=== PATIENT | male | born 1960 | race Caucasian/White ===

== ENCOUNTER → 2016-11-06 | Outpatient (CLI) | payer OTHER ==
--- NOTE | 2016-11-06 14:30 | XR ---
EXAMINATION TYPE: XR shoulder complete RT DATE OF EXAM: 11/06/2016 CLINICAL HISTORY: Lifting injury with pain. TECHNIQUE: Three views of the right shoulder are obtained. COMPARISON: None. FINDINGS: There is no acute fracture/dislocation evident in the right shoulder. The acromioclavicul ar and glenohumeral joint spaces appear within normal limits. The visualized ribs are intact and unr emarkable. IMPRESSION: There is no acute fracture or dislocation in the right shoulder.
--- NOTE | 2016-11-06 14:32 | XR ---
EXAMINATION TYPE: XR cervical spine comp DATE OF EXAM: 11/06/2016 TECHNIQUE: Frontal, lateral, oblique, swimmers, and open mouth view of the cervical spine are obtaine d. HISTORY: S13.4XXA cervical strain COMPARISON: None FINDINGS: The cervical spine is visualized in its entirety from C1 thru the top of T1 level, it is s atisfactory in alignment without evidence of acute fracture or dislocation. The pre-vertebral soft t issue appears within normal limits. The C1-C2 articulation is within normal limits on the open mouth view. Vertebral body heights are maintained. There is mild disc space narrowing C5-C6 level. There is more moderate disc space narrowing C6-C7 level. No significant spurring is seen. The oblique images are wi thin normal limits. Overlying soft tissue is unremarkable. IMPRESSION: No acute fracture or dislocation is seen in the cervical spine. Degenerative changes C5- C6 and C6-C7 level are appreciated.
== END ==
LOC: RADXRMAIN 14:05
PROVIDERS: ATTEND Emergency Medicine
DX: M47.812 Spondylosis without myelopathy or radiculopathy, cervical region (principal); M25.511 Pain in right shoulder
CPT/HCPCS: 72050

== ENCOUNTER → 2017-04-08 | Outpatient (CLI) | payer MEDICAID ==
[2017-04-08 10:46] LABS: HCT 40.2 % (39.0-53.0); HGB 13.9 gm/dL (13.0-17.5); MCH 30.6 pg (25.0-35.0); MCHC 34.6 g/dL (31.0-37.0); MCV 88.4 fL (80.0-100.0); Mean Platelet Volume 9.6; RBC 4.54 m/uL (4.30-5.90); WBC 3.5 k/uL (3.8-10.6)
[2017-04-08 10:59] LABS: ALT 34 U/L (21-72); AST 23 U/L (17-59); Anion Gap 12 mmol/L; Blood Urea Nitrogen 22 mg/dL (9-20); Calcium 10.2 mg/dL (8.4-10.2); Carbon Dioxide 25 mmol/L (22-30); Chloride 106 mmol/L (98-107); Glucose 110 mg/dL (74-99); Potassium 4.4 mmol/L (3.5-5.1); Sodium 143 mmol/L (137-145)
[2017-04-08 11:21] LABS: Prostate Specific Antigen 0.33 ng/mL (0.00-4.00)
[2017-04-11 21:45] LABS: Testosterone, Free, LC/MS/MS 6.3 pg/mL (46.0-224.0)
== END | disposition home or self-care (01) ==
LOC: LABWHC1 10:09
PROVIDERS: ATTEND Family Medicine
DX: Z00.01 Encounter for general adult medical examination with abnormal findings (principal)
CPT/HCPCS: 36415; 80048; 82040; 84153; 84270; 84403; 84450; 84460; 85027

== ENCOUNTER → 2019-03-23 | Outpatient (CLI) | payer OTHER | END | disposition home or self-care (01) | LOC: LABPAT 11:37 | PROVIDERS: ATTEND Orthopaedic Surgery | DX: Z01.812 Encounter for preprocedural laboratory examination (principal) | CPT/HCPCS: 87070 ==

== ENCOUNTER 2019-03-29 10:28 | Observation (INO) | payer MEDICAID, OTHER ==
[2019-03-23 10:18] VITALS: BMI 46.1
--- NOTE | 2019-03-28 11:38 | HP ---
HISTORY AND PHYSICAL REASON FOR ADMISSION: Surgery scheduled for 03/29/2019 HISTORY OF PRESENT ILLNESS: Dion Mcghee is a 58-year-old patient seen with symptomatic left knee osteoarthritis. Treatment options were discussed with him. He elected to proceed with left total knee arthroplasty. Consent was obtained. Medical clearance provided by Dr. Eddy Hernandez. PAST MEDICAL HISTORY: Asthma. PAST SURGICAL HISTORY: Right total knee arthroplasty, left shoulder rotator cuff repair. MEDICATIONS: Advair, ProAir, Singulair. ALLERGIES: BACTRIM AND IODINE DYE. SOCIAL HISTORY: Denies tobacco use. PHYSICAL EXAMINATION: Evaluation of the left knee: His range of motion is -2 to 115. There is mild to moderate effusion present. He has tenderness along the medial joint line. Crepitus along the medial patellofemoral compartments with range of motion. There is pain with patellofemoral compression. Ligaments are stable. Hip rotation is without pain. His distal neurovascular exam is intact. RADIOGRAPHS: Left knee radiographs reveal severe osteoarthritic changes. IMPRESSION: 1. Left knee osteoarthritis. 2. Asthma. PLAN: Left total knee arthroplasty. Surgery scheduled for 03/29/2019. MMODL / IJN: [id number] /
[~2019-03-29 10:28] MED LIST: ACETAMINOPHEN TAB 500 MG TAB PO ONE; DEXAMETHASONE SOD PHOSPHATE 10 MG/ML 1 ML VIAL IV ONE; LIDOCAINE 1% 20 ML VIAL (10MG/ML) FOR IV START INTRADERMA PRN; MELOXICAM 7.5 MG TAB PO ONE; MIDAZOLAM 2 MG/2 ML VIAL IV PRN; ONDANSETRON 4 MG/2 ML VIAL IVP ONE; TRANEXAMIC ACID 1,000 MG in SODIUM CHLORIDE 0.9% 100 ML IVPB ONE; ceFAZolin 3 GM in SODIUM CHLORIDE 0.9% 100 ML IVPB ONE; fentaNYL (PF) 50 MCG/ML 2 ML AMP IV PRN
[2019-03-29] MEDS: LACTATED RINGERS 1,000 ML IV SCH ×4 (11:06→23:36)
[2019-03-29] MEDS ORDERED: MIDAZOLAM 2 MG/2 ML VIAL IV ONE (11:45)
[2019-03-29 11:46] LABS: HGB 15.1 gm/dL (13.0-17.5); MCH 30.3 pg (25.0-35.0); MCHC 33.7 g/dL (31.0-37.0); MCV 90.1 fL (80.0-100.0); Platelet Count 229 k/uL (150-450); WBC 6.5 k/uL (3.8-10.6)
[2019-03-29] MEDS ORDERED: PROPOFOL 10 MG/ML 20 ML VIAL IV ONE (12:09)
[2019-03-29] MEDS ORDERED: MIDAZOLAM 2 MG/2 ML VIAL ONE (12:09)
[2019-03-29] MEDS ORDERED: diphenhydrAMINE 50 MG/ML 1 ML VIAL ONE (12:09)
[2019-03-29] MEDS ORDERED: fentaNYL (PF) 50 MCG/ML 2 ML AMP ONE (12:09)
[2019-03-29] MEDS ORDERED: ceFAZolin 3,000 MG in SODIUM CHLORIDE 0.9% IRRIGATIO 3,000 ML IRRIGATION ONE (12:15)
[2019-03-29] MEDS: ROPIVACAINE 246.25 MG, EPINEPHrine 0.5 MG, KETOROLAC 30 MG, cloNIDine HCL/PF 80 MCG, WA... MISCELLANE ONE ×10 (12:46→13:31)
[2019-03-29] MEDS ORDERED: HYDROmorphone 0.5 MG/0.5 ML SYRINGE IVP PRN ×2 (14:26)
[2019-03-29] MEDS ORDERED: ONDANSETRON 4 MG/2 ML VIAL IVP PRN (14:26)
[2019-03-29] MEDS ORDERED: NALOXONE 0.4 MG/ML 1 ML VIAL IV PRN (14:26)
[2019-03-29] MEDS ORDERED: HYDROcodone/APAP 5-325MG 1 EACH TAB PO PRN (14:26)
--- NOTE | 2019-03-29 14:26 | P.OP ---
Date of Procedure: 03/29/19 Preoperative Diagnosis: Left knee osteoarthritis Postoperative Diagnosis: Left knee osteoarthritis Procedure(s) Performed: Left total knee arthroplasty Implants: 1. Microport size 7 left cemented femur 2. Microport size 8 cemented tibial baseplate 3. Microport size 8 CS 14 mm polyethylene tibial insert 4. Microport advance 38 mm all polyethylene cemented patella Anesthesia: local, spinal Surgeon: Mat Escobar Sort Supervisor #1: López Rivera Estimated Blood Loss (ml): 50 Pathology: other (Bone) Condition: stable Disposition: PACU Indications for Procedure: 58-year-old patient seen with symptomatic left knee osteoarthritis. After treatment options were discussed, he elected to proceed with total knee arthroplasty. Operative Findings: See description of procedure Description of Procedure: Patient was taken to the operative suite. Patient underwent a spinal anesthetic by the department of anesthesia. Patient was given preoperative IV intake antibiotics and TXA. A well-padded tourniquet was placed about the [] lower extremity. The lower extremity was then prepped and draped in the normal sterile orthopedic fashion. The extremity was elevated, a tourniquet was insufflated to 300. A standard anterior incision was made sharply through skin. Dissection was taken down through the subcutaneous soft tissues down to the extensor mechanism. A medial arthrotomy was performed, patella was everted and knee was flexed. There was advanced osteoarthritis noted. I introduced my distal intramedullary femoral drill. I then introduced the distal femoral cutting jig. Memo PENA secured the cutting jig with 2 pins. I held retractors in position while Memo PENA performed the distal femoral resection through the guide area we now removed her distal femoral cutting guide. We now placed our 4-in-1 femoral cutting block and positioned and it was secured with 2 pins by Memo PENA while I held the block in position. The distal femoral finishing was now completed. A proximal tibial cutting guide was positioned. I held the guide in the appropriate position with both hands well Memo PENA inserted stabilizing pins into the guide. Proximal tibial cut was made. We now placed a trial femoral component into position, along with an appropriate size tibial tray and insert. We now took the knee through range of motion and had full extension good flexion and good overall soft tissue balance noted. The patella was everted and stabilized with 2 towel clips held by Memo PENA while I performed a flush with patellar quad tendon utilizing a fresh sawblade. We templated the patella, appropriate drill holes were made. An appropriate trial patella was positioned, knee was taken through full range of motion with the patella tracking very nicely. The trial patella was removed. Drill holes were made through the femoral component. All trial components were removed after marking off the appropriate rotation of the tibia. Retractors were now positioned along the proximal tibia. An appropriate keel punch was made with the appropriate size tibial guide by myself on Memo PENA assisted by holding retractors. At this point appropriate size implants were chosen and opened. The joint was irrigated copiously with pulse lavage mechanical irrigation. The posterior capsule was infiltrated with local analgesic. The wo und was irrigated with pulse lavage mechanical irrigation. We mixed antibiotic methylmethacrylate. We placed the knee into flexion. We placed multiple retractors assisted by Memo PENA to expose the proximal tibia. Once the methyl methacrylate was ready, the tibial component was cemented into place removing any excess methylmethacrylate form by both myself and Memo PENA. The femoral component was cemented into place removing the removing any excess methylmethacrylate performed by both myself and Memo PENA. We then inserted the appropriate size polyethylene tibial insert. We made sure that it was locked into position. We took the knee into full extension, and then back in a flexion making sure we had removed any excess methylmethacrylate. The patellar component was then cemented down and secured with clamp. Excess methylmethacrylate removed. We kept the knee in full extension, patellar clamp in position until methylmethacrylate had hardened. Once it had hardened the patellar clamp was removed. The knee was taken through full range of motion. The patella tracked nicely. There was good soft tissue balancing. The tourniquet was now released. Additional hemostasis was achieved via electrocautery. A second gram of TXA was given. The wound again was irrigated with pulse lavage mechanical irrigation. The superficial soft tissues were infiltrated local analgesic. The extensor mechanism was repaired with Vicryl. We checked the repair with range of motion and it was stable. The subcutaneous soft tissues were repaired with Vicryl in layers. The skin was approximated with pernio/Dermabond. Sterile dressings were applied followed by loose web roll and Wilfrid bandage. The patient was transferred to a bed, and taken to recovery in stable and satisfactory condition. Memo PENA assisted with this complex procedure.
[2019-03-29] MEDS ORDERED: LACTATED RINGERS 1,000 ML IV ONE (14:35)
--- NOTE | 2019-03-29 15:18 | XR ---
EXAMINATION TYPE: XR knee limited LT DATE OF EXAM: 03/29/2019 COMPARISON: 01/08/2018 TECHNIQUE: Two views submitted HISTORY: Post op FINDINGS: There is a prosthetic knee in near anatomic alignment. There is soft tissue edema and emphysema. IMPRESSION: 1. Postoperative change. Appears in near-anatomic alignment
[2019-03-29] MEDS: HYDROcodone/APAP 7.5-325MG 1 EACH TAB PO PRN ×2 (17:13→23:37)
[2019-03-29] MEDS: HYDROmorphone 1 MG/ML 1 ML SYRINGE IVP PRN ×2 (17:58→21:12)
[2019-03-29] MEDS: ceFAZolin 3 GM in SODIUM CHLORIDE 0.9% 100 ML IVPB SCH (20:24)
[2019-03-29] MEDS ORDERED: SENNOSIDES-DOCUSATE SODIUM 1 EACH TAB PO SCH (21:00)
[2019-03-29] MEDS ORDERED: MONTELUKAST 10 MG TAB PO SCH (21:00)
[2019-03-30] MEDS: HYDROmorphone 1 MG/ML 1 ML SYRINGE IVP PRN ×3 (01:04→09:24)
[2019-03-30] MEDS: ceFAZolin 3 GM in SODIUM CHLORIDE 0.9% 100 ML IVPB SCH (03:23)
[2019-03-30] MEDS ORDERED: ENOXAPARIN 30 MG/0.3 ML SYRINGE SQ SCH (06:00)
[2019-03-30] MEDS: LACTATED RINGERS 1,000 ML IV SCH (06:40)
[2019-03-30 07:47] LABS: Basophils % (A) 0 %; Eosinophils % (A) 0 %; HCT 39.9 % (39.0-53.0); HGB 12.9 gm/dL (13.0-17.5); Lymphocytes # (A) 1.4 k/uL (1.0-4.8); Lymphocytes % (A) 11 %; MCH 29.6 pg (25.0-35.0); MCHC 32.3 g/dL (31.0-37.0); MCV 91.5 fL (80.0-100.0); Mean Platelet Volume 10.4; Monocytes # (A) 0.7 k/uL (0-1.0); Monocytes % (A) 6 %; Neutrophils # (A) 10.3 k/uL (1.3-7.7); Neutrophils % (A) 82 %; RBC 4.36 m/uL (4.30-5.90); RDW 13.2 % (11.5-15.5); WBC 12.6 k/uL (3.8-10.6)
[2019-03-30] MEDS ORDERED: SYMBICORT 80-4.5 MCG INHALER INHALATION SCH (08:00)
[2019-03-30 08:25] VITALS: BP 102/65; PULSE 66; RESP 16; TEMP 98
[2019-03-30] MEDS: HYDROcodone/APAP 7.5-325MG 1 EACH TAB PO PRN (08:25)
[2019-03-30] MEDS ORDERED: ESCITALOPRAM 10 MG TAB PO SCH (09:00)
[2019-03-30] MEDS ORDERED: LORATADINE-PSEUDOEPH 5-120 MG 1 EACH TAB.ER.12H PO SCH (09:00)
[2019-03-30] MEDS ORDERED: HYDROcodone/APAP 7.5-325MG 1 EACH TAB PO PRN (09:56)
--- NOTE | 2019-03-30 12:17 | P.PN ---
Subjective Progress Note Date: 03/30/19 Principal diagnosis: Status post left total knee arthroplasty Patient evaluated at bedside, he is resting comfortably. Patient has no acute complaints at this time. He's done well with physical therapy, he started on stairs. Denies any chest pain, shortness of breath, fever or chills. Objective - Vital Signs Vital signs: Vital Signs Temp 98 F 03/30/19 07:00 Pulse 66 03/30/19 07:00 Resp 16 03/30/19 07:00 BP 102/65 03/30/19 07:00 Pulse Ox 96 03/30/19 07:00 Intake & Output 03/29/19 03/30/19 03/30/19 18:59 06:59 18:59 Intake Total 1601 Output Total 50 1650 Balance 1551 -1650 Weight 159 kg Intake: IV 1601 Output: Urine 1650 Estimated Blood Loss 50 Other: Voiding Method Urinal # Voids 1 1 - Exam Left lower extremity: Incision is clean, dry, and intact. The exofin fusion tape is in good condition. There is minimal soft tissue swelling and ecchymosis surrounding the medial and lateral aspects of the incision. Calf is soft, no tenderness with palpation. Plantar flexion, dorsiflexion, EHL, FHL are intact. Sensory exam to light touch throughout the extremity is intact, dorsal pedis pulses 2+. - Labs CBC & Chem 7: 03/30/19 06:34 Labs: Abnormal Lab Results - Last 24 Hours (Table) 03/30/19 Range/Units 06:34 WBC 12.6 H (3.8-10.6) k/uL Hgb 12.9 L (13.0-17.5) gm/dL Neutrophils # 10.3 H (1.3-7.7) k/uL Assessment and Plan Plan: Assessment: Post op day #1 s/p left tka Plan: Pain control, [place] 7.5mg/325mg for discharge GI/DVT prophylaxis, aspirin 81 mg twice a day discharge Wound care instructions discussed Icing and elevating techniques discussed Physical therapy and nursing after discharge Medical recommendations Plan for discharge home today Time with Patient: Less than 30
--- NOTE | 2019-03-30 12:20 | P.DS ---
Providers Date of admission: 03/30/19 03:25 Expected date of discharge: 03/30/19 Attending physician: Mat Escobar Consults: 03/29/19 14:26 Consult Physician Routine Consulting Provider: Afshan Rankin Consult Reason/Comments: Medical management Do you want consulting provider notified?: Yes Primary care physician: [facility] Course: Date of admission: 03/29/2019 Date of discharge: 03/30/2019 Admission diagnosis: Status post left total knee arthroplasty Discharge diagnosis: Same Attending physician: Dr. Escobar Surgical procedures: Left total knee arthroplasty Brief history: Patient is a 58-year-old male with a history of progressive primary left knee osteoarthritis. At this point patient has failed conservative treatment measures and has opted to proceed with a elective left total knee arthroplasty. Hospital course: Details of patient's surgery can be found in operative report. Patient tolerated the procedure well and was subsequently transported to orthopedic floor. Patient's orthopeidc and medical care was provided daily. Patient had daily laboratory tests performed for evaluation of overall blood counts. Patient had daily physical therapy to include strengthening range of motion as well as education with walker ambulation. Patient had daily CPM usage as part of their physical therapy program. Patient was treated with Lovenox for their postoperative DVT prophylaxis during their inpatient stay. Patient was noted to have a relatively uneventful postoperative course. Patient reported satisfactory pain control with oral pain medications by postoperative day 0. Patient showed satisfactory progress with physical therapy. Patient moved steadily through the program and had no difficulty meeting the goals by postoperative day 1. Given patient's otherwise satisfactory course and having met physical therapy goals, plan is to discharge patient home on postoperative day 1. Discharge condition/disposition: Patient will be discharged home in stable condition. Discharge medications: Instructions are given on resumption of patient's normal daily medications per primary care recommendation, in addition patient will be prescribed [place] 7.5 mg/325 mg, aspirin 81 mg. Discharge instructions: 1. Wound care and infection precautions, keep incision dry and covered while showering, no lotions, creams, moisturizers. No soaking, tubs, pools, hottubs. Do not scrub over the incision. 2. Weight-bear as tolerated with walker / cane until follow-up. 3. Ice and elevate when necessary. Do not exceed 20 minutes per hour with ice pack. 4. Utilize compression sleeve until seen at first follow up appointment. 5. Visiting nursing care. 6. Home physical therapy including home CPM. 7. Pain meds and anticoagulants per prescription. 8. Pain medication has potential to cause constipation. Increase oral fluid and fiber intake. Contact primary care provider if you have not had a bowel movement within 48 hours after discharge 9. No anti-inflammatory medication until discussed at first post operative visit, this including Motrin, Aleve, Mobic, Diclofenac. 10. Follow up in office at 2 weeks postop with Memo Rivera PA-C 11. Follow up with your primary care doctor 7-10 days after discharge. 12. Contact [facility] with any questions, . Procedures: Left total knee arthroplasty Patient Condition at Discharge: Good Plan - Discharge Summary Discharge Rx Participant: Yes New Discharge Prescriptions: New Aspirin [Adult Low Dose Aspirin EC] 81 mg PO BID #60 tablet. HYDROcodone/APAP 7.5-325MG [[place] 7.5] 1 - 2 each PO Q6HR PRN #56 tab PRN Reason: Pain No Action Albuterol Nebulized [Ventolin Nebulized] 2.5 mg INHALATION RT-QID PRN PRN Reason: Shortness Of Breath Fluticasone/Salmeterol [Advair 250-50 Diskus] 2 puff INHALATION BID Albuterol Sulfate [Proair Hfa] 2 puff INHALATION Q4HR PRN PRN Reason: Shortness Of Breath EPINEPHrine (Auto Inject) [Epipen] 0.3 mg IM ONCE PRN PRN Reason: Anaphylaxis Loratadine-Pseudoeph 10-240 mg [Claritin-D 24 Hr] 1 tab PO DAILY Fluticasone Nasal [place] [Flonase Nasal [place]] 1 spray EA NOSTRIL DAILY PRN PRN Reason: Allergy Symptoms Naproxen 500 mg PO BID PRN PRN Reason: Pain Ibuprofen [Motrin] 800 mg PO Q8H PRN PRN Reason: Pain Montelukast [Singulair] 10 mg PO HS Furosemide [Lasix] 10 mg PO DAILY PRN PRN Reason: Edema Escitalopram Oxalate [Lexapro] 10 mg PO DAILY Discharge Medication List Albuterol Nebulized [Ventolin Nebulized] 2.5 mg INHALATION RT-QID PRN 07/10/13 [History] Albuterol Sulfate [Proair Hfa] 2 puff INHALATION Q4HR PRN 07/10/13 [History] Fluticasone/Salmeterol [Advair 250-50 Diskus] 2 puff INHALATION BID 07/10/13 [History] EPINEPHrine (Auto Inject) [Epipen] 0.3 mg IM ONCE PRN 07/17/14 [History] Fluticasone Nasal [place] [Flonase Nasal [place]] 1 spray EA NOSTRIL DAILY PRN 07/17/14 [History] Loratadine-Pseudoeph 10-240 mg [Claritin-D 24 Hr] 1 tab PO DAILY 07/17/14 [History] Escitalopram Oxalate [Lexapro] 10 mg PO DAILY 03/23/19 [History] Furosemide [Lasix] 10 mg PO DAILY PRN 03/23/19 [History] Ibuprofen [Motrin] 800 mg PO Q8H PRN 03/23/19 [History] Montelukast [Singulair] 10 mg PO HS 03/23/19 [History] Naproxen 500 mg PO BID PRN 03/23/19 [History] Aspirin [Adult Low Dose Aspirin EC] 81 mg PO BID #60 tablet. 03/30/19 [Rx] HYDROcodone/APAP 7.5-325MG [[place] 7.5] 1 - 2 each PO Q6HR PRN #56 tab 03/30/19 [Rx] Follow up Appointment(s)/Referral(s): [facility], [REFERRING] - López Rivera, PAC [PHYSICIAN [employer] SUPERINTENDENT] - 2 Weeks Activity/Diet/Wound Care/Special Instructions: *Please call [facility] once home to arrange delivery of continuous passive motion (CPM) machine: [phone] Orthopedic Discharge Instructions: 1. Wound care and infection precautions, keep incision dry and covered while showering, no lotions, creams, moisturizers. No soaking, pools, hot tubs. Do not scrub over incision. 2. Weight-bear as tolerated with walker / cane until follow-up. 3. Ice and elevate when necessary. Do not exceed 20 minutes per hour with ice pack. 4. Utilize compression sleeve until seen at first follow up appointment. 5. Pain meds and anticoagulants per prescription. 6. Pain medication has potential to cause constipation. Increase oral fluid and fiber intake. Contact primary care provider if you have not had a bowel movement within 48 hours after discharge. 7. No anti-inflammatory medication until discussed at first post operative visit, this including Motrin, Aleve, Mobic, Diclofenac. 8. Follow up in office at 2 weeks postop with Memo Rivera PA-C 9. Follow up with your primary care doctor 7-10 days after discharge. 10. Contact [facility] with any questions, . Discharge Disposition: HOME WITH HOME HEALTH SERVICES
--- NOTE | 2019-03-31 06:28 | CONS ---
CONSULTATION REASON FOR CONSULTATION: Advice regarding asthma, DJD and other medical issues requested by Dr. Escobar. HISTORY OF PRESENT ILLNESS: This 58-year-old gentleman with a past medical history of asthma, history of DJD, history of Klinefelter syndrome, history of depression being followed by Dr. Hernandez in the outpatient setting admitted with left total knee arthroplasty. The patient is being closely monitored. There is no history of fever, rigors. No history of headache, loss of consciousness, chest pain, palpitations, hematochezia or melena at this time. PAST MEDICAL HISTORY: Asthma, DJD, history of Klinefelter syndrome, history of renal carcinoma with surgery, history of joint replacement. MEDICATIONS: Home medications are reviewed and include: 1. Lexapro 10 mg p.o. daily. 2. Naprosyn 500 mg b.i.d. p.r.n. 3. Singulair 10 mg at bedtime. 4. Claritin-D 1 p.o. daily. 5. Motrin 800 mg p.o. q.8 p.r.n. 6. Lasix 10 mg daily p.r.n. 7. Advair 250/50 two 2 puffs b.i.d. 8. Flonase daily p.r.n. 9. EpiPen 0.3 p.r.n. 10.ProAir. 11.Ventolin 2.5 q.i.d. p.r.n. 12.[place] 7.5 one to two q.6 p.r.n. 13.Aspirin 81 mg p.o. b.i.d. ALLERGIES: IODINATED CONTRAST, SHELLFISH and BACTRIM. FAMILY HISTORY: History of colon cancer in the family. SOCIAL HISTORY: No history of smoking. No history of alcohol intake. REVIEW OF SYSTEMS: ENT: No diminished hearing or diminished vision. CARDIOVASCULAR SYSTEM: No angina. RESPIRATORY SYSTEM: As mentioned earlier. GI: No nausea. : No dysuria. NERVOUS SYSTEM: No numbness or weakness. ALLERGY/IMMUNOLOGY: As mentioned earlier. MUSCULOSKELETAL: As mentioned earlier. HEMATOLOGY: No history of anemia. ENDOCRINE: No history of diabetes or hypothyroidism. CONSTITUTIONAL: As mentioned earlier. DERMATOLOGY: Negative. RHEUMATOLOGY: Negative. PSYCHIATRY: As mentioned earlier. PHYSICAL EXAMINATION: The patient is alert and oriented x3. The pulse is 66, blood pressure 102/65, respirations 16, temperature 98 degrees, pulse ox 96% on room air. HEENT: Conjunctivae normal. NECK: No jugular venous distention. CARDIOVASCULAR: S1, S2 muffled. RESPIRATORY: Breath sounds diminished at the bases. No rhonchi, no crackles. ABDOMEN: Soft, nontender. No mass palpable. LEGS: Status post left knee arthroplasty. NERVOUS SYSTEM: Higher functions as mentioned. Moves all 4 limbs. No focal motor or sensory deficits. LYMPHATICS: No lymphadenopathy of the neck, axillae or groin. SKIN: No ulcer, rash or bleeding. JOINTS: No active deforming arthropathy. EXAMINATION OF LEGS: Status post left knee surgery. LABS: WBC 12.6, hemoglobin 12.9. ASSESSMENT: 1. Status post left knee arthroplasty. 2. History of asthma. 3. History of degenerative joint disease. 4. History of pneumonia. 5. History of Klinefelter syndrome. 6. History of renal carcinoma with surgery. 7. History of degenerative joint disease, back pain. 8. History of cellulitis of the bilateral legs. 9. History of depression. 10.Obesity with body mass index of 46.2. 11.FULL CODE. RECOMMENDATIONS AND DISCUSSION: This 58-year-old gentleman who presented with multiple complex medical issues, will monitor the patient closely. Continue the current medications. I recommend to resume the home medications, DVT prophylaxis, Incentive spirometry. Otherwise, rest of recommendation per orthopedic surgery. Once the patient discharged, I would recommend close followup with Dr. Hernandez after discharge. Thank you Dr. Escobar for letting us participate in the care of this patient. MMODL / IJN: [id number] /
== END 2019-03-30 14:32 | disposition home health service (06) ==
LOC: OR 10:28 → 4SSUR 16:09 → OR 03-30 03:25 → 4SSUR 03-30 03:25
PROVIDERS: ADMIT Orthopaedic Surgery; ATTEND Orthopaedic Surgery
DX: M17.12 Unilateral primary osteoarthritis, left knee (principal); K21.9 Gastro-esophageal reflux disease without esophagitis; J45.909 Unspecified asthma, uncomplicated; D47.3 Essential (hemorrhagic) thrombocythemia; E78.5 Hyperlipidemia, unspecified; F41.9 Anxiety disorder, unspecified; Q98.4 Klinefelter syndrome, unspecified; G89.4 Chronic pain syndrome; M51.36 Other intervertebral disc degeneration, lumbar region; M47.896 Other spondylosis, lumbar region; M25.532 Pain in left wrist; G47.19 Other hypersomnia; F32.9 Major depressive disorder, single episode, unspecified; L81.8 Other specified disorders of pigmentation; E66.01 Morbid (severe) obesity due to excess calories; Z68.42 Body mass index [BMI] 45.0-49.9, adult; Z88.2 Allergy status to sulfonamides; Z91.041 Radiographic dye allergy status; Z91.013 Allergy to seafood; Z79.899 Other long term (current) drug therapy; Z79.891 Long term (current) use of opiate analgesic; Z79.1 Long term (current) use of non-steroidal anti-inflammatories (NSAID); Z79.890 Hormone replacement therapy; Z79.51 Long term (current) use of inhaled steroids; Z85.528 Personal history of other malignant neoplasm of kidney; Z98.890 Other specified postprocedural states; Z87.19 Personal history of other diseases of the digestive system; Z87.81 Personal history of (healed) traumatic fracture; Z86.2 Personal history of diseases of the blood and blood-forming organs and certain disorders involving the immune mechanism; Z96.651 Presence of right artificial knee joint; Z87.01 Personal history of pneumonia (recurrent); Z87.2 Personal history of diseases of the skin and subcutaneous tissue; Z90.5 Acquired absence of kidney; Z80.9 Family history of malignant neoplasm, unspecified; Z82.69 Family history of other diseases of the musculoskeletal system and connective tissue; Z83.3 Family history of diabetes mellitus; Z80.0 Family history of malignant neoplasm of digestive organs
CPT/HCPCS: 27447; 94640; 97161; 85025; 85027; 88300; 73560; G0378; C1776; C1713; J2250; J0171; J1200; J1100; J0690 ×3; J2405; J3010; J1885; J1650; J1170 ×2; J2795; J2704; J0735; 64447; 76942

== ENCOUNTER 2019-04-07 15:44 | Inpatient (IN) | payer OTHER ==
[2019-04-07] MEDS ORDERED: HYDROcodone/APAP 7.5-325MG 1 EACH TAB PO PRN (16:53)
[2019-04-07] MEDS ORDERED: ACETAMINOPHEN TAB 325 MG TAB PO PRN (16:53)
[2019-04-07] MEDS ORDERED: ceFAZolin 3 GM in SODIUM CHLORIDE 0.9% 100 ML IVPB SCH (17:00)
[2019-04-07] MEDS: traMADol 50 MG TAB PO SCH ×2 (17:54→22:36)
[2019-04-07] MEDS: hydrOXYzine PAMOATE 25 MG CAP PO PRN (19:57)
[2019-04-07] MEDS ORDERED: ALBUTEROL INHALER 60 PUFF/8 GM INHALER INHALATION PRN (21:18)
[2019-04-07] MEDS ORDERED: ALBUTEROL NEBULIZED 2.5 MG/3 ML INHALATION PRN (21:18)
--- NOTE | 2019-04-07 21:31 | P.CONS ---
History of Present Illness - Reason for Consult Consult date: 04/07/19 Medical management Requesting physician: Mat Escobar - Chief Complaint Left knee incision redness - History of Present Illness Consultation: This is a pleasant 58-year-old patient of Dr. Hernandez. Chronic stable medical conditions include asthma, Abilio arthritis, Klinefelter syndrome, depression history of renal cancer with right nephrectomy, chronic low back pain at L3-L4 DJD, patient had undergone left total knee arthroplasty on by . Patient was discharged on March 30. Patient has pictures on his cell phone of the incision what it looked like when he left the hospital. He describes as being slightly red and tender. Subsequently 4 days ago he was seen by mid-level provider and because of some drainage and redness of the incision he was started on Keflex. Did not improve too much and because of redness around the area and lower the leg decided to come in. This also had some fever at home. There was slight drainage. Review of systems: GEN.: Fever EYES: None HEENT: None NECK: None RESPIRATORY: None CARDIOVASCULAR: None GASTROINTESTINAL: None GENITOURINARY: None MUSCULOSKELETAL: As above LYMPHATICS: None HEMATOLOGICAL: None PSYCHIATRY: None NEUROLOGICAL: None Past medical history to include: Asthma, osteoarthritis, Klinefelter syndrome, right renal cell cancer with nephrectomy, chronic low back pain at L3-L4 with DJD, depression Social history: , has no smoking or alcohol. Currently unemployed. Previously worked in the [employer]. Also did [employer] Physical examination: VITAL SIGNS: 98.4, 121, 17, 147/97, 95% on room air GENERAL: BMI 46.2, sitting up, awake]. EYES: Pupils equal. Conjunctiva normal. HEENT: External appearance of nose and ears normal, oral cavity grossly normal. NECK: JVD not raised; masses not palpable. HEART: First and second heart sounds are normal; no edema. LUNGS: Respiratory rate normal; slightly decreased breath sounds. ABDOMEN: Soft, nontender, liver spleen not palpable, no masses palpable. PSYCH: Alert and oriented x3; mood and affect normal MUSCULOSKELETAL: Incision over the left knee had localized tender with slight drainage. NEUROLOGICAL: Cranial nerves grossly intact; no facial asymmetry, power and sensation grossly intact. LYMPHATICS: No lymph nodes palpable in the axilla and neck INVESTIGATIONS, reviewed in the clinical context: Labs pending Assessment: -Acute cellulitis of left knee arthroplasty incision site having failed outpatient treatment with Keflex -Primary osteoarthritis -Left total knee arthroplasty on March 29 -Intermittent asthma -Klinefelter syndrome -Chronic low back pain from osteoarthritis of L3-L4 Plan: Patient Ancef will be discontinued. Start on patient on IV vancomycin. Add Lovenox for DVT prophylaxis. Other home medications to be continued. Patient be seen by Dr. argueta from ID. We'll send off wound culture. Care was discussed with the patient question were answered. Thank you Dr. Cheng Past Medical History Past Medical History: Asthma, Cancer, Osteoarthritis (OA), Pneumonia Additional Past Medical History / Comment(s): Klinnefelter Syndrome, HX OF RENAL CA with surgery. chronic back pain (degenerative disk L3 and L4), healed cellulitis bilateral lower legs, hx thrombocytopenia 2009 when tx for kidney cancer. History of Any Multi-Drug Resistant Organisms: None Reported Past Surgical History: Joint Replacement, Orthopedic Surgery Additional Past Surgical History / Comment(s): total R knee arthroplasty. LEFT shoulder rotator cuff tear, 2009 kidney ca removed portion of right kidney, 2011 carpectomy left wrist, TLK Past Anesthesia/Blood Transfusion Reactions: No Reported Reaction Additional Past Anesthesia/Blood Transfusion Reaction / Comm: "incision popped open day of surgery with other knee replacement, ended up staying 5 days with knee immobilized" Past Psychological History: Depression Additional Psychological History / Comment(s): . Smoking Status: Never smoker Past Alcohol Use History: Rare Past Drug Use History: None Reported - Past Family History Father Family Medical History: Cancer Additional Family Medical History / Comment(s): colon Mother Family Medical History: AFIB, Asthma Medications and Allergies Home Medications Medication Instructions Recorded Confirmed Type Albuterol Nebulized [Ventolin 2.5 mg INHALATION RT-QID PRN 07/10/13 04/07/19 History Nebulized] Albuterol Sulfate [Proair Hfa] 2 puff INHALATION RT-QID PRN 07/10/13 04/07/19 History Fluticasone/Salmeterol [Advair 1 puff INHALATION RT-BID 07/10/13 04/07/19 History 250-50 Diskus] EPINEPHrine (Auto Inject) [Epipen] 0.3 mg IM ONCE PRN 07/17/14 04/07/19 History Fluticasone Nasal [place] [Flonase 1 spray EA NOSTRIL DAILY PRN 07/17/14 04/07/19 History Nasal [place]] Loratadine-Pseudoeph 10-240 mg 1 tab PO DAILY 07/17/14 04/07/19 History [Claritin-D 24 Hr] Escitalopram Oxalate [Lexapro] 10 mg PO DAILY 03/23/19 04/07/19 History Furosemide [Lasix] 10 mg PO DAILY PRN 03/23/19 04/07/19 History Montelukast [Singulair] 10 mg PO HS 03/23/19 04/07/19 History Aspirin [Adult Low Dose Aspirin EC] 81 mg PO BID #60 tablet. 03/30/19 04/07/19 Rx Cephalexin [Keflex] 500 mg PO QID 04/07/19 04/07/19 History HYDROcodone/APAP 7.5-325MG [[place] 1 tab PO Q6H PRN 04/07/19 04/07/19 History 7.5] Testosterone Cypionate 200 mg IM Q21D 04/07/19 04/07/19 History [Depo-Testosterone] hydrOXYzine PAMOATE [Vistaril] 25 mg PO Q6HR PRN 04/07/19 04/07/19 History traMADol HCL [Ultram] 50 mg PO Q6HR PRN 04/07/19 04/07/19 History Allergies Allergy/AdvReac Type Severity Reaction Status Date / Time Iodinated Contrast Media Allergy Severe Anaphylaxis Verified 04/07/19 16:52 [Iodinated Contrast Media - IV Dye] shellfish derived Allergy Severe Anaphylaxis Verified 04/07/19 16:52 sulfamethoxazole Allergy Severe Anaphylaxis Verified 04/07/19 16:52 [From Bactrim] trimethoprim [From Bactrim] Allergy Severe Anaphylaxis Verified 04/07/19 16:52 Physical Exam Vitals: Vital Signs Temp Pulse Resp BP Pulse Ox 04/07/19 19:00 99.5 F 115 H 16 126/82 92 L 04/07/19 16:16 98.4 F 121 H 17 147/97 95 Intake and Output 04/07/19 04/07/19 04/07/19 06:59 14:59 22:59 Other: Weight 158.757 kg
[2019-04-07] MEDS ORDERED: VANCOMYCIN IV PER PHARMACY 1 EACH MISC MISCELLANE PRN (21:32)
[2019-04-07] MEDS ORDERED: VANCOMYCIN 2,250 MG in SODIUM CHLORIDE 0.9% 500 ML 500 ML IVPB STA (21:35)
[2019-04-07] MEDS: SYMBICORT 80-4.5 MCG INHALER INHALATION SCH (21:53)
[2019-04-07 22:02] LABS: HCT 36.3 % (39.0-53.0); HGB 12.1 gm/dL (13.0-17.5); MCH 30.1 pg (25.0-35.0); MCHC 33.2 g/dL (31.0-37.0); MCV 90.6 fL (80.0-100.0); Mean Platelet Volume 10.3; Platelet Count 180 k/uL (150-450); RBC 4.01 m/uL (4.30-5.90); RDW 13.2 % (11.5-15.5); WBC 10.1 k/uL (3.8-10.6)
[2019-04-07 22:19] LABS: Calcium 9.9 mg/dL (8.4-10.2); Potassium 4.2 mmol/L (3.5-5.1)
[2019-04-07] MEDS: MONTELUKAST 10 MG TAB PO SCH (22:36)
[2019-04-07] MEDS: ENOXAPARIN 40 MG/0.4 ML SYRINGE SQ SCH (22:36)
[2019-04-07] MEDS: NAPROXEN 250 MG TAB PO SCH (22:37)
[2019-04-07 23:39] LABS: Erythrocyte Sedimentation Rate 76 mm/hr (0-15)
[2019-04-08] MEDS: HYDROcodone/APAP 7.5-325MG 1 EACH TAB PO PRN ×4 (02:42→20:39)
[2019-04-08] MEDS: hydrOXYzine PAMOATE 25 MG CAP PO PRN ×3 (02:43→14:12)
--- NOTE | 2019-04-08 08:12 | P.HPOR ---
History of Present Illness H&P Date: 04/07/19 Chief Complaint: Left lower extremity cellulitis, history of recent left tka Patient is a 58-year-old male who was directly admitted to [facility] on 04/07/2019 for a left lower extremity cellulitis. Patient recently underwent a left total knee arthroplasty by Dr. Escobar on 03/29/2019. Patient was evaluated in the outpatient setting last week due to blistering surrounding the incision over the left knee. The blisters were expressed in office under sterile technique, wound care instructions were discussed this to include antibiotic ointment. He is also prescribed oral Keflex prophylactic treatment, there are no signs of an infection involving the left knee or cellulitis at that time. Patient reported to the office on 04/07/2019 for recheck. On exam, the blistering has significantly improved, there were areas of scabbing present. There was notable erythema involving the very distal end of the incision and lower anterior leg. It was very warm to touch and also tender. Edema was also present in the lower extremity exam. When discussing this current problem patient and his , he admits to having previous medications as cellulitis in the bilateral lower extremities. He states that he has been hospitalized prior and had utilized IV antibiotics for this problem. Due to the history of recent total knee arthroplasty and current symptoms, we recommended direct admission for the left lower extremity cellulitis with plan for IV antibiotics and consults for infectious disease and internal medicine. Review of Systems Constitutional: Reports as per HPI Past Medical History Past Medical History: Asthma, Cancer, Osteoarthritis (OA), Pneumonia Additional Past Medical History / Comment(s): Klinnefelter Syndrome, HX OF RENAL CA with surgery. chronic back pain (degenerative disk L3 and L4), healed cellulitis bilateral lower legs, hx thrombocytopenia 2009 when tx for kidney cancer. History of Any Multi-Drug Resistant Organisms: None Reported Past Surgical History: Joint Replacement, Orthopedic Surgery Additional Past Surgical History / Comment(s): total R knee arthroplasty. LEFT shoulder rotator cuff tear, 2009 kidney ca removed portion of right kidney, 2011 carpectomy left wrist, TLK Past Anesthesia/Blood Transfusion Reactions: No Reported Reaction Additional Past Anesthesia/Blood Transfusion Reaction / Comment(s): "incision popped open day of surgery with other knee replacement, ended up staying 5 days with knee immobilized" Past Psychological History: Depression Additional Psychological History / Comment(s): . Smoking Status: Never smoker Past Alcohol Use History: Rare Past Drug Use History: None Reported - Past Family History Father Family Medical History: Cancer Additional Family Medical History / Comment(s): colon Mother Family Medical History: AFIB, Asthma Medications and Allergies Home Medications Medication Instructions Recorded Confirmed Type Albuterol Nebulized [Ventolin 2.5 mg INHALATION RT-QID PRN 07/10/13 04/07/19 History Nebulized] Albuterol Sulfate [Proair Hfa] 2 puff INHALATION RT-QID PRN 07/10/13 04/07/19 History Fluticasone/Salmeterol [Advair 1 puff INHALATION RT-BID 07/10/13 04/07/19 History 250-50 Diskus] EPINEPHrine (Auto Inject) [Epipen] 0.3 mg IM ONCE PRN 07/17/14 04/07/19 History Fluticasone Nasal [place] [Flonase 1 spray EA NOSTRIL DAILY PRN 07/17/14 04/07/19 History Nasal [place]] Loratadine-Pseudoeph 10-240 mg 1 tab PO DAILY 07/17/14 04/07/19 History [Claritin-D 24 Hr] Escitalopram Oxalate [Lexapro] 10 mg PO DAILY 03/23/19 04/07/19 History Furosemide [Lasix] 10 mg PO DAILY PRN 03/23/19 04/07/19 History Montelukast [Singulair] 10 mg PO HS 03/23/19 04/07/19 History Aspirin [Adult Low Dose Aspirin EC] 81 mg PO BID #60 tablet. 03/30/19 04/07/19 Rx Cephalexin [Keflex] 500 mg PO QID 04/07/19 04/07/19 History HYDROcodone/APAP 7.5-325MG [[place] 1 tab PO Q6H PRN 04/07/19 04/07/19 History 7.5] Testosterone Cypionate 200 mg IM Q21D 04/07/19 04/07/19 History [Depo-Testosterone] hydrOXYzine PAMOATE [Vistaril] 25 mg PO Q6HR PRN 04/07/19 04/07/19 History traMADol HCL [Ultram] 50 mg PO Q6HR PRN 04/07/19 04/07/19 History Allergies Allergy/AdvReac Type Severity Reaction Status Date / Time Iodinated Contrast Media Allergy Severe Anaphylaxis Verified 04/07/19 16:52 [Iodinated Contrast Media - IV Dye] shellfish derived Allergy Severe Anaphylaxis Verified 04/07/19 16:52 sulfamethoxazole Allergy Severe Anaphylaxis Verified 04/07/19 16:52 [From Bactrim] trimethoprim [From Bactrim] Allergy Severe Anaphylaxis Verified 04/07/19 16:52 Physical Examination Left lower extremity: Multiple healing blisters present throughout the extremity, all near the incision The exofin tape that was placed during surgery still in place There is no obvious drainage present on exam Erythema is noted around the distal incision tracking down the anterior leg to about the ankle 2+ pitting edema is present Active and passive range of motion of the knee reproduced no discomfort Assessment left, no tenderness with palpation Distal neurovascular exam is intact Results - Labs Labs: Abnormal Lab Results - Last 24 Hours (Table) 04/07/19 04/07/19 Range/Units 21:45 21:45 RBC 4.01 L (4.30-5.90) m/uL Hgb 12.1 L (13.0-17.5) gm/dL Hct 36.3 L (39.0-53.0) % ESR 76 H (0-15) mm/hr Sodium 135 L (137-145) mmol/L Chloride 96 L (98-107) mmol/L Glucose 110 H (74-99) mg/dL H & H 04/07/19 Range/Units 21:45 Hgb 12.1 L (13.0-17.5) gm/dL Hct 36.3 L (39.0-53.0) % Result Diagrams: 04/07/19 21:45 04/07/19 21:45 Assessment and Plan Assessment: Left lower extremity cellulitis Healing left lower extremity blisters History of recent left total knee arthroplasty Other medical comorbidities Plan: Patient was admitted to [facility] for IV antibiotic treatment and internal medicine and infectious disease consults Weight-bear as tolerated with walker Pain control, continue oral medications GI and DVT prophylaxis, internal medicine has placed patient on subcu medication Icing and elevating often We will continue to follow the patient during inpatient stay
[2019-04-08] MEDS: SYMBICORT 80-4.5 MCG INHALER INHALATION SCH ×2 (08:21→20:19)
[2019-04-08] MEDS ORDERED: ASPIRIN 81 MG PO SCH (09:00)
[2019-04-08] MEDS: traMADol 50 MG TAB PO SCH ×4 (09:46→22:01)
[2019-04-08] MEDS: NAPROXEN 250 MG TAB PO SCH ×3 (09:46→22:00)
[2019-04-08] MEDS: ENOXAPARIN 40 MG/0.4 ML SYRINGE SQ SCH (09:46)
[2019-04-08] MEDS: ESCITALOPRAM 10 MG TAB PO SCH (09:46)
[2019-04-08] MEDS ORDERED: VANCOMYCIN 2,250 MG in SODIUM CHLORIDE 0.9% 500 ML 500 ML IVPB SCH (10:30)
[2019-04-08] MEDS: VANCOMYCIN 2,250 MG in SODIUM CHLORIDE 0.9% 500 ML 500 ML IVPB SCH (11:23)
--- NOTE | 2019-04-08 12:35 | P.PN ---
Subjective Progress Note Date: 04/08/19 Principal diagnosis: Left lower extremity cellulitis, recent left total hip arthroplasty Patient was evaluated today at bedside, resting comfortably. He notes improvement with regards to the redness, swelling and pain of the lower leg. He states he kept it elevated and iced throughout most the night which seemed to help quite a bit. Internal medicine did change the antibiotics to vancomycin, infectious diseases is also following the patient. Objective - Vital Signs Vital signs: Vital Signs Temp 98.2 F 04/08/19 08:05 Pulse 98 04/08/19 08:05 Resp 16 04/08/19 08:05 BP 134/92 04/08/19 08:05 Pulse Ox 90 L 04/08/19 08:05 Intake & Output 04/07/19 04/08/19 04/08/19 18:59 06:59 18:59 Weight 158.757 kg Other: Voiding Method Toilet Toilet # Voids 1 1 - Exam Left lower extremity: Exofin tape is present over the incision, there multiple healing blisters along the medial and lateral aspects of the incision. Mild erythema noted towards the distal end of the incision the trans-down into the leg. It is much improved since yesterday. Warmth of the skin is also improved since yesterday's exam. Passive and active motion of the knee reproduces no significant discomfort. Calf is soft, tenderness with palpation. Plantar flexion, dorsiflexion, EHL, FHL are intact. Dorsal pedis pulses 2+ - Labs CBC & Chem 7: 04/07/19 21:45 04/07/19 21:45 Labs: Abnormal Lab Results - Last 24 Hours (Table) 04/07/19 04/07/19 Range/Units 21:45 21:45 RBC 4.01 L (4.30-5.90) m/uL Hgb 12.1 L (13.0-17.5) gm/dL Hct 36.3 L (39.0-53.0) % ESR 76 H (0-15) mm/hr Sodium 135 L (137-145) mmol/L Chloride 96 L (98-107) mmol/L Glucose 110 H (74-99) mg/dL Assessment and Plan Assessment: Left lower extremity cellulitis Healing left lower extremity blisters History of recent left total knee arthroplasty Other medical comorbidities Plan: Continue IV antibiotics at this time Appreciate internal medicine and infectious disease recommendations Weight-bear as tolerated with walker Pain control, continue oral medications GI and DVT prophylaxis, continue subcu medication Icing and elevating often We will continue to follow the patient during inpatient stay Time with Patient: Less than 30
--- NOTE | 2019-04-08 18:13 | P.PN ---
Progress Note - Text Progress Note Date: 04/08/19 - Chief Complaint Left knee incision redness Consultation: This is a pleasant 58-year-old patient of Dr. Hernandez. Chronic stable medical conditions include asthma, Abilio arthritis, Klinefelter syndrome, depression history of renal cancer with right nephrectomy, chronic low back pain at L3-L4 DJD, patient had undergone left total knee arthroplasty on by . Patient was discharged on March 30. Patient has pictures on his cell phone of the incision what it looked like when he left the hospital. He describes as being slightly red and tender. Subsequently 4 days ago he was seen by mid-level provider and because of some drainage and redness of the incision he was started on Keflex. Did not improve too much and because of redness around the area and lower the leg decided to come in. This also had some fever at home. There was slight drainage. Admitted with left knee incision cellulitis. It started and IV vancomycin. Today-some pain in the left knee present. Dressing in place. Left leg cellulitis decreasing. No nausea vomiting. Review of systems: Was done for constitutional, cardiovascular, GI, pulmonary. relevant finding as above Active Medications Acetaminophen (Tylenol Tab) 650 mg PO Q6HR PRN PRN Reason: Fever and/ or MILD Pain Last Admin: 04/07/19 19:57 Dose: 650 mg Documented by: Hydrocodone Bitart/Acetaminophen ([place] 7.5-325) 1 each PO Q6H PRN PRN Reason: MODERATE Pain Last Admin: 04/07/19 17:41 Dose: 1 each Documented by: Hydrocodone Bitart/Acetaminophen ([place] 7.5-325) 2 each PO Q6H PRN PRN Reason: SEVERE Pain Last Admin: 04/08/19 14:11 Dose: 2 each Documented by: Albuterol Sulfate (Ventolin Nebulized) 2.5 mg INHALATION RT-QID PRN PRN Reason: Shortness Of Breath Budesonide/Formoterol Fumarate (Symbicort 80-4.5 Mcg Inhaler) 2 puff INHALATION RT-BID [facility] Last Admin: 04/08/19 08:21 Dose: 2 puff Documented by: Enoxaparin Sodium (Lovenox) 40 mg SQ DAILY [facility] Last Admin: 04/08/19 09:46 Dose: 40 mg Documented by: Escitalopram Oxalate (Lexapro) 10 mg PO DAILY [facility] Last Admin: 04/08/19 09:46 Dose: 10 mg Documented by: Hydroxyzine Pamoate (Vistaril) 25 mg PO Q6HR PRN PRN Reason: Allergy Symptoms Last Admin: 04/08/19 14:12 Dose: 25 mg Documented by: Vancomycin HCl 2,250 mg/ (Sodium Chloride) 500 mls @ 167 mls/hr IVPB Q16H [facility] Last Admin: 04/08/19 11:23 Dose: 167 mls/hr Documented by: Montelukast Sodium (Singulair) 10 mg PO HS [facility] Last Admin: 04/07/19 22:36 Dose: 10 mg Documented by: Naproxen (Naprosyn) 250 mg PO TID [facility] Last Admin: 04/08/19 15:24 Dose: 250 mg Documented by: Tramadol HCl (Ultram) 50 mg PO QID [facility] Last Admin: 04/08/19 17:35 Dose: 50 mg Documented by: Physical examination: VITAL SIGNS: 98.2, 98, 16, 134/92, 90% on room air GENERAL: BMI 46.2, laying in bed, comfortable. EYES: Pupils equal. Conjunctiva normal. HEENT: External appearance of nose and ears normal, oral cavity grossly normal. NECK: JVD not raised; masses not palpable. HEART: First and second heart sounds are normal; no edema. LUNGS: Respiratory rate normal; slightly decreased breath sounds. ABDOMEN: Soft, nontender, liver spleen not palpable, no masses palpable. PSYCH: Alert and oriented x3; mood and affect normal MUSCULOSKELETAL: Dressing over the left knee. Some redness on the cline INVESTIGATIONS, reviewed in the clinical context: White count 10.1 hemoglobin 12.1 potassium 4.2 creatinine 1.09 ESR 76 Assessment: -Acute cellulitis of left knee arthroplasty incision site having failed outpatient treatment with Keflex -Primary osteoarthritis -Left total knee arthroplasty on March 29 -Intermittent asthma -Klinefelter syndrome -Chronic low back pain from osteoarthritis of L3-L4 Plan: Continue vancomycin. Other medications to continue. Care discussed with the patient. Thank you Dr. Cheng
[2019-04-08] MEDS: MONTELUKAST 10 MG TAB PO SCH (20:39)
--- NOTE | 2019-04-09 00:02 | P.CONS ---
History of Present Illness - Reason for Consult Consult date: 04/08/19 left leg cellulitis Requesting physician: Mat Escobar - Chief Complaint left leg redness and swelling x days - History of Present Illness Patient is a 58-year male who is a status post left knee arthroplasty done by Dr. Savage was on March 29, 2019 apparently patient did have some problem with blistering on the knee incision for the patient has been treated in the outpatient setting by orthopedics in addition to local treatment has been treated with oral Keflex on reevaluation in the office yesterday patient was noticed to have significant swelling and redness to the left leg and this patient has been complaining of pain to both ankle and the leg area to be telling him to throbbing which can be as high as 8 out of 10 in severity and worse with weightbearing patient denies high-grade fever however he did have some chills with the symptom the patient has been admitted directly to hospital for left leg cellulitis failing outpatient oral Keflex therapy patient on arrival to the ER has been afebrile his white count was normal as well as creat inine no cultures patient is currently on vancomycin pharmacy to dose infectious disease has been consulted for further recommendation regarding antibiotic therapy. Review of Systems Positive point has been mentioned in HPI rest of the systems are negative Past Medical History Past Medical History: Asthma, Cancer, Osteoarthritis (OA), Pneumonia Additional Past Medical History / Comment(s): Klinnefelter Syndrome, HX OF RENAL CA with surgery. chronic back pain (degenerative disk L3 and L4), healed cellu litis bilateral lower legs, hx thrombocytopenia 2009 when tx for kidney cancer. History of Any Multi-Drug Resistant Organisms: None Reported Past Surgical History: Joint Replacement, Orthopedic Surgery Additional Past Surgical History / Comment(s): total R knee arthroplasty. LEFT shoulder rotator cuff tear, 2009 kidney ca removed portion of right kidney, 2011 carpectomy left wrist, TLK Past Anesthesia/Blood Transfusion Reactions: No Reported Reaction Additional Past Anesthesia/Blood Transfusion Reaction / Comm: "incision popped open day of surgery with other knee replacement, ended up staying 5 days with knee immobilized" Past Psychological History: Depression Additional Psychological History / Comment(s): . Smoking Status: Never smoker Past Alcohol Use History: Rare Past Drug Use History: None Reported - Past Family History Father Family Medical History: Cancer Additional Family Medical History / Comment(s): colon Mother Family Medical History: AFIB, Asthma Medications and Allergies Home Medications Medication Instructions Recorded Confirmed Type Albuterol Nebulized [Ventolin 2.5 mg INHALATION RT-QID PRN 07/10/13 04/07/19 History Nebulized] Albuterol Sulfate [Proair Hfa] 2 puff INHALATION RT-QID PRN 07/10/13 04/07/19 History Fluticasone/Salmeterol [Advair 1 puff INHALATION RT-BID 07/10/13 04/07/19 History 250-50 Diskus] EPINEPHrine (Auto Inject) [Epipen] 0.3 mg IM ONCE PRN 07/17/14 04/07/19 History Fluticasone Nasal [place] [Flonase 1 spray EA NOSTRIL DAILY PRN 07/17/14 04/07/19 History Nasal [place]] Loratadine-Pseudoeph 10-240 mg 1 tab PO DAILY 07/17/14 04/07/19 History [Claritin-D 24 Hr] Escitalopram Oxalate [Lexapro] 10 mg PO DAILY 03/23/19 04/07/19 History Furosemide [Lasix] 10 mg PO DAILY PRN 03/23/19 04/07/19 History Montelukast [Singulair] 10 mg PO HS 03/23/19 04/07/19 History Aspirin [Adult Low Dose Aspirin EC] 81 mg PO BID #60 tablet. 03/30/19 04/07/19 Rx Cephalexin [Keflex] 500 mg PO QID 04/07/19 04/07/19 History HYDROcodone/APAP 7.5-325MG [[place] 1 tab PO Q6H PRN 04/07/19 04/07/19 History 7.5] Testosterone Cypionate 200 mg IM Q21D 04/07/19 04/07/19 History [Depo-Testosterone] hydrOXYzine PAMOATE [Vistaril] 25 mg PO Q6HR PRN 04/07/19 04/07/19 History traMADol HCL [Ultram] 50 mg PO Q6HR PRN 04/07/19 04/07/19 History Allergies Allergy/AdvReac Type Severity Reaction Status Date / Time Iodinated Contrast Media Allergy Severe Anaphylaxis Verified 04/07/19 16:52 [Iodinated Contrast Media - IV Dye] shellfish derived Allergy Severe Anaphylaxis Verified 04/07/19 16:52 sulfamethoxazole Allergy Severe Anaphylaxis Verified 04/07/19 16:52 [From Bactrim] trimethoprim [From Bactrim] Allergy Severe Anaphylaxis Verified 04/07/19 16:52 Physical Exam Vitals: Vital Signs Temp Pulse Resp BP Pulse Ox 04/08/19 08:05 98.2 F 98 16 134/92 90 L 04/08/19 00:28 98.5 F 97 16 128/82 93 L 04/07/19 23:15 16 04/07/19 19:50 16 04/07/19 19:00 99.5 F 115 H 16 126/82 92 L 04/07/19 16:16 98.4 F 121 H 17 147/97 95 Intake and Output 04/07/19 04/08/19 04/08/19 22:59 06:59 14:59 Other: Voiding Method Toilet Toilet Toilet # Voids 1 Weight 158.757 kg GENERAL DESCRIPTION: Middle-aged male lying in bed, no distress. No tachypnea or accessory muscle of respiration use. HEENT: Shows Pallor , no scleral icterus. Oral mucous membrane is dry. NECK: Trachea central, no thyromegaly. LUNGS: Unlabored breathing. Clear to auscultation anteriorly. No wheeze or crackle. HEART: S1, S2, regular rate and rhythm. ABDOMEN: Soft, no tenderness , guarding or rigidity EXTREMITIES: Left leg did have swelling redness and warmth to touch left knee incision did have some surrounding bruises and redness but no foul-smelling drainage. SKIN: No rash, no masses palpable. NEUROLOGICAL: The patient is awake, alert, oriented x3, mood and affect normal. Results CBC & Chem 7: 04/07/19 21:45 04/07/19 21:45 Labs: Abnormal Lab Results - Last 24 Hours (Table) 04/07/19 04/07/19 Range/Units 21:45 21:45 RBC 4.01 L (4.30-5.90) m/uL Hgb 12.1 L (13.0-17.5) gm/dL Hct 36.3 L (39.0-53.0) % ESR 76 H (0-15) mm/hr Sodium 135 L (137-145) mmol/L Chloride 96 L (98-107) mmol/L Glucose 110 H (74-99) mg/dL Assessment and Plan Assessment: patient with left lower extremity cellulitis in this patient who recently did have left knee arthroplasty seem to have problem with some blistering around the incision this patient who has failed outpatient oral Keflex therapy will need to cover for the resistant gram-positive such as MRSA (1) Cellulitis of left lower extremity Current Visit: Yes Status: Acute Code(s): L03.116 - CELLULITIS OF LEFT LOWER LIMB SNOMED Code(s): 019455455 Plan: 1-mukesh the area of the redness left leg 2-vancomycin pharmacy to dose with a target trough of 15 while watching her kidney function and Vanco trough closely. 3-in view of cellulitis failing outpatient oral Keflex and recent left knee arthroplasty patient may benefit from PICC line and outpatient IV antibiotic therapy for which the correctional case manager will work on We will follow on clinical condition and cultures to further adjust medication if needed Thank you for this consultation we will follow the patient along with you Time with Patient: Greater than 30
[2019-04-09] MEDS: HYDROcodone/APAP 7.5-325MG 1 EACH TAB PO PRN ×4 (03:44→22:17)
[2019-04-09] MEDS: VANCOMYCIN 2,250 MG in SODIUM CHLORIDE 0.9% 500 ML 500 ML IVPB SCH ×2 (04:37→17:11)
[2019-04-09] MEDS: SYMBICORT 80-4.5 MCG INHALER INHALATION SCH ×2 (07:40→19:36)
[2019-04-09 07:54] LABS: African American GFR (CKD) >90 (>60 ml/min/1.73 sqM); Non-African American GFR(CKD) >90 (>60 ml/min/1.73 sqM)
[2019-04-09] MEDS: NAPROXEN 250 MG TAB PO SCH ×3 (09:17→21:35)
[2019-04-09] MEDS: ESCITALOPRAM 10 MG TAB PO SCH (09:17)
[2019-04-09] MEDS: ENOXAPARIN 40 MG/0.4 ML SYRINGE SQ SCH (09:17)
[2019-04-09] MEDS: traMADol 50 MG TAB PO SCH ×4 (09:19→21:13)
--- NOTE | 2019-04-09 11:22 | P.PN ---
<López Rivera - Last Filed: 04/09/19 11:18> Subjective Progress Note Date: 04/09/19 Principal diagnosis: Left lower extremity cellulitis, recent left total hip arthroplasty Patient was evaluated today at bedside, resting comfortably. He has noticed continuous improvement in the swelling, swelling, discomfort. He denies any fevers or chills at this time. Denies chest pain or shortness of breath. Objective - Vital Signs Vital signs: Vital Signs Temp 98.1 F 04/09/19 07:20 Pulse 82 04/09/19 08:10 Resp 18 04/09/19 08:10 BP 128/87 04/09/19 07:20 Pulse Ox 95 04/09/19 07:20 Intake & Output 04/08/19 04/09/19 04/09/19 18:59 06:59 18:59 Other: Voiding Method Toilet Toilet Toilet # Voids 1 1 1 - Exam Left lower extremity: Exofin tape is present over the incision, there multiple healing blisters along the medial and lateral aspects of the incision. Mild erythema in the distal leg, and is improved significantly surrounding the distal end of anterior incision. Passive and active motion of the knee reproduces no significant discomfort. Calf is soft, tenderness with palpation. Plantar flexion, dorsiflexion, EHL, FHL are intact. Dorsal pedis pulses 2+ - Labs CBC & Chem 7: 04/07/19 21:45 04/09/19 06:58 Assessment and Plan Assessment: Left lower extremity cellulitis Healing left lower extremity blisters History of recent left total knee arthroplasty Other medical comorbidities Plan: Continue IV antibiotics at this time Patient is likely going to get a PICC line, case management is working with insurance. If PICC line is now placed today, I mentioned to the patient states that the weekend. Weight-bear as tolerated with walker Pain control, continue oral medications GI and DVT prophylaxis, continue subcu medication Icing and elevating often We will continue to follow the patient during inpatient stay Time with Patient: Less than 30 <Mat Escobar - Last Filed: 04/09/19 13:10> Subjective Principal diagnosis: recent left total knee arthroplasty Objective - Vital Signs Vital signs: Vital Signs Temp 98.1 F 04/09/19 07:20 Pulse 82 04/09/19 09:45 Resp 18 04/09/19 09:45 BP 128/87 04/09/19 07:20 Pulse Ox 95 04/09/19 07:20 Intake & Output 04/08/19 04/09/19 04/09/19 18:59 06:59 18:59 Other: Voiding Method Toilet Toilet Toilet # Voids 1 1 1 - Labs CBC & Chem 7: 04/07/19 21:45 04/09/19 06:58
--- NOTE | 2019-04-09 15:51 | PN ---
PROGRESS NOTE DATE OF SERVICE: 04/09/2019 REASON FOR FOLLOWUP: Left lower extremity cellulitis. The patient did have a recent left knee replacement. INTERVAL HISTORY: The patient is currently afebrile, has been breathing comfortably. Did mention the left leg pain and swelling has decreased in intensity. Denies having any chest pain or shortness of breath or cough. No abdominal pain or diarrhea. PHYSICAL EXAMINATION: Blood pressure 146/83 with a pulse of 87, temperature 97.7. He is 97% on room air. General description is a middle-aged male lying in bed in no distress. RESPIRATORY SYSTEM: Unlabored breathing. Clear to auscultation anteriorly. HEART: S1, S2. Regular rate and rhythm. ABDOMEN: Soft. No tenderness. Left leg redness has decreased in intensity. LABS: Creatinine 0.84. DIAGNOSTIC IMPRESSION AND PLAN: Patient with left lower extremity cellulitis in this patient who did have recent left knee arthroplasty, being on outpatient oral Keflex. The patient is currently doing well on vancomycin. Transition him to daptomycin 650 mg daily for another 10 days in the outpatient setting, for which he will get a midline and continue with supportive care. MMODL / IJN: [id number] /
--- NOTE | 2019-04-09 16:06 | P.PN ---
Progress Note - Text Progress Note Date: 04/09/19 - Chief Complaint Left knee incision redness Consultation: This is a pleasant 58-year-old patient of Dr. Hernandez. Chronic stable medical conditions include asthma, [place] arthritis, Klinefelter syndrome, depression history of renal cancer with right nephrectomy, chronic low back pain at L3-L4 DJD, patient had undergone left total knee arthroplasty on by . Patient was discharged on March 30. Patient has pictures on his cell phone of the incision what it looked like when he left the hospital. He describes as being slightly red and tender. Subsequently 4 days ago he was seen by mid-level provider and because of some drainage and redness of the incision he was started on Keflex. Did not improve too much and because of redness around the area and lower the leg decided to come in. This also had some fever at home. There was slight drainage. Admitted with left knee incision cellulitis. Started on IV vancomycin. Today-Pain produced improvement left knee. Dressing in place. Decreased redness of the leg. Appetite fair.. Review of systems: Was done for constitutional, cardiovascular, GI, pulmonary. relevant finding as above Active Medications Acetaminophen (Tylenol Tab) 650 mg PO Q6HR PRN PRN Reason: Fever and/ or MILD Pain Last Admin: 04/07/19 19:57 Dose: 650 mg Documented by: Hydrocodone Bitart/Acetaminophen ([place] 7.5-325) 1 each PO Q6H PRN PRN Reason: MODERATE Pain Last Admin: 04/07/19 17:41 Dose: 1 each Documented by: Hydrocodone Bitart/Acetaminophen ([place] 7.5-325) 2 each PO Q6H PRN PRN Reason: SEVERE Pain Last Admin: 04/09/19 15:04 Dose: 2 each Documented by: Albuterol Sulfate (Ventolin Nebulized) 2.5 mg INHALATION RT-QID PRN PRN Reason: Shortness Of Breath Budesonide/Formoterol Fumarate (Symbicort 80-4.5 Mcg Inhaler) 2 puff INHALATION RT-BID [facility] Last Admin: 04/09/19 07:40 Dose: 2 puff Documented by: Enoxaparin Sodium (Lovenox) 40 mg SQ DAILY [facility] Last Admin: 04/09/19 09:17 Dose: 40 mg Documented by: Escitalopram Oxalate (Lexapro) 10 mg PO DAILY [facility] Last Admin: 04/09/19 09:17 Dose: 10 mg Documented by: Hydroxyzine Pamoate (Vistaril) 25 mg PO Q6HR PRN PRN Reason: Allergy Symptoms Last Admin: 04/08/19 14:12 Dose: 25 mg Documented by: Vancomycin HCl 2,250 mg/ (Sodium Chloride) 500 mls @ 167 mls/hr IVPB Q12H [facility] Miscellaneous Information (Vancomycin Trough Due) 0 each MISCELLANE DIRECTED ONE Stop: 04/10/19 05:01 Montelukast Sodium (Singulair) 10 mg PO HS [facility] Last Admin: 04/08/19 20:39 Dose: 10 mg Documented by: Naproxen (Naprosyn) 250 mg PO TID [facility] Last Admin: 04/09/19 09:17 Dose: 250 mg Documented by: Tramadol HCl (Ultram) 50 mg PO QID [facility] Last Admin: 04/09/19 14:07 Dose: Not Given Documented by: Physical examination: VITAL SIGNS: 98.1, 82, 18, 128/87, 95% on room air GENERAL: BMI 46.2, laying in bed, comfortable. EYES: Pupils equal. Conjunctiva normal. HEENT: External appearance of nose and ears normal, oral cavity grossly normal. NECK: JVD not raised; masses not palpable. HEART: First and second heart sounds are normal; no edema. LUNGS: Respiratory rate normal; slightly decreased breath sounds. ABDOMEN: Soft, nontender, liver spleen not palpable, no masses palpable. PSYCH: Alert and oriented x3; mood and affect normal MUSCULOSKELETAL: Dressing over the left knee. redness on the cline-improving INVESTIGATIONS, reviewed in the clinical context: White count 10.1 hemoglobin 12.1 potassium 4.2 creatinine 1.09 ESR 76 Assessment: -Acute cellulitis of left knee arthroplasty incision site having failed outpatient treatment with Keflex -Primary osteoarthritis -Left total knee arthroplasty on March 29 -Intermittent asthma -Klinefelter syndrome -Chronic low back pain from osteoarthritis of L3-L4 Plan: Continue current medication treatment plan including vancomycin naproxen. Discussed with patient. Continue. Possibly home with IV antibiotics.-As per ID Thank you Dr. Cheng
[2019-04-09] MEDS: MONTELUKAST 10 MG TAB PO SCH (21:13)
[2019-04-10] MEDS: HYDROcodone/APAP 7.5-325MG 1 EACH TAB PO PRN ×2 (04:18→10:25)
[2019-04-10] MEDS ORDERED: VANCOMYCIN TROUGH DUE 1 EACH MISC MISCELLANE ONE (05:00)
[2019-04-10] MEDS: VANCOMYCIN 2,250 MG in SODIUM CHLORIDE 0.9% 500 ML 500 ML IVPB SCH (06:20)
[2019-04-10 06:29] LABS: HCT 35.9 % (39.0-53.0); HGB 11.5 gm/dL (13.0-17.5); Hypochromasia Slight; MCH 29.4 pg (25.0-35.0); MCV 91.7 fL (80.0-100.0); Mean Platelet Volume 10.1; Platelet Count 179 k/uL (150-450); RBC 3.92 m/uL (4.30-5.90); WBC 5.1 k/uL (3.8-10.6)
[2019-04-10 06:43] LABS: African American GFR (CKD) >90 (>60 ml/min/1.73 sqM); Anion Gap 6 mmol/L; Blood Urea Nitrogen 12 mg/dL (9-20); Calcium 9.1 mg/dL (8.4-10.2); Carbon Dioxide 33 mmol/L (22-30); Chloride 97 mmol/L (98-107); Glucose 138 mg/dL (74-99); Non-African American GFR(CKD) >90 (>60 ml/min/1.73 sqM); Potassium 4.9 mmol/L (3.5-5.1); Sodium 136 mmol/L (137-145)
[2019-04-10] MEDS: SYMBICORT 80-4.5 MCG INHALER INHALATION SCH (07:48)
[2019-04-10 08:00] VITALS: BP 126/82; PULSE 79; RESP 16; TEMP 98.3
[2019-04-10] MEDS: NAPROXEN 250 MG TAB PO SCH (09:14)
[2019-04-10] MEDS: ENOXAPARIN 40 MG/0.4 ML SYRINGE SQ SCH (09:14)
[2019-04-10] MEDS: ESCITALOPRAM 10 MG TAB PO SCH (09:14)
[2019-04-10] MEDS: traMADol 50 MG TAB PO SCH ×2 (09:14→15:01)
[2019-04-10] MEDS: hydrOXYzine PAMOATE 25 MG CAP PO PRN (10:25)
--- NOTE | 2019-04-10 13:32 | P.PN ---
Progress Note - Text Progress Note Date: 04/10/19 Patient seen lying in bed comfortably. He states he feels much better today. He denies any additional orthopedic complaints other than some soreness in his recent left total knee arthroplasty performed by myself on 03/29/2019. I did take the time to review the history of this issue with both the patient and his who was at the bedside. The photograph he has on his cell phone of his incision was taken 3 days after his discharge-he did show that to me today. He does not have any photographs of his incision at the time of his discharge, while he was in the hospital or when he got home that day-he never took any. He states no incisional issues occurred until about 3 days after his discharge. He contacted the office at that time and was brought in and found to have some blistering around the incision area. There was no erythema, no cellulitis or evidence for infective process. The blisters were decompressed by Memo PENA (I had personally seen him at that visit) and the patient was instructed to use [id number] antibiotic ointment twice daily along with appropriate wound care and he was placed on Keflex as a prophylactic measure. Approximately one week later the patient contact the office stating he had cellulitis in the distal left leg anteriorly. He stated that he did have a previous history of cellulitis in his lower extremities years ago. We had the patient come in immediately. He was seen by Memo PENA and myself personally. He was noted to have significant cellulitis distally which had migrated proximally as per his description and now was at the distal end of the knee incision. He had painless range of motion of the knee with no indication of any knee involvement of his recent total knee arthroplasty clinically. There was no drainage present. At that point I recommended admitting him to the hospital for IV antibiotics regarding his left lower extremity cellulitis. The cellulitis had creeped up into the distal aspect of the incision area but this was certainly not a case of incisional cellulitis but rather cellulitis of the lower extremity with a history of recent total knee arthroplasty. Dr. Echavarria came into the room about intermediate through our discussion and we again reviewed the entire history with both the patient his and ourselves to make sure we had an accurate documented history on this admission. The incision is stable. There is erythema around the incision area. There is no drainage. The erythema distally appears significantly improved. There is no erythema around the incision area. Range of motion is limited of the knee but it is pain-free. Homans and Monico are both negative. His distal neurovascular exam is intact. Impression: 1. Resolving left lower extremity cellulitis 2. History of recent left total knee arthroplasty Plan: The patient will be discharged home today with appropriate IV antibiotic recommendations per infectious disease as well as appropriate total knee arthroplasty discharge instructions
--- NOTE | 2019-04-10 13:41 | P.DS ---
Providers Date of admission: 04/07/19 15:52 Expected date of discharge: 04/10/19 Attending physician: Mat Escobar Consults: 04/07/19 16:51 Consult Physician Routine Consulting Provider: Fred Jefferson Consult Reason/Comments: Medical Management Do you want consulting provider notified?: Yes Placement Type Exists?: Yes Consult Physician Routine Consulting Provider: Gladys Echavarria Consult Reason/Comments: left lower extremity cellulitis, hx of recent total knee arthroplasty Do you want consulting provider notified?: Yes Placement Type Exists?: Yes Primary care physician: [facility] Course: 58-year-old patient was admitted with left lower extremity cellulitis. This patient had a total knee arthroplasty performed by myself on 03/29/2019. He did have some postoperative incisional area blistering that occurred 3 days after his discharge from our facility. He was treated for that with decompression of the blisters and local antibiotic ointment as well as being started on prophylactic antibioticsKeflex. Approximately one week later he developed a lower extremity cellulitis and was seen in my office at which time he was admitted for IV antibiotics. We consulted infectious disease. Appropriate IV antibiotics were utilized with significant improvement of his left lower extremity cellulitis over the course of 3 days. After discussing his improvement with Dr. Echavarria the patient was deemed stable for discharge with appropriate IV antibiotic therapy. Assessment: Patient is stable for discharge Patient Condition at Discharge: Good Plan - Discharge Summary New Discharge Prescriptions: New DAPTOmycin [Cubicin] 650 mg IV DAILY #10 bag Discontinued Cephalexin [Keflex] 500 mg PO QID No Action Albuterol Nebulized [Ventolin Nebulized] 2.5 mg INHALATION RT-QID PRN PRN Reason: Shortness Of Breath Fluticasone/Salmeterol [Advair 250-50 Diskus] 1 puff INHALATION RT-BID Albuterol Sulfate [Proair Hfa] 2 puff INHALATION RT-QID PRN PRN Reason: Shortness Of Breath EPINEPHrine (Auto Inject) [Epipen] 0.3 mg IM ONCE PRN PRN Reason: Anaphylaxis Loratadine-Pseudoeph 10-240 mg [Claritin-D 24 Hr] 1 tab PO DAILY Fluticasone Nasal [place] [Flonase Nasal [place]] 1 spray EA NOSTRIL DAILY PRN PRN Reason: Allergy Symptoms Montelukast [Singulair] 10 mg PO HS Furosemide [Lasix] 10 mg PO DAILY PRN PRN Reason: Edema Escitalopram Oxalate [Lexapro] 10 mg PO DAILY Aspirin [Adult Low Dose Aspirin EC] 81 mg PO BID #60 tablet. HYDROcodone/APAP 7.5-325MG [[place] 7.5] 1 tab PO Q6H PRN PRN Reason: Pain traMADol HCL [Ultram] 50 mg PO Q6HR PRN PRN Reason: Mild Pain hydrOXYzine PAMOATE [Vistaril] 25 mg PO Q6HR PRN PRN Reason: Pain Testosterone Cypionate [Depo-Testosterone] 200 mg IM Q21D Discharge Medication List Albuterol Nebulized [Ventolin Nebulized] 2.5 mg INHALATION RT-QID PRN 07/10/13 [History] Albuterol Sulfate [Proair Hfa] 2 puff INHALATION RT-QID PRN 07/10/13 [History] Fluticasone/Salmeterol [Advair 250-50 Diskus] 1 puff INHALATION RT-BID 07/10/13 [History] EPINEPHrine (Auto Inject) [Epipen] 0.3 mg IM ONCE PRN 07/17/14 [History] Fluticasone Nasal [place] [Flonase Nasal [place]] 1 spray EA NOSTRIL DAILY PRN 07/17/14 [History] Loratadine-Pseudoeph 10-240 mg [Claritin-D 24 Hr] 1 tab PO DAILY 07/17/14 [History] Escitalopram Oxalate [Lexapro] 10 mg PO DAILY 03/23/19 [History] Furosemide [Lasix] 10 mg PO DAILY PRN 03/23/19 [History] Montelukast [Singulair] 10 mg PO HS 03/23/19 [History] Aspirin [Adult Low Dose Aspirin EC] 81 mg PO BID #60 tablet. 03/30/19 [Rx] HYDROcodone/APAP 7.5-325MG [[place] 7.5] 1 tab PO Q6H PRN 04/07/19 [History] Testosterone Cypionate [Depo-Testosterone] 200 mg IM Q21D 04/07/19 [History] hydrOXYzine PAMOATE [Vistaril] 25 mg PO Q6HR PRN 04/07/19 [History] traMADol HCL [Ultram] 50 mg PO Q6HR PRN 04/07/19 [History] DAPTOmycin [Cubicin] 650 mg IV DAILY #10 bag 04/10/19 [Rx] Follow up Appointment(s)/Referral(s): [facility], [REFERRING] - Gladys Echavarria MD [STAFF PHYSICIAN] - 1 Week López Rivera PAC [PHYSICIAN [employer] ADMINISTRATOR] - 3 Days Activity/Diet/Wound Care/Special Instructions: If patient goes home over the weekend, please call weekend case management manager at [phone] to set up appointment for IV antibiotic Follow previous total knee discharge instructions Discharge Disposition: HOME WITH HOME HEALTH SERVICES
--- NOTE | 2019-04-10 14:20 | P.PN ---
Subjective Progress Note Date: 04/10/19 Principal diagnosis: Left lower extremity cellulitis with recent left total knee arthroplasty This is a pleasant 58-year-old patient of Dr. Hernandez. Chronic stable medical conditions include asthma, Abilio arthritis, Klinefelter syndrome, depression history of renal cancer with right nephrectomy, chronic low back pain at L3-L4 DJD, patient had undergone left total knee arthroplasty on by . Patient was discharged on March 30. Patient has pictures on his cell phone of the incision what it looked like when he left the hospital. He describes as being slightly red and tender. Subsequently 4 days ago he was seen by mid-level provider and because of some drainage and redness of the incision he was started on Keflex. Did not improve too much and because of redness around the area and lower the leg decided to come in. This also had some fever at home. There was slight drainage. Admitted with left knee incision cellulitis. Started on IV vancomycin. Today-Pain produced improvement left knee. Dressing in place. Decreased redness of the leg. Appetite fair. Patient is being continued on IV vancomycin. PICC line was obtained complete antibiotic course with daptomycin as per ID recommendations. Patient denied any complaints of chest pain or shortness of breath. Left leg pain is much improved. No nausea vomiting or abdominal pain or diarrhea. Tolerating oral diet. Review of systems: Was done for constitutional, cardiovascular, GI, pulmonary. relevant finding as above Objective - Vital Signs Vital signs: Vital Signs Temp 98.3 F 04/10/19 07:00 Pulse 79 04/10/19 07:00 Resp 16 04/10/19 07:00 BP 126/82 04/10/19 07:00 Pulse Ox 95 04/10/19 07:00 Intake & Output 04/09/19 04/10/19 04/10/19 18:59 06:59 18:59 Intake Total 500 Balance 500 Intake: Intake, IV Titration 500 Amount Vancomycin 2,250 mg In 500 Sodium Chloride 0.9% 500 ml 500 ml @ 167 mls/hr IVPB Q12H [facility] Rx#: [id number] Other: Voiding Method Toilet Toilet Toilet # Voids 2 - Exam Physical examination: VITAL SIGNS: 98.1, 82, 18, 128/87, 95% on room air GENERAL: BMI 46.2, laying in bed, comfortable. EYES: Pupils equal. Conjunctiva normal. HEENT: External appearance of nose and ears normal, oral cavity grossly normal. NECK: JVD not raised; masses not palpable. HEART: First and second heart sounds are normal; no edema. LUNGS: Respiratory rate normal; slightly decreased breath sounds. ABDOMEN: Soft, nontender, liver spleen not palpable, no masses palpable. PSYCH: Alert and oriented x3; mood and affect normal MUSCULOSKELETAL: Dressing over the left knee. redness on the cline-improving - Labs CBC & Chem 7: 04/10/19 05:30 04/10/19 05:30 Labs: Abnormal Lab Results - Last 24 Hours (Table) 04/10/19 04/10/19 Range/Units 05:30 05:30 RBC 3.92 L (4.30-5.90) m/uL Hgb 11.5 L (13.0-17.5) gm/dL Hct 35.9 L (39.0-53.0) % Sodium 136 L (137-145) mmol/L Chloride 97 L (98-107) mmol/L Carbon Dioxide 33 H (22-30) mmol/L Glucose 138 H (74-99) mg/dL Assessment and Plan Assessment: -Acute cellulitis of left lower extremity. Recent left knee arthroplasty with incision site infection. failed outpatient treatment with Keflex. -Primary osteoarthritis -Left total knee arthroplasty on March 29 -Intermittent asthma -Klinefelter syndrome -Chronic low back pain from osteoarthritis of L3-L4 Plan: Continue current medication treatment plan including vancomycin. Pain management with naproxen. Patient does have midline and is being discharged with IV daptomycin for 10 more days as per ID recommendations. Discussed with patient. Discharge medication the consultation was done. Thank you Dr. Cheng Time with Patient: Greater than 30
--- NOTE | 2019-04-10 14:43 | PN ---
PROGRESS NOTE DATE OF SERVICE: 04/10/2019 REASON FOR FOLLOWUP: Left lower extremity cellulitis. INTERVAL HISTORY: The patient is currently afebrile, has been breathing comfortably. Denies having any chest pain or cough. No nausea, vomiting, abdominal pain. Overall swelling in his left leg has improved. PHYSICAL EXAMINATION: Blood pressure 126/82 with a pulse of 79, temperature 98.3. He is 95% on room air. General description is a middle-aged male lying in bed in no distress. RESPIRATORY SYSTEM: Unlabored breathing, clear to auscultation anteriorly. HEART: S1, S2. Regular rate and rhythm. ABDOMEN: Soft, no tenderness. Left leg swelling has much improved. Left knee is currently intact. Incision is intact. No swelling or redness or drainage. LABS: White count 5.1. Vanco trough slightly low at 10.8. DIAGNOSTIC IMPRESSION AND PLAN: Patient with acute left lower extremity cellulitis in this patient who recently did have left knee arthroplasty. The patient who did have failure to outpatient oral Keflex therapy, clinically responding to the Vancomycin. However, the trough has been low and may need dosing; hence, we will switch him over to daptomycin at times one dose and to continue in outpatient setting for about 10 days in close outpatient followup. Plan of care discussed in detail with the patient, the surgeon on the floor. Questions and concerns were answered. MMSOHEILAL / HARDYN: [id number] /
== END 2019-04-10 15:56 | disposition home health service (06) | DRG 920 ==
LOC: 4SSUR 15:52
PROVIDERS: ADMIT Orthopaedic Surgery; ATTEND Orthopaedic Surgery
PROC: 05HC33Z Insertion of Infusion Device into Left Basilic Vein, Percutaneous Approach (ICD-10-PCS; principal; 2019-04-09 16:05)
DX: L76.82 Other postprocedural complications of skin and subcutaneous tissue (principal); L03.116 Cellulitis of left lower limb; F32.9 Major depressive disorder, single episode, unspecified; G89.29 Other chronic pain; J45.20 Mild intermittent asthma, uncomplicated; M19.91 Primary osteoarthritis, unspecified site; M47.816 Spondylosis without myelopathy or radiculopathy, lumbar region; Q98.4 Klinefelter syndrome, unspecified; Z79.82 Long term (current) use of aspirin; Z79.899 Other long term (current) drug therapy; Z96.642 Presence of left artificial hip joint; Z96.653 Presence of artificial knee joint, bilateral; Z85.528 Personal history of other malignant neoplasm of kidney; Z90.5 Acquired absence of kidney; Z87.01 Personal history of pneumonia (recurrent); Z88.2 Allergy status to sulfonamides; Z88.1 Allergy status to other antibiotic agents; Z91.041 Radiographic dye allergy status; Z91.013 Allergy to seafood; Z82.5 Family history of asthma and other chronic lower respiratory diseases; Z80.9 Family history of malignant neoplasm, unspecified; Z82.49 Family history of ischemic heart disease and other diseases of the circulatory system; Y83.8 Other surgical procedures as the cause of abnormal reaction of the patient, or of later complication, without mention of misadventure at the time of the procedure
CPT/HCPCS: 36410; 76937; 80048; 80202; 82565; 85027; 85652; 94640

== ENCOUNTER 2019-04-22 15:09 | Inpatient (IN) | payer OTHER ==
[2019-04-22] MEDS ORDERED: SODIUM CHLORIDE 0.9% 2,000 ML IV ONE (16:30)
[2019-04-22 17:12] LABS: Appearance,Urine Clear (Clear); Bacteria,Urine Rare /hpf; Bilirubin,Urine Negative (Negative); Blood,Urine Large (Negative); Color,Urine Yellow; Glucose,Urine (UA) Negative (Negative); Ketones,Urine Negative (Negative); Leukocyte Esterase,Urine Negative (Negative); Mucus,Urine Few /hpf; Nitrite,Urine Negative (Negative); Protein,Urine 1+ (Negative); RBC,Urine 1 /hpf (0-5); Specific Gravity,Urine 1.019 (1.001-1.035); Squamous Epithelial Cell,Urine <1 /hpf (0-4); Urobilinogen,Urine <2.0 mg/dL (<2.0); WBC,Urine 2 /hpf (0-5)
[2019-04-22 17:18] LABS: Basophils % (A) 0 %; Eosinophils # (A) 0.2 k/uL (0-0.7); Eosinophils % (A) 2 %; HCT 40.3 % (39.0-53.0); Lymphocytes # (A) 1.2 k/uL (1.0-4.8); Lymphocytes % (A) 17 %; MCH 28.5 pg (25.0-35.0); MCHC 32.2 g/dL (31.0-37.0); MCV 88.4 fL (80.0-100.0); Mean Platelet Volume 8.9; Monocytes # (A) 0.5 k/uL (0-1.0); Monocytes % (A) 6 %; Neutrophils # (A) 5.4 k/uL (1.3-7.7); Neutrophils % (A) 73 %; RBC 4.56 m/uL (4.30-5.90); RDW 12.9 % (11.5-15.5); WBC 7.5 k/uL (3.8-10.6)
[2019-04-22 17:19] LABS: Platelet Count 406 k/uL (150-450)
--- NOTE | 2019-04-22 17:20 | ED ---
General Adult HPI - General Chief complaint: Recheck/Abnormal Lab/Rx Stated complaint: lab recheck Time Seen by Provider: 04/22/19 15:40 Source: patient Mode of arrival: ambulatory Limitations: no limitations - History of Present Illness Initial comments: The patient is a 58-year-old male with past medical history of left knee replacement on March 29 who developed overlying cellulitis. He has been treated by Dr. Bentley and Dr. Escobar. Infection never involved the joint. He has had a PICC line placed. He has been receiving daptomycin and Vanco. He has been going for daily infusions to the infusion center. Today he saw Dr. Bentley and was complaining of full body muscle aches. Dr. Bentley did run a CPK level, the patient was in rhabdo. He sent him over to the emergency room for fluids and admission. Patient admits to the full-body aches however denies any other symptoms. Denies any chest pain or shortness of breath. No fevers or chills. Denies any nausea or vomiting. Denies dark-colored urine. Has been urinating without difficulty. Denies any worsening of his overlying cellulitis. There are no alleviating, precipitating or modifying factors - Related Data Home Medications Medication Instructions Recorded Confirmed Albuterol Nebulized [Ventolin 2.5 mg INHALATION RT-QID PRN 07/10/13 04/22/19 Nebulized] Albuterol Sulfate [Proair Hfa] 2 puff INHALATION RT-QID PRN 07/10/13 04/22/19 Fluticasone/Salmeterol [Advair 1 puff INHALATION RT-BID 07/10/13 04/22/19 250-50 Diskus] EPINEPHrine (Auto Inject) [Epipen] 0.3 mg IM ONCE PRN 07/17/14 04/22/19 Fluticasone Nasal [place] [Flonase 1 spray EA NOSTRIL DAILY PRN 07/17/14 04/22/19 Nasal [place]] Loratadine-Pseudoeph 10-240 mg 1 tab PO DAILY 07/17/14 04/22/19 [Claritin-D 24 Hour] Escitalopram Oxalate [Lexapro] 10 mg PO DAILY 03/23/19 04/22/19 Furosemide [Lasix] 10 mg PO DAILY PRN 03/23/19 04/22/19 Montelukast [Singulair] 10 mg PO HS 03/23/19 04/22/19 HYDROcodone/APAP 7.5-325MG [Davey 1 tab PO Q6H PRN 04/07/19 04/22/19 7.5-325] Testosterone Cypionate 200 mg IM Q21D 04/07/19 04/22/19 [Depo-Testosterone] hydrOXYzine PAMOATE [Vistaril] 25 mg PO Q6HR PRN 04/07/19 04/22/19 traMADol HCL [Ultram] 50 mg PO Q6HR PRN 04/07/19 04/22/19 Previous Rx's Medication Instructions Recorded Aspirin [Adult Low Dose Aspirin EC] 81 mg PO BID #60 tablet. 03/30/19 Allergies Allergy/AdvReac Type Severity Reaction Status Date / Time Iodinated Contrast Media Allergy Severe Anaphylaxis Verified 04/22/19 23:09 [Iodinated Contrast Media - IV Dye] shellfish derived Allergy Severe Anaphylaxis Verified 04/22/19 23:09 sulfamethoxazole Allergy Severe Anaphylaxis Verified 04/22/19 23:09 [From Bactrim] trimethoprim [From Bactrim] Allergy Severe Anaphylaxis Verified 04/22/19 23:09 Review of Systems ROS Statement: Those systems with pertinent positive or pertinent negative responses have been documented in the HPI. ROS Other: All systems not noted in ROS Statement are negative. Past Medical History Past Medical History: Asthma, Cancer, Osteoarthritis (OA), Pneumonia Additional Past Medical History / Comment(s): Klinnefelter Syndrome, HX OF RENAL CA with surgery. chronic back pain (degenerative disk L3 and L4), healed cellulitis bilateral lower legs, hx thrombocytopenia 2009 when tx for kidney cancer. History of Any Multi-Drug Resistant Organisms: None Reported Past Surgical History: Joint Replacement, Orthopedic Surgery Additional Past Surgical History / Comment(s): total R knee arthroplasty. LEFT shoulder rotator cuff tear, 2009 kidney ca removed portion of right kidney, 2011 carpectomy left wrist, TLK Past Anesthesia/Blood Transfusion Reactions: No Reported Reaction Additional Past Anesthesia/Blood Transfusion Reaction / Comment(s): "incision popped open day of surgery with other knee replacement, ended up staying 5 days with knee immobilized" Past Psychological History: Depression Smoking Status: Never smoker Past Alcohol Use History: Rare Past Drug Use History: None Reported - Past Family History Father Family Medical History: Cancer Additional Family Medical History / Comment(s): colon Mother Family Medical History: AFIB, Asthma General Exam Limitations: no limitations General appearance: alert, in no apparent distress Head exam: Present: atraumatic, normocephalic, normal inspection Eye exam: Present: normal appearance, PERRL, EOMI. Absent: scleral icterus, conjunctival injection, periorbital swelling ENT exam: Present: normal exam, mucous membranes moist Neck exam: Present: normal inspection. Absent: tenderness, meningismus, lymphadenopathy Respiratory exam: Present: normal lung sounds bilaterally. Absent: respiratory distress, wheezes, rales, rhonchi, stridor Cardiovascular Exam: Present: regular rate, normal rhythm, normal heart sounds. Absent: systolic murmur, diastolic murmur, rubs, gallop, clicks GI/Abdominal exam: Present: soft, normal bowel sounds. Absent: distended, tenderness, guarding, rebound, rigid Extremities exam: Present: normal inspection, full ROM, normal capillary refill, other (healing incision over the left knee. Minimal associated swelling. No joint effusion). Absent: tenderness, pedal edema, joint swelling, calf tenderness Back exam: Present: normal inspection Neurological exam: Present: alert, oriented X3, CN II-XII intact Psychiatric exam: Present: normal affect, normal mood Skin exam: Present: warm, dry, intact, normal color. Absent: rash Course Vital Signs 04/22/19 15:40 Temperature 97.7 F Pulse Rate 111 H Respiratory 20 Rate Blood Pressure 151/102 O2 Sat by Pulse 96 Oximetry EKG Findings - EKG Comments: EKG Findings:: EKG demonstrates normal sinus rhythm with a ventricular rate of 87. MS interval 150. QRS 86. QTC of 471. No acute ST segment elevations or depressions concerning for ischemic changes. There is some J-point elevation in the anterior and lateral leads however no worse typical changes Medical Decision Making - Medical Decision Making Upon arrival the patient was placed in the hallway 22. A thorough history and physical exam was performed. We did utilize the patient's PICC line. Laboratory studies were conducted. CK is 23,625. AST and ALT are elevated at 1067 and 315. UA demonstrates large blood with rare bacteria. Discuss results with the patient. He was given a 2 L bolus of normal saline and placed on 200 mL of normal saline per hour. Patient will be admitted to the hospital. Blood cultures were obtained and the patient was given Rocephin. I will consult Dr. Dru ely. Patient remained in stable condition was taken to the floor - Lab Data Result diagrams: 04/26/19 07:36 04/26/19 07:36 Lab Results 04/22/19 04/22/19 04/22/19 Range/Units 16:55 16:55 16:55 WBC 7.5 (3.8-10.6) k/uL RBC 4.56 (4.30-5.90) m/uL Hgb 13.0 (13.0-17.5) gm/dL Hct 40.3 (39.0-53.0) % MCV 88.4 (80.0-100.0) fL MCH 28.5 (25.0-35.0) pg MCHC 32.2 (31.0-37.0) g/dL RDW 12.9 (11.5-15.5) % Plt Count 406 D (150-450) k/uL Neutrophils % 73 % Lymphocytes % 17 % Monocytes % 6 % Eosinophils % 2 % Basophils % 0 % Neutrophils # 5.4 (1.3-7.7) k/uL Lymphocytes # 1.2 (1.0-4.8) k/uL Monocytes # 0.5 (0-1.0) k/uL Eosinophils # 0.2 (0-0.7) k/uL Basophils # 0.0 (0-0.2) k/uL Sodium 136 L (137-145) mmol/L Potassium 4.5 (3.5-5.1) mmol/L Chloride 97 L (98-107) mmol/L Carbon Dioxide 29 (22-30) mmol/L Anion Gap 10 mmol/L BUN 9 (9-20) mg/dL Creatinine 0.85 (0.66-1.25) mg/dL Est GFR (CKD-EPI)AfAm >90 (>60 ml/min/1.73 sqM) Est GFR (CKD-EPI)NonAf >90 (>60 ml/min/1.73 sqM) Glucose 110 H (74-99) mg/dL Plasma Lactic Acid Som 1.6 (0.7-2.0) mmol/L Calcium 9.8 (8.4-10.2) mg/dL Total Bilirubin 0.3 (0.2-1.3) mg/dL AST 1067 H (17-59) U/L ALT 315 H (4-49) U/L Alkaline Phosphatase 77 (38-126) U/L Creatine Kinase 60498 H* (55-170) U/L Total Protein 7.9 (6.3-8.2) g/dL Albumin 4.6 (3.5-5.0) g/dL Urine Color Urine Appearance (Clear) Urine pH (5.0-8.0) Ur Specific [place] (1.001-1.035) Urine Protein (Negative) Urine Glucose (UA) (Negative) Urine Ketones (Negative) Urine Blood (Negative) Urine Nitrite (Negative) Urine Bilirubin (Negative) Urine Urobilinogen (<2.0) mg/dL Ur Leukocyte Esterase (Negative) Urine RBC (0-5) /hpf Urine WBC (0-5) /hpf Ur Squamous Epith Cells (0-4) /hpf Urine Bacteria (None) /hpf Urine Mucus (None) /hpf 04/22/19 Range/Units 16:55 WBC (3.8-10.6) k/uL RBC (4.30-5.90) m/uL Hgb (13.0-17.5) gm/dL Hct (39.0-53.0) % MCV (80.0-100.0) fL MCH (25.0-35.0) pg MCHC (31.0-37.0) g/dL RDW (11.5-15.5) % Plt Count (150-450) k/uL Neutrophils % % Lymphocytes % % Monocytes % % Eosinophils % % Basophils % % Neutrophils # (1.3-7.7) k/uL Lymphocytes # (1.0-4.8) k/uL Monocytes # (0-1.0) k/uL Eosinophils # (0-0.7) k/uL Basophils # (0-0.2) k/uL Sodium (137-145) mmol/L Potassium (3.5-5.1) mmol/L Chloride (98-107) mmol/L Carbon Dioxide (22-30) mmol/L Anion Gap mmol/L BUN (9-20) mg/dL Creatinine (0.66-1.25) mg/dL Est GFR (CKD-EPI)AfAm (>60 ml/min/1.73 sqM) Est GFR (CKD-EPI)NonAf (>60 ml/min/1.73 sqM) Glucose (74-99) mg/dL Plasma Lactic Acid Som (0.7-2.0) mmol/L Calcium (8.4-10.2) mg/dL Total Bilirubin (0.2-1.3) mg/dL AST (17-59) U/L ALT (4-49) U/L Alkaline Phosphatase (38-126) U/L Creatine Kinase (55-170) U/L Total Protein (6.3-8.2) g/dL Albumin (3.5-5.0) g/dL Urine Color Yellow Urine Appearance Clear (Clear) Urine pH 6.0 (5.0-8.0) Ur Specific [place] 1.019 (1.001-1.035) Urine Protein 1+ H (Negative) Urine Glucose (UA) Negative (Negative) Urine Ketones Negative (Negative) Urine Blood Large H (Negative) Urine Nitrite Negative (Negative) Urine Bilirubin Negative (Negative) Urine Urobilinogen <2.0 (<2.0) mg/dL Ur Leukocyte Esterase Negative (Negative) Urine RBC 1 (0-5) /hpf Urine WBC 2 (0-5) /hpf Ur Squamous Epith Cells <1 (0-4) /hpf Urine Bacteria Rare H (None) /hpf Urine Mucus Few H (None) /hpf Disposition Clinical Impression: Status post total right knee replacement using cement, Cellulitis of left lower extremity, Rhabdomyolysis Disposition: ADMITTED IP TO THIS [facility] Condition: Stable Is patient prescribed a controlled substance at d/c from ED?: No Decision to Admit Reason: Admit from EC Decision Date: 04/22/19 Decision Time: 17:54
[2019-04-22] MEDS ORDERED: cefTRIAXone IN SWFI 1,000 MG/10 ML SYRINGE IVP STA (17:25)
[2019-04-22 17:33] LABS: ALT 315 U/L (4-49); African American GFR (CKD) >90 (>60 ml/min/1.73 sqM); Albumin 4.6 g/dL (3.5-5.0); Alkaline Phosphatase 77 U/L (38-126); Anion Gap 10 mmol/L; Blood Urea Nitrogen 9 mg/dL (9-20); Calcium 9.8 mg/dL (8.4-10.2); Carbon Dioxide 29 mmol/L (22-30); Chloride 97 mmol/L (98-107); Glucose 110 mg/dL (74-99); Non-African American GFR(CKD) >90 (>60 ml/min/1.73 sqM); Potassium 4.5 mmol/L (3.5-5.1); Sodium 136 mmol/L (137-145); Total Bilirubin 0.3 mg/dL (0.2-1.3); Total Protein 7.9 g/dL (6.3-8.2)
[2019-04-22 17:41] LABS: AST 1067 U/L (17-59)
[2019-04-22] MEDS ORDERED: NALOXONE 0.4 MG/ML 1 ML VIAL IV PRN (17:55)
[2019-04-22] MEDS: SODIUM CHLORIDE 0.9% 1,000 ML IV SCH ×2 (19:16→22:44)
[2019-04-22 19:25] LABS: Creatine Kinase 23625 U/L (55-170)
[2019-04-22] MEDS ORDERED: ALBUTEROL NEBULIZED 2.5 MG/3 ML INHALATION PRN (23:55)
[2019-04-22] MEDS ORDERED: FLUTICASONE 50MCG/SPRAY NASAL 16GM EA NOSTRIL PRN (23:55)
[2019-04-23] MEDS: HYDROcodone/APAP 7.5-325MG 1 EACH TAB PO PRN ×4 (00:07→20:43)
[2019-04-23] MEDS: traMADol 50 MG TAB PO PRN ×3 (02:35→17:25)
[2019-04-23] MEDS: SODIUM CHLORIDE 0.9% 1,000 ML IV SCH ×4 (03:24→20:45)
[2019-04-23] MEDS: SYMBICORT 80-4.5 MCG INHALER INHALATION SCH ×2 (07:36→20:58)
[2019-04-23] MEDS: ASPIRIN 81 MG PO SCH ×2 (07:57→20:44)
[2019-04-23] MEDS: LORATADINE-PSEUDOEPH 5-120 MG 1 EACH TAB.ER.12H PO SCH (07:58)
[2019-04-23] MEDS: ESCITALOPRAM 10 MG TAB PO SCH (07:58)
--- NOTE | 2019-04-23 08:56 | CONS ---
CONSULTATION DATE OF SERVICE: 04/22/2019 REASON FOR CONSULTATION: Left lower extremity cellulitis. HISTORY OF PRESENT ILLNESS: The patient is a 58-year-old male with a past medical history significant for left knee replacement on March 29. The patient subsequently did develop left leg cellulitis before the patient was admitted to this facility. The cellulitis failed to respond to outpatient oral Keflex. The patient was treated with IV vancomycin, subsequently was switched to daptomycin and was advised a 2-week course of IV daptomycin. I did evaluate the patient in the office on Friday. The patient's left leg cellulitis has resolved. However, he was noticed to have slight erythema to the left knee area with concern for cellulitis of the knee and in this patient who did have underlying was advised to continue IV daptomycin for a week. The patient did not have any muscular pain and his CPKs were not elevated. The patient presented to the office for the infusion today, however, the patient was complaining of generalized body aches, but the pain has been getting worse since yesterday. The patient did have a stat CPK done which shows the levels of 23,000. The patient was called and was advised to come to the ER for hydration and management of his underlying cellulitis. The patient currently denies having any fever or any chills. The patient denies having any chest pain or shortness of breath or cough. No nausea. No vomiting. No abdominal pain. No diarrhea. REVIEW OF SYSTEMS: Positive points have been mentioned in HPI. Rest of the systems are negative. PAST MEDICAL HISTORY: Osteoarthritis, left lower extremity cellulitis, asthma, pneumonia, history of renal cancer, degenerative disc disease. PAST SURGICAL HISTORY: Left knee replacement, left shoulder rotator cuff surgery, right kidney partial resection for cancer. SOCIAL HISTORY: The patient rarely drinks. No smoking or drug use. FAMILY HISTORY: Father history of colon cancer. Mother history of atrial fibrillation and asthma. ALLERGIES: Allergies to CONTRAST DYE, SULFAMETHOXAZOLE. MEDICATIONS: Medications include the patient is currently on Narcan, . He received a a dose of Rocephin. PHYSICAL EXAMINATION: On examination, his blood pressure is 158/88 with a pulse of 99, temperature 98. He is 100% on room air. General description is a middle-aged male lying in bed in no distress. No tachypnea or accessory muscle of respiration use. HEENT: Examination shows slight pallor. No scleral icterus. Oral mucous membrane is dry No pharyngeal erythema or thrush. NECK: Trachea central. No thyromegaly. LUNGS: Unlabored breathing. Clear to auscultation anteriorly. HEART: S1, S2. Regular rate and rhythm. ABDOMEN: Soft, no tenderness. Left leg redness has completely resolved. Left knee swelling and erythema has decreased in intensity as well. NEUROLOGICAL: The patient is awake, alert, oriented x3. Mood and affect are normal. LABS: Patient's CPK has been 23,000. His kidney function is currently normal. DIAGNOSTIC IMPRESSION AND PLAN: 1. Patient with generalized body aches and muscular pain, likely secondary to likely drug-induced daptomycin which has been discontinued and renal function has been normal so far. 2. The patient with left lower extremity cellulitis has been adequately treated with some cellulitis of the left knee area, which seemed to have improved clinically as well. PLAN: 1. Daptomycin has been discontinued. 2. IV fluid. 3. Rocephin 2 grams daily. 4. Serial management of CK and CRP. 5. We will follow up on his clinical condition and further adjust medication if needed. Thank you for this consultation. Will follow this patient along with you. MMODL / IJN: [id number] /
[2019-04-23 09:02] LABS: Basophils % (A) 1 %; Eosinophils # (A) 0.2 k/uL (0-0.7); Eosinophils % (A) 4 %; HCT 36.6 % (39.0-53.0); HGB 11.5 gm/dL (13.0-17.5); Hypochromasia Slight; Lymphocytes % (A) 20 %; MCH 28.1 pg (25.0-35.0); MCHC 31.5 g/dL (31.0-37.0); MCV 89.2 fL (80.0-100.0); Mean Platelet Volume 9.3; Monocytes # (A) 0.3 k/uL (0-1.0); Monocytes % (A) 6 %; Neutrophils # (A) 3.4 k/uL (1.3-7.7); Neutrophils % (A) 67 %; Platelet Count 247 k/uL (150-450)
[2019-04-23 09:32] LABS: African American GFR (CKD) >90 (>60 ml/min/1.73 sqM); Anion Gap 5 mmol/L; Blood Urea Nitrogen 8 mg/dL (9-20); C Reactive Protein 22.6 mg/L (<10.0); Calcium 9.2 mg/dL (8.4-10.2); Carbon Dioxide 32 mmol/L (22-30); Chloride 100 mmol/L (98-107); Glucose 144 mg/dL (74-99); Non-African American GFR(CKD) >90 (>60 ml/min/1.73 sqM); Sodium 137 mmol/L (137-145)
[2019-04-23] MEDS: ENOXAPARIN 40 MG/0.4 ML SYRINGE SQ SCH (11:55)
--- NOTE | 2019-04-23 17:34 | P.HPIM ---
History of Present Illness H&P Date: 04/23/19 Chief Complaint: Weak and tired History of present complaint: This is a pleasant 58-year-old patient of Dr. Hernandez. Chronic stable medical conditions include asthma, osteoarthritis, Klinefelter syndrome, depression history of renal cancer with right nephrectomy, chronic low back pain at L3-L4 DJD, patient had undergone left total knee arthroplasty on March [address]ka floyd. Patient was discharged on March 30. April 07 admitted with cellulitis of the operative site. . Started on vancomycin. Patient has completed about 14 days out of 21 days. Patient now presents with aches and pains all over the body back and arm for last 2 days. In the ER found to be in acute rhabdomyolysis. Started and IV fluids. No fever no chills. Left knee incision infection site is healing Review of systems: GEN.: Tired EYES: None HEENT: None NECK: None RESPIRATORY: None CARDIOVASCULAR: None GASTROINTESTINAL: None GENITOURINARY: None MUSCULOSKELETAL: Aches and pains LYMPHATICS: None HEMATOLOGICAL: None PSYCHIATRY: None NEUROLOGICAL: None Past medical history to include: Asthma, osteoarthritis, Klinefelter syndrome, right renal cell cancer with nephrectomy, chronic low back pain at L3-L4 with DJD, depression Social history: , has no smoking or alcohol. Currently unemployed. Previously worked in the [employer]. Also did [employer] Physical examination: VITAL SIGNS: 97.7, 111, 20, blood pressure 151/102, 96% room air GENERAL: BMI 44.2, laying in bed, comfortable. EYES: Pupils equal. Conjunctiva normal. HEENT: External appearance of nose and ears normal, oral cavity grossly normal. NECK: JVD not raised; masses not palpable. HEART: First and second heart sounds are normal; no edema. LUNGS: Respiratory rate normal; slightly decreased breath sounds. ABDOMEN: Soft, nontender, liver spleen not palpable, no masses palpable. PSYCH: Alert and oriented x3; mood and affect normal MUSCULOSKELETAL: Incision over the left knee slightly pink. Minimal tenderness. NEUROLOGICAL: Cranial nerves grossly intact; no facial asymmetry, power and sensation grossly intact. LYMPHATICS: No lymph nodes palpable in the axilla and neck INVESTIGATIONS, reviewed in the clinical context: White count 7.5 hemoglobin 13 platelets 406 potassium 4.5 creatinine 0.85 AST 1067 ALT 315 CPK [id number], repeat today [id number] Assessment: -Acute rhabdomyolysis, severe -Acute hepatitis likely from rhabdomyolysis -Primary osteoarthritis -Left total knee arthroplasty on March 29 -Intermittent asthma -Klinefelter syndrome -Chronic low back pain from osteoarthritis of L3-L4 Plan: Patient that an IV fluids at 200 mL an hour. Antibiotics were changed to ceftri axone. Other home medications to continue. Care was discussed with the patient. Repeat labs and LFTs in the morning. Activity as tolerated. Lovenox for DVT prophylaxis. Past Medical History Past Medical History: Asthma, Cancer, Osteoarthritis (OA), Pneumonia Additional Past Medical History / Comment(s): Klinnefelter Syndrome, HX OF RENAL CA with surgery. chronic back pain (degenerative disk L3 and L4), healed cellulitis bilateral lower legs, hx thrombocytopenia 2009 when tx for kidney cancer. History of Any Multi-Drug Resistant Organisms: None Reported Past Surgical History: Joint Replacement, Orthopedic Surgery Additional Past Surgical History / Comment(s): total R knee arthroplasty. LEFT shoulder rotator cuff tear, 2009 kidney ca removed portion of right kidney, 2011 carpectomy left wrist, TLK Past Anesthesia/Blood Transfusion Reactions: No Reported Reaction Additional Past Anesthesia/Blood Transfusion Reaction / Comment(s): "incision popped open day of surgery with other knee replacement, ended up staying 5 days with knee immobilized" Past Psychological History: Depression Smoking Status: Never smoker Past Alcohol Use History: Rare Past Drug Use History: None Reported - Past Family History Father Family Medical History: Cancer Additional Family Medical History / Comment(s): colon Mother Family Medical History: AFIB, Asthma Medications and Allergies Home Medications Medication Instructions Recorded Confirmed Type Albuterol Nebulized [Ventolin 2.5 mg INHALATION RT-QID PRN 07/10/13 04/22/19 History Nebulized] Albuterol Sulfate [Proair Hfa] 2 puff INHALATION RT-QID PRN 07/10/13 04/22/19 History Fluticasone/Salmeterol [Advair 1 puff INHALATION RT-BID 07/10/13 04/22/19 History 250-50 Diskus] EPINEPHrine (Auto Inject) [Epipen] 0.3 mg IM ONCE PRN 07/17/14 04/22/19 History Fluticasone Nasal [place] [Flonase 1 spray EA NOSTRIL DAILY PRN 07/17/14 04/22/19 History Nasal [place]] Loratadine-Pseudoeph 10-240 mg 1 tab PO DAILY 07/17/14 04/22/19 History [Claritin-D 24 Hour] Escitalopram Oxalate [Lexapro] 10 mg PO DAILY 03/23/19 04/22/19 History Furosemide [Lasix] 10 mg PO DAILY PRN 03/23/19 04/22/19 History Montelukast [Singulair] 10 mg PO HS 03/23/19 04/22/19 History Aspirin [Adult Low Dose Aspirin EC] 81 mg PO BID #60 tablet. 03/30/19 04/22/19 Rx HYDROcodone/APAP 7.5-325MG [[place] 1 tab PO Q6H PRN 04/07/19 04/22/19 History 7.5-325] Testosterone Cypionate 200 mg IM Q21D 04/07/19 04/22/19 History [Depo-Testosterone] hydrOXYzine PAMOATE [Vistaril] 25 mg PO Q6HR PRN 04/07/19 04/22/19 History traMADol HCL [Ultram] 50 mg PO Q6HR PRN 04/07/19 04/22/19 History DAPTOmycin [Cubicin] 650 mg IV DAILY #10 bag 04/10/19 04/22/19 Rx Allergies Allergy/AdvReac Type Severity Reaction Status Date / Time Iodinated Contrast Media Allergy Severe Anaphylaxis Verified 04/22/19 23:09 [Iodinated Contrast Media - IV Dye] shellfish derived Allergy Severe Anaphylaxis Verified 04/22/19 23:09 sulfamethoxazole Allergy Severe Anaphylaxis Verified 04/22/19 23:09 [From Bactrim] trimethoprim [From Bactrim] Allergy Severe Anaphylaxis Verified 04/22/19 23:09 Physical Exam Vitals: Vital Signs Temp Pulse Pulse Resp BP BP Pulse Ox 04/23/19 07:00 98.4 F 93 16 146/84 96 04/23/19 00:29 98.2 F 97 15 153/89 92 L 04/22/19 18:54 98.0 F 99 16 158/88 100 04/22/19 18:28 97.9 F 82 18 158/78 97 04/22/19 15:40 97.7 F 111 H 20 151/102 96 Intake and Output 04/22/19 04/23/19 04/23/19 22:59 06:59 14:59 Intake Total 600 1600 Balance 600 1600 Intake: Intake, IV Titration 600 1600 Amount Sodium Chloride 0.9% 1, 600 1600 000 ml @ 200 mls/hr IV . Q5H [facility] Rx#:[id number] Other: Voiding Method Toilet # Voids 1 Weight 151.953 kg Results CBC & Chem 7: 04/23/19 08:43 04/23/19 08:43 Labs: Abnormal Lab Results - Last 24 Hours (Table) 04/22/19 04/22/19 04/23/19 Range/Units 16:55 16:55 08:43 RBC 4.10 L (4.30-5.90) m/uL Hgb 11.5 L (13.0-17.5) gm/dL Hct 36.6 L (39.0-53.0) % Sodium 136 L (137-145) mmol/L Chloride 97 L (98-107) mmol/L Carbon Dioxide (22-30) mmol/L BUN (9-20) mg/dL Glucose 110 H (74-99) mg/dL AST 1067 H (17-59) U/L ALT 315 H (4-49) U/L Creatine Kinase 31004 H* (55-170) U/L C-Reactive Protein (<10.0) mg/L Urine Protein 1+ H (Negative) Urine Blood Large H (Negative) Urine Bacteria Rare H (None) /hpf Urine Mucus Few H (None) /hpf 04/23/19 Range/Units 08:43 RBC (4.30-5.90) m/uL Hgb (13.0-17.5) gm/dL Hct (39.0-53.0) % Sodium (137-145) mmol/L Chloride (98-107) mmol/L Carbon Dioxide 32 H (22-30) mmol/L BUN 8 L (9-20) mg/dL Glucose 144 H (74-99) mg/dL AST (17-59) U/L ALT (4-49) U/L Creatine Kinase (55-170) U/L C-Reactive Protein 22.6 H (<10.0) mg/L Urine Protein (Negative) Urine Blood (Negative) Urine Bacteria (None) /hpf Urine Mucus (None) /hpf Thrombosis Risk Factor Assmnt - Choose All That Apply Each Factor Represents 1 point: Age 41-60 years Other Risk Factors: No Other congenital or acquired thrombophilia - If yes, enter type in comment: No Thrombosis Risk Factor Assessment Total Risk Factor Score: 1 Thrombosis Risk Factor Assessment Level: Low Risk
[2019-04-23] MEDS: hydrOXYzine PAMOATE 25 MG CAP PO PRN (20:44)
[2019-04-23] MEDS: MONTELUKAST 10 MG TAB PO SCH (20:44)
--- NOTE | 2019-04-23 23:31 | PN ---
PROGRESS NOTE DATE OF SERVICE: 04/23/2019 REASON FOR FOLLOWUP: Left knee cellulitis and rhabdomyolysis secondary to daptomycin. INTERIM HISTORY: The patient is currently afebrile. He has been breathing comfortably. Denies having any chest pain. No shortness of breath or cough. No nausea, vomiting, abdominal pain. No pain to the left knee or leg area. PHYSICAL EXAMINATION: Blood pressure 141/95 with a pulse of 84, temperature 98.2. He is 98% on room air. General description is a middle-aged male lying in bed in no distress. Respiratory system: Unlabored breathing, clear to auscultation anteriorly. Heart S1, S2. Regular rate and rhythm. Abdomen soft, no tenderness. Left leg left knee did have some swelling. No significant redness or drainage. LABS: Hemoglobin is 11.4, white count 5.0, BUN of 8, creatinine 0.81. CKs have decreased. The blood culture positive with gram-positive cocci. DIAGNOSTIC IMPRESSION AND PLAN: 1. Patient with left leg and knee cellulitis in this patient who was daptomycin admitted to the hospital with rhabdomyolysis. The patient seemed to have shown clinical improvement has long as CK is coming down. 2. The patient now with a positive blood culture, questionable about skin contaminant. bacteremia with no fever or elevated white count. Blood cultures will be repeated. Continue Rocephin. . MMODL / IJN: [id number] /
[2019-04-24] MEDS: traMADol 50 MG TAB PO PRN ×4 (00:28→18:11)
[2019-04-24] MEDS: SODIUM CHLORIDE 0.9% 1,000 ML IV SCH ×4 (01:22→15:43)
[2019-04-24] MEDS: hydrOXYzine PAMOATE 25 MG CAP PO PRN ×4 (03:37→21:21)
[2019-04-24] MEDS: HYDROcodone/APAP 7.5-325MG 1 EACH TAB PO PRN ×4 (03:38→21:21)
[2019-04-24] MEDS: ENOXAPARIN 40 MG/0.4 ML SYRINGE SQ SCH (07:51)
[2019-04-24] MEDS: LORATADINE-PSEUDOEPH 5-120 MG 1 EACH TAB.ER.12H PO SCH (07:51)
[2019-04-24] MEDS: ASPIRIN 81 MG PO SCH ×2 (07:51→20:41)
[2019-04-24] MEDS: ESCITALOPRAM 10 MG TAB PO SCH (07:51)
[2019-04-24 07:59] LABS: ALT 257 U/L (4-49); AST 530 U/L (17-59); African American GFR (CKD) >90 (>60 ml/min/1.73 sqM); Albumin 3.7 g/dL (3.5-5.0); Alkaline Phosphatase 70 U/L (38-126); Anion Gap 8 mmol/L; Blood Urea Nitrogen 6 mg/dL (9-20); Calcium 9.3 mg/dL (8.4-10.2); Carbon Dioxide 29 mmol/L (22-30); Chloride 101 mmol/L (98-107); Glucose 106 mg/dL (74-99); Non-African American GFR(CKD) >90 (>60 ml/min/1.73 sqM); Potassium 4.3 mmol/L (3.5-5.1); Sodium 138 mmol/L (137-145); Total Bilirubin 0.2 mg/dL (0.2-1.3); Total Protein 6.8 g/dL (6.3-8.2)
[2019-04-24 08:36] LABS: Creatine Kinase 6730 U/L (55-170)
[2019-04-24] MEDS: SYMBICORT 80-4.5 MCG INHALER INHALATION SCH ×2 (08:39→21:31)
--- NOTE | 2019-04-24 17:33 | PN ---
PROGRESS NOTE DATE OF SERVICE: 04/24/2019. REASON FOR FOLLOWUP: 1. Left leg and knee cellulitis. 2. Rhabdomyolysis secondary to daptomycin. INTERVAL HISTORY: The patient is currently afebrile, has been breathing comfortably. The patient's overall pain and discomfort to the left knee have improved. Lab studies have improved as well. Denies any chest pain, shortness of breath or cough. No abdominal pain or diarrhea. PHYSICAL EXAMINATION: Blood pressure 154/94 with a pulse of 85, temperature 98.9. He is 96% on room air. General description is a middle-aged male lying in bed in no distress. RESPIRATORY SYSTEM: Unlabored breathing. Clear to auscultation anteriorly. HEART: S1, S2. Regular rate and rhythm. ABDOMEN: Soft. No tenderness. Left knee swelling and redness have improved. LABS: Hemoglobin is 11.5, white count 5, BUN of 6, creatinine 0.78. CPK down to 6730. Blood culture with coagulase-negative staph. DIAGNOSTIC IMPRESSION AND PLAN: 1. Patient with recent left knee and leg cellulitis that has been treated with daptomycin, unfortunately developing rhabdomyolysis. The daptomycin has been discontinued. Patient admitted to hospital for IV hydration and the patient did have improvement in his CPK. 2. Patient with left knee cellulitis. Plan will be to finish his antibiotic on discharge. 3. Follow-up blood culture with coagulase-negative staph, likely skin contamination. Will need further workup for the same. MMODL / IJN: [id number] /
[2019-04-24] MEDS: MONTELUKAST 10 MG TAB PO SCH (20:41)
[2019-04-25] MEDS: SODIUM CHLORIDE 0.9% 1,000 ML IV SCH ×5 (00:13→17:03)
[2019-04-25] MEDS: traMADol 50 MG TAB PO PRN ×4 (00:13→18:17)
[2019-04-25] MEDS: HYDROcodone/APAP 7.5-325MG 1 EACH TAB PO PRN ×4 (03:03→20:45)
[2019-04-25] MEDS: hydrOXYzine PAMOATE 25 MG CAP PO PRN ×4 (03:04→20:46)
[2019-04-25] MEDS: SYMBICORT 80-4.5 MCG INHALER INHALATION SCH ×2 (08:41→20:27)
[2019-04-25] MEDS: ASPIRIN 81 MG PO SCH ×2 (08:59→20:45)
[2019-04-25] MEDS: LORATADINE-PSEUDOEPH 5-120 MG 1 EACH TAB.ER.12H PO SCH (08:59)
[2019-04-25] MEDS: ESCITALOPRAM 10 MG TAB PO SCH (08:59)
[2019-04-25] MEDS: ENOXAPARIN 40 MG/0.4 ML SYRINGE SQ SCH (08:59)
[2019-04-25] MEDS: MONTELUKAST 10 MG TAB PO SCH (20:45)
[2019-04-26] MEDS: traMADol 50 MG TAB PO PRN ×3 (00:09→13:31)
--- NOTE | 2019-04-26 00:10 | P.PN ---
Subjective Progress Note Date: 04/24/19 Principal diagnosis: Acute rhabdomyolysis This is a pleasant 58-year-old patient of Dr. Hernandez. Chronic stable medical conditions include asthma, osteoarthritis, Klinefelter syndrome, depression history of renal cancer with right nephrectomy, chronic low back pain at L3-L4 DJD, patient had undergone left total knee arthroplasty on March 29 by . Patient was discharged on March 30. April 07 admitted with cellulitis of the operative site. . Started on vancomycin. Patient has completed about 14 days out of 21 days. Patient now presents with aches and pains all over the body back and arm for last 2 days. In the ER found to be in acute rhabdomyolysis. Started and IV fluids. No fever no chills. Left knee incision infection site is healing 04/24/2019 Patient denied any complaints of fever or chills. Left lower extremity redness around the knee is improved. Rhabdomyolysis is also improving but CPK level is still greater than 6000. Continued on aggressive hydration. Continue the pain management. Patient is on currently on antibiotics. Current medications reviewed. Objective - Vital Signs Vital signs: Vital Signs Temp 97.8 F 04/24/19 07:00 Pulse 87 04/24/19 07:00 Resp 17 04/24/19 07:00 BP 151/90 04/24/19 07:00 Pulse Ox 95 04/24/19 07:00 Intake & Output 04/23/19 04/24/19 04/24/19 18:59 06:59 18:59 Other: Voiding Method Toilet Urinal # Voids 5 2 3 - Exam GENERAL: BMI 44.2, laying in bed, comfortable. EYES: Pupils equal. Conjunctiva normal. HEENT: External appearance of nose and ears normal, oral cavity grossly normal. NECK: JVD not raised; masses not palpable. HEART: First and second heart sounds are normal; no edema. LUNGS: Respiratory rate normal; slightly decreased breath sounds. ABDOMEN: Soft, nontender, liver spleen not palpable, no masses palpable. PSYCH: Alert and oriented x3; mood and affect normal MUSCULOSKELETAL: Incision over the left knee slightly pink. Minimal tenderness. NEUROLOGICAL: Cranial nerves grossly intact; no facial asymmetry, power and sensation grossly intact. LYMPHATICS: No lymph nodes palpable in the axilla and neck INVESTIGATIONS, reviewed in the clinical context: White count 7.5 hemoglobin 13 platelets 406 potassium 4.5 creatinine 0.85 AST 1067 ALT 315 CPK 16800, repeat today 21952 - Labs CBC & Chem 7: 04/23/19 08:43 04/24/19 06:53 Labs: Abnormal Lab Results - Last 24 Hours (Table) 04/24/19 Range/Units 06:53 BUN 6 L (9-20) mg/dL Glucose 106 H (74-99) mg/dL AST 530 H (17-59) U/L ALT 257 H (4-49) U/L Creatine Kinase 6730 H* (55-170) U/L Microbiology - Last 24 Hours (Table) 04/22/19 16:55 Blood Culture Gram Stain - Preliminary Blood Blood Culture - Preliminary Coagulase Negative Staph 04/22/19 16:55 Blood Culture - Final Blood Assessment and Plan Assessment: Assessment: -Acute rhabdomyolysis, severe -Acute hepatitis likely from rhabdomyolysis -Primary osteoarthritis -Left total knee arthroplasty on March 29 -Intermittent asthma -Klinefelter syndrome -Chronic low back pain from osteoarthritis of L3-L4 Plan: Patient that an IV fluids at 200 mL an hour. Antibiotics were changed to ceftriaxone. Other home medications to continue. Care was discussed with the patient. Repeat labs and LFTs in the morning. Activity as tolerated. Lovenox for DVT prophylaxis. Time with Patient: Greater than 30
--- NOTE | 2019-04-26 00:13 | P.PN ---
Subjective Progress Note Date: 04/25/19 Principal diagnosis: Acute rhabdomyolysis This is a pleasant 58-year-old patient of Dr. Hernandez. Chronic stable medical conditions include asthma, osteoarthritis, Klinefelter syndrome, depression history of renal cancer with right nephrectomy, chronic low back pain at L3-L4 DJD, patient had undergone left total knee arthroplasty on March 29 by . Patient was discharged on March 30. April 07 admitted with cellulitis of the operative site. . Started on vancomycin. Patient has completed about 14 days out of 21 days. Patient now presents with aches and pains all over the body back and arm for last 2 days. In the ER found to be in acute rhabdomyolysis. Started and IV fluids. No fever no chills. Left knee incision infection site is healing 04/24/2019 Patient denied any complaints of fever or chills. Left lower extremity redness around the knee is improved. Rhabdomyolysis is also improving but CPK level is still greater than 6000. Continued on aggressive hydration. Continue the pain management. Patient is on currently on antibiotics. April 25 2019 Patient denied any complaints of chest pain or shortness of breath. Left knee s welling and redness is much improved. CPK level is also improving. Continued on IV hydration and antibiotics. Anticipate discharge in the next 2405 final ID recommendations. Patient has been afebrile. No complaints of chest pain or shortness of breath. No nausea vomiting or abdominal pain or diarrhea. Renal function is normalized. Current medications reviewed. Objective - Vital Signs Vital signs: Vital Signs Temp 98.7 F 04/25/19 19:45 Pulse 78 04/25/19 19:45 Resp 16 04/25/19 19:45 BP 152/96 04/25/19 19:45 Pulse Ox 96 04/25/19 19:45 Intake & Output 04/25/19 04/25/19 04/26/19 06:59 18:59 06:59 Intake Total 2990 1000 800 Balance 2990 1000 800 Intake: IV 1000 800 Sodium Chloride 0.9% 1, 1000 800 000 ml @ 100 mls/hr IV . Q10H [facility] Rx#:[id number] Intake, IV Titration 2400 Amount Sodium Chloride 0.9% 1, 2400 000 ml @ 100 mls/hr IV . Q10H [facility] Rx#:[id number] Oral 590 Other: Voiding Method Toilet Toilet Urinal Urinal # Voids 1 3 1 - Exam GENERAL: BMI 44.2, laying in bed, comfortable. EYES: Pupils equal. Conjunctiva normal. HEENT: External appearance of nose and ears normal, oral cavity grossly normal. NECK: JVD not raised; masses not palpable. HEART: First and second heart sounds are normal; no edema. LUNGS: Respiratory rate normal; slightly decreased breath sounds. ABDOMEN: Soft, nontender, liver spleen not palpable, no masses palpable. PSYCH: Alert and oriented x3; mood and affect normal MUSCULOSKELETAL: Incision over the left knee slightly pink. Minimal tenderness. NEUROLOGICAL: Cranial nerves grossly intact; no facial asymmetry, power and sensation grossly intact. LYMPHATICS: No lymph nodes palpable in the axilla and neck INVESTIGATIONS, reviewed in the clinical context: White count 7.5 hemoglobin 13 platelets 406 potassium 4.5 creatinine 0.85 AST 1067 ALT 315 CPK 60173, repeat today 40657 - Labs CBC & Chem 7: 04/23/19 08:43 04/24/19 06:53 Labs: Abnormal Lab Results - Last 24 Hours (Table) 04/25/19 Range/Units 06:15 Creatine Kinase 1470 H* (55-170) U/L Microbiology - Last 24 Hours (Table) 04/22/19 16:55 Blood Culture Gram Stain - Final Blood Blood Culture - Final Staph hominis sub sp. hominis Assessment and Plan Assessment: Assessment: -Acute rhabdomyolysis, severe -Acute hepatitis likely from rhabdomyolysis -Staph hominis bacteremia -Primary osteoarthritis -Left total knee arthroplasty on March 29 -Intermittent asthma -Klinefelter syndrome -Chronic low back pain from osteoarthritis of L3-L4 Plan: Patient that an IV fluids at 100 mL an hour. Antibiotics were changed to ceftriaxone. Other home medications to continue. Care was discussed with the patient. Repeat labs and LFTs in the morning. Activity as tolerated. Lovenox for DVT prophylaxis. Time with Patient: Greater than 30
[2019-04-26] MEDS: SODIUM CHLORIDE 0.9% 1,000 ML IV SCH ×2 (02:06→12:25)
[2019-04-26] MEDS: HYDROcodone/APAP 7.5-325MG 1 EACH TAB PO PRN ×3 (03:11→16:50)
[2019-04-26] MEDS: hydrOXYzine PAMOATE 25 MG CAP PO PRN ×3 (03:12→16:51)
[2019-04-26] MEDS: ESCITALOPRAM 10 MG TAB PO SCH (08:03)
[2019-04-26] MEDS: LORATADINE-PSEUDOEPH 5-120 MG 1 EACH TAB.ER.12H PO SCH (08:03)
[2019-04-26] MEDS: ASPIRIN 81 MG PO SCH (08:03)
[2019-04-26] MEDS: ENOXAPARIN 40 MG/0.4 ML SYRINGE SQ SCH (08:04)
[2019-04-26] MEDS: SYMBICORT 80-4.5 MCG INHALER INHALATION SCH (08:13)
[2019-04-26 08:22] LABS: Basophils % (A) 1 %; Eosinophils # (A) 0.3 k/uL (0-0.7); Eosinophils % (A) 6 %; HCT 39.9 % (39.0-53.0); HGB 12.9 gm/dL (13.0-17.5); Lymphocytes # (A) 1.3 k/uL (1.0-4.8); Lymphocytes % (A) 25 %; MCH 28.4 pg (25.0-35.0); MCHC 32.3 g/dL (31.0-37.0); MCV 87.8 fL (80.0-100.0); Mean Platelet Volume 10.6; Monocytes # (A) 0.3 k/uL (0-1.0); Monocytes % (A) 6 %; Neutrophils # (A) 3.3 k/uL (1.3-7.7); Neutrophils % (A) 62 %; Platelet Count 177 k/uL (150-450); RBC 4.54 m/uL (4.30-5.90); RDW 13.1 % (11.5-15.5); WBC 5.3 k/uL (3.8-10.6)
[2019-04-26 08:28] LABS: ALT 184 U/L (4-49); AST 127 U/L (17-59); African American GFR (CKD) >90 (>60 ml/min/1.73 sqM); Albumin 4.2 g/dL (3.5-5.0); Alkaline Phosphatase 74 U/L (38-126); Anion Gap 10 mmol/L; Blood Urea Nitrogen 6 mg/dL (9-20); Calcium 9.9 mg/dL (8.4-10.2); Carbon Dioxide 28 mmol/L (22-30); Chloride 100 mmol/L (98-107); Creatine Kinase 588 U/L (55-170); Glucose 114 mg/dL (74-99); Non-African American GFR(CKD) >90 (>60 ml/min/1.73 sqM); Potassium 4.5 mmol/L (3.5-5.1); Sodium 138 mmol/L (137-145); Total Bilirubin 0.3 mg/dL (0.2-1.3); Total Protein 7.6 g/dL (6.3-8.2)
--- NOTE | 2019-04-26 09:10 | PN ---
PROGRESS NOTE DATE OF SERVICE: 04/25/2019 REASON FOR FOLLOWUP: 1. Daptomycin induced rhabdomyolysis. 2. Left knee cellulitis. INTERVAL HISTORY: The patient is currently afebrile, has been breathing comfortably. The patient body aches and pain has improved. Denies having any chest pain, shortness of breath or cough. No abdominal pain. Pain to the left knee area. PHYSICAL EXAMINATION: Blood pressure 150/96, pulse of 78, temperature 98.7, he is 93% on room air. General description is a middle-aged male lying in bed in no distress. RESPIRATORY SYSTEM: Unlabored breathing, clear to auscultation anteriorly. HEART: S1, S2. Regular rate and rhythm. ABDOMEN: Soft, no tenderness. EXTREMITIES: Left ankle with minimal swelling, no redness. LABS: CPK is down to 1470. Creatinine has been normal at 0.78. DIAGNOSTIC IMPRESSION/PLAN: 1. Patient admitted to the hospital with rhabdomyolysis secondary to daptomycin which has been discontinued: The patient kidney function remains to be normal, CPK is almost down to normal. 2. Positive blood culture, likely skin contamination. 3. Left breast cellulitis. Overall improved. Discontinue Rocephin on discharge and follow the patient closely in the outpatient setting off antibiotic therapy. MMODL / IJN: [id number] /
[2019-04-26 10:03] VITALS: BP 146/51; PULSE 84; RESP 16; TEMP 97.5
--- NOTE | 2019-04-26 18:43 | PN ---
PROGRESS NOTE DATE OF SERVICE: 04/26/2019 REASON FOR FOLLOWUP: 1. Daptomycin-induced rhabdomyolysis. 2. Left knee infection. INTERVAL HISTORY: The patient is currently afebrile. He has been breathing comfortably. The patient denies having any chest pain or any cough. No nausea, no vomiting. No abdominal pain or pain to the left knee area. PHYSICAL EXAMINATION: Blood pressure 146/51 with a pulse of 84, temperature 97.5. He is 94% on room air. General description is a middle-aged male up in the room in no distress. RESPIRATORY SYSTEM: Unlabored breathing. Clear to auscultation anteriorly. HEART: S1, S2. Regular rate and rhythm. ABDOMEN: Soft. No tenderness. Left knee swelling but no redness, open wound or any drainage. LABS: Patient's CPK is down to 588. Creatinine is normal at 0.82, white count 5.3. DIAGNOSTIC IMPRESSION AND PLAN: 1. Patient with daptomycin-induced rhabdomyolysis in this patient who seems to have shown overall clinical improvement with resolution of his symptoms and CPK now down to 588. 2. Patient with left leg cellulitis, adequately treated. I recommend discontinuing antibiotic on discharge. Close outpatient followup off antibiotic therapy. If any worsening swelling or redness, to let me know right away. Questions and concerns were answered. MMODL / IJN: [id number] /
--- NOTE | 2019-04-30 08:52 | CDI ---
Documentation Clarification Form Date: 04/30/19 From: Jocelynn Davis CCS Phone: If you have a question about this query, please contact Nathalie Schuler, Business Advisor at [phone] between 8am and 5pm. Admit Date: 04/22/19 Discharge Date:04/26/19 Patient Name: Faustino Mcghee Visit Number: [id number] ATTENTION: The Clinical Documentation Specialists (CDI) and [facility] Coding Staff appreciate your assistance in clarifying documentation. Please respond to the clarification below the line at the bottom and electronically sign. The CDI & [facility] Coding staff will review the response and follow-up if needed. Please note: Queries are made part of the Legal Health Record. If you have any questions, please contact the author of this message via ITS. Dear Dr. Jefferson, Patient has been described as having BMI of 44.2. History/Risk Factors: Klinefelter syndrome, Asthma, Hepatitis Clinical Indicators: BMI 44.2 Patients weight is : 151.953 kg Patients height is: 6 ft 1 in Calculated BMI is: 44.2 In order to capture the severity of condition associated with patient BMI of 44.2, a clinical diagnosis needs to be documented by the physician. Please clarify: Overweight Obesity, Class 1 Obesity, Class 2 Extreme (Morbid) (severe) obesity Other, please specify ____ Unable to determine NIH Classification for BMI: Overweight BMI 2529.9 Obesity (Class 1) BMI 3034.9 Obesity (Class 2) BMI 3539.9 Extreme (Morbid) (severe) obesity BMI ?40 Extreme morbid obesity MTDD
== END 2019-04-26 17:02 | disposition home or self-care (01) | DRG 558 ==
LOC: EC 15:09 → 4SSUR 17:55
PROVIDERS: ADMIT Hospitalist; ATTEND Hospitalist
DX: M62.82 Rhabdomyolysis (principal); L03.116 Cellulitis of left lower limb; B17.9 Acute viral hepatitis, unspecified; Z68.41 Body mass index [BMI] 40.0-44.9, adult; J45.20 Mild intermittent asthma, uncomplicated; M54.9 Dorsalgia, unspecified; G89.29 Other chronic pain; M51.36 Other intervertebral disc degeneration, lumbar region; F32.9 Major depressive disorder, single episode, unspecified; Q98.4 Klinefelter syndrome, unspecified; E66.01 Morbid (severe) obesity due to excess calories; M47.816 Spondylosis without myelopathy or radiculopathy, lumbar region; T36.8X5A Adverse effect of other systemic antibiotics, initial encounter; Z79.899 Other long term (current) drug therapy; Z79.82 Long term (current) use of aspirin; Z90.5 Acquired absence of kidney; Z96.653 Presence of artificial knee joint, bilateral; Z98.890 Other specified postprocedural states; Z95.828 Presence of other vascular implants and grafts; Z87.01 Personal history of pneumonia (recurrent); Z85.528 Personal history of other malignant neoplasm of kidney; Z87.828 Personal history of other (healed) physical injury and trauma; Z88.2 Allergy status to sulfonamides; Z91.041 Radiographic dye allergy status; Z91.013 Allergy to seafood; Z82.5 Family history of asthma and other chronic lower respiratory diseases; Z82.49 Family history of ischemic heart disease and other diseases of the circulatory system; Z80.0 Family history of malignant neoplasm of digestive organs
CPT/HCPCS: 36415; 80048; 80053; 81001; 82550; 83605; 85025; 86140; 87040; 87077; 87186; 93005; 94640; 96361; 96374; 99284

== ENCOUNTER 2020-03-03 12:29 | Emergency (ER) | payer BC, OTHER ==
[2020-03-03 12:41] VITALS: RESP 18
--- NOTE | 2020-03-03 13:04 | ED ---
General Adult HPI - General Chief complaint: Recheck/Abnormal Lab/Rx Stated complaint: Abn Ekg Time Seen by Provider: 03/03/20 12:45 Source: patient, RN notes reviewed Mode of arrival: ambulatory Limitations: no limitations - History of Present Illness Initial comments: Patient is a 59-year-old overweight male who came into the ER due to an abnormal EKG at the local urgent care. He stated that the previous night while he slept he must of slept on his right arm wrong and woke up and felt like he had pulled something. He decided to go to the urgent care to get evaluated but stated that they barely looked at his arm and got an EKG and then told him that he had to go to the ER. She noted that on the same night he did have some chest heaviness, but he thinks that from him trying to get ready for bed late at night around 2 AM. Patient stated that the chest heaviness went away on its own he is no longer having any chest discomfort. 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 While laying in the bed patient stated that he felt fine. Patient stated that shoulder pain was reproducible with reaching back to prop himself up. Patient noted some tenderness over anterior deltoid. Patient noted that he had a normal stress test 2 years ago. Patient has never had issues with his heart. he denied any chest pain, shortness of breath, headache, change in vision, change in hearing, nausea, vomiting, diarrhea, constipation, fever, chills, fatigue, dizziness, lightheadedness, any history of myocardial infarction - Related Data Home Medications Medication Instructions Recorded Confirmed Albuterol Nebulized [Ventolin 2.5 mg INHALATION RT-QID PRN 07/10/13 04/22/19 Nebulized] Albuterol Sulfate [Proair Hfa] 2 puff INHALATION RT-QID PRN 07/10/13 04/22/19 Fluticasone/Salmeterol [Advair 1 puff INHALATION RT-BID 07/10/13 04/22/19 250-50 Diskus] EPINEPHrine (Auto Inject) [Epipen] 0.3 mg IM ONCE PRN 07/17/14 04/22/19 Escitalopram Oxalate [Lexapro] 10 mg PO DAILY 03/23/19 04/22/19 Montelukast [Singulair] 10 mg PO HS 03/23/19 04/22/19 Testosterone Cypionate 200 mg IM Q21D 04/07/19 04/22/19 [Depo-Testosterone] Ibuprofen [Motrin] 800 mg PO Q8H PRN 03/03/20 03/03/20 armodafiniL [Armodafinil] 150 mg PO DIRECTED PRN 03/03/20 03/03/20 Allergies Allergy/AdvReac Type Severity Reaction Status Date / Time Iodinated Contrast Media Allergy Severe Anaphylaxis Verified 03/03/20 13:32 [Iodinated Contrast Media - IV Dye] shellfish derived Allergy Severe Anaphylaxis Verified 03/03/20 13:32 sulfamethoxazole Allergy Severe Anaphylaxis Verified 03/03/20 13:32 [From Bactrim] trimethoprim [From Bactrim] Allergy Severe Anaphylaxis Verified 03/03/20 13:32 Review of Systems ROS Statement: Those systems with pertinent positive or pertinent negative responses have been documented in the HPI. ROS Other: All systems not noted in ROS Statement are negative. Past Medical History Past Medical History: Asthma, Cancer, Osteoarthritis (OA), Pneumonia Additional Past Medical History / Comment(s): Klinnefelter Syndrome, HX OF RENAL CA with surgery. chronic back pain (degenerative disk L3 and L4), healed cellulitis bilateral lower legs, hx thrombocytopenia 2009 when tx for kidney cancer. History of Any Multi-Drug Resistant Organisms: None Reported Past Surgical History: Joint Replacement, Orthopedic Surgery Additional Past Surgical History / Comment(s): total R knee arthroplasty. LEFT shoulder rotator cuff tear, 2009 kidney ca removed portion of right kidney, 2011 carpectomy left wrist, TLK Past Anesthesia/Blood Transfusion Reactions: No Reported Reaction Additional Past Anesthesia/Blood Transfusion Reaction / Comment(s): "incision popped open day of surgery with other knee replacement, ended up staying 5 days with knee immobilized" Past Psychological History: Depression Smoking Status: Never smoker Past Alcohol Use History: Rare Past Drug Use History: None Reported - Past Family History Father Family Medical History: Cancer Additional Family Medical History / Comment(s): colon Mother Family Medical History: AFIB, Asthma General Exam Limitations: no limitations General appearance: alert, in no apparent distress, obese Head exam: Present: atraumatic, normocephalic, normal inspection Eye exam: Present: normal appearance, PERRL, EOMI. Absent: scleral icterus, conjunctival injection, periorbital swelling ENT exam: Present: normal exam, mucous membranes moist Neck exam: Present: normal inspection. Absent: tenderness, meningismus, lymphadenopathy Respiratory exam: Present: normal lung sounds bilaterally. Absent: respiratory distress, wheezes, rales, rhonchi, stridor Cardiovascular Exam: Present: regular rate, normal rhythm, normal heart sounds. Absent: systolic murmur, diastolic murmur, rubs, gallop, clicks GI/Abdominal exam: Present: soft, normal bowel sounds. Absent: distended, tenderness, guarding, rebound, rigid Extremities exam: Present: normal inspection, full ROM, normal capillary refill. Absent: tenderness, pedal edema, joint swelling, calf tenderness Neurological exam: Present: alert, oriented X3, CN II-XII intact Psychiatric exam: Present: normal affect, normal mood Skin exam: Present: warm, dry, intact, normal color. Absent: rash Course Vital Signs 03/03/20 03/03/20 12:34 13:04 Temperature 98.5 F Pulse Rate 86 75 Respiratory 18 18 Rate Blood Pressure 125/86 128/59 O2 Sat by Pulse 99 96 Oximetry EKG Findings - EKG Comments: EKG Findings:: Ventricular rate 81 bpm, MA interval 158 ms, QRS duration 100 ms, QT/QTc 410/476 ms, PRT axes 49/29/41. Normal sinus rhythm normal ECG - EKG Results: EKG: WNL, sinus rhythm Medical Decision Making - Medical Decision Making 59-year-old obese white male presenting for abnormal EKG at local urgent care. Stat EKG ordered, put on disaster recovery coordinator, CBC, CMP, prothrombin, troponin I, partial thromboplastin, magnesium, and chest x-ray ordered. Labs came back within normal limits. - Lab Data Result diagrams: 03/03/20 12:41 03/03/20 12:41 Lab Results 03/03/20 03/03/20 03/03/20 Range/Units 12:41 12:41 12:41 WBC 7.7 (3.8-10.6) k/uL RBC 4.50 (4.30-5.90) m/uL Hgb 13.1 (13.0-17.5) gm/dL Hct 40.1 (39.0-53.0) % MCV 89.1 (80.0-100.0) fL MCH 29.1 (25.0-35.0) pg MCHC 32.6 (31.0-37.0) g/dL RDW 13.8 (11.5-15.5) % Plt Count (150-450) k/uL MPV 10.5 Neutrophils % 70 % Lymphocytes % 22 % Monocytes % 6 % Eosinophils % 1 % Basophils % 1 % Neutrophils # 5.4 (1.3-7.7) k/uL Lymphocytes # 1.7 (1.0-4.8) k/uL Monocytes # 0.4 (0-1.0) k/uL Eosinophils # 0.0 (0-0.7) k/uL Basophils # 0.0 (0-0.2) k/uL Manual Slide Review Performed PT 10.3 (9.0-12.0) sec INR 1.0 (<1.2) APTT 23.5 (22.0-30.0) sec Sodium 139 (137-145) mmol/L Potassium 3.7 (3.5-5.1) mmol/L Chloride 105 (98-107) mmol/L Carbon Dioxide 26 (22-30) mmol/L Anion Gap 8 mmol/L BUN 20 (9-20) mg/dL Creatinine 1.03 (0.66-1.25) mg/dL Est GFR (CKD-EPI)AfAm >90 (>60 ml/min/1.73 sqM) Est GFR (CKD-EPI)NonAf 81 (>60 ml/min/1.73 sqM) Glucose 139 H (74-99) mg/dL Calcium 9.2 (8.4-10.2) mg/dL Magnesium 1.8 (1.6-2.3) mg/dL Total Bilirubin 0.6 (0.2-1.3) mg/dL AST 20 (17-59) U/L ALT 20 (4-49) U/L Alkaline Phosphatase 71 (38-126) U/L Troponin I (0.000-0.034) ng/mL Total Protein 7.3 (6.3-8.2) g/dL Albumin 4.1 (3.5-5.0) g/dL 03/03/20 Range/Units 12:41 WBC (3.8-10.6) k/uL RBC (4.30-5.90) m/uL Hgb (13.0-17.5) gm/dL Hct (39.0-53.0) % MCV (80.0-100.0) fL MCH (25.0-35.0) pg MCHC (31.0-37.0) g/dL RDW (11.5-15.5) % Plt Count (150-450) k/uL MPV Neutrophils % % Lymphocytes % % Monocytes % % Eosinophils % % Basophils % % Neutrophils # (1.3-7.7) k/uL Lymphocytes # (1.0-4.8) k/uL Monocytes # (0-1.0) k/uL Eosinophils # (0-0.7) k/uL Basophils # (0-0.2) k/uL Manual Slide Review PT (9.0-12.0) sec INR (<1.2) APTT (22.0-30.0) sec Sodium (137-145) mmol/L Potassium (3.5-5.1) mmol/L Chloride (98-107) mmol/L Carbon Dioxide (22-30) mmol/L Anion Gap mmol/L BUN (9-20) mg/dL Creatinine (0.66-1.25) mg/dL Est GFR (CKD-EPI)AfAm (>60 ml/min/1.73 sqM) Est GFR (CKD-EPI)NonAf (>60 ml/min/1.73 sqM) Glucose (74-99) mg/dL Calcium (8.4-10.2) mg/dL Magnesium (1.6-2.3) mg/dL Total Bilirubin (0.2-1.3) mg/dL AST (17-59) U/L ALT (4-49) U/L Alkaline Phosphatase (38-126) U/L Troponin I <0.012 (0.000-0.034) ng/mL Total Protein (6.3-8.2) g/dL Albumin (3.5-5.0) g/dL - EKG Data -: EKG Interpreted by Me EKG shows normal: sinus rhythm Rate: normal EKG Comments: Ventricular rate 81 bpm, MA interval 158 ms, QRS duration 100 ms, QT/QTc 410/476 ms, PRT axes 49/29/41. Normal sinus rhythm, normal ECG - Radiology Data Radiology results: report reviewed, image reviewed The lungs are clear and there is no pneumothorax, pleural effusion, or focal pneumonia. Heart size normal. No overt failure. No pneumothorax. Hy pertrophic a degenerative change of the spine. Disposition Clinical Impression: Abnormal EKG, Chest pain, Right shoulder pain Disposition: HOME SELF-CARE Condition: Stable Instructions (If sedation given, give patient instructions): Angina (ED), Shoulder Pain (ED) Additional Instructions: Please return to the Emergency Department if symptoms worsen or any other concerns. Patient told to follow up with primary care and possibly schedule a new stress test. Patient informed shoulder is most likely musculoskeletal due to tenderness and reproducible pain. Is patient prescribed a controlled substance at d/c from ED?: No Referrals: Isiah Hernandez DO [Primary Care Provider] - 1-2 days Decision Time: 14:23
[2020-03-03 13:16] LABS: Basophils % (A) 1 %; Eosinophils % (A) 1 %; HCT 40.1 % (39.0-53.0); HGB 13.1 gm/dL (13.0-17.5); Lymphocytes # (A) 1.7 k/uL (1.0-4.8); Lymphocytes % (A) 22 %; MCH 29.1 pg (25.0-35.0); MCHC 32.6 g/dL (31.0-37.0); MCV 89.1 fL (80.0-100.0); Mean Platelet Volume 10.5; Monocytes # (A) 0.4 k/uL (0-1.0); Monocytes % (A) 6 %; Neutrophils # (A) 5.4 k/uL (1.3-7.7); Neutrophils % (A) 70 %; RDW 13.8 % (11.5-15.5); WBC 7.7 k/uL (3.8-10.6)
[2020-03-03 13:19] LABS: ALT 20 U/L (4-49); AST 20 U/L (17-59); African American GFR (CKD) >90 (>60 ml/min/1.73 sqM); Albumin 4.1 g/dL (3.5-5.0); Alkaline Phosphatase 71 U/L (38-126); Anion Gap 8 mmol/L; Blood Urea Nitrogen 20 mg/dL (9-20); Calcium 9.2 mg/dL (8.4-10.2); Carbon Dioxide 26 mmol/L (22-30); Chloride 105 mmol/L (98-107); Glucose 139 mg/dL (74-99); Magnesium 1.8 mg/dL (1.6-2.3); Non-African American GFR(CKD) 81 (>60 ml/min/1.73 sqM); Potassium 3.7 mmol/L (3.5-5.1); Sodium 139 mmol/L (137-145); Total Bilirubin 0.6 mg/dL (0.2-1.3); Total Protein 7.3 g/dL (6.3-8.2)
--- NOTE | 2020-03-03 13:19 | XR ---
EXAMINATION TYPE: XR chest 2V DATE OF EXAM: 03/03/2020 COMPARISON: 02/20/2016, 02/15/2019 TECHNIQUE: PA and lateral views submitted. HISTORY: Chest pain FINDINGS: The lungs are clear and there is no pneumothorax, pleural effusion, or focal pneumonia. Heart size normal. No overt failure. No pneumothorax. Hypertrophic and degenerative change of the spine. IMPRESSION: 1. No acute process.
[2020-03-03 13:32] LABS: Partial Thromboplastin Time 23.5 sec (22.0-30.0); Prothrombin Time 10.3 sec (9.0-12.0)
[2020-03-03 14:15] VITALS: BP 117/71; PULSE 72
[2020-03-03 15:02] VITALS: TEMP 98.3
== END 2020-03-03 15:03 | disposition home or self-care (01) ==
LOC: EC 12:29
DX: R94.31 Abnormal electrocardiogram [ECG] [EKG] (principal); R07.9 Chest pain, unspecified; M25.511 Pain in right shoulder; E66.9 Obesity, unspecified; J45.909 Unspecified asthma, uncomplicated; M19.90 Unspecified osteoarthritis, unspecified site; G89.29 Other chronic pain; M54.9 Dorsalgia, unspecified; F32.9 Major depressive disorder, single episode, unspecified; Z79.899 Other long term (current) drug therapy; Z79.51 Long term (current) use of inhaled steroids; Z79.890 Hormone replacement therapy; Z91.041 Radiographic dye allergy status; Z91.013 Allergy to seafood; Z88.2 Allergy status to sulfonamides; Z88.1 Allergy status to other antibiotic agents; Z85.528 Personal history of other malignant neoplasm of kidney; Z96.651 Presence of right artificial knee joint
CPT/HCPCS: 36415; 71046; 80053; 83735; 84484; 85025; 85610; 85730; 99285

== ENCOUNTER 2020-04-26 17:56 | Emergency (ER) | payer BC ==
--- NOTE | 2020-04-26 18:26 | XR ---
EXAMINATION TYPE: XR chest 2V DATE OF EXAM: 04/26/2020 COMPARISON: 03/03/2020 HISTORY: Short of breath TECHNIQUE: FINDINGS: Heart and mediastinum are normal. Lungs are clear. Diaphragm is normal. Bony thorax is inta ct. IMPRESSION: Normal chest. No change.
--- NOTE | 2020-04-26 20:21 | ED ---
SOB HPI - General Chief Complaint: Shortness of Breath Stated Complaint: Covid+/Cough/sore throat Time Seen by Provider: 04/26/20 18:00 Source: patient Mode of arrival: ambulatory Limitations: no limitations - History of Present Illness Initial Comments: Patient is a 59-year-old male with past medical history of asthma who presents to the emergency departments with reported shortness of breath. Patient has had symptoms since the . He reports that on the he was tested for Covid and it was positive. He has been using his inhaler at home however reports to worsening shortness of breath. He denies chest pain. No nausea, vomiting or diarrhea. No fevers. Denies any abdominal pain. No other alleviating, precipitating or modifying factors - Related Data Home Medications Medication Instructions Recorded Confirmed Albuterol Nebulized [Ventolin 2.5 mg INHALATION RT-QID PRN 07/10/13 03/03/20 Nebulized] Albuterol Sulfate [Proair Hfa] 2 puff INHALATION RT-QID PRN 07/10/13 03/03/20 Fluticasone/Salmeterol [Advair 1 puff INHALATION RT-BID 07/10/13 03/03/20 250-50 Diskus] EPINEPHrine (Auto Inject) [Epipen] 0.3 mg IM ONCE PRN 07/17/14 03/03/20 Escitalopram Oxalate [Lexapro] 10 mg PO DAILY 03/23/19 03/03/20 Montelukast [Singulair] 10 mg PO HS 03/23/19 03/03/20 Testosterone Cypionate 200 mg IM Q21D 04/07/19 03/03/20 [Depo-Testosterone] Ibuprofen [Motrin] 800 mg PO Q8H PRN 03/03/20 03/03/20 armodafiniL [Armodafinil] 150 mg PO DIRECTED PRN 03/03/20 03/03/20 Allergies Allergy/AdvReac Type Severity Reaction Status Date / Time Iodinated Contrast Media Allergy Severe Anaphylaxis Verified 04/26/20 18:04 [Iodinated Contrast Media - IV Dye] shellfish derived Allergy Severe Anaphylaxis Verified 04/26/20 18:04 sulfamethoxazole Allergy Severe Anaphylaxis Verified 04/26/20 18:04 [From Bactrim] trimethoprim [From Bactrim] Allergy Severe Anaphylaxis Verified 04/26/20 18:04 Review of Systems ROS Statement: Those systems with pertinent positive or pertinent negative responses have been documented in the HPI. ROS Other: All systems not noted in ROS Statement are negative. Past Medical History Past Medical History: Asthma, Cancer, Osteoarthritis (OA), Pneumonia Additional Past Medical History / Comment(s): Klinnefelter Syndrome, HX OF RENAL CA with surgery. chronic back pain (degenerative disk L3 and L4), healed cellulitis bilateral lower legs, hx thrombocytopenia 2009 when tx for kidney cancer. covid 2020, History of Any Multi-Drug Resistant Organisms: None Reported Past Surgical History: Joint Replacement, Orthopedic Surgery Additional Past Surgical History / Comment(s): total R knee arthroplasty. LEFT shoulder rotator cuff tear, 2009 kidney ca removed portion of right kidney, 2011 carpectomy left wrist, TLK, Past Anesthesia/Blood Transfusion Reactions: No Reported Reaction Additional Past Anesthesia/Blood Transfusion Reaction / Comment(s): "incision popped open day of surgery with other knee replacement, ended up staying 5 days with knee immobilized" Past Psychological History: Depression Smoking Status: Never smoker Past Alcohol Use History: Rare Past Drug Use History: None Reported - Past Family History Father Family Medical History: Cancer Additional Family Medical History / Comment(s): colon Mother Family Medical History: AFIB, Asthma General Exam Limitations: no limitations Course Vital Signs 04/26/20 04/26/20 04/26/20 18:02 18:52 20:50 Temperature 98.7 F 98.1 F Pulse Rate 109 H 109 H 85 Respiratory 20 18 18 Rate Blood Pressure 117/81 138/88 141/75 O2 Sat by Pulse 95 97 95 Oximetry Medical Decision Making - Lab Data Result diagrams: 04/26/20 19:53 04/26/20 19:53 Lab Results 04/26/20 04/26/20 04/26/20 Range/Units 19:53 19:53 19:53 WBC 4.3 (3.8-10.6) k/uL RBC 4.84 (4.30-5.90) m/uL Hgb 14.4 (13.0-17.5) gm/dL Hct 42.1 (39.0-53.0) % MCV 86.9 (80.0-100.0) fL MCH 29.7 (25.0-35.0) pg MCHC 34.2 (31.0-37.0) g/dL RDW 13.6 (11.5-15.5) % Plt Count (150-450) k/uL MPV 11.0 Neutrophils % 65 % Lymphocytes % 21 % Monocytes % 12 % Eosinophils % 1 % Basophils % 1 % Neutrophils # 2.8 (1.3-7.7) k/uL Lymphocytes # 0.9 L (1.0-4.8) k/uL Monocytes # 0.5 (0-1.0) k/uL Eosinophils # 0.0 (0-0.7) k/uL Basophils # 0.0 (0-0.2) k/uL Manual Slide Review Performed RBC Morphology Normal PT 10.3 (9.0-12.0) sec INR 1.0 (<1.2) APTT 25.6 (22.0-30.0) sec D-Dimer 1.27 H (<0.60) mg/L FEU Sodium 135 L (137-145) mmol/L Potassium 4.0 (3.5-5.1) mmol/L Chloride 97 L (98-107) mmol/L Carbon Dioxide 27 (22-30) mmol/L Anion Gap 11 mmol/L BUN 17 (9-20) mg/dL Creatinine 1.11 (0.66-1.25) mg/dL Est GFR (CKD-EPI)AfAm 85 (>60 ml/min/1.73 sqM) Est GFR (CKD-EPI)NonAf 74 (>60 ml/min/1.73 sqM) Glucose 119 H (74-99) mg/dL Plasma Lactic Acid Som (0.7-2.0) mmol/L Calcium 9.3 (8.4-10.2) mg/dL Magnesium 1.7 (1.6-2.3) mg/dL Total Bilirubin 0.4 (0.2-1.3) mg/dL AST 32 (17-59) U/L ALT 25 (4-49) U/L Alkaline Phosphatase 76 (38-126) U/L Lactate Dehydrogenase 553 (313-618) U/L Total Protein 7.8 (6.3-8.2) g/dL Albumin 4.5 (3.5-5.0) g/dL Coronavirus (PCR) (Not Detectd) 04/26/20 04/26/20 Range/Units 19:53 19:53 WBC (3.8-10.6) k/uL RBC (4.30-5.90) m/uL Hgb (13.0-17.5) gm/dL Hct (39.0-53.0) % MCV (80.0-100.0) fL MCH (25.0-35.0) pg MCHC (31.0-37.0) g/dL RDW (11.5-15.5) % Plt Count (150-450) k/uL MPV Neutrophils % % Lymphocytes % % Monocytes % % Eosinophils % % Basophils % % Neutrophils # (1.3-7.7) k/uL Lymphocytes # (1.0-4.8) k/uL Monocytes # (0-1.0) k/uL Eosinophils # (0-0.7) k/uL Basophils # (0-0.2) k/uL Manual Slide Review RBC Morphology PT (9.0-12.0) sec INR (<1.2) APTT (22.0-30.0) sec D-Dimer (<0.60) mg/L FEU Sodium (137-145) mmol/L Potassium (3.5-5.1) mmol/L Chloride (98-107) mmol/L Carbon Dioxide (22-30) mmol/L Anion Gap mmol/L BUN (9-20) mg/dL Creatinine (0.66-1.25) mg/dL Est GFR (CKD-EPI)AfAm (>60 ml/min/1.73 sqM) Est GFR (CKD-EPI)NonAf (>60 ml/min/1.73 sqM) Glucose (74-99) mg/dL Plasma Lactic Acid Som 1.1 (0.7-2.0) mmol/L Calcium (8.4-10.2) mg/dL Magnesium (1.6-2.3) mg/dL Total Bilirubin (0.2-1.3) mg/dL AST (17-59) U/L ALT (4-49) U/L Alkaline Phosphatase (38-126) U/L Lactate Dehydrogenase (313-618) U/L Total Protein (6.3-8.2) g/dL Albumin (3.5-5.0) g/dL Coronavirus (PCR) Detected A (Not Detectd) - EKG Data EKG Comments: EKG demonstrates normal sinus rhythm with a ventricular rate of 89. MA interval 150. QRS 84. QTC 462. No acute ST segment elevations or depressions Disposition Clinical Impression: COVID-19 Disposition: HOME SELF-CARE Condition: Stable Instructions (If sedation given, give patient instructions): Coronavirus Disease 2019 (COVID-19) Additional Instructions: You have been administered Bamlanivimab. You need to follow up with your PCP in 2-4 days. Return to the ED for any new or worsening symptoms. Is patient prescribed a controlled substance at d/c from ED?: No Referrals: Isiah Hernandez DO [Primary Care Provider] - 1-2 days Time of Disposition: 21:35
[2020-04-26 20:59] LABS: Albumin 4.5 g/dL (3.5-5.0); Calcium 9.3 mg/dL (8.4-10.2); Magnesium 1.7 mg/dL (1.6-2.3); Total Bilirubin 0.4 mg/dL (0.2-1.3); Total Protein 7.8 g/dL (6.3-8.2)
[2020-04-26 21:01] LABS: Basophils % (A) 1 %; Eosinophils % (A) 1 %; HCT 42.1 % (39.0-53.0); HGB 14.4 gm/dL (13.0-17.5); Lymphocytes # (A) 0.9 k/uL (1.0-4.8); Lymphocytes % (A) 21 %; MCH 29.7 pg (25.0-35.0); MCHC 34.2 g/dL (31.0-37.0); MCV 86.9 fL (80.0-100.0); Monocytes # (A) 0.5 k/uL (0-1.0); Monocytes % (A) 12 %; Neutrophils # (A) 2.8 k/uL (1.3-7.7); Neutrophils % (A) 65 %; RBC 4.84 m/uL (4.30-5.90); RDW 13.6 % (11.5-15.5); WBC 4.3 k/uL (3.8-10.6)
[2020-04-26 21:13] LABS: Partial Thromboplastin Time 25.6 sec (22.0-30.0); Prothrombin Time 10.3 sec (9.0-12.0)
[2020-04-26 21:20] LABS: D-Dimer 1.27 mg/L FEU (<0.60)
[2020-04-26] MEDS ORDERED: BAMLANIVIMAB 700 MG in SODIUM CHLORIDE 0.9% 50 ML IVPB ONE (22:15)
[2020-04-27 00:59] VITALS: BP 122/79; PULSE 70; RESP 16; TEMP 98.7
== END 2020-04-27 00:59 | disposition home or self-care (01) ==
LOC: EC 17:56
DX: U07.1 COVID-19 (principal); F32.9 Major depressive disorder, single episode, unspecified; J45.909 Unspecified asthma, uncomplicated; M19.90 Unspecified osteoarthritis, unspecified site; Z79.51 Long term (current) use of inhaled steroids; Z79.899 Other long term (current) drug therapy; Z88.1 Allergy status to other antibiotic agents; Z88.2 Allergy status to sulfonamides; Z91.013 Allergy to seafood; Z91.041 Radiographic dye allergy status; Z85.528 Personal history of other malignant neoplasm of kidney; Z96.651 Presence of right artificial knee joint
CPT/HCPCS: 36415; 93005; 85379; 80053; 83605; 83615; 83735; 85025; 85610; 85730; 84145; 87635; 71046; 99285; 96365; 96366; Q0239

== ENCOUNTER 2021-10-18 01:27 | Emergency (ER) | payer BC ==
[2021-10-18 01:32] VITALS: BP 160/93; PULSE 96; RESP 20; TEMP 98.2
[2021-10-18] MEDS ORDERED: dexAMETHasone 2 MG TAB PO STA (01:42)
--- NOTE | 2021-10-18 01:56 | ED ---
General Adult HPI - General Chief complaint: Upper Respiratory Infection Stated complaint: NAOMIE, Covid+ Time Seen by Provider: 10/18/21 01:33 Source: patient, RN notes reviewed Mode of arrival: ambulatory Limitations: no limitations - History of Present Illness Initial comments: 61-year-old male presents to the emergency department for evaluation of strong, nonproductive cough. Patient states he had a positive home Covid test nearly a week ago. States his cough has worsened and is interrupting his sleep. States he is on Paxlovid and has been taking Tessalon Perles with minimal change. States he feels like his throat is swollen from all the coughing, though is not short of breath. No fever, chills, body aches, chest pain, shortness of breath, abd ominal pain, nausea, or vomiting at this time. - Related Data Home Medications Medication Instructions Recorded Confirmed Albuterol Nebulized [Ventolin 2.5 mg INHALATION RT-QID PRN 07/10/13 03/03/20 Nebulized] Albuterol Sulfate [Proair Hfa] 2 puff INHALATION RT-QID PRN 07/10/13 03/03/20 Fluticasone/Salmeterol [Advair 1 puff INHALATION RT-BID 07/10/13 03/03/20 250-50 Diskus] EPINEPHrine (Auto Inject) [Epipen] 0.3 mg IM ONCE PRN 07/17/14 03/03/20 Escitalopram Oxalate [Lexapro] 10 mg PO DAILY 03/23/19 03/03/20 Montelukast [Singulair] 10 mg PO HS 03/23/19 03/03/20 Testosterone Cypionate 200 mg IM Q21D 04/07/19 03/03/20 [Depo-Testosterone] Ibuprofen [Motrin] 800 mg PO Q8H PRN 03/03/20 03/03/20 armodafiniL [Armodafinil] 150 mg PO DIRECTED PRN 03/03/20 03/03/20 Previous Rx's Medication Instructions Recorded guaiFENesin-Coden 100-10MG/5ML 10 ml PO Q6H PRN 3 Days #120 ml 10/18/21 [Robitussin AC] Allergies Allergy/AdvReac Type Severity Reaction Status Date / Time Iodinated Contrast Media Allergy Severe Anaphylaxis Verified 10/18/21 01:32 [Iodinated Contrast Media - IV Dye] shellfish derived Allergy Severe Anaphylaxis Verified 10/18/21 01:32 sulfamethoxazole Allergy Severe Anaphylaxis Verified 10/18/21 01:32 [From Bactrim] trimethoprim [From Bactrim] Allergy Severe Anaphylaxis Verified 10/18/21 01:32 Review of Systems ROS Statement: Those systems with pertinent positive or pertinent negative responses have been documented in the HPI. ROS Other: All systems not noted in ROS Statement are negative. Past Medical History Past Medical History: Asthma, Cancer, Osteoarthritis (OA), Pneumonia Additional Past Medical History / Comment(s): Klinnefelter Syndrome, HX OF RENAL CA with surgery. chronic back pain (degenerative disk L3 and L4), healed cellulitis bilateral lower legs, hx thrombocytopenia 2009 when tx for kidney cancer. covid 2020, History of Any Multi-Drug Resistant Organisms: None Reported Past Surgical History: Joint Replacement, Orthopedic Surgery Additional Past Surgical History / Comment(s): total R knee arthroplasty. LEFT shoulder rotator cuff tear, 2009 kidney ca removed portion of right kidney, 2011 carpectomy left wrist, TLK, Past Anesthesia/Blood Transfusion Reactions: No Reported Reaction Additional Past Anesthesia/Blood Transfusion Reaction / Comment(s): "incision popped open day of surgery with other knee replacement, ended up staying 5 days with knee immobilized" Past Psychological History: Depression Smoking Status: Never smoker Past Alcohol Use History: Rare Past Drug Use History: None Reported - Past Family History Father Family Medical History: Cancer Additional Family Medical History / Comment(s): colon Mother Family Medical History: AFIB, Asthma General Exam Limitations: no limitations General appearance: alert, in no apparent distress, anxious (Well-developed, well-nourished male in no acute distress. Initial temperature 98.2, pulse 96, respirations 20, blood pressure 160/93, pulse ox 98% on room air.) ENT exam: Present: normal exam, normal oropharynx, mucous membranes moist Expanded Throat exam: normal inspection Neck exam: Present: normal inspection, full ROM. Absent: tenderness, meningismus, lymphadenopathy Respiratory exam: Present: normal lung sounds bilaterally, other (strong paroxysmal nonproductive cough). Absent: respiratory distress, wheezes, rales, rhonchi, stridor, chest wall tenderness Cardiovascular Exam: Present: regular rate, normal rhythm, normal heart sounds. Absent: systolic murmur, diastolic murmur, rubs, gallop, clicks GI/Abdominal exam: Present: soft, normal bowel sounds. Absent: distended, tenderness, guarding, rebound, rigid Neurological exam: Present: alert, oriented X3, normal gait Psychiatric exam: Present: anxious Skin exam: Present: warm, intact, normal color, diaphoretic Course Vital Signs 10/18/21 01:29 Temperature 98.2 F Pulse Rate 96 Respiratory 20 Rate Blood Pressure 160/93 O2 Sat by Pulse 98 Oximetry Medical Decision Making - Medical Decision Making 61-year-old male with a recent diagnosis of COVID-19 presents to the emergency department for evaluation of cough that has interrupted his sleep. Upon exam, patient is well-appearing and in no acute distress, but has a strong non- productive cough. Lung sounds are clear to auscultation. Vital signs are stable. Pulse ox 98% or greater on room air. Chest x-ray is unremarkable. Patient was given a dose of cough syrup with codeine and is feeling somewhat improved. He will be discharged home with a prescription for Robitussin-AC and instructed on safe use. He is encouraged to discontinue taking any other cough suppressant medication. Work excuse was provided. Return parameters discussed in detail. Patient verbalizes understanding and agrees with this plan. Attending: Matthew. - Radiology Data Radiology results: report reviewed, image reviewed Two-view chest x-ray was obtained. Report was reviewed in its entirety. Impression per Dr. Fernandes is no evidence of acute cardiopulmonary disease. Disposition Clinical Impression: Cough Disposition: HOME SELF-CARE Condition: Stable Instructions (If sedation given, give patient instructions): Safe Use of Cough and Cold Medicines (ED) Prescriptions: guaiFENesin-Coden 100-10MG/5ML [Robitussin AC] 10 ml PO Q6H PRN 3 Days #120 ml PRN Reason: Cough Is patient prescribed a controlled substance at d/c from ED?: Yes When asked, does pt state using other controlled substances?: No If prescribed controlled substance>3 days was MAPS reviewed?: Prescribed <3 Days If opioid is for acute pain is fill amount 7 days or less?: Yes If Rx opioid, was Start Talking consent form obtained?: Yes Referrals: Isiah Hernandez DO [Primary Care Provider] - 1-2 days Time of Disposition: 03:23
[2021-10-18] MEDS ORDERED: guaiFENesin-Coden 100-10MG/5ML 10 ML CUP PO STA (02:19)
--- NOTE | 2021-10-18 02:27 | XR ---
EXAM: XR Chest, 2 Views CLINICAL HISTORY: ITS.REASON XR Reason: cough TECHNIQUE: Frontal and lateral views of the chest. COMPARISON: No relevant prior studies available. FINDINGS: Lungs: Unremarkable. No consolidation. Pleural space: Unremarkable. No pneumothorax. Heart: Unremarkable. No cardiomegaly. Mediastinum: Unremarkable. Bones/joints: Unremarkable. IMPRESSION: No evidence of acute cardiopulmonary disease.
== END 2021-10-18 03:31 | disposition home or self-care (01) ==
LOC: EC 01:27
DX: R05.9 Cough, unspecified (principal); J45.909 Unspecified asthma, uncomplicated; Z91.041 Radiographic dye allergy status; Z91.013 Allergy to seafood; Z88.2 Allergy status to sulfonamides; Z88.8 Allergy status to other drugs, medicaments and biological substances
CPT/HCPCS: 71046; 99283; J8540

== ENCOUNTER 2022-09-29 18:46 | Observation (INO) | payer BC ==
[2022-09-29] MEDS ORDERED: IPRATROPIUM-ALBUTEROL 3 ML NEB INHALATION STA (19:23)
--- NOTE | 2022-09-29 19:23 | ED ---
SOB HPI - General Chief Complaint: Shortness of Breath Stated Complaint: SOB Time Seen by Provider: 09/29/22 19:22 Source: patient, family, RN notes reviewed, old records reviewed Mode of arrival: wheelchair - History of Present Illness Initial Comments: This is a 8-year-old male here today. Presenting for evaluation of near syncopal event. Patient was playing softball today earlier and again he took batted ball off of his cline which causes him some pain and discomfort. Patient did notice that it was getting and may not been adequately drinking as much water as he normally does but while playing he became severely short of breath lightheaded dizzy and almost passed out. At this time is diaphoretic and cold and felt like his vision was changing a getting blurry. He laid down related to his back at that time decision is made to bring patient to the hospital. No hi story of prior syncopal event. No travel history or sick contacts no other complaints patient does have high blood pressure cholesterol diabetes. MD Complaint: shortness of breath, cough, chest pain -: minutes(s) Severity: severe Severity scale (1-10): 9 Consistency: constant Improves With: nothing Worsens With: nothing Context: anxiety Associated Symptoms: syncope Treatments Prior to Arrival: none - Related Data Home Medications Medication Instructions Recorded Confirmed Albuterol Sulfate [Proair Hfa] 2 puff INHALATION RT-QID PRN 07/10/13 09/29/22 Fluticasone/Salmeterol [Advair 1 puff INHALATION RT-BID 07/10/13 09/29/22 250-50 Diskus] EPINEPHrine (Auto Inject) [Epipen] 0.3 mg IM ONCE PRN 07/17/14 09/29/22 Escitalopram Oxalate [Lexapro] 10 mg PO DAILY 03/23/19 09/29/22 Montelukast [Singulair] 10 mg PO HS 03/23/19 09/29/22 Atorvastatin [Lipitor] 10 mg PO HS 09/29/22 09/29/22 Loratadine-Pseudoeph 10-240 mg 1 tab PO DAILY 09/29/22 09/29/22 [Claritin-D 24 Hour] Valsartan [Diovan] 80 mg PO DAILY 09/29/22 09/29/22 Previous Rx's Medication Instructions Recorded Aspirin 81 mg PO DAILY tab 10/01/22 Allergies Allergy/AdvReac Type Severity Reaction Status Date / Time Iodinated Contrast Media Allergy Severe Anaphylaxis Verified 09/29/22 21:44 [Iodinated Contrast Media - IV Dye] shellfish derived Allergy Severe Anaphylaxis Verified 09/29/22 21:44 sulfamethoxazole Allergy Severe Anaphylaxis Verified 09/29/22 21:44 [From Bactrim] trimethoprim [From Bactrim] Allergy Severe Anaphylaxis Verified 09/29/22 21:44 Review of Systems ROS Statement: Those systems with pertinent positive or pertinent negative responses have been documented in the HPI. ROS Other: All systems not noted in ROS Statement are negative. Past Medical History Past Medical History: Asthma, Cancer, Osteoarthritis (OA), Pneumonia Additional Past Medical History / Comment(s): Klinnefelter Syndrome, HX OF RENAL CA with surgery. chronic back pain (degenerative disk L3 and L4), healed cellulitis bilateral lower legs, hx thrombocytopenia 2009 when tx for kidney cancer. covid 2020, History of Any Multi-Drug Resistant Organisms: None Reported Past Surgical History: Joint Replacement, Orthopedic Surgery Additional Past Surgical History / Comment(s): total R knee arthroplasty. LEFT shoulder rotator cuff tear, 2009 kidney ca removed portion of right kidney, 2011 carpectomy left wrist, TLK, Past Anesthesia/Blood Transfusion Reactions: No Reported Reaction Additional Past Anesthesia/Blood Transfusion Reaction / Comment(s): "incision popped open day of surgery with other knee replacement, ended up staying 5 days with knee immobilized" Past Psychological History: Depression Smoking Status: Never smoker Past Alcohol Use History: Rare Past Drug Use History: None Reported - Past Family History Father Family Medical History: Cancer Additional Family Medical History / Comment(s): colon Mother Family Medical History: AFIB, Asthma General Exam General appearance: alert, in no apparent distress Head exam: Present: atraumatic, normocephalic, normal inspection Eye exam: Present: normal appearance, PERRL, EOMI. Absent: scleral icterus, conjunctival injection, periorbital swelling ENT exam: Present: normal exam, mucous membranes moist Neck exam: Present: normal inspection. Absent: tenderness, meningismus, lymphadenopathy Respiratory exam: Present: normal lung sounds bilaterally. Absent: respiratory distress, wheezes, rales, rhonchi, stridor Cardiovascular Exam: Present: regular rate, normal rhythm, normal heart sounds. Absent: systolic murmur, diastolic murmur, rubs, gallop, clicks GI/Abdominal exam: Present: soft, normal bowel sounds. Absent: distended, tenderness, guarding, rebound, rigid Extremities exam: Present: normal inspection, full ROM, normal capillary refill. Absent: tenderness, pedal edema, joint swelling, calf tenderness Back exam: Present: normal inspection Neurological exam: Present: alert, oriented X3, CN II-XII intact Psychiatric exam: Present: normal affect, normal mood Skin exam: Present: warm, dry, intact, normal color. Absent: rash Course Vital Signs 09/29/22 09/29/22 09/29/22 18:59 19:55 20:09 Temperature 97.9 F Pulse Rate 101 H 90 89 Pulse Rate [ Pulse Oximetery ] Respiratory 22 19 Rate Blood Pressure 90/53 119/67 Blood Pressure [Left Arm] O2 Sat by Pulse 95 93 L Oximetry 09/29/22 09/29/22 09/29/22 20:19 20:34 21:52 Temperature Pulse Rate 86 81 82 Pulse Rate [ Pulse Oximetery ] Respiratory 20 19 Rate Blood Pressure 115/71 122/95 Blood Pressure [Left Arm] O2 Sat by Pulse 95 99 Oximetry 09/29/22 09/30/22 09/30/22 22:17 00:28 02:04 Temperature Pulse Rate 84 69 70 Pulse Rate [ Pulse Oximetery ] Respiratory 19 19 19 Rate Blood Pressure 125/84 118/69 117/89 Blood Pressure [Left Arm] O2 Sat by Pulse 98 94 L 96 Oximetry 09/30/22 09/30/22 09/30/22 03:05 06:08 07:33 Temperature Pulse Rate 63 93 75 Pulse Rate [ Pulse Oximetery ] Respiratory 18 19 20 Rate Blood Pressure 136/85 129/94 146/92 Blood Pressure [Left Arm] O2 Sat by Pulse 98 96 98 Oximetry 09/30/22 09/30/22 09/30/22 11:00 12:00 12:30 Temperature Pulse Rate 75 68 Pulse Rate [ Pulse Oximetery ] Respiratory 20 20 Rate Blood Pressure 138/68 136/68 Blood Pressure [Left Arm] O2 Sat by Pulse 98 98 98 Oximetry 09/30/22 09/30/22 09/30/22 12:52 13:00 14:00 Temperature Pulse Rate 78 65 Pulse Rate [ Pulse Oximetery ] Respiratory 18 16 Rate Blood Pressure 134/104 129/82 145/89 Blood Pressure [Left Arm] O2 Sat by Pulse 98 98 Oximetry 09/30/22 09/30/22 10/01/22 16:00 21:30 00:35 Temperature 97.4 F L Pulse Rate 65 62 Pulse Rate [ 82 Pulse Oximetery ] Respiratory 20 16 16 Rate Blood Pressure 136/66 138/85 Blood Pressure 143/86 [Left Arm] O2 Sat by Pulse 98 95 95 Oximetry - Reevaluation(s) Reevaluation #1: 09/29/22 22:36 Medical record is reviewed Reevaluation #2: 09/29/22 22:36 Patient has no current chest pain and no recurrent syncopal or near syncopal symptoms Reevaluation #3: 09/29/22 22:37 Patient informed results questions answered Reevaluation #4: 09/29/22 21:53 Was pt. sent in by a medical professional or institution (, PA, PIPE LAYER HELPER, urgent c are, hospital, or assisted...) When possible be specific @ -no Did you speak to anyone other than the patient for history (EMS, parent, family, police, friend...)? What history was obtained from this source @ -no Did you review nursing and triage notes (agree or disagree)? Why? @ -agree Are old charts reviewed (outside hosp., previous admission, EMS record, old EKG, old radiological studies, urgent care reports/EKG's, assisted records)? Report findings @ -yes Differential Diagnosis (chest pain, altered mental status, abdominal pain women, abdominal pain men, vaginal bleeding, weakness, fever, dyspnea, syncope, headache, dizziness, GI bleed, back pain, seizure, CVA, palpatations, mental health, musculoskeletal)? @ -prior EKG interpreted by me (3pts min.). @ -yes X-rays interpreted by me (1pt min.). @ -no CT interpreted by me (1pt min.). @ -no U/S interpreted by me (1pt. min.). @ -no What testing was considered but not performed or refused? (CT, X-rays, U/S, labs)? Why? @ -none What meds were considered but not given or refused? Why? @ -none Did you discuss the management of the patient with other professionals (professionals i.e. , PA, PIPE LAYER HELPER, lab, RT, psych nurse, social service manager, ball winder, teacher, radio officer, protective services case worker)? Give summary @ -no Was smoking cessation discussed for >3mins.? @ -no Was critical care preformed (if so, how long)? @ -yes31 Were there social determinants of health that impacted care today? How? (Homelessness, low income, unemployed, alcoholism, drug addiction, transportation, low edu. Level, literacy, decrease access to med. care, snf, rehab)? @ -none Was there de-escalation of care discussed even if they declined (Discuss DNR or withdrawal of care, Hospice)? DNR status @ -no What co-morbidities impacted this encounter? (DM, HTN, Smoking, COPD, CAD, Cancer, CVA, ARF, Chemo, Hep., AIDS, mental health diagnosis, sleep apnea, morbid obesity)? @ -none Was patient admitted / discharged? Hospital course, mention meds given and route, prescriptions, significant lab abnormalities, going to OR and other pertinent info. @ - 62 male to the emergency department with a syncopal event. Patient has small troponin leak 0.03, patient admitted for trending of troponin cardiology evaluation history of high blood pressure Diabetes. Symptoms Occurred during Strenuous Activity Admitted Undiagnosed new problem with uncertain prognosis? @ -no Drug Therapy requiring intensive monitoring for toxicity (Heparin, Nitro, Insul in, Cardizem)? @ -no Were any procedures done? @ -no Diagnosis/symptom? @ -Syncope Acute, or Chronic, or Acute on Chronic? @ -Acute Uncomplicated (without systemic symptoms) or Complicated (systemic symptoms)? @ -Complicated Side effects of treatment? @ -no Exacerbation, Progression, or Severe Exacerbation? @ -exacerbation Poses a threat to life or bodily function? How? (Chest pain, [place], [place], pneumonia, PE, COPD, DKA, ARF, appy, cholecystitis, CVA, Diverticulitis, Homicidal, Suicidal, threat to staff... and all critical care pts) @ -yes with significant syncopal event with cause of syncope being worked on Reevaluation #5: 09/29/22 21:53 Differential Chest Pain: Stable Angina, Unstable Angina, STEMI, NSTEMI Aortic Dissection, Pneumothorax, Musculoskeletal, Esophageal Spasm GERD, Cholecystitis, Pancreatitis, Zoster, this is not meant to be an all-inclusive list. - Consultations Consultation #1: Spoke with Dr. Kelly regarding admission he is acceptable Medical Decision Making - Medical Decision Making 62 male to the emergency department with a syncopal event. Patient has small troponin leak 0.03, patient admitted for trending of troponin cardiology evaluation history of high blood pressure Diabetes. Symptoms Occurred during Strenuous Activity - Lab Data Result diagrams: 10/01/22 07:40 09/30/22 03:46 Lab Results 09/29/22 09/29/22 09/29/22 Range/Units 19:54 19:54 19:54 WBC 5.9 (3.8-10.6) k/uL RBC 3.71 L (4.30-5.90) m/uL Hgb 11.8 L (13.0-17.5) gm/dL Hct 33.4 L (39.0-53.0) % MCV 90.0 (80.0-100.0) fL MCH 31.8 (25.0-35.0) pg MCHC 35.3 (31.0-37.0) g/dL RDW 12.9 (11.5-15.5) % Plt Count (150-450) k/uL MPV 12.4 Neutrophils % 65 % Lymphocytes % 15 % Monocytes % 19 % Eosinophils % 1 % Basophils % 0 % Neutrophils # 3.8 (1.3-7.7) k/uL Lymphocytes # 0.9 L (1.0-4.8) k/uL Monocytes # 1.1 H (0-1.0) k/uL Eosinophils # 0.0 (0-0.7) k/uL Basophils # 0.0 (0-0.2) k/uL Manual Slide Review Performed PT 10.1 (9.0-12.0) sec INR 1.0 (<1.2) APTT 22.7 (22.0-30.0) sec D-Dimer 0.40 (<0.60) mg/L FEU Sodium 138 (137-145) mmol/L Potassium 4.1 (3.5-5.1) mmol/L Chloride 105 (98-107) mmol/L Carbon Dioxide 23 (22-30) mmol/L Anion Gap 10 mmol/L BUN 21 H (9-20) mg/dL Creatinine 1.34 H (0.66-1.25) mg/dL Est GFR (CKD-EPI)AfAm 67 (>60 ml/min/1.73 sqM) Est GFR (CKD-EPI)NonAf 58 (>60 ml/min/1.73 sqM) Glucose 105 H (74-99) mg/dL Calcium 9.8 (8.4-10.2) mg/dL Phosphorus 4.1 (2.5-4.5) mg/dL Magnesium 1.9 (1.6-2.3) mg/dL Total Bilirubin 0.6 (0.2-1.3) mg/dL AST 57 (17-59) U/L ALT 62 H (4-49) U/L Alkaline Phosphatase 83 (38-126) U/L Troponin I (0.000-0.034) ng/mL NT-Pro-B Natriuret Pep 190 pg/mL Total Protein 7.9 (6.3-8.2) g/dL Albumin 4.7 (3.5-5.0) g/dL 09/29/22 Range/Units 19:54 WBC (3.8-10.6) k/uL RBC (4.30-5.90) m/uL Hgb (13.0-17.5) gm/dL Hct (39.0-53.0) % MCV (80.0-100.0) fL MCH (25.0-35.0) pg MCHC (31.0-37.0) g/dL RDW (11.5-15.5) % Plt Count (150-450) k/uL MPV Neutrophils % % Lymphocytes % % Monocytes % % Eosinophils % % Basophils % % Neutrophils # (1.3-7.7) k/uL Lymphocytes # (1.0-4.8) k/uL Monocytes # (0-1.0) k/uL Eosinophils # (0-0.7) k/uL Basophils # (0-0.2) k/uL Manual Slide Review PT (9.0-12.0) sec INR (<1.2) APTT (22.0-30.0) sec D-Dimer (<0.60) mg/L FEU Sodium (137-145) mmol/L Potassium (3.5-5.1) mmol/L Chloride (98-107) mmol/L Carbon Dioxide (22-30) mmol/L Anion Gap mmol/L BUN (9-20) mg/dL Creatinine (0.66-1.25) mg/dL Est GFR (CKD-EPI)AfAm (>60 ml/min/1.73 sqM) Est GFR (CKD-EPI)NonAf (>60 ml/min/1.73 sqM) Glucose (74-99) mg/dL Calcium (8.4-10.2) mg/dL Phosphorus (2.5-4.5) mg/dL Magnesium (1.6-2.3) mg/dL Total Bilirubin (0.2-1.3) mg/dL AST (17-59) U/L ALT (4-49) U/L Alkaline Phosphatase (38-126) U/L Troponin I 0.030 (0.000-0.034) ng/mL NT-Pro-B Natriuret Pep pg/mL Total Protein (6.3-8.2) g/dL Albumin (3.5-5.0) g/dL - EKG Data -: EKG Interpreted by Me (EKG is sinus 88 DE 166 QRS 100 QTc 454) Critical Care Time Critical Care Time: Yes Total Critical Care Time: 31 Disposition Clinical Impression: Chest pain, Near syncope Narrative: Troponin Leak Disposition: ADMITTED IP TO THIS HOSP Condition: Fair Is patient prescribed a controlled substance at d/c from ED?: No Time of Disposition: 21:45
[2022-09-29 20:16] LABS: Basophils % (A) 0 %; Eosinophils % (A) 1 %; HCT 33.4 % (39.0-53.0); HGB 11.8 gm/dL (13.0-17.5); Lymphocytes # (A) 0.9 k/uL (1.0-4.8); Lymphocytes % (A) 15 %; MCH 31.8 pg (25.0-35.0); MCHC 35.3 g/dL (31.0-37.0); Mean Platelet Volume 12.4; Monocytes # (A) 1.1 k/uL (0-1.0); Monocytes % (A) 19 %; Neutrophils # (A) 3.8 k/uL (1.3-7.7); Neutrophils % (A) 65 %; RBC 3.71 m/uL (4.30-5.90); RDW 12.9 % (11.5-15.5); WBC 5.9 k/uL (3.8-10.6)
[2022-09-29 20:32] LABS: Partial Thromboplastin Time 22.7 sec (22.0-30.0); Prothrombin Time 10.1 sec (9.0-12.0)
[2022-09-29 20:59] LABS: ALT 62 U/L (4-49); AST 57 U/L (17-59); African American GFR (CKD) 67 (>60 ml/min/1.73 sqM); Albumin 4.7 g/dL (3.5-5.0); Alkaline Phosphatase 83 U/L (38-126); Blood Urea Nitrogen 21 mg/dL (9-20); Calcium 9.8 mg/dL (8.4-10.2); Carbon Dioxide 23 mmol/L (22-30); Glucose 105 mg/dL (74-99); Magnesium 1.9 mg/dL (1.6-2.3); Non-African American GFR(CKD) 58 (>60 ml/min/1.73 sqM); Phosphorus 4.1 mg/dL (2.5-4.5); Total Bilirubin 0.6 mg/dL (0.2-1.3); Total Protein 7.9 g/dL (6.3-8.2)
[2022-09-29 21:07] LABS: NT-Pro-B-Type Natriuretic Pept 190 pg/mL
[2022-09-29 21:23] LABS: Anion Gap 10 mmol/L; Chloride 105 mmol/L (98-107); Potassium 4.1 mmol/L (3.5-5.1); Sodium 138 mmol/L (137-145)
[2022-09-29] MEDS ORDERED: ONDANSETRON 4 MG/2 ML VIAL IVP PRN (21:51)
[2022-09-29] MEDS ORDERED: MORPHINE SULFATE 4 MG/ML SYRINGE IV PRN (21:51)
[2022-09-29] MEDS ORDERED: NALOXONE 0.4 MG/ML 1 ML VIAL IV PRN (21:51)
[2022-09-30] MEDS ORDERED: HEPARIN SODIUM 1,000 UN/ML (10ML VL) IV PRN (01:02)
[2022-09-30] MEDS ORDERED: HEPARIN SOD,PORK IN 0.45% NACL 25,000 UNIT in 0.45% NACL 1 250ML.BAG IV SCH (01:15)
[2022-09-30 01:47] LABS: Basophils % (A) 0 %; Eosinophils % (A) 0 %; HCT 31.4 % (39.0-53.0); Lymphocytes # (A) 1.3 k/uL (1.0-4.8); Lymphocytes % (A) 22 %; MCH 31.7 pg (25.0-35.0); MCHC 35.1 g/dL (31.0-37.0); MCV 90.3 fL (80.0-100.0); Mean Platelet Volume 12.6; Monocytes # (A) 0.4 k/uL (0-1.0); Monocytes % (A) 7 %; Neutrophils # (A) 3.8 k/uL (1.3-7.7); Neutrophils % (A) 68 %; RBC 3.48 m/uL (4.30-5.90); RDW 13.1 % (11.5-15.5); WBC 5.6 k/uL (3.8-10.6)
[2022-09-30 01:54] LABS: Platelet Count 100 k/uL (150-450)
[2022-09-30 02:22] LABS: Prothrombin Time 10.6 sec (9.0-12.0)
[2022-09-30 02:27] LABS: Partial Thromboplastin Time 117.8 sec (22.0-30.0)
[2022-09-30 03:55] LABS: Basophils % (A) 0 %; Eosinophils # (A) 0.1 k/uL (0-0.7); Eosinophils % (A) 1 %; HCT 32.7 % (39.0-53.0); HGB 11.2 gm/dL (13.0-17.5); Lymphocytes % (A) 22 %; MCH 31.5 pg (25.0-35.0); MCHC 34.3 g/dL (31.0-37.0); MCV 91.8 fL (80.0-100.0); Mean Platelet Volume 11.9; Monocytes # (A) 0.3 k/uL (0-1.0); Monocytes % (A) 7 %; Neutrophils % (A) 67 %; RBC 3.56 m/uL (4.30-5.90); RDW 13.4 % (11.5-15.5); WBC 4.5 k/uL (3.8-10.6)
[2022-09-30 04:42] LABS: ALT 53 U/L (4-49); AST 44 U/L (17-59); African American GFR (CKD) >90 (>60 ml/min/1.73 sqM); Albumin 4.3 g/dL (3.5-5.0); Alkaline Phosphatase 77 U/L (38-126); Blood Urea Nitrogen 19 mg/dL (9-20); Calcium 9.3 mg/dL (8.4-10.2); Carbon Dioxide 28 mmol/L (22-30); Glucose 113 mg/dL (74-99); Magnesium 2.1 mg/dL (1.6-2.3); Non-African American GFR(CKD) 78 (>60 ml/min/1.73 sqM); Phosphorus 4.8 mg/dL (2.5-4.5); Total Bilirubin 0.6 mg/dL (0.2-1.3); Total Protein 7.3 g/dL (6.3-8.2)
[2022-09-30 05:22] LABS: Anion Gap 7 mmol/L; Chloride 101 mmol/L (98-107); Potassium 3.9 mmol/L (3.5-5.1); Sodium 136 mmol/L (137-145)
[2022-09-30] MEDS ORDERED: ALBUTEROL NEBULIZED 2.5 MG/3 ML INHALATION PRN (10:18)
[2022-09-30] MEDS: SYMBICORT 80-4.5 MCG INHALER INHALATION SCH ×2 (12:22→19:33)
[2022-09-30] MEDS: ESCITALOPRAM 10 MG TAB PO SCH (12:22)
--- NOTE | 2022-09-30 12:45 | P.CRDCN ---
History of Present Illness History of present illness: HISTORY OF PRESENTING ILLNESS This is a pleasant 62-year-old with past medical history significant for essential hypertension and dyslipidemia. He follows in the office with Dr. Strauss. He presents to the hospital with complaints of lightheadedness and dizziness. This happened when he was playing soft ball yesterday on a alexa day. He never had a peyman syncope. 1 week ago he was started on Valsartan 80mg for HTN by PCP. He denied any chest pain shortness of breath, palpitations. No prior smoking history. Occasional alcohol use. No reported premature CAD h/o in family. No recent surgery DIAGNOSTICS EKG reveals NSR, non ischemic Chest xray no concerns of pulmonary congestion Laboratory reviewed, borderline elevated trop with flat pattern, mild CRISTIAN REVIEW OF SYSTEMS 14 point review of system is negative except what is mentioned above in HPI. PHYSICAL EXAMINATION Vital signs reviewed. Head: Normocephalic. Eyes: Sclerae nonicteric. Neck: Brisk carotid upstroke, no jugular venous distention. Lungs: Clear to auscultation. Heart: Regular rate and rhythm, S1-S2, no S3, systolic murmur in aortic area Abdomen: Soft nontender, positive bowel sounds no organomegaly. Extremities: No edema, intact distal pulses. ASSESSMENT Lightheadedness due to dehydration and recent initiation of antihypertensive Essential HTN Dyslipidemia PLAN Obtain echocardiography Maintain adequate hydration continue current meds without changes F/u outpatient and possible treadmill echo stress test If echo is normal, okay to discharge from cardiac stand point Past Medical History Past Medical History: Asthma, Cancer, Osteoarthritis (OA), Pneumonia Additional Past Medical History / Comment(s): Klinnefelter Syndrome, HX OF RENAL CA with surgery. chronic back pain (degenerative disk L3 and L4), healed cellulitis bilateral lower legs, hx thrombocytopenia 2009 when tx for kidney ca ncer. covid 2020, History of Any Multi-Drug Resistant Organisms: None Reported Past Surgical History: Joint Replacement, Orthopedic Surgery Additional Past Surgical History / Comment(s): total R knee arthroplasty. LEFT shoulder rotator cuff tear, 2009 kidney ca removed portion of right kidney, 2011 carpectomy left wrist, TLK, Past Anesthesia/Blood Transfusion Reactions: No Reported Reaction Additional Past Anesthesia/Blood Transfusion Reaction / Comment(s): "incision popped open day of surgery with other knee replacement, ended up staying 5 days with knee immobilized" Past Psychological History: Depression Smoking Status: Never smoker Past Alcohol Use History: Rare Past Drug Use History: None Reported - Past Family History Father Family Medical History: Cancer Additional Family Medical History / Comment(s): colon Mother Family Medical History: AFIB, Asthma Medications and Allergies Home Medications Medication Instructions Recorded Confirmed Type Albuterol Sulfate [Proair Hfa] 2 puff INHALATION RT-QID PRN 07/10/13 09/29/22 History Fluticasone/Salmeterol [Advair 1 puff INHALATION RT-BID 07/10/13 09/29/22 History 250-50 Diskus] EPINEPHrine (Auto Inject) [Epipen] 0.3 mg IM ONCE PRN 07/17/14 09/29/22 History Escitalopram Oxalate [Lexapro] 10 mg PO DAILY 03/23/19 09/29/22 History Montelukast [Singulair] 10 mg PO HS 03/23/19 09/29/22 History Atorvastatin [Lipitor] 10 mg PO HS 09/29/22 09/29/22 History Loratadine-Pseudoeph 10-240 mg 1 tab PO DAILY 09/29/22 09/29/22 History [Claritin-D 24 Hour] Valsartan [Diovan] 80 mg PO DAILY 09/29/22 09/29/22 History Allergies Allergy/AdvReac Type Severity Reaction Status Date / Time Iodinated Contrast Media Allergy Severe Anaphylaxis Verified 09/29/22 21:44 [Iodinated Contrast Media - IV Dye] shellfish derived Allergy Severe Anaphylaxis Verified 09/29/22 21:44 sulfamethoxazole Allergy Severe Anaphylaxis Verified 09/29/22 21:44 [From Bactrim] trimethoprim [From Bactrim] Allergy Severe Anaphylaxis Verified 09/29/22 21:44 Physical Exam Vitals: Vital Signs Temp Pulse Resp BP Pulse Ox 09/30/22 07:33 75 20 146/92 98 09/30/22 06:08 93 19 129/94 96 09/30/22 03:05 63 18 136/85 98 09/30/22 02:04 70 19 117/89 96 09/30/22 00:28 69 19 118/69 94 L 09/29/22 22:17 84 19 125/84 98 09/29/22 21:52 82 19 122/95 99 09/29/22 20:34 81 20 115/71 95 09/29/22 20:19 86 09/29/22 20:09 89 09/29/22 19:55 90 19 119/67 93 L 09/29/22 18:59 97.9 F 101 H 22 90/53 95 Intake and Output 09/29/22 09/30/22 09/30/22 22:59 06:59 14:59 Intake Total 10.002 Balance 10.002 Intake: Intake, IV Titration 10.002 Amount Heparin Sod,Pork in 0.45% 10.002 NaCl 25,000 unit In 0.45 % NaCl 1 250ml.bag @ 7.35 UNITS/KG/HR 10.002 mls/ hr IV .Q24H [facility] Rx#: [id number] Other: Weight 136.078 kg Results 09/30/22 03:46 09/30/22 03:46 Cardiac Enzymes 09/29/22 09/29/22 09/29/22 Range/Units 19:54 19:54 23:14 AST 57 (17-59) U/L Troponin I 0.030 0.057 H* (0.000-0.034) ng/mL 09/30/22 09/30/22 Range/Units 03:46 03:46 AST 44 (17-59) U/L Troponin I 0.060 H* (0.000-0.034) ng/mL Coagulation 09/29/22 09/30/22 Range/Units 19:54 01:37 PT 10.1 10.6 (9.0-12.0) sec APTT 22.7 117.8 H* (22.0-30.0) sec CBC 09/29/22 09/30/22 09/30/22 Range/Units 19:54 01:37 03:46 WBC 5.9 5.6 4.5 (3.8-10.6) k/uL RBC 3.71 L 3.48 L 3.56 L (4.30-5.90) m/uL Hgb 11.8 L 11.0 L 11.2 L (13.0-17.5) gm/dL Hct 33.4 L 31.4 L 32.7 L (39.0-53.0) % Plt Count 100 L (150-450) k/uL Comprehensive Metabolic Panel 09/29/22 09/30/22 Range/Units 19:54 03:46 Sodium 138 136 L (137-145) mmol/L Potassium 4.1 3.9 (3.5-5.1) mmol/L Chloride 105 101 (98-107) mmol/L Carbon Dioxide 23 28 (22-30) mmol/L BUN 21 H 19 (9-20) mg/dL Creatinine 1.34 H 1.04 (0.66-1.25) mg/dL Glucose 105 H 113 H (74-99) mg/dL Calcium 9.8 9.3 (8.4-10.2) mg/dL AST 57 44 (17-59) U/L ALT 62 H 53 H (4-49) U/L Alkaline Phosphatase 83 77 (38-126) U/L Total Protein 7.9 7.3 (6.3-8.2) g/dL Albumin 4.7 4.3 (3.5-5.0) g/dL Current Medications Generic Name Dose Route Start Last Admin Trade Name Freq PRN Reason Stop Dose Admin Albuterol Sulfate 2.5 mg 09/30/22 10:18 Albuterol Nebulized 2.5 Mg/3 Ml INHALATION RT-QID PRN Shortness Of Breath Atorvastatin Calcium 10 mg 09/30/22 21:00 Atorvastatin 10 Mg Tab PO HS [facility] Budesonide/Formoterol Fumarate 2 puff 09/30/22 10:30 Symbicort 80-4.5 Mcg Inhaler INHALATION RT-BID LISA Escitalopram Oxalate 10 mg 09/30/22 10:30 Escitalopram 10 Mg Tab PO DAILY [facility] Montelukast Sodium 10 mg 09/30/22 21:00 Montelukast 10 Mg Tab PO HS [facility] Morphine Sulfate 4 mg 09/29/22 21:51 Morphine Sulfate 4 Mg/Ml Syringe IV Q4HR PRN Severe Pain (Scale 7 to 10) Naloxone HCl 0.2 mg 09/29/22 21:51 Naloxone 0.4 Mg/Ml 1 Ml Vial IV Q2M PRN Opioid Reversal Ondansetron HCl 4 mg 09/29/22 21:51 Ondansetron 4 Mg/2 Ml Vial IVP Q8HR PRN Nausea And Vomiting Valsartan 80 mg 09/30/22 11:00 Valsartan 80 Mg Tab PO DAILY [facility] Intake and Output 09/29/22 09/30/22 09/30/22 22:59 06:59 14:59 Intake Total 10.002 Balance 10.002 Intake: Intake, IV Titration 10.002 Amount Heparin Sod,Pork in 0.45% 10.002 NaCl 25,000 unit In 0.45 % NaCl 1 250ml.bag @ 7.35 UNITS/KG/HR 10.002 mls/ hr IV .Q24H [facility] Rx#: [id number] Other: Weight 136.078 kg 09/30/22 03:46 09/30/22 03:46
[2022-09-30] MEDS: VALSARTAN 80 MG TAB PO SCH (14:56)
--- NOTE | 2022-09-30 18:01 | P.HPIM ---
History of Present Illness H&P Date: 09/30/22 Chief Complaint: Dizzy This is a pleasant 62-year-old patient of Dr. Hernandez. Chronic stable medical conditions include asthma, osteoarthritis, Klinefelter syndrome, depression history of renal cancer with right nephrectomy, chronic low back pain at L3-L4 DJD, Patient is pending softball yesterday. Placed for what artery and a half. Outside temperature was about 85 decreased. While playing patient started having some double vision started getting dizzy. [place] tired. Decided to just about. Patient broke out and heavy perspiration. More than usual. Also became short of breath. Did not feel well. No chest pressure or pain. Decided to come to the ER. Review of systems: GEN.: Tired EYES: None HEENT: None NECK: None RESPIRATORY: As above CARDIOVASCULAR: As above GASTROINTESTINAL: None GENITOURINARY: None MUSCULOSKELETAL: Aches and pains LYMPHATICS: None HEMATOLOGICAL: None PSYCHIATRY: None NEUROLOGICAL: None Past medical history to include: Asthma, osteoarthritis, Klinefelter syndrome, right renal cell cancer with nephrectomy, chronic low back pain at L3-L4 with DJD, depression Social history: , has no smoking or alcohol. Works at a company called [employer] with [employer]. Physical examination: VITAL SIGNS: 97.9, 101, 22, 90/53, 95% room air upon presentation GENERAL: BMI 38.5, declining awake tired. EYES: Pupils equal. Conjunctiva normal. HEENT: External appearance of nose and ears normal, oral cavity grossly normal. NECK: JVD not raised; masses not palpable. HEART: First and second heart sounds are normal; no edema. LUNGS: Respiratory rate normal; fair entry. ABDOMEN: Soft, nontender, liver spleen not palpable, no masses palpable. PSYCH: Alert and oriented x3; mood and affect normal NEUROLOGICAL: Cranial nerves grossly intact; no facial asymmetry, power and sensation grossly intact. LYMPHATICS: No lymph nodes palpable in the axilla and neck INVESTIGATIONS, reviewed in the clinical context: September 30: White count 4.5 hemoglobin 11.2 platelet count unknown sodium 136 potassium 3.9 creatinine 1.04 Troponin I 0.030, 0.057, 0.060 Admission labs: BUN 21 creatinine 1.34 ProBNP 190 EKG tracing personally reviewed by me-normal sinus rhythm. Assessment and plan: -Probable acute non-Q wave TN. Could be type II. Episode of perspiration shortness of breath following playing outside for 1 hour and a half. It was rather also warm Aspirin. Lipitor. Patient was on IV heparin initially. Discontinued. No c hest pain. -Primary osteoarthritis Tylenol as needed -Essential hypertension Diovan -Moderate persistent asthma Advair 250/50 one puff twice a day. Albuterol when necessary. Singulair -Klinefelter syndrome -Chronic low back pain from osteoarthritis of L3-L4 Tylenol as needed -Acute kidney injury, prerenal from dehydration Admission creatinine 1.34. Down to 1.[address] Albert from cardiology. For stress echocardiogram and 2-D echo . Discussed with patient. Past Medical History Past Medical History: Asthma, Cancer, Osteoarthritis (OA), Pneumonia Additional Past Medical History / Comment(s): Klinnefelter Syndrome, HX OF RENAL CA with surgery. chronic back pain (degenerative disk L3 and L4), healed cellulitis bilateral lower legs, hx thrombocytopenia 2009 when tx for kidney cancer. covid 2020, History of Any Multi-Drug Resistant Organisms: None Reported Past Surgical History: Joint Replacement, Orthopedic Surgery Additional Past Surgical History / Comment(s): total R knee arthroplasty. LEFT shoulder rotator cuff tear, 2009 kidney ca removed portion of right kidney, 2011 carpectomy left wrist, TLK, Past Anesthesia/Blood Transfusion Reactions: No Reported Reaction Additional Past Anesthesia/Blood Transfusion Reaction / Comment(s): "incision popped open day of surgery with other knee replacement, ended up staying 5 days with knee immobilized" Past Psychological History: Depression Smoking Status: Never smoker Past Alcohol Use History: Rare Past Drug Use History: None Reported - Past Family History Father Family Medical History: Cancer Additional Family Medical History / Comment(s): colon Mother Family Medical History: AFIB, Asthma Medications and Allergies Home Medications Medication Instructions Recorded Confirmed Type Albuterol Sulfate [Proair Hfa] 2 puff INHALATION RT-QID PRN 07/10/13 09/29/22 H istory Fluticasone/Salmeterol [Advair 1 puff INHALATION RT-BID 07/10/13 09/29/22 History 250-50 Diskus] EPINEPHrine (Auto Inject) [Epipen] 0.3 mg IM ONCE PRN 07/17/14 09/29/22 History Escitalopram Oxalate [Lexapro] 10 mg PO DAILY 03/23/19 09/29/22 History Montelukast [Singulair] 10 mg PO HS 03/23/19 09/29/22 History Atorvastatin [Lipitor] 10 mg PO HS 09/29/22 09/29/22 History Loratadine-Pseudoeph 10-240 mg 1 tab PO DAILY 09/29/22 09/29/22 History [Claritin-D 24 Hour] Valsartan [Diovan] 80 mg PO DAILY 09/29/22 09/29/22 History Allergies Allergy/AdvReac Type Severity Reaction Status Date / Time Iodinated Contrast Media Allergy Severe Anaphylaxis Verified 09/29/22 21:44 [Iodinated Contrast Media - IV Dye] shellfish derived Allergy Severe Anaphylaxis Verified 09/29/22 21:44 sulfamethoxazole Allergy Severe Anaphylaxis Verified 09/29/22 21:44 [From Bactrim] trimethoprim [From Bactrim] Allergy Severe Anaphylaxis Verified 09/29/22 21:44 Physical Exam Vitals: Vital Signs Temp Pulse Resp BP Pulse Ox 09/30/22 07:33 75 20 146/92 98 09/30/22 06:08 93 19 129/94 96 09/30/22 03:05 63 18 136/85 98 09/30/22 02:04 70 19 117/89 96 09/30/22 00:28 69 19 118/69 94 L 09/29/22 22:17 84 19 125/84 98 09/29/22 21:52 82 19 122/95 99 09/29/22 20:34 81 20 115/71 95 09/29/22 20:19 86 09/29/22 20:09 89 09/29/22 19:55 90 19 119/67 93 L 09/29/22 18:59 97.9 F 101 H 22 90/53 95 Intake and Output 09/29/22 09/30/22 09/30/22 22:59 06:59 14:59 Intake Total 10.002 Balance 10.002 Intake: Intake, IV Titration 10.002 Amount Heparin Sod,Pork in 0.45% 10.002 NaCl 25,000 unit In 0.45 % NaCl 1 250ml.bag @ 7.35 UNITS/KG/HR 10.002 mls/ hr IV .Q24H [facility] Rx#: [id number] Other: Weight 136.078 kg Results CBC & Chem 7: 09/30/22 03:46 09/30/22 03:46 Labs: Abnormal Lab Results - Last 24 Hours (Table) 09/29/22 09/29/22 09/29/22 Range/Units 19:54 19:54 23:14 RBC 3.71 L (4.30-5.90) m/uL Hgb 11.8 L (13.0-17.5) gm/dL Hct 33.4 L (39.0-53.0) % Plt Count (150-450) k/uL Lymphocytes # 0.9 L (1.0-4.8) k/uL Monocytes # 1.1 H (0-1.0) k/uL APTT (22.0-30.0) sec Sodium (137-145) mmol/L BUN 21 H (9-20) mg/dL Creatinine 1.34 H (0.66-1.25) mg/dL Glucose 105 H (74-99) mg/dL Phosphorus (2.5-4.5) mg/dL ALT 62 H (4-49) U/L Troponin I 0.057 H* (0.000-0.034) ng/mL 09/30/22 09/30/22 09/30/22 Range/Units 01:37 01:37 03:46 RBC 3.48 L (4.30-5.90) m/uL Hgb 11.0 L (13.0-17.5) gm/dL Hct 31.4 L (39.0-53.0) % Plt Count 100 L (150-450) k/uL Lymphocytes # (1.0-4.8) k/uL Monocytes # (0-1.0) k/uL APTT 117.8 H* (22.0-30.0) sec Sodium (137-145) mmol/L BUN (9-20) mg/dL Creatinine (0.66-1.25) mg/dL Glucose (74-99) mg/dL Phosphorus (2.5-4.5) mg/dL ALT (4-49) U/L Troponin I 0.060 H* (0.000-0.034) ng/mL 09/30/22 09/30/22 Range/Units 03:46 03:46 RBC 3.56 L (4.30-5.90) m/uL Hgb 11.2 L (13.0-17.5) gm/dL Hct 32.7 L (39.0-53.0) % Plt Count (150-450) k/uL Lymphocytes # (1.0-4.8) k/uL Monocytes # (0-1.0) k/uL APTT (22.0-30.0) sec Sodium 136 L (137-145) mmol/L BUN (9-20) mg/dL Creatinine (0.66-1.25) mg/dL Glucose 113 H (74-99) mg/dL Phosphorus 4.8 H (2.5-4.5) mg/dL ALT 53 H (4-49) U/L Troponin I (0.000-0.034) ng/mL
--- NOTE | 2022-09-30 19:05 | XR ---
EXAMINATION TYPE: XR chest 2V DATE OF EXAM: 09/30/2022 6:54 PM COMPARISON: Chest radiographs from 10/18/2021 TECHNIQUE: XR chest 2V Frontal and lateral views of the chest. CLINICAL INDICATION:Male, 62 years old with history of Short of breath; FINDINGS: Lungs/Pleura: There is no evidence of pleural effusion, focal consolidation, or pneumothorax. Pulmonary vascularity: Unremarkable. Heart/mediastinum: Cardiomediastinal silhouette is unremarkable. Musculoskeletal: No acute osseous pathology. IMPRESSION: No acute cardiopulmonary disease/process.
[2022-09-30] MEDS: ASPIRIN 81 MG PO SCH (19:12)
[2022-09-30] MEDS ORDERED: MONTELUKAST 10 MG TAB PO SCH (21:00)
[2022-09-30] MEDS ORDERED: ATORVASTATIN 10 MG TAB PO SCH (21:00)
[2022-10-01 01:47] VITALS: TEMP 97.4
[2022-10-01 04:02] VITALS: RESP 18
[2022-10-01] MEDS: SYMBICORT 80-4.5 MCG INHALER INHALATION SCH (07:54)
[2022-10-01 08:10] LABS: Basophils % (A) 0 %; Eosinophils % (A) 1 %; HCT 37.9 % (39.0-53.0); HGB 12.6 gm/dL (13.0-17.5); Lymphocytes # (A) 0.8 k/uL (1.0-4.8); Lymphocytes % (A) 21 %; MCH 30.5 pg (25.0-35.0); MCHC 33.3 g/dL (31.0-37.0); MCV 91.6 fL (80.0-100.0); Mean Platelet Volume 11.7; Monocytes # (A) 0.2 k/uL (0-1.0); Monocytes % (A) 6 %; Neutrophils # (A) 2.6 k/uL (1.3-7.7); Neutrophils % (A) 70 %; Platelet Count 119 k/uL (150-450); RBC 4.14 m/uL (4.30-5.90); WBC 3.8 k/uL (3.8-10.6)
[2022-10-01 08:20] LABS: Prothrombin Time 10.4 sec (9.0-12.0)
[2022-10-01] MEDS ORDERED: ACETAMINOPHEN TAB 325 MG TAB PO PRN (08:38)
[2022-10-01] MEDS: ASPIRIN 81 MG PO SCH (08:39)
[2022-10-01] MEDS: ESCITALOPRAM 10 MG TAB PO SCH (08:39)
[2022-10-01] MEDS: VALSARTAN 80 MG TAB PO SCH (12:02)
[2022-10-01 12:03] VITALS: BP 132/78; PULSE 74
--- NOTE | 2022-10-01 15:31 | CA ---
Stress Echo Report Faustino Mcghee Age: 62 Gender: M : 1960 Exam Date: 10/01/2022 11:11 Exam Location: [place] Echo Ht (in): 74 Wt (lb): 300 Ordering Physician: Pa Albert MD ([id number]) Referring Physician: ORQUIDEA,, Supervisor [employer]: Kate Bojorquez RDCS Technologist Procedure CPT: Indication: presyncope ICD-9 Codes: Rhythm: Patient History: CHEST PAIN, HTN, ELEVATED CHOLESTEROL LEVELS, FAMILY HX OF HEART DISEASE Cardiac Medications: Medications in past 24 hours: Contrast: Lumason Stress Results Protocol: Robin Total dose(mL): Exercise Duration (min:sec): 5:[address] Depression (mm): Angina Score: Quiroz Score: METS: 7.1 Resting HR: 83 Resting BP: 151 / 90 Peak HR: 156 Peak BP: 170 / 87 Max Predicted HR: 160 97 % Max Predicted HR Target HR: 136 Double Product: [id number] Stress Summary: BP Response: Reason for Termination: MAX EXERTION/TARGET HR Cardiac Symptoms: DIFFICULTY IN BREATHING ECG Analysis Resting ECG: Normal sinus rhythm, normal ECG Stress ECG: No abnormal ST/T wave changes with exercise Arrhythmia: None Echo Analysis Resting Echo: Normal global and regional wall motion at rest Peak Echo Analysis: Normal global and regional wall motion with stress Normal augmentation of all myocardial segments MEASUREMENTS (Male/Female) Normal Values CONCLUSIONS Poor exercise tolerance, achieving 7 METS and 97% of max predicted heart rate. normal hemodynamic response to exercise nonischemic ECG response to exercise Nonischemic echocardiographic response to exercise Normal treadmill stress echocardiogram Dr Pa Albert (Electronically Signed) Final Date: 01 October 2022 15:29
--- NOTE | 2022-10-01 16:15 | P.PN ---
Subjective Progress Note Date: 10/01/22 Subjective: seen and examined at bedside this exam. He is denying having any sy mptoms of lightheadedness or dizziness. He did not extend his any lightheadedness when he walked on treadmill for a stress test today. He is doing well from cardiac vessel standpoint overall. HISTORY OF PRESENTING ILLNESS This is a pleasant 62-year-old with past medical history significant for essential hypertension and dyslipidemia. He follows in the office with Dr. Sa valladares. He presents to the hospital with complaints of lightheadedness and dizziness. This happened when he was playing soft ball yesterday on a alexa day. He never had a peyman syncope. 1 week ago he was started on Valsartan 80mg for HTN by PCP. He denied any chest pain shortness of breath, palpitations. No prior smoking history. Occasional alcohol use. No reported premature CAD h/o in family. No recent surgery DIAGNOSTICS EKG reveals NSR, non ischemic Chest xray no concerns of pulmonary congestion Laboratory reviewed, borderline elevated trop with flat pattern, mild CRISTIAN REVIEW OF SYSTEMS 14 point review of system is negative except what is mentioned above in HPI. PHYSICAL EXAMINATION Vital signs reviewed. Head: Normocephalic. Eyes: Sclerae nonicteric. Neck: Brisk carotid upstroke, no jugular venous distention. Lungs: Clear to auscultation. Heart: Regular rate and rhythm, S1-S2, no S3, systolic murmur in aortic area Abdomen: Soft nontender, positive bowel sounds no organomegaly. Extremities: No edema, intact distal pulses. ASSESSMENT Lightheadedness due to dehydration and recent initiation of antihypertensive Essential HTN Dyslipidemia PLAN Patient had a treadmill stress echocardiogram which I reviewed and was normal. Patient is cleared to be discharged from Cardiac standpoint. Would recommend outpatient follow-up Objective - Vital Signs Vital signs: Vital Signs Temp 97.4 F L 10/01/22 00:35 Pulse 74 10/01/22 12:02 Resp 18 10/01/22 12:02 BP 132/78 10/01/22 12:02 Pulse Ox 97 10/01/22 12:02 FiO2 Intake & Output 09/30/22 10/01/22 10/01/22 18:59 06:59 18:59 Intake Total 20 Balance 20 Weight 136.078 kg Intake: IV 20 Invasive Line 1 20 Other: Voiding Method Toilet Toilet # Voids 1 2 - Labs CBC & Chem 7: 10/01/22 07:40 09/30/22 03:46 Labs: Abnormal Lab Results - Last 24 Hours (Table) 10/01/22 Range/Units 07:40 RBC 4.14 L (4.30-5.90) m/uL Hgb 12.6 L (13.0-17.5) gm/dL Hct 37.9 L (39.0-53.0) % Plt Count 119 L (150-450) k/uL Lymphocytes # 0.8 L (1.0-4.8) k/uL
--- NOTE | 2022-10-01 16:39 | P.DS ---
Providers Date of admission: 09/29/22 21:53 Expected date of discharge: 10/01/22 Attending physician: Fred Jefferson Consults: 09/29/22 21:51 Consult Physician Routine Consulting Provider: Oumou Strauss Consult Reason/Comments: nstemi Do you want consulting provider notified?: Yes Primary care physician: [facility] Course: Chief Complaint: Dizzy This is a pleasant 62-year-old patient of Dr. Hernandez. Chronic stable medical conditions include asthma, osteoarthritis, Klinefelter syndrome, depression history of renal cancer with right nephrectomy, chronic low back pain at L3-L4 DJD, Patient is pending softball yesterday. Placed for what artery and a half. Outside temperature was about 85 decreased. While playing patient started having some double vision started getting dizzy. [place] tired. Decided to just about. Patient broke out and heavy perspiration. More than usual. Also became short of breath. Did not feel well. No chest pressure or pain. Decided to come to the ER. 10/01/2022: Comfortable No chest pain. Stress echocardiogram negative as per cardiology. Clear for discharge. Past medical history to include: Asthma, osteoarthritis, Klinefelter syndrome, right renal cell cancer with nephrectomy, chronic low back pain at L3-L4 with DJD, depression Social history: , has no smoking or alcohol. Works at a company called [employer] with [employer]. Physical examination: VITAL SIGNS: 74, 18, 132/78, 97% room air GENERAL: Comfortable EYES: Pupils equal. Conjunctiva normal. HEENT: External appearance of nose and ears normal, oral cavity grossly normal. NECK: JVD not raised; masses not palpable. HEART: First and second heart sounds are normal; no edema. LUNGS: Respiratory rate normal; fair entry. ABDOMEN: Soft, nontender, liver spleen not palpable, no masses palpable. PSYCH: Alert and oriented x3; mood and affect normal INVESTIGATIONS, reviewed in the clinical context: Stress echocardiogram. Poor exercise tolerance. 7 metastases. 97% of max predicted heart rate. Known ischemic EKG response. Normal hemodynamic response to exercise. September 30: White count 4.5 hemoglobin 11.2 platelet count unknown sodium 136 potassium 3.9 creatinine 1.04 Troponin I 0.030, 0.057, 0.060 Admission labs: BUN 21 creatinine 1.34 ProBNP 190 EKG tracing personally reviewed by me-normal sinus rhythm. Assessment and plan: - acute non-Q wave RI. type II. Due to dehydration. Aspirin. Normal stress echocardiogram. -Primary osteoarthritis Tylenol as needed -Essential hypertension Diovan -Moderate persistent asthma Advair 250/50 one puff twice a day. Albuterol when necessary. Singulair -Klinefelter syndrome -Chronic low back pain from osteoarthritis of L3-L4 Tylenol as needed -Acute kidney injury, prerenal from dehydration Admission creatinine 1.34. Down to 1.04 Disposition: Home Past Medical History Past Medical History: Asthma, Cancer, Osteoarthritis (OA), Pneumonia Additional Past Medical History / Comment(s): Klinnefelter Syndrome, HX OF RENAL CA with surgery. chronic back pain (degenerative disk L3 and L4), healed cellulitis bilateral lower legs, hx thrombocytopenia 2009 when tx for kidney cancer. covid 2020, History of Any Multi-Drug Resistant Organisms: None Reported Past Surgical History: Joint Replacement, Orthopedic Surgery Additional Past Surgical History / Comment(s): total R knee arthroplasty. LEFT shoulder rotator cuff tear, 2009 kidney ca removed portion of right kidney, 2011 carpectomy left wrist, TLK, Past Anesthesia/Blood Transfusion Reactions: No Reported Reaction Additional Past Anesthesia/Blood Transfusion Reaction / Comment(s): "incision popped open day of surgery with other knee replacement, ended up staying 5 days with knee immobilized" Past Psychological History: Depression Smoking Status: Never smoker Past Alcohol Use History: Rare Past Drug Use History: None Reported - Past Family History Father Family Medical History: Cancer Additional Family Medical History / Comment(s): colon Mother Family Medical History: AFIB, Asthma Medications and Allergies Home Medications Medication Instructions Recorded Confirmed Type Albuterol Sulfate [Proair Hfa] 2 puff INHALATION RT-QID PRN 07/10/13 09/29/22 History Fluticasone/Salmeterol [Advair 1 puff INHALATION RT-BID 07/10/13 09/29/22 History 250-50 Diskus] EPINEPHrine (Auto Inject) [Epipen] 0.3 mg IM ONCE PRN 07/17/14 09/29/22 History Escitalopram Oxalate [Lexapro] 10 mg PO DAILY 03/23/19 09/29/22 History Montelukast [Singulair] 10 mg PO HS 03/23/19 09/29/22 History Atorvastatin [Lipitor] 10 mg PO HS 09/29/22 09/29/22 History Loratadine-Pseudoeph 10-240 mg 1 tab PO DAILY 09/29/22 09/29/22 History [Claritin-D 24 Hour] Valsartan [Diovan] 80 mg PO DAILY 09/29/22 09/29/22 History Allergies Allergy/AdvReac Type Severity Reaction Status Date / Time Iodinated Contrast Media Allergy Severe Anaphylaxis Verified 09/29/22 21:44 [Iodinated Contrast Media - IV Dye] shellfish derived Allergy Severe Anaphylaxis Verified 09/29/22 21:44 sulfamethoxazole Allergy Severe Anaphylaxis Verified 09/29/22 21:44 [From Bactrim] trimethoprim [From Bactrim] Allergy Severe Anaphylaxis Verified 09/29/22 21:44 Physical Exam Vitals: Vital Signs Temp Pulse Resp BP Pulse Ox 09/30/22 07:33 75 20 146/92 98 09/30/22 06:08 93 19 129/94 96 09/30/22 03:05 63 18 136/85 98 09/30/22 02:04 70 19 117/89 96 09/30/22 00:28 69 19 118/69 94 L 09/29/22 22:17 84 19 125/84 98 09/29/22 21:52 82 19 122/95 99 09/29/22 20:34 81 20 115/71 95 09/29/22 20:19 86 09/29/22 20:09 89 09/29/22 19:55 90 19 119/67 93 L 09/29/22 18:59 97.9 F 101 H 22 90/53 95 Intake and Output 09/29/22 09/30/22 09/30/22 22:59 06:59 14:59 Intake Total 10.002 Balance 10.002 Intake: Intake, IV Titration 10.002 Amount Heparin Sod,Pork in 0.45% 10.002 NaCl 25,000 unit In 0.45 % NaCl 1 250ml.bag @ 7.35 UNITS/KG/HR 10.002 mls/ hr IV .Q24H [facility] Rx#: [id number] Other: Weight 136.078 kg Results CBC & Chem 7: 09/30/22 03:46 09/30/22 03:46 Labs: Abnormal Lab Results - Last 24 Hours (Table) 09/29/22 09/29/22 09/29/22 Range/Units 19:54 19:54 23:14 RBC 3.71 L (4.30-5.90) m/uL Hgb 11.8 L (13.0-17.5) gm/dL Hct 33.4 L (39.0-53.0) % Plt Count (150-450) k/uL Lymphocytes # 0.9 L (1.0-4.8) k/uL Monocytes # 1.1 H (0-1.0) k/uL APTT (22.0-30.0) sec Sodium (137-145) mmol/L BUN 21 H (9-20) mg/dL Creatinine 1.34 H (0.66-1.25) mg/dL Glucose 105 H (74-99) mg/dL Phosphorus (2.5-4.5) mg/dL ALT 62 H (4-49) U/L Troponin I 0.057 H* (0.000-0.034) ng/mL 09/30/22 09/30/22 09/30/22 Range/Units 01:37 01:37 03:46 RBC 3.48 L (4.30-5.90) m/uL Hgb 11.0 L (13.0-17.5) gm/dL Hct 31.4 L (39.0-53.0) % Plt Count 100 L (150-450) k/uL Lymphocytes # (1.0-4.8) k/uL Monocytes # (0-1.0) k/uL APTT 117.8 H* (22.0-30.0) sec Sodium (137-145) mmol/L BUN (9-20) mg/dL Creatinine (0.66-1.25) mg/dL Glucose (74-99) mg/dL Phosphorus (2.5-4.5) mg/dL ALT (4-49) U/L Troponin I 0.060 H* (0.000-0.034) ng/mL 09/30/22 09/30/22 Range/Units 03:46 03:46 RBC 3.56 L (4.30-5.90) m/uL Hgb 11.2 L (13.0-17.5) gm/dL Hct 32.7 L (39.0-53.0) % Plt Count (150-450) k/uL Lymphocytes # (1.0-4.8) k/uL Monocytes # (0-1.0) k/uL APTT (22.0-30.0) sec Sodium 136 L (137-145) mmol/L BUN (9-20) mg/dL Creatinine (0.66-1.25) mg/dL Glucose 113 H (74-99) mg/dL Phosphorus 4.8 H (2.5-4.5) mg/dL ALT 53 H (4-49) U/L Troponin I (0.000-0.034) ng/mL Additional CC's: Isiah Hernandez Plan - Discharge Summary Discharge Rx Participant: Yes New Discharge Prescriptions: New Aspirin 81 mg PO DAILY tab Continue Fluticasone/Salmeterol [Advair 250-50 Diskus] 1 puff INHALATION RT-BID Albuterol Sulfate [Proair Hfa] 2 puff INHALATION RT-QID PRN PRN Reason: Shortness Of Breath EPINEPHrine (Auto Inject) [Epipen] 0.3 mg IM ONCE PRN PRN Reason: Anaphylaxis Montelukast [Singulair] 10 mg PO HS Escitalopram Oxalate [Lexapro] 10 mg PO DAILY Atorvastatin [Lipitor] 10 mg PO HS Loratadine-Pseudoeph 10-240 mg [Claritin-D 24 Hour] 1 tab PO DAILY Valsartan [Diovan] 80 mg PO DAILY Discharge Medication List Albuterol Sulfate [Proair Hfa] 2 puff INHALATION RT-QID PRN 07/10/13 [History] Fluticasone/Salmeterol [Advair 250-50 Diskus] 1 puff INHALATION RT-BID 07/10/13 [History] EPINEPHrine (Auto Inject) [Epipen] 0.3 mg IM ONCE PRN 07/17/14 [History] Escitalopram Oxalate [Lexapro] 10 mg PO DAILY 03/23/19 [History] Montelukast [Singulair] 10 mg PO HS 03/23/19 [History] Atorvastatin [Lipitor] 10 mg PO HS 09/29/22 [History] Loratadine-Pseudoeph 10-240 mg [Claritin-D 24 Hour] 1 tab PO DAILY 09/29/22 [History] Valsartan [Diovan] 80 mg PO DAILY 09/29/22 [History] Aspirin 81 mg PO DAILY tab 10/01/22 [Rx] Follow up Appointment(s)/Referral(s): aP Albert MD [Medical Doctor] - 1 Week (Office will call you to schedule follow up) Isiah Hernandez DO [Primary Care Provider] - 1-2 days (Office will call you to schedule follow up appoitment. )
--- NOTE | 2022-10-01 16:47 | CA ---
Transthoracic Echo Report Name: Faustino Mcghee Age: 62 Gender: M : 1960 Exam Date: 10/01/2022 11:26 Exam Location: [place] Echo Ht (in): 73 Wt (lb): 300 Ordering Physician: Marisel Loomis Attending/Referring Phys: [id number], Vladislav Product Coordinator Kate Bojorquez RDCS Procedure CPT: Indications: LV function Cardiac Hx: Technical Quality: Fair Contrast 1: Total Dose (mL): Contrast 2: Total Dose (mL): MEASUREMENTS (Male / Female) Normal Values 2D ECHO LV Diastolic Diameter PLAX 4.3 cm 4.2 - 5.9 / 3.9 - 5.3 cm LV Systolic Diameter PLAX 3.1 cm IVS Diastolic Thickness 1.5 cm 0.6 - 1.0 / 0.6 - 0.9 cm LVPW Diastolic Thickness 1.4 cm 0.6 - 1.0 / 0.6 - 0.9 cm LV Relative Wall Thickness 0.7 RV Internal Dim ED PLAX 3.7 cm LA Volume 76.6 cm??? 18 - 58 / 22 - 52 cm??? M-MODE Aortic Root Diameter MM 3.4 cm LA Systolic Diameter MM 3.9 cm LA Ao Ratio MM 1.2 AV Cusp Separation MM 1.2 cm DOPPLER AV Peak Velocity 260.1 cm/s AV Peak Gradient 27.1 mmHg AV Mean Velocity 174.6 cm/s AV Mean Gradient 14.2 mmHg AV Velocity Time Integral 51.3 cm LVOT Peak Velocity 124.2 cm/s LVOT Peak Gradient 6.2 mmHg LVOT Velocity Time Integral 31.7 cm MV Area PHT 3.8 cm??? Mitral E Point Velocity 111.6 cm/s Mitral A Point Velocity 103.9 cm/s Mitral E to A Ratio 1.1 MV Deceleration Time 198.8 ms MV E' Velocity 6.0 cm/s Mitral E to MV E' Ratio 18.5 TR Peak Velocity 369.1 cm/s TR Peak Gradient 54.5 mmHg Right Ventricular Systolic Press 59.5 mmHg FINDINGS Left Ventricle Moderately increased left ventricular wall thickness. Left ventricular cavity size normal. Normal left ventricular systolic function with no obvious regional wall motion abnormalities. Left ventricular ejection fraction is estimated at 55-60 %. Right Ventricle Mild right ventricular dilatation. Severe pulmonary hypertension. Right ventricular systolic pressure estimated at 60 mm hg. Right Atrium Normal right atrial size. Left Atrium Moderately increased left atrial volume. Mildly increased left atrial area. Mitral Valve Structurally normal mitral valve. No mitral stenosis, regurgitation or prolapse. Aortic Valve Mild aortic stenosis with a peak gradient of 27 mmHg and a mean gradient of 14 mmHg. Tricuspid Valve Structurally normal tricuspid valve. Elyv-ln-lebqomhi tricuspid regurgitation. Pulmonic Valve Trace to mild pulmonic regurgitation. Pericardium No pericardial effusion. Aorta Normal size aortic root and proximal ascending aorta. CONCLUSIONS LVH with preserved systolic function Mildly enlarged RV Mild aortic stenosis Severe elevation of RVSP Previewed by: Dr. Arnold Victor MD (Electronically Signed) Final Date: 01 October 2022 16:46
== END 2022-10-01 17:11 | disposition home or self-care (01) ==
LOC: EC 18:46 → 6NMEDSUR 21:53 → 3SCARD 09-30 01:17
PROVIDERS: ADMIT Hospitalist; ATTEND Hospitalist
DX: I21.A1 Myocardial infarction type 2 (principal); E86.0 Dehydration; R42 Dizziness and giddiness; R55 Syncope and collapse; R06.02 Shortness of breath; I10 Essential (primary) hypertension; E78.5 Hyperlipidemia, unspecified; F32.A Depression, unspecified; J45.40 Moderate persistent asthma, uncomplicated; M19.91 Primary osteoarthritis, unspecified site; Q98.4 Klinefelter syndrome, unspecified; M47.816 Spondylosis without myelopathy or radiculopathy, lumbar region; N17.9 Acute kidney failure, unspecified; Z86.16 Personal history of COVID-19; Z85.528 Personal history of other malignant neoplasm of kidney; Z90.5 Acquired absence of kidney; Z79.899 Other long term (current) drug therapy; Z79.82 Long term (current) use of aspirin; Z79.51 Long term (current) use of inhaled steroids; Z88.2 Allergy status to sulfonamides
CPT/HCPCS: 36415; 71046; 80053; 83735; 83880; 84100; 84484; 85025; 85379; 85610; 85730; 93005; 93306; 93351; 94640; 94760; 96365; 96366; 99285

== ENCOUNTER 2023-11-16 01:54 | Observation (INO) | payer BC, MEDICAID ==
[2023-11-16 02:02] LABS: Glucose,Whole Blood 121 mg/dL (70-110)
--- NOTE | 2023-11-16 03:15 | ED ---
General Adult HPI - General Source: patient, RN notes reviewed Mode of arrival: EMS Limitations: no limitations <Haleigh Avery - Last Filed: 11/16/23 04:32> <Sveta Khan - Last Filed: 11/17/23 02:53> - General Chief complaint: Psychiatric Symptoms Stated complaint: Mental health Time Seen by Provider: 11/16/23 02:50 - History of Present Illness Initial comments: 63-year-old male presenting to the ER for hallucinations prior to arrival. Patient states he was seeing people that were not there which caused him to feel anxious and have a panic attack. Patient does have a history of anxiety, but reports he has never had hallucinations before. States he last felt normal around 10 PM. He lives at home with his who encouraged him to come to the ER. Denies history of A-fib or other heart conditions. Denies blood thinners. Patient is currently asymptomatic, however is concerned about the previous h allucinations. He does admit some increasing right shoulder pain since he has been here, however denies chest pain or shortness of breath. (Haleigh Avery) - Related Data Home Medications Medication Instructions Recorded Confirmed Montelukast [Singulair] 10 mg PO HS 03/23/19 11/16/23 Atorvastatin [Lipitor] 10 mg PO HS 09/29/22 11/16/23 Loratadine-Pseudoeph 10-240 mg 1 tab PO DAILY 09/29/22 11/16/23 [Claritin-D 24 Hour] Ibuprofen [Motrin] 800 mg PO BID PRN 11/16/23 11/16/23 Testosterone Cypionate 200 mg IM Q21D 11/16/23 11/16/23 [Depo-Testosterone] armodafiniL [Nuvigil] 250 mg PO DAILY 11/16/23 11/16/23 Allergies Allergy/AdvReac Type Severity Reaction Status Date / Time Iodinated Contrast Media Allergy Severe Anaphylaxis Verified 11/16/23 09:27 [Iodinated Contrast Media - IV Dye] shellfish derived Allergy Severe Anaphylaxis Verified 11/16/23 09:27 sulfamethoxazole Allergy Severe Anaphylaxis Verified 11/16/23 09:27 [From Bactrim] trimethoprim [From Bactrim] Allergy Severe Anaphylaxis Verified 11/16/23 09:27 Review of Systems ROS Other: All systems not noted in ROS Statement are negative. <Haleigh Avery - Last Filed: 11/16/23 04:32> ROS Other: All systems not noted in ROS Statement are negative. <Sveta Khan - Last Filed: 11/17/23 02:53> ROS Statement: Those systems with pertinent positive or pertinent negative responses have been documented in the HPI. Past Medical History Past Medical History: Asthma, Cancer, Osteoarthritis (OA), Pneumonia Additional Past Medical History / Comment(s): Klinnefelter Syndrome, HX OF RENAL CA with surgery. chronic back pain (degenerative disk L3 and L4), healed cellulitis bilateral lower legs, hx thrombocytopenia 2009 when tx for kidney cancer. covid 19 2020, History of Any Multi-Drug Resistant Organisms: None Reported Past Surgical History: Joint Replacement, Orthopedic Surgery Additional Past Surgical History / Comment(s): total R knee arthroplasty. LEFT shoulder rotator cuff tear, 2009 kidney ca removed portion of right kidney, 2011 carpectomy left wrist, TLK, Past Anesthesia/Blood Transfusion Reactions: No Reported Reaction Additional Past Anesthesia/Blood Transfusion Reaction / Comment(s): "incision popped open day of surgery with other knee replacement, ended up staying 5 days with knee immobilized" Past Psychological History: Depression Smoking Status: Never smoker Past Alcohol Use History: Occasional Past Drug Use History: None Reported - Past Family History Father Family Medical History: Cancer Additional Family Medical History / Comment(s): colon Mother Family Medical History: AFIB, Asthma <Haleigh Avery - Last Filed: 11/16/23 04:32> General Exam Limitations: no limitations General appearance: alert Head exam: Present: atraumatic, normocephalic, normal inspection Eye exam: Present: normal appearance, PERRL, EOMI. Absent: scleral icterus, conjunctival injection, periorbital swelling ENT exam: Present: normal exam, mucous membranes moist Respiratory exam: Present: normal lung sounds bilaterally. Absent: respiratory distress, wheezes, rales, rhonchi, stridor Cardiovascular Exam: Present: tachycardia, irregular rhythm, normal heart sounds. Absent: systolic murmur, diastolic murmur, rubs, gallop, clicks GI/Abdominal exam: Present: soft, normal bowel sounds. Absent: distended, tenderness, guarding, rebound, rigid Neurological exam: Present: alert, oriented X3, CN II-XII intact Psychiatric exam: Present: normal affect, anxious. Absent: homicidal ideation, suicidal ideation Skin exam: Present: warm, dry, intact, normal color. Absent: rash <Jodee Averyna - Last Filed: 11/16/23 04:32> Course Vital Signs 11/16/23 11/16/23 11/16/23 01:58 02:04 04:46 Temperature 98.5 F Pulse Rate 99 146 H Respiratory 18 18 Rate Blood Pressure 141/95 136/103 O2 Sat by Pulse 97 95 Oximetry 11/16/23 11/16/23 11/16/23 06:07 08:06 09:04 Temperature 98.0 F Pulse Rate 134 H 129 H 123 H Respiratory 18 22 20 Rate Blood Pressure 100/75 108/98 118/68 O2 Sat by Pulse 93 L 97 95 Oximetry 11/16/23 11/16/23 11/16/23 10:56 13:09 18:08 Temperature 98.7 F 98.9 F Pulse Rate 90 80 82 Respiratory 16 18 16 Rate Blood Pressure 123/87 128/91 141/92 O2 Sat by Pulse 95 95 98 Oximetry 11/16/23 11/16/23 11/17/23 21:50 22:00 00:07 Temperature 97.9 F Pulse Rate 81 74 Respiratory 18 19 Rate Blood Pressure 109/84 124/92 108/63 O2 Sat by Pulse 95 95 Oximetry 11/17/23 02:35 Temperature 98.6 F Pulse Rate 82 Respiratory 18 Rate Blood Pressure 122/92 O2 Sat by Pulse 97 Oximetry EKG Findings - EKG Results: EKG: interpreted by ERMD (EKG reveals atrial fibrillation with rapid ventricular response, ventricular rate 141 bpm, SC interval not calculated, QRS 97, QT/QTc 304/386) <AveryHaleigh - Last Filed: 11/16/23 04:32> Medical Decision Making - Lab Data Result diagrams: 11/16/23 03:50 11/16/23 03:08 <Haleigh Avery - Last Filed: 11/16/23 04:32> - Lab Data Result diagrams: 11/16/23 03:50 11/16/23 03:08 <Sveta Khan - Last Filed: 11/17/23 02:53> - Medical Decision Making Was pt. sent in by a medical professional or institution (, PA, MOLD SWABBER, urgent c are, hospital, or senior care...) When possible be specific @ -No Did you speak to anyone other than the patient for history (EMS, parent, family, police, friend...)? What history was obtained from this source @ -No Did you review nursing and triage notes (agree or disagree)? Why? @ -I reviewed and agree with nursing and triage notes Were old charts reviewed (outside hosp., previous admission, EMS record, old EKG, old radiological studies, urgent care reports/EKG's, senior care records)? Report findings @ -No old charts were reviewed Differential Diagnosis (chest pain, altered mental status, abdominal pain women, abdominal pain men, vaginal bleeding, weakness, fever, dyspnea, syncope, h eadache, dizziness, GI bleed, back pain, seizure, CVA, palpatations, mental health, musculoskeletal)? @ -Differential Altered Mental Status: Hypoglycemia, DKA, hypercapnia, ETOH, overdose, CO poisoning, trauma, myxedema coma, HTN encephalopathy, infection, encephalitis, psychosis, intercranial hemo rrhage, hepatic encephalopathy, meningitis, CVA, this is not meant to be an all- inclusive list EKG interpreted by me (3pts min.). @ -As above X-rays interpreted by me (1pt min.). @ -Chest x-ray interpreted by me reveals no acute process CT interpreted by me (1pt min.). @ -CT of brain reveals no acute intracranial abnormality U/S interpreted by me (1pt. min.). @ -None done What testing was considered but not performed or refused? (CT, X-rays, U/S, labs)? Why? @ -None What meds were considered but not given or refused? Why? @ -None Did you discuss the management of the patient with other professionals (professionals i.e. , PA, MOLD SWABBER, lab, RT, psych nurse, elementary school social worker, rn postpartum, teacher, district fire management officer, case liner)? Give summary @ -I spoke with Dr. Jefferson who accepts admission at this time for new onset A- fib with RVR and hallucinations Was smoking cessation discussed for >3mins.? @ -No Was critical care preformed (if so, how long)? @ -Yes, 45 minutes Were there social determinants of health that impacted care today? How? (Homelessness, low income, unemployed, alcoholism, drug addiction, transportation, low edu. Level, literacy, decrease access to med. care, detention, rehab)? @ -No Was there de-escalation of care discussed even if they declined (Discuss DNR or withdrawal of care, Hospice)? DNR status @ -No What co-morbidities impacted this encounter? (DM, HTN, Smoking, COPD, CAD, Cancer, CVA, ARF, Chemo, Hep., AIDS, mental health diagnosis, sleep apnea, morbid obesity)? @ -None Was patient admitted / discharged? Hospital course, mention meds given and route, prescriptions, significant lab abnormalities, going to OR and other pertinent info. @ -Admitted. This is a 63-year-old male presenting for hallucinations prior to arrival. States he was seeing people that were not there. Patient has never had this before which prompted him to decide to seek medical attention in the ER. Last known well was 10 PM this evening. Medical workup was performed as patient does not have a history of hallucinations. Initial vital signs are within acceptable limits. EKG revealed atrial fibrillation with RVR, rate was 141 bpm. Patient states he does not have a has history of A-fib and is not on thinners. Denies chest pain or shortness of breath but admits some pain in his right shoulder since arrival to the ER. Lab work including CBC, CMP, coags, lactic, troponin taken at this time. Troponin 0.018. Urine drug screen remarkable for cocaine, methamphetamine, tricyclic antidepressants, opiates, amphetamines. CT head revealed no acute intracranial process. Patient was then started on IV heparin and Cardizem for new onset A-fib with RVR. I spoke with Dr. Jefferson who accepts admission at this time for new onset A-fib with RVR and hallucinations. Case was discussed with my ED attending Dr. Khan. Undiagnosed new problem with uncertain prognosis? @ -No Drug Therapy requiring intensive monitoring for toxicity (Heparin, Nitro, Insulin, Cardizem)? @ -Yes, heparin Were any procedures done? @ -No Diagnosis/symptom? @ -New onset A-fib with RVR, hallucinations Acute, or Chronic, or Acute on Chronic? @ -Acute Uncomplicated (without systemic symptoms) or Complicated (systemic symptoms)? @ -Complicated Side effects of treatment? @ -No Exacerbation, Progression, or Severe Exacerbation? @ -No Poses a threat to life or bodily function? How? (Chest pain, USA, VT, pneumonia, PE, COPD, DKA, ARF, appy, cholecystitis, CVA, Diverticulitis, Homicidal, Suicidal, threat to staff... and all critical care pts) @ -Yes (Haleigh Avery) - Lab Data Lab Results 11/16/23 11/16/23 11/16/23 Range/Units 02:00 03:08 03:08 WBC (3.8-10.6) k/uL RBC (4.30-5.90) m/uL Hgb (13.0-17.5) gm/dL Hct (39.0-53.0) % MCV (80.0-100.0) fL MCH (25.0-35.0) pg MCHC (31.0-37.0) g/dL RDW (11.5-15.5) % Plt Count (150-450) k/uL MPV Neutrophils % % Lymphocytes % % Monocytes % % Eosinophils % % Basophils % % Neutrophils # (1.3-7.7) k/uL Lymphocytes # (1.0-4.8) k/uL Monocytes # (0-1.0) k/uL Eosinophils # (0-0.7) k/uL Basophils # (0-0.2) k/uL Manual Slide Review RBC Morphology PT (10.0-12.5) sec INR (<1.2) APTT (22.0-30.0) sec Sodium 140 (137-145) mmol/L Potassium 4.3 (3.5-5.1) mmol/L Chloride 104 (98-107) mmol/L Carbon Dioxide 27 (22-30) mmol/L Anion Gap 9 mmol/L BUN 17 (9-20) mg/dL Creatinine 1.24 (0.66-1.25) mg/dL Est GFR (CKD-EPI)AfAm 73 (>60 ml/min/1.73 sqM) Est GFR (CKD-EPI)NonAf 63 (>60 ml/min/1.73 sqM) Glucose 124 H (74-99) mg/dL POC Glucose (mg/dL) 121 H (70-110) mg/dL POC Glu Waiter/Waitress [employer]et ISIAH Newton Calcium 9.6 (8.4-10.2) mg/dL Total Bilirubin 0.4 (0.2-1.3) mg/dL AST 39 (17-59) U/L ALT 24 (4-49) U/L Alkaline Phosphatase 72 (38-126) U/L Troponin I (0.000-0.034) ng/mL Total Protein 7.6 (6.3-8.2) g/dL Albumin 4.5 (3.5-5.0) g/dL Urine Opiates Screen Detected H (NotDetected) Ur Oxycodone Screen Not Detected (NotDetected) Urine Methadone Screen Not Detected (NotDetected) Ur Barbiturates Screen Not Detected (NotDetected) U Tricyclic Antidepress Detected H (NotDetected) Ur Phencyclidine Scrn Not Detected (NotDetected) Ur Amphetamines Screen Detected H (NotDetected) U Methamphetamines Scrn Detected H (NotDetected) U Benzodiazepines Scrn Not Detected (NotDetected) Urine Cocaine Screen Detected H (NotDetected) U Marijuana (THC) Screen Not Detected (NotDetected) 11/16/23 11/16/23 11/16/23 Range/Units 03:25 03:50 04:20 WBC 7.7 (3.8-10.6) k/uL RBC 4.44 (4.30-5.90) m/uL Hgb 14.1 (13.0-17.5) gm/dL Hct 40.9 (39.0-53.0) % MCV 92.1 (80.0-100.0) fL MCH 31.7 (25.0-35.0) pg MCHC 34.4 (31.0-37.0) g/dL RDW 13.2 (11.5-15.5) % Plt Count (150-450) k/uL MPV 12.6 Neutrophils % 75 % Lymphocytes % 16 % Monocytes % 6 % Eosinophils % 1 % Basophils % 0 % Neutrophils # 5.8 (1.3-7.7) k/uL Lymphocytes # 1.3 (1.0-4.8) k/uL Monocytes # 0.5 (0-1.0) k/uL Eosinophils # 0.1 (0-0.7) k/uL Basophils # 0.0 (0-0.2) k/uL Manual Slide Review Performed RBC Morphology Normal PT 10.7 (10.0-12.5) sec INR 1.0 (<1.2) APTT 23.0 (22.0-30.0) sec Sodium (137-145) mmol/L Potassium (3.5-5.1) mmol/L Chloride (98-107) mmol/L Carbon Dioxide (22-30) mmol/L Anion Gap mmol/L BUN (9-20) mg/dL Creatinine (0.66-1.25) mg/dL Est GFR (CKD-EPI)AfAm (>60 ml/min/1.73 sqM) Est GFR (CKD-EPI)NonAf (>60 ml/min/1.73 sqM) Glucose (74-99) mg/dL POC Glucose (mg/dL) (70-110) mg/dL POC Glu Waiter/Waitress Buffet ID Calcium (8.4-10.2) mg/dL Total Bilirubin (0.2-1.3) mg/dL AST (17-59) U/L ALT (4-49) U/L Alkaline Phosphatase (38-126) U/L Troponin I 0.018 (0.000-0.034) ng/mL Total Protein (6.3-8.2) g/dL Albumin (3.5-5.0) g/dL Urine Opiates Screen (NotDetected) Ur Oxycodone Screen (NotDetected) Urine Methadone Screen (NotDetected) Ur Barbiturates Screen (NotDetected) U Tricyclic Antidepress (NotDetected) Ur Phencyclidine Scrn (NotDetected) Ur Amphetamines Screen (NotDetected) U Methamphetamines Scrn (NotDetected) U Benzodiazepines Scrn (NotDetected) Urine Cocaine Screen (NotDetected) U Marijuana (THC) Screen (NotDetected) Disposition Time of Disposition: 04:25 <Haleigh Avery - Last Filed: 11/16/23 04:32> <Sveta Khan - Last Filed: 11/17/23 02:53> Clinical Impression: Atrial fibrillation with rapid ventricular response, Hallucinations Disposition: ADMITTED IP TO THIS HOSP
[2023-11-16 03:39] LABS: Amphetamine Screen,Urine Detected (NotDetected); Benzodiazepines Screen,Urine Not Detected (NotDetected); Cocaine Screen,Urine Detected (NotDetected); Opiate Screen,Urine Detected (NotDetected); Phencyclidine Screen,Urine Not Detected (NotDetected); Urn Cannabinoid Scrn Not Detected (NotDetected)
[2023-11-16 03:40] LABS: Barbiturate Screen,Urine Not Detected (NotDetected); Methadone Screen, Urine Not Detected (NotDetected); Oxycodone Screen, Urine Not Detected (NotDetected); Tricyclic Antidepressant,Urine Detected (NotDetected)
[2023-11-16 03:46] LABS: ALT 24 U/L (4-49); AST 39 U/L (17-59); African American GFR (CKD) 73 (>60 ml/min/1.73 sqM); Albumin 4.5 g/dL (3.5-5.0); Alkaline Phosphatase 72 U/L (38-126); Anion Gap 9 mmol/L; Blood Urea Nitrogen 17 mg/dL (9-20); Calcium 9.6 mg/dL (8.4-10.2); Carbon Dioxide 27 mmol/L (22-30); Chloride 104 mmol/L (98-107); Glucose 124 mg/dL (74-99); Non-African American GFR(CKD) 63 (>60 ml/min/1.73 sqM); Potassium 4.3 mmol/L (3.5-5.1); Sodium 140 mmol/L (137-145); Total Bilirubin 0.4 mg/dL (0.2-1.3); Total Protein 7.6 g/dL (6.3-8.2)
[2023-11-16 03:58] LABS: Basophils % (A) 0 %; Eosinophils # (A) 0.1 k/uL (0-0.7); Eosinophils % (A) 1 %; HCT 40.9 % (39.0-53.0); HGB 14.1 gm/dL (13.0-17.5); Lymphocytes # (A) 1.3 k/uL (1.0-4.8); Lymphocytes % (A) 16 %; MCH 31.7 pg (25.0-35.0); MCHC 34.4 g/dL (31.0-37.0); MCV 92.1 fL (80.0-100.0); Mean Platelet Volume 12.6; Monocytes # (A) 0.5 k/uL (0-1.0); Monocytes % (A) 6 %; Neutrophils # (A) 5.8 k/uL (1.3-7.7); Neutrophils % (A) 75 %; RBC 4.44 m/uL (4.30-5.90); RDW 13.2 % (11.5-15.5); WBC 7.7 k/uL (3.8-10.6)
[2023-11-16] MEDS ORDERED: NALOXONE 0.4 MG/ML 1 ML VIAL IV PRN (04:12)
[2023-11-16] MEDS ORDERED: MORPHINE SULFATE 4 MG/ML SYRINGE IV PRN (04:12)
[2023-11-16] MEDS ORDERED: ACETAMINOPHEN TAB 325 MG TAB PO PRN (04:12)
[2023-11-16] MEDS ORDERED: HEPARIN SODIUM 1,000 UN/ML (10ML VL) IV PRN (04:16)
--- NOTE | 2023-11-16 04:32 | CT ---
EXAM: CT Head Without Intravenous Contrast CLINICAL HISTORY: ITS.REASON CT Reason: AMS TECHNIQUE: Axial computed tomography images of the head/brain without intravenous contrast. CTDI is 49.2 mGy and DLP is 1213.4 mGy-cm. This CT exam was performed using one or more of the following dose reduction techniques: automated exposure control, adjustment of the mA and/or kV according to patient size, and/or use of iterative reconstruction technique. COMPARISON: No relevant prior studies available. FINDINGS: Brain: Unremarkable. No hemorrhage. No significant white matter disease. No edema. Ventricles: Unremarkable. No ventriculomegaly. Bones/joints: Unremarkable. No acute fracture. Soft tissues: Unremarkable. Sinuses: Unremarkable as visualized. No acute sinusitis. Mastoid air cells: Unremarkable as visualized. No mastoid effusion. IMPRESSION: No evidence of acute intracranial abnormality.
[2023-11-16] MEDS: HEPARIN SODIUM 1,000 UN/ML (10ML VL) IV ONE (04:37)
[2023-11-16] MEDS: HEPARIN SOD,PORK IN 0.45% NACL 25,000 UNIT in 0.45% NACL 1 250ML.BAG IV SCH (04:38)
--- NOTE | 2023-11-16 04:39 | XR ---
EXAM: XR Chest, 2 Views CLINICAL HISTORY: ITS.REASON XR Reason: AMS TECHNIQUE: Frontal and lateral views of the chest. COMPARISON: XR Chest dated 09/30/22 FINDINGS: Lungs: Unremarkable. No consolidation. Pleural space: Unremarkable. No pneumothorax. Heart: Unremarkable. No cardiomegaly. Mediastinum: Unremarkable. Normal mediastinal contour. Bones/joints: Unremarkable. No acute fracture. IMPRESSION: No evidence of acute cardiopulmonary disease.
[2023-11-16] MEDS: DILTIAZEM DRIP BOLUS FROM BAG 1 MG SOLN IV ONE (04:42)
[2023-11-16] MEDS: DILTIAZEM 125 MG in SODIUM CHLORIDE 0.9% 100 ML IV SCH (04:44)
[2023-11-16 04:54] LABS: Prothrombin Time 10.7 sec (10.0-12.5)
[2023-11-16 07:54] LABS: RBC Morphology Normal
--- NOTE | 2023-11-16 10:48 | P.CRDCN ---
History of Present Illness Consult date: 11/16/23 Consult reason: atrial fibrillation Chief complaint: hallucinations, panic attack, new a-fib History of present illness: History of present illness: Patient is a pleasant 63-year-old male with significant past medical history of hypertension currently off medications, hyperlipidemia who presented to the emergency room with hallucinations and panic attack. He does not follow with a hand sample maker. Cardiology was consulted for new onset atrial fibrillation with RVR. Patient reports that he is having marital problems and is under increased stress. He was driving around last night he began to feel paranoid and admits to having visual hallucinations. He then went home and had a panic attack and EMS was called. He reports feeling short of breath at that time. Denies any chest pain or pressure. No dizziness or syncope. He was having some right arm soreness and burning sensation. He does not smoke, drinks alcohol occasionally, denies any drug use. However, UDS was positive for cocaine, methamphetamines, amphetamines, tricyclic's, and opioids. Head CT with no acute findings. Chest x-ray with no acute findings. Labs reviewed: Sodium 140, potassium 4.3, creatinine 1.24, troponin 0.018. Probably does have sleep apnea however has never been tested for this. He denies any history of diabetes, MA, clots, or CHF. Reports feeling better this morning. He is back in sinus rhythm. He is currently on Cardizem drip and heparin drip. Stress echo 09/2022 which was normal echocardiogram from 09/2022 with EF 55-60%, RVSP 60, mild aortic stenosis. REVIEW OF SYSTEMS: No fever or chills. No cough or expectoration. No diaphoresis. Patient denies headache, dizziness, blurred vision, double vision. Patient denies any stomach discomfort. No nausea, vomiting. No hematochezia. No hematemesis. Denies any black stools or blood in his stools. Denies dysuria or hematuria. No muscle weakness or numbness. No chest pain or pressure. PHYSICAL EXAMINATION: This is a 63-year-old male in no apparent distress at the time of my examination. HEENT: Head is atraumatic, normocephalic. Pupils are equal, round. Sclerae anicteric. Conjunctivae are clear. Mucous membranes of the mouth are moist. Neck is supple. There is no jugular venous distention. No carotid bruit is heard. CHEST EXAMINATION: Lungs are clear to auscultation. No chest wall tenderness is noted on palpation or with deep breathing. HEART EXAMINATION: Heart regular rate and rhythm. S1, S2 heard. 2/6 systolic murmur, no gallops or rub. ABDOMEN: Soft, nontender. Bowel sounds are heard. EXTREMITIES: 2+ peripheral pulses with no evidence of peripheral edema and no calf tenderness noted. NEUROLOGIC EXAMINATION: Patient is awake, alert and oriented x3. IMPRESSION AND PLAN: Hypertension, currently not on medications Hyperlipidemia New onset paroxysmal atrial fibrillation Hallucinations Positive urine drug screen Panic attack Aortic stenosis PLAN: [id number] score is 1 for hypertension, do not need anticoagulation, would recommend aspirin 325mg daily. Check TSH. Stop heparin and diltiazem, start Toprol 25mg po daily. Recommend ECHO and monitor as outpatient. Advised avoiding drug use, pt denies using drugs. Cleared for discharge from cardiology standpoint. Follow up in office in 1 week. I am dictating on behalf of Dr. Reinaldo Giraldo's history/physical and assessment/plan. Past Medical History Past Medical History: Asthma, Cancer, Osteoarthritis (OA), Pneumonia Additional Past Medical History / Comment(s): Klinnefelter Syndrome, HX OF RENAL CA with surgery. chronic back pain (degenerative disk L3 and L4), healed cellulitis bilateral lower legs, hx thrombocytopenia 2009 when tx for kidney cancer. covid 19 2020, History of Any Multi-Drug Resistant Organisms: None Reported Past Surgical History: Joint Replacement, Orthopedic Surgery Additional Past Surgical History / Comment(s): total R knee arthroplasty. LEFT shoulder rotator cuff tear, 2009 kidney ca removed portion of right kidney, 2011 carpectomy left wrist, TLK, Past Anesthesia/Blood Transfusion Reactions: No Reported Reaction Additional Past Anesthesia/Blood Transfusion Reaction / Comment(s): "incision popped open day of surgery with other knee replacement, ended up staying 5 days with knee immobilized" Past Psychological History: Depression Smoking Status: Never smoker Past Alcohol Use History: Occasional Past Drug Use History: None Reported - Past Family History Father Family Medical History: Cancer Additional Family Medical History / Comment(s): colon Mother Family Medical History: AFIB, Asthma Medications and Allergies Home Medications Medication Instructions Recorded Confirmed Type Montelukast [Singulair] 10 mg PO HS 03/23/19 11/16/23 History Atorvastatin [Lipitor] 10 mg PO HS 09/29/22 11/16/23 History Loratadine-Pseudoeph 10-240 mg 1 tab PO DAILY 09/29/22 11/16/23 History [Claritin-D 24 Hour] Ibuprofen [Motrin] 800 mg PO BID PRN 11/16/23 11/16/23 History Testosterone Cypionate 200 mg IM Q21D 11/16/23 11/16/23 History [Depo-Testosterone] armodafiniL [Nuvigil] 250 mg PO DAILY 11/16/23 11/16/23 History Allergies Allergy/AdvReac Type Severity Reaction Status Date / Time Iodinated Contrast Media Allergy Severe Anaphylaxis Verified 11/16/23 09:27 [Iodinated Contrast Media - IV Dye] shellfish derived Allergy Severe Anaphylaxis Verified 11/16/23 09:27 sulfamethoxazole Allergy Severe Anaphylaxis Verified 11/16/23 09:27 [From Bactrim] trimethoprim [From Bactrim] Allergy Severe Anaphylaxis Verified 11/16/23 09:27 Physical Exam Vitals: Vital Signs Temp Pulse Resp BP Pulse Ox 11/16/23 09:04 123 H 20 118/68 95 11/16/23 08:06 98.0 F 129 H 22 108/98 97 11/16/23 06:07 134 H 18 100/75 93 L 11/16/23 04:46 146 H 18 136/103 95 11/16/23 02:04 97 11/16/23 01:58 98.5 F 99 18 141/95 Intake and Output 11/15/23 11/16/23 11/16/23 22:59 06:59 14:59 Other: Weight 140.614 kg Results 11/16/23 03:50 11/16/23 03:08 Cardiac Enzymes 11/16/23 11/16/23 Range/Units 03:08 03:25 AST 39 (17-59) U/L Troponin I 0.018 (0.000-0.034) ng/mL Coagulation 11/16/23 Range/Units 04:20 PT 10.7 (10.0-12.5) sec APTT 23.0 (22.0-30.0) sec CBC 11/16/23 Range/Units 03:50 WBC 7.7 (3.8-10.6) k/uL RBC 4.44 (4.30-5.90) m/uL Hgb 14.1 (13.0-17.5) gm/dL Hct 40.9 (39.0-53.0) % Plt Count (150-450) k/uL Comprehensive Metabolic Panel 11/16/23 Range/Units 03:08 Sodium 140 (137-145) mmol/L Potassium 4.3 (3.5-5.1) mmol/L Chloride 104 (98-107) mmol/L Carbon Dioxide 27 (22-30) mmol/L BUN 17 (9-20) mg/dL Creatinine 1.24 (0.66-1.25) mg/dL Glucose 124 H (74-99) mg/dL Calcium 9.6 (8.4-10.2) mg/dL AST 39 (17-59) U/L ALT 24 (4-49) U/L Alkaline Phosphatase 72 (38-126) U/L Total Protein 7.6 (6.3-8.2) g/dL Albumin 4.5 (3.5-5.0) g/dL Current Medications Generic Name Dose Route Start Last Admin Trade Name Freq PRN Reason Stop Dose Admin Acetaminophen 650 mg 11/16/23 04:12 Acetaminophen Tab 325 Mg Tab PO Q6HR PRN Mild Pain or Fever > 100.5 Heparin Sodium (Porcine) 0 unit 11/16/23 04:16 Heparin Sodium 1,000 Un/Ml (10ml Vl) IV PER PROTOCOL PRN Low PTT Protocol Heparin Sodium/Sodium Chloride 250 mls @ 10 mls/hr 11/16/23 04:30 11/16/23 04:38 25,000 unit/ Sodium Chloride IV 7.112 units/kg/hr .Q24H LISA 10 mls/hr Administration Protocol 7.112 UNITS/KG/HR Diltiazem HCl 125 mg/ Sodium 125 mls @ 5 mls/hr 11/16/23 04:30 11/16/23 04:44 Chloride IV 5 mg/hr .Q24H LISA 5 mls/hr Administration 5 MG/HR Morphine Sulfate 4 mg 11/16/23 04:12 Morphine Sulfate 4 Mg/Ml Syringe IV Q4HR PRN Severe Pain (Scale 7 to 10) Naloxone HCl 0.2 mg 11/16/23 04:12 Naloxone 0.4 Mg/Ml 1 Ml Vial IV Q2M PRN Opioid Reversal Intake and Output 10/05/24 10/06/24 10/06/24 22:59 06:59 14:59 Other: Weight 140.614 kg 11/16/23 03:50 11/16/23 03:08
[2023-11-16] MEDS: ASPIRIN 325 MG TAB PO SCH (10:54)
[2023-11-16] MEDS: METOPROLOL SUCCINATE (ER) 25 MG TAB.ER.24H PO SCH (10:54)
[2023-11-16] MEDS: ARMODAFINIL 250 MG PO SCH (13:32)
[2023-11-16] MEDS: ENOXAPARIN 40 MG/0.4 ML SYRINGE SQ SCH (15:26)
--- NOTE | 2023-11-16 19:52 | P.HPIM ---
History of Present Illness H&P Date: 11/16/23 Chief Complaint: Hallucinations This is a 63-year-old patient who follows with Dr. Hernandez. Patient is accompanied in the ER this afternoon by his sister. Patient's been having hallucinations for close to a year. Patient include both auditory and visual. To the point he is also having delusions about his . Any accusing her of different things. Example that she is masturbating. To the point her relationship has really deteriorated. asked him to leave the house on Friday that is 2 days ago. Patient went to live with his parents. He was out somewhere in the market he felt somebody was chasing him see ran back home as he felt safe there. He also felt somebody pulled up in the driveway another car. But these are all hallucinations. Patient apparently not taking his blood pressure medications for some time because his blood pressure is be tter controlled. Denies any chest pain or short of breath. Patient is very anxious. There is no fever no chills. Appetite is fair. 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 When patient arrived he was in atrial fibrillation rapid ventricular rate. Put on a Cardizem drip. Earlier today he was started on Lopressor. Seen by cardiology. Heart rate is controlled. Review of systems: GEN.: None EYES: None HEENT: None NECK: None RESPIRATORY: None CARDIOVASCULAR: None GASTROINTESTINAL: None GENITOURINARY: None MUSCULOSKELETAL: None LYMPHATICS: None HEMATOLOGICAL: None PSYCHIATRY: As above NEUROLOGICAL: None Social history: On Friday his asked him to leave the house. He went to stay with his parents. Does not smoke. Alcohol occasionally. 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 Physical examination: VITAL SIGNS: 98, 129, 22, 108 x 98, 97% room air GENERAL: BMI 40.9, laying bed awake anxious appearing. EYES: Pupils equal. Conjunctiva teresa l. HEENT: External appearance of nose and ears normal, oral cavity grossly normal. NECK: JVD not raised; masses not palpable. HEART: First and second heart sounds are normal; no edema. LUNGS: Respiratory rate normal; clear to auscultation. ABDOMEN: Soft, nontender, liver spleen not palpable, no masses palpable. PSYCH: Alert and oriented x3; mood and affect anxious l. Hallucinations and both auditory and visual. Delusions MUSCULOSKELETAL:No Clubbing/cyanosis;muscles-grossly intact NEUROLOGICAL: Cranial nerves grossly intact; no facial asymmetry, power and sensation grossly intact. INVESTIGATIONS, reviewed in the clinical context: November 16, 2023: White count 7.7 hemoglobin 14.1 platelets Troponin I 0.018, 0.013 TSH 0.804 EKG tracing personally reviewed by me-normal sinus rhythm. Some [facility] Chest x-ray film personally reviewed by me-unremarkable CT brain without contrast: Unremarkable Assessment plan: -Uncontrolled new onset of atrial fibrillation: Rather asymptomatic rate controlled on presentation Was started on IV Cardizem. This morning heart rate better controlled. Put on Toprol XL. Cardiology following. -Uncontrolled auditory and visual hallucination going on for over a year. Now with worsening symptoms. Affecting his personal life he is also having delusions about his . Psychiatry consulted -Intermittent asthma Singulair -Hyperlipidemia Lipitor 10 mg nightly -Morbid obesity BMI 40.9 Weight loss measures Care was discussed with patient's sister at the bedside. At the patient. Heart rate is controlled. Cardiology has the patient on medications with outpatient stress test/echo. Await input from psychiatry. Patient is medically stable to be transferred to [facility] if accepted by the same. LYMPHATICS: No lymph nodes palpable in the axilla and neck Past Medical History Past Medical History: Asthma, Cancer, Osteoarthritis (OA), Pneumonia Additional Past Medical History / Comment(s): Klinnefelter Syndrome, HX OF RENAL CA with surgery. chronic back pain (degenerative disk L3 and L4), healed cell ulitis bilateral lower legs, hx thrombocytopenia 2009 when tx for kidney cancer. covid 2020, History of Any Multi-Drug Resistant Organisms: None Reported Past Surgical History: Joint Replacement, Orthopedic Surgery Additional Past Surgical History / Comment(s): total R knee arthroplasty. LEFT shoulder rotator cuff tear, 2009 kidney ca removed portion of right kidney, 2011 carpectomy left wrist, TLK, Past Anesthesia/Blood Transfusion Reactions: No Reported Reaction Additional Past Anesthesia/Blood Transfusion Reaction / Comment(s): "incision popped open day of surgery with other knee replacement, ended up staying 5 days with knee immobilized" Past Psychological History: Depression Smoking Status: Never smoker Past Alcohol Use History: Occasional Past Drug Use History: None Reported - Past Family History Father Family Medical History: Cancer Additional Family Medical History / Comment(s): colon Mother Family Medical History: AFIB, Asthma Medications and Allergies Home Medications Medication Instructions Recorded Confirmed Type Montelukast [Singulair] 10 mg PO HS 03/23/19 11/16/23 History Atorvastatin [Lipitor] 10 mg PO HS 09/29/22 11/16/23 History Loratadine-Pseudoeph 10-240 mg 1 tab PO DAILY 09/29/22 11/16/23 History [Claritin-D 24 Hour] Ibuprofen [Motrin] 800 mg PO BID PRN 11/16/23 11/16/23 History Testosterone Cypionate 200 mg IM Q21D 11/16/23 11/16/23 History [Depo-Testosterone] armodafiniL [Nuvigil] 250 mg PO DAILY 11/16/23 11/16/23 History Allergies Allergy/AdvReac Type Severity Reaction Status Date / Time Iodinated Contrast Media Allergy Severe Anaphylaxis Verified 11/16/23 09:27 [Iodinated Contrast Media - IV Dye] shellfish derived Allergy Severe Anaphylaxis Verified 11/16/23 09:27 sulfamethoxazole Allergy Severe Anaphylaxis Verified 11/16/23 09:27 [From Bactrim] trimethoprim [From Bactrim] Allergy Severe Anaphylaxis Verified 11/16/23 09:27 Physical Exam Vitals: Vital Signs Temp Pulse Resp BP Pulse Ox 11/16/23 13:09 98.7 F 80 18 128/91 95 11/16/23 10:56 90 16 123/87 95 11/16/23 09:04 123 H 20 118/68 95 11/16/23 08:06 98.0 F 129 H 22 108/98 97 11/16/23 06:07 134 H 18 100/75 93 L 11/16/23 04:46 146 H 18 136/103 95 11/16/23 02:04 97 11/16/23 01:58 98.5 F 99 18 141/95 Intake and Output 11/15/23 11/16/23 11/16/23 22:59 06:59 14:59 Intake Total 61.5 Balance 61.5 Intake: Intake, IV Titration 61.5 Amount Heparin Sod,Pork in 0.45% 61.5 NaCl 25,000 unit In 0.45 % NaCl 1 250ml.bag @ 7. 112 UNITS/KG/HR 10 mls/hr IV .Q24H [facility] Rx#: [id number] Other: Weight 140.614 kg Results CBC & Chem 7: 11/16/23 03:50 11/16/23 03:08 Labs: Abnormal Lab Results - Last 24 Hours (Table) 11/16/23 11/16/23 11/16/23 Range/Units 02:00 03:08 03:08 Glucose 124 H (74-99) mg/dL POC Glucose (mg/dL) 121 H (70-110) mg/dL Urine Opiates Screen Detected H (NotDetected) U Tricyclic Antidepress Detected H (NotDetected) Ur Amphetamines Screen Detected H (NotDetected) U Methamphetamines Scrn Detected H (NotDetected) Urine Cocaine Screen Detected H (NotDetected)
[2023-11-16] MEDS: ATORVASTATIN 10 MG TAB PO SCH (20:24)
[2023-11-16] MEDS: MONTELUKAST 10 MG TAB PO SCH (20:24)
[2023-11-17] MEDS ORDERED: MELATONIN 3 MG TABLET PO PRN (14:22)
--- NOTE | 2023-11-17 14:30 | P.CN ---
Psychiatric Consult - . Consult date: 11/17/23 Consult:: 11/17/23 13:44 IDENTIFYING DATA: This patient is a 63-year-old male, however currently from his and living apart. He has no kids, he currently works in a factory. REASON FOR REFERRAL: Psychiatry was consulted for "hallucinations" HISTORY OF PRESENT ILLNESS: The patient presented to the hospital initially on 11/15 reporting hallucinations, apparently seeing people and having high levels of anxiety and even a panic attack. Patient's urine drug screen is positive for cocaine methamphetamine and amphetamine TCAs and opiates. Patient was also being treated by cardiology and medicine for uncontrolled atrial fibrillation. Patients nurse claims that patient has been delusional, endorsing paranoia. Patient was seen today at the bedside agreeable to speak to mortgage loan underwriter. He appeared to be fairly anxious, appeared to be fairly worried about his symptoms. States that for the past year or so he has been getting more and more paranoid, believes that people have been following him home at times, possibly out to get him. He claims that his and his relationship has been struggling lately because he is accusing her and believes that she is frequently masturbating whenever he turns his back in bed. He states that his marriage has been falling apart he feels more depressed and anxious lately. Claims that he feels like his mind is racing, claims that he is finding it difficult to sleep at night, has a fair appetite. Claims that he went to Religion renewal counseling however this is not helped him. He states that he feels hopeless for the symptoms. He is endorsing seeing shadows at times hallucinations however denying any auditory hallucinations. At this time patient denies any suicidal or homical ideations, intent or plan. Patients admits to using no recreational drugs or cigarettes however when asked about patient's urine drug screen which was positive for several different substances he states that "I do not know anything about that I do not use any drugs". PAST PSYCHIATRIC HISTORY: Patient has a a history of depression/anxiety. Claims that he was previously on Lexapro in the past however stopped it. Patient denies any previous psychiatric hospitalizations. Patient denies any psychiatric outpatient follow-up. Patient denies any history of suicide attempts in the past. PAST MEDICAL HISTORY: Past Medical History: Asthma, Cancer, Osteoarthritis (OA), Pneumonia Additional Past Medical History / Comment(s): Omiinnefelter Syndrome, HX OF RENAL CA with surgery. chronic back pain (degenerative disk L3 and L4), healed cellulitis bilateral lower legs, hx thrombocytopenia 2009 when tx for kidney cancer. covid 19 2020, History of Any Multi-Drug Resistant Organisms: None Reported Past Surgical History: Joint Replacement, Orthopedic Surgery Additional Past Surgical History / Comment(s): total R knee arthroplasty. LEFT shoulder rotator cuff tear, 2009 kidney ca removed portion of right kidney, 2011 carpectomy left wrist, TLK, Past Anesthesia/Blood Transfusion Reactions: No Reported Reaction Additional Past Anesthesia/Blood Transfusion Reaction / Comment(s): "incision popped open day of surgery with other knee replacement, ended up staying 5 days with knee immobilized" Past Psychological History: Depression Smoking Status: Never smoker Past Alcohol Use History: Occasional Past Drug Use History: None Reported ALLERGIES: as per EMR. CHEMICAL DEPENDENCY HISTORY: as per HPI. FAMILY PSYCHIATRIC/SUBSTANCE USE HISTORY: Denies SOCIAL HISTORY: Patient was born and raised in [facility] [place] [facility] and then moved to [place] afterwards and lived here ever since. Claims that he completed high school. States that he was in shelter for a DUI in 1981. He is currently however from his living apart. Has no kids. He works in a factory. MENTAL STATUS EXAM: General Appearance: Patient appears to be well-built, shaved head, stated age is alert, attempts to cooperate. Patient appears to have fair hygiene and grooming wearing hospital gown with fair eye contact. Behavior: Patient is calmly lying in bed without any agitated behavior. Appears to be upset and very anxious Speech: Patient's speech is fluent and nonpressured. Anxious tone, talkative Mood/Affect: Patient reports their mood is "depressed and anxious", affect is congruent Suicidality/Homicidality: Patient denies having any suicidal or homicidal ideation intent or plan. Perceptions: Patient denies any visual hallucinations and denies any auditory hallucinations Though content/process:goal-directed. Rambling at times, focused on his symptoms. Endorsing paranoia and delusions Memory and concentration: AOX3, grossly intact for the purposes of this session. Can spell "WORLD" backwards Judgment and insight: Fair IMPRESSIONS: Psychosis unspecified PLAN: -At this time patient DOES meet criteria for inpatient psychiatric admission. -Would recommend the following medication changes/additions: Risperdal 0.5 mg twice daily for psychosis/mood stabilization, Zoloft 25 mg nightly for mood/anxiety, melatonin nightly as needed for sleep -Continue 1:1 sitter for safety until patient is safely transferred to the mental health unit -[facility] Practitioner spoke with patient about substance abuse and the harmful effects on medical and mental health, patient verbally understood and agreed. -When medically stable, patient is eligible for transfer to a psych bed when available. -Communicated plan to patient's nurse -Psychiatry will sign off at this time -Please contact with any questions. 11/17/23 14:23
--- NOTE | 2023-11-17 15:54 | P.DS ---
Providers Date of admission: 11/16/23 05:56 Expected date of discharge: 11/17/23 Attending physician: Fred Jefferson Consults: 11/16/23 04:12 Consult Physician Urgent Consulting Provider: Psychiatry - [facility] Psych[facility] Consult Reason/Comments: hallucinations Do you want consulting provider notified?: Yes 11/16/23 07:34 Consult Physician Urgent Consulting Provider: [facility] Consult Reason/Comments: new onset afib with rvr Do you want consulting provider notified?: Yes [facility] Course: Chief Complaint: Hallucinations This is a 63-year-old patient who follows with Dr. Hernandez. Patient is accompanied in the ER this afternoon by his sister. Patient's been having hallucinations for close to a year. Patient include both auditory and visual. To the point he is also having delusions about his . Any accusing her of different things. Example that she is masturbating. To the point her relationship has really deteriorated. asked him to leave the house on Friday that is 2 days ago. Patient went to live with his parents. He was [place] the [place] he felt somebody was chasing him see ran back home as he felt safe there. He also felt somebody pulled up in the driveway another car. But these are all hallucinations. Patient apparently not taking his blood pressure medications for some time because his blood pressure is better controlled. Denies any chest pain or short of breath. Patient is very anxious. There is no fever no chills. Appetite is fair. Patient been working in the factory making factory. When patient arrived he was in atrial fibrillation rapid ventricular rate. Put on a Cardizem drip. Earlier today he was started on Lopressor. Seen by cardiology. Heart rate is controlled. November 16: Sitting up at edge of the bed. Eating fair. Still having hallucinations. Remains in A-fib. Heart rate controlled. No anticoagulation right now per cardiology. They will follow-up outpatient. Patient seen by Dr. Anderson from psychiatry. Patient been accepted at [facility]. Has a sitter. Patient has been put on Risperdal 0.5 mg twice daily and Zoloft 25 mg nightly. Melatonin as needed. Patient to be transferred to [facility]. Sitter to continue Social history: On Friday his asked him to leave the house. He went to stay with his pare nts. Does not smoke. Alcohol occasionally. 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 Physical examination: VITAL SIGNS: 98.2, 79, 18, 125 x 91, 100% room air GENERAL: Sitting at e the edge of the bed, comfortable EYES: Pupils equal. Conjunctiva teresa l. HEENT: External appearance of nose and ears normal, oral cavity grossly normal. NECK: JVD not raised; masses not palpable. HEART: First and second heart sounds are normal; no edema. LUNGS: Respiratory rate normal; clear to auscultation. ABDOMEN: Soft, nontender, liver spleen not palpable, no masses palpable. PSYCH: Alert and oriented x3; mood and affect anxious l. Hallucinations and both auditory and visual. Delusions MUSCULOSKELETAL:No Clubbing/cyanosis;muscles-grossly intact NEUROLOGICAL: Cranial nerves grossly intact; no facial asymmetry, power and sensation grossly intact. INVESTIGATIONS, reviewed in the clinical context: November 16, 2023: White count 7.7 hemoglobin 14.1 platelets Troponin I 0.018, 0.013 TSH 0.804 EKG tracing personally reviewed by me-normal sinus rhythm. Some [facility] Chest x-ray film personally reviewed by me-unremarkable CT brain without contrast: Unremarkable Assessment plan: -Uncontrolled new onset of atrial fibrillation: Rather asymptomatic rate controlled on presentation: Now rate controlled Was started on IV Cardizem. Now 25 mg Toprol XL. Follow-up with Dr. Giraldo in the office. Outpatient 2D echo. Aspirin 325 mg. -Uncontrolled auditory and visual hallucination going on for over a year. Now with worsening symptoms. Affecting his personal life he is also having delusions about his . Seen by Dr. Anderson. Started on Risperdal. Zoloft. 1 is to 1 sitter. Transfer to [facility] psychiatry unit -Intermittent asthma Singulair -Hyperlipidemia Lipitor 10 mg nightly -Morbid obesity BMI 40.9 Weight loss measures -Full code Disposition: 3 [facility] psychiatry unit Past Medical History Past Medical History: Asthma, Cancer, Osteoarthritis (OA), Pneumonia Additional Past Medical History / Comment(s): Klinnefelter Syndrome, HX OF RENAL CA with surgery. chronic back pain (degenerative disk L3 and L4), healed love lulitis bilateral lower legs, hx thrombocytopenia 2009 when tx for kidney cancer. covid 2020, History of Any Multi-Drug Resistant Organisms: None Reported Past Surgical History: Joint Replacement, Orthopedic Surgery Additional Past Surgical History / Comment(s): total R knee arthroplasty. LEFT shoulder rotator cuff tear, 2009 kidney ca removed portion of right kidney, 2011 carpectomy left wrist, TLK, Past Anesthesia/Blood Transfusion Reactions: No Reported Reaction Additional Past Anesthesia/Blood Transfusion Reaction / Comment(s): "incision popped open day of surgery with other knee replacement, ended up staying 5 days with knee immobilized" Past Psychological History: Depression Smoking Status: Never smoker Past Alcohol Use History: Occasional Past Drug Use History: None Reported Plan - Discharge Summary New Discharge Prescriptions: New Metoprolol Succinate (ER) [Toprol XL] 25 mg PO DAILY #30 tab Acetaminophen Tab [Tylenol] 650 mg PO Q6HR PRN tab PRN Reason: Mild Pain Or Fever > 100.5 Melatonin 6 mg PO HS PRN tab PRN Reason: Insomnia Aspirin 325 mg PO DAILY tab risperiDONE [RisperDAL] 0.5 mg PO BID tab Sertraline [Zoloft] 25 mg PO HS tab Continue Montelukast [Singulair] 10 mg PO HS Atorvastatin [Lipitor] 10 mg PO HS armodafiniL [Nuvigil] 250 mg PO DAILY Testosterone Cypionate [Depo-Testosterone] 200 mg IM Q21D Ibuprofen [Motrin] 800 mg PO BID PRN PRN Reason: Pain Discontinued Loratadine-Pseudoeph 10-240 mg [Claritin-D 24 Hour] 1 tab PO DAILY Discharge Medication List Montelukast [Singulair] 10 mg PO HS 03/23/19 [History] Atorvastatin [Lipitor] 10 mg PO HS 09/29/22 [History] Ibuprofen [Motrin] 800 mg PO BID PRN 11/16/23 [History] Testosterone Cypionate [Depo-Testosterone] 200 mg IM Q21D 11/16/23 [History] armodafiniL [Nuvigil] 250 mg PO DAILY 11/16/23 [History] Acetaminophen Tab [Tylenol] 650 mg PO Q6HR PRN tab 11/17/23 [Rx] Aspirin 325 mg PO DAILY tab 11/17/23 [Rx] Melatonin 6 mg PO HS PRN tab 11/17/23 [Rx] Metoprolol Succinate (ER) [Toprol XL] 25 mg PO DAILY #30 tab 11/17/23 [Rx] Sertraline [Zoloft] 25 mg PO HS tab 11/17/23 [Rx] risperiDONE [RisperDAL] 0.5 mg PO BID tab 11/17/23 [Rx] Follow up Appointment(s)/Referral(s): Isiah Hernandez DO [Primary Care Provider] - 1-2 days Reinaldo Giraldo DO [STAFF PHYSICIAN] - 1 Week Activity/Diet/Wound Care/Special Instructions: if accepted by Dr anderson [place] to [facility] if not [facility]
[2023-11-17] MEDS: SERTRALINE 25 MG TAB PO SCH (20:14)
[2023-11-17] MEDS: risperiDONE 0.5 MG TAB PO SCH (20:43)
[2023-11-18 12:12] VITALS: BP 124/91; PULSE 92; RESP 18; TEMP 98.5
== END 2023-11-18 11:36 | disposition other institution (70) ==
LOC: EC 01:54 → INTOOBSV 05:56 → OBSVTOIN 05:56 → 3SCARD 05:56
PROVIDERS: ADMIT Psychiatry & Neurology Psychiatry; ATTEND Hospitalist
DX: I48.0 Paroxysmal atrial fibrillation (principal); R44.0 Auditory hallucinations; R44.1 Visual hallucinations; J45.20 Mild intermittent asthma, uncomplicated; I35.0 Nonrheumatic aortic (valve) stenosis; F14.90 Cocaine use, unspecified, uncomplicated; F15.90 Other stimulant use, unspecified, uncomplicated; F11.90 Opioid use, unspecified, uncomplicated; F19.90 Other psychoactive substance use, unspecified, uncomplicated; F41.0 Panic disorder [episodic paroxysmal anxiety]; E78.5 Hyperlipidemia, unspecified; F32.A Depression, unspecified; I10 Essential (primary) hypertension; E66.01 Morbid (severe) obesity due to excess calories; Z68.41 Body mass index [BMI] 40.0-44.9, adult; Z11.52 Encounter for screening for COVID-19; Z85.528 Personal history of other malignant neoplasm of kidney; Z86.16 Personal history of COVID-19; Z79.899 Other long term (current) drug therapy; Z88.2 Allergy status to sulfonamides
CPT/HCPCS: 96376; 82075; 96368; 96365; 96366; 96372 ×3; 99285; 36415; 93005; 80053; 84443; 84484; 85025; 85610; 85730; 80306; 87635; 71046; 70450; J1650 ×3; J1644 ×2

== ENCOUNTER 2023-11-18 11:40 | Inpatient (IN) | payer BC ==
[2023-11-18] MEDS ORDERED: LORazepam 2 MG/ML INJ IM PRN (11:46)
[2023-11-18] MEDS ORDERED: MAGNESIUM HYDROXIDE 2,400 MG/30 ML CUP PO PRN (11:46)
[2023-11-18] MEDS ORDERED: IBUPROFEN 600 MG TAB PO PRN (11:46)
[2023-11-18] MEDS ORDERED: MAG HYDROX/AL HYDROX/SIMETH 355 ML BOTTLE PO PRN (11:46)
[2023-11-18] MEDS ORDERED: LORazepam 1 MG TAB PO PRN (11:46)
[2023-11-18] MEDS ORDERED: ACETAMINOPHEN TAB 325 MG TAB PO PRN (11:46)
[2023-11-18 13:00] VITALS: RESP 16; TEMP 97.9
[2023-11-18] MEDS: risperiDONE 0.5 MG TAB PO SCH (20:41)
[2023-11-18] MEDS: MONTELUKAST 10 MG TAB PO SCH (20:41)
[2023-11-18] MEDS: SERTRALINE 25 MG TAB PO SCH (20:41)
[2023-11-18] MEDS: ATORVASTATIN 10 MG TAB PO SCH (20:42)
--- NOTE | 2023-11-18 21:37 | P.CONS ---
History of Present Illness - Reason for Consult Consult date: 11/18/23 Medical management Requesting physician: Isiah Anderson - Chief Complaint Hallucination - History of Present Illness This is a 63-year-old patient who follows with Dr. Hernandez. Visited the ER and was admitted on November 15 and discharge from the 2-3 W. psychiatry unit. Notes from that admission: Patient's been having hallucinations for close to a year. Patient include both auditory and visual. To the point he is also having delusions about his . Any accusing her of different things. Example that she is masturbating. To the point her relationship has really deteriorated. asked him to leave the house on Friday that is 2 days ago. Patient went to live with his parents. He was out [place] in the [place] he felt somebody was chasing him see ran back home as he felt safe there. He also felt somebody pulled up in the driveway another car. But these are all hallucinations. Patient apparently not taking his blood pressure medications for some time because his blood pressure is better controlled. Denies any chest pain or short of breath. Patient is very anxious. There is no fever no chills. Appetite is fair. Patient been working in the [employer] factory. When patient arrived he was in atrial fibrillation rapid ventricular rate. Put on a Cardizem drip. Earlier today he was started on Lopressor. Seen by cardiobettie garcia. Heart rate is controlled. November 16: Sitting up at edge of the bed. Eating fair. Still having hallucinations. Remains in A-fib. Heart rate controlled. No anticoagulation right now per cardiology. They will follow-up outpatient. Patient seen by Dr. Anderson from psychiatry. Patient been accepted at 3 W. Has a sitter. Patient has been put on Risperdal 0.5 mg twice daily and Zoloft 25 mg nightly. Melatonin as needed. Patient to be transferred to 3 W. Sitter to continue Today patient arrived to 3 W. Still having some trouble sleeping. Having some delusions and hallucination but a bit better. Has been diagnosed with psychosis unspecified. Eating well. Did ambulate in the hallway. Patient's urine drug screen was positive on November 15 for opiates, tricyclic antidepressants, amphetamines, methamphetamines, cocaine. When I spoken to patient's the previous day she told me that some of the stuff was found in his car. When I asked the patient today he said he was doing this before but not recently. And would really like to stop these. And try to fix his marriage. Review of systems: GEN.: None EYES: None HEENT: None NECK: None RESPIRATORY: None CARDIOVASCULAR: None GASTROINTESTINAL: None GENITOURINARY: None MUSCULOSKELETAL: None LYMPHATICS: None HEMATOLOGICAL: None PSYCHIATRY: As above NEUROLOGICAL: None Social history: On Friday his asked him to leave the house. He went to stay with his parents. Does not smoke. Alcohol occasionally. 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 Was doing recreational drugs up to not too long ago Physical examination: VITAL SIGNS: 97.9, 72, 16, 123 x 99, 99% room air GENERAL: Sitting at e the edge of the bed, comfortable EYES: Pupils equal. Conjunctiva teresa l. HEENT: External appearance of nose and ears normal, oral cavity grossly normal. NECK: JVD not raised; masses not palpable. HEART: First and second heart sounds are normal; no edema. LUNGS: Respiratory rate normal; clear to auscultation. ABDOMEN: Soft, nontender, liver spleen not palpable, no masses palpable. PSYCH: Alert and oriented x3; mood and affect anxious l. Hallucinations and both auditory and visual. Delusions MUSCULOSKELETAL:No Clubbing/cyanosis;muscles-grossly intact NEUROLOGICAL: Cranial nerves grossly intact; no facial asymmetry, power and sensation grossly intact. INVESTIGATIONS, reviewed in the clinical context: Urine drug screen [November 15]: Positive for opioids, tricyclic antidepressants, amphetamines, methamphetamines, cocaine November 16, 2023: White count 7.7 hemoglobin 14.1 platelets Troponin I 0.018, 0.013 TSH 0.804 EKG tracing personally reviewed by me-normal sinus rhythm. Some LVH Chest x-ray film personally reviewed by me-unremarkable CT brain without contrast: Unremarkable Assessment plan: -Uncontrolled new onset of atrial fibrillation: Rather asymptomatic rate controlled on presentation: controlled Toprol-XL 25 mg. Aspirin 325 mg a day Follow-up with Dr. Giraldo in the office. Outpatient 2D echo. -Psychosis not otherwise specified [. Affecting his personal life he is also having delusions about his .] Seen by Dr. Anderson. Started on Risperdal. Zoloft. 1 is to 1 sitter. Transfer to 3 W. psychiatry unit -Intermittent asthma Singulair -Hyperlipidemia Lipitor 10 mg nightly -Morbid obesity BMI 40.9 Weight loss measures -Urine drug screen positive for opioids, tricyclic antidepressant, amphetamines, methamphetamines, cocaine. Patient is denied recent use of the same. It may be noted some of these was found in his car by his . -Full code Care was discussed with the patient at length Thank you Dr. Anderson. Past Medical History Past Medical History: Asthma, Cancer, Osteoarthritis (OA), Pneumonia Additional Past Medical History / Comment(s): Klinnefelter Syndrome, HX OF RENAL CA with surgery. chronic back pain (degenerative disk L3 and L4), healed cellulitis bilateral lower legs, hx thrombocytopenia 2009 when tx for kidney cancer. covid 19 2020, History of Any Multi-Drug Resistant Organisms: None Reported Past Surgical History: Joint Replacement, Orthopedic Surgery Additional Past Surgical History / Comment(s): total R knee arthroplasty. LEFT shoulder rotator cuff tear, 2009 kidney ca removed portion of right kidney, 2011 carpectomy left wrist, TLK, Past Anesthesia/Blood Transfusion Reactions: No Reported Reaction Additional Past Anesthesia/Blood Transfusion Reaction / Comm: "incision popped open day of surgery with other knee replacement, ended up staying 5 days with knee immobilized" Past Psychological History: Depression Smoking Status: Never smoker Past Alcohol Use History: Occasional Past Drug Use History: None Reported - Past Family History Father Family Medical History: Cancer Additional Family Medical History / Comment(s): colon Mother Family Medical History: AFIB, Asthma Medications and Allergies Home Medications Medication Instructions Recorded Confirmed Type Montelukast [Singulair] 10 mg PO HS 03/23/19 11/18/23 History Atorvastatin [Lipitor] 10 mg PO HS 09/29/22 11/18/23 History Ibuprofen [Motrin] 800 mg PO BID PRN 11/16/23 11/18/23 History Testosterone Cypionate 200 mg IM Q21D 11/16/23 11/18/23 History [Depo-Testosterone] armodafiniL [Nuvigil] 250 mg PO DAILY 11/16/23 11/18/23 History Acetaminophen Tab [Tylenol] 650 mg PO Q6HR PRN tab 11/17/23 11/18/23 Rx Aspirin 325 mg PO DAILY tab 11/17/23 11/18/23 Rx Melatonin 6 mg PO HS PRN tab 11/17/23 11/18/23 Rx Metoprolol Succinate (ER) [Toprol 25 mg PO DAILY #30 tab 11/17/23 11/18/23 Rx XL] Sertraline [Zoloft] 25 mg PO HS tab 11/17/23 11/18/23 Rx risperiDONE [RisperDAL] 0.5 mg PO BID tab 11/17/23 11/18/23 Rx Allergies Allergy/AdvReac Type Severity Reaction Status Date / Time Iodinated Contrast Media Allergy Severe Anaphylaxis Verified 11/16/23 09:27 [Iodinated Contrast Media - IV Dye] shellfish derived Allergy Severe Anaphylaxis Verified 11/16/23 09:27 sulfamethoxazole Allergy Severe Anaphylaxis Verified 11/16/23 09:27 [From Bactrim] trimethoprim [From Bactrim] Allergy Severe Anaphylaxis Verified 11/16/23 09:27 Physical Exam Vitals: Vital Signs Temp Pulse Resp BP Pulse Ox 11/18/23 12:44 97.9 F 72 16 123/99 99 Intake and Output 11/18/23 11/18/23 11/18/23 06:59 14:59 22:59 Other: Weight 136.4 kg
[2023-11-19 07:18] LABS: Basophils % (A) 1 %; Eosinophils % (A) 0 %; HCT 45.2 % (39.0-53.0); HGB 14.6 gm/dL (13.0-17.5); Lymphocytes # (A) 1.2 k/uL (1.0-4.8); Lymphocytes % (A) 28 %; MCH 30.3 pg (25.0-35.0); MCHC 32.3 g/dL (31.0-37.0); Mean Platelet Volume 11.3; Monocytes # (A) 0.3 k/uL (0-1.0); Monocytes % (A) 8 %; Neutrophils # (A) 2.5 k/uL (1.3-7.7); Neutrophils % (A) 61 %; RBC 4.81 m/uL (4.30-5.90); RDW 12.7 % (11.5-15.5); WBC 4.1 k/uL (3.8-10.6)
[2023-11-19 07:33] LABS: ALT 19 U/L (4-49); AST 21 U/L (17-59); African American GFR (CKD) >90 (>60 ml/min/1.73 sqM); Albumin 4.2 g/dL (3.5-5.0); Alkaline Phosphatase 70 U/L (38-126); Anion Gap 8 mmol/L; Bilirubin, Delta 0.2 mg/dL (0.0-0.2); Bilirubin,Unconjugated 0.2 mg/dL (0.0-1.1); Blood Urea Nitrogen 14 mg/dL (9-20); Calcium 9.8 mg/dL (8.4-10.2); Carbon Dioxide 27 mmol/L (22-30); Chloride 102 mmol/L (98-107); Glucose 128 mg/dL (74-99); Non-African American GFR(CKD) >90 (>60 ml/min/1.73 sqM); Potassium 4.2 mmol/L (3.5-5.1); Sodium 137 mmol/L (137-145); Total Bilirubin 0.4 mg/dL (0.2-1.3); Total Protein 7.3 g/dL (6.3-8.2)
[2023-11-19] MEDS: NICOTINE 21MG/24HR PATCH TRANSDERM SCH (09:04)
[2023-11-19] MEDS: METOPROLOL SUCCINATE (ER) 25 MG TAB.ER.24H PO SCH (09:04)
[2023-11-19] MEDS: ASPIRIN 325 MG TAB PO SCH (09:04)
[2023-11-19 10:19] LABS: Platelet Count 209 k/uL (150-450)
--- NOTE | 2023-11-19 11:17 | P.HP ---
Psychiatric H&P - . H&P Date: 11/19/23 History & Physical: Allergies Allergy/AdvReac Type Severity Reaction Status Date / Time Iodinated Contrast Media Allergy Severe Anaphylaxis Verified 11/16/23 09:27 [Iodinated Contrast Media - IV Dye] shellfish derived Allergy Severe Anaphylaxis Verified 11/16/23 09:27 sulfamethoxazole Allergy Severe Anaphylaxis Verified 11/16/23 09:27 [From Bactrim] trimethoprim [From Bactrim] Allergy Severe Anaphylaxis Verified 11/16/23 09:27 Vital Signs Temp 97.9 F 11/18/23 12:44 Pulse 71 11/19/23 06:46 Resp 16 11/18/23 12:44 BP 130/89 11/19/23 06:46 Pulse Ox 99 11/18/23 12:44 FiO2 Intake & Output 11/18/23 11/19/23 11/19/23 18:59 06:59 18:59 Weight 136.4 kg Laboratory Last Values Sodium 137 mmol/L (137-145) 11/19/23 06:55 Potassium 4.2 mmol/L (3.5-5.1) 11/19/23 06:55 Chloride 102 mmol/L (98-107) 11/19/23 06:55 Carbon Dioxide 27 mmol/L (22-30) 11/19/23 06:55 Anion Gap 8 mmol/L 11/19/23 06:55 BUN 14 mg/dL (9-20) 11/19/23 06:55 Creatinine 0.91 mg/dL (0.66-1.25) 11/19/23 06:55 Est GFR (CKD-EPI)AfAm >90 (>60 ml/min/1.73 sqM) 11/19/23 06:55 Est GFR (CKD-EPI)NonAf >90 (>60 ml/min/1.73 sqM) 11/19/23 06:55 Glucose 128 mg/dL (74-99) H 11/19/23 06:55 Calcium 9.8 mg/dL (8.4-10.2) 11/19/23 06:55 Total Bilirubin 0.4 mg/dL (0.2-1.3) 11/19/23 06:55 Conjugated Bilirubin 0.0 mg/dL (0.0-0.3) 11/19/23 06:55 Unconjugated Bilirubin 0.2 mg/dL (0.0-1.1) 11/19/23 06:55 Delta Bilirubin 0.2 mg/dL (0.0-0.2) 11/19/23 06:55 AST 21 U/L (17-59) 11/19/23 06:55 ALT 19 U/L (4-49) 11/19/23 06:55 Alkaline Phosphatase 70 U/L (38-126) 11/19/23 06:55 Total Protein 7.3 g/dL (6.3-8.2) 11/19/23 06:55 Albumin 4.2 g/dL (3.5-5.0) 11/19/23 06:55 TSH 1.620 mIU/L (0.465-4.680) 11/19/23 06:55 11/19/23 08:58 IDENTIFYING DATA: Patient is a 63-year-old male, however currently from his and living apart. He has no kids, he currently works in a factory. HPI: The patient presented to the hospital initially on 11/15 reporting hallucinations, apparently seeing people and having high levels of anxiety and even a panic attack. Patient's urine drug screen is positive for cocaine methamphetamine and amphetamine TCAs and opiates. Patient was also being treated by cardiology and medicine for uncontrolled atrial fibrillation. Patients nurse claims that patient has been delusional, endorsing paranoia. Patient was seen today at the bedside agreeable to speak to sports writer. He appeared to be fairly anxious, appeared to be fairly worried about his symptoms. States that for the past year or so he has been getting more and more paranoid, believes that people have been following him home at times, possibly out to get him. He claims that his and his relationship has been struggling lately because he is accusing her and believes that she is frequently masturbating whenever he turns his back in bed. He states that his marriage has been falling apart he feels more depressed and anxious lately. Claims that he feels like his mind is racing, claims that he is finding it difficult to sleep at night, has a fair appetite. Claims that he went to [facility] however this is not helped him. He states that he feels hopeless for the symptoms. He is endorsing seeing shadows at times hallucinations however denying any auditory hallucinations. At this time patient denies any suicidal or homical ideations, intent or plan. Patients admits to using no recreational drugs or cigarettes however when asked about patient's urine drug screen which was positive for several different substances he states that "I do not know anything about that I do not use any drugs". Upon today's assessment, he states that he feels like everything is going better on this unit. He claims his mood is pretty good, he feels hopeful for the future, and his anxiety is improving. He states he slept well last night, and his appetite is good. he claims that he is tolerating the medications fairly well, claims that his paranoia has been gradually improving. Anxiety is improving mildly as well. He was agreeable to have his Zoloft increased for nighttime. He states he thinks he did not have enough sleep previously, and that is why he was paranoid. He denies AH/VH, denies SI/HI. He has been compliant with medications, and denies side effects. PAST PSYCHIATRIC HISTORY: Patient has a a history of depression/anxiety. Claims that he was previously on Lexapro in the past however stopped it. Patient denies any previous psychiatric hospitalizations. Patient denies any psychiatric outpatient follow-up. Patient denies any history of suicide attempts in the past. PMH:As per ER note ALLERGIES: as per EMR CHEMICAL DEPENDENCY HISTORY: as per HPI FAMILY PSYCHIATRIC/SUBSTANCE USE HISTORY: [denies] SOCIAL HISTORY: Patient was born and raised in [facility] and then moved to [place] afterwards and lived here ever since. Claims that he completed high school. States that he was in senior living for a DUI in 1981. He is currently however from his living apart. Has no kids. He works in a factory. MENTAL STATUS EXAM: General Appearance: Patient appears to be well-built, shaved head, stated age is alert, attempts to cooperate. Patient appears to have fair hygiene and grooming wearing hospital gown with fair eye contact. Behavior: Patient is calmly seated without any agitated behavior. Speech: Patient's speech is fluent and nonpressured. Mood/Affect: Patient reports their mood is "pretty good", affect is congruent Suicidality/Homicidality: Patient denies having any suicidal or homicidal ideation intent or plan. Perceptions: Patient denies any visual hallucinations and denies any auditory hallucinations Though content/process:goal-directed. linear. no evidence of delusional thinking Memory and concentration: AOX3, grossly intact for the purposes of this session. Can spell "WORLD" backwards Judgment and insight: Fair STRENGTHS/WEAKNESSES: strength is that patient is [resilient]. Weakness is that patient [has poor judgment and is impulsive] INTELLECT: [average] IMPRESSIONS: Psychosis unspecified cocaine abuse methamphetamine abuse opiate abuse PLAN: -Patient is admitted under voluntary status to [facility]HU for stabilization of psychiatric symptoms and safety. Patient has signed [adult voluntary form and] [medication consent] and is placed in patient's chart. -Medications : Will start patient on Zoloft 50mg daily for mood/anxiety, trazodone 50mg qhs prn for sleep, risperdal 0.5 mg bid for psychosis -Ativan [and Haldol] PRN for agitation/aggression -Patient was counselled on substance abuse and desired to cut back on use] -Patient was informed of the risks, benefits and side effects of the medication and patient verbally consented to taking the medications. -Internal Medicine consult to perform medical evaluation and physical. -NRT - [nicotine patch] -SW on board for discharge planning. Encourage patient to participate in groups to work on coping skills.
[2023-11-19 11:18] LABS: Chol/HDL Ratio 3.87 Ratio; LDL Cholesterol,Calculated 95.8 mg/dL (0.0-131.0)
[2023-11-19] MEDS: SERTRALINE 50 MG TAB PO SCH (20:02)
[2023-11-19] MEDS: traZODone HCL 50 MG TAB PO PRN (20:03)
--- NOTE | 2023-11-20 11:09 | P.PN ---
Progress Note - Text Progress Note Date: 11/20/23 Interval History: Patient was seen wandering the hallways and was directable and agreeable to addi oates with advertising writer in the office. He states that he feels great today, and he feels he is ready to go. He claims he went to bed at 9pm, and slept until 7am. His appetite is good. He states he feels like a new person, with help from the medication and the groups. At this time patient denies any suicidal or homicidal ideations, intent or plan. Patient denies any auditory, visual hallucinations and denies any paranoia or delusions. Patient denies any side effects from the medications and has been compliant with meds. MENTAL STATUS EXAM: General Appearance: Patient appears to be well-built, shaved head, stated age is alert, attempts to cooperate. Patient appears to have fair hygiene and grooming wearing hospital gown with fair eye contact. Behavior: Patient is calmly seated without any agitated behavior. Speech: Patient's speech is fluent and nonpressured. Mood/Affect: Patient reports their mood is "great", affect is congruent Suicidality/Homicidality: Patient denies having any suicidal or homicidal ideation intent or plan. Perceptions: Patient denies any visual hallucinations and denies any auditory hallucinations Though content/process:goal-directed. linear. no evidence of delusional thinking Memory and concentration: AOX3, grossly intact for the purposes of this session. Judgment and insight: Fair, improving IMPRESSIONS: Psychosis unspecified cocaine abuse methamphetamine abuse opiate abuse PLAN: -Patient is admitted under voluntary status to MHU for stabilization of psychiatric symptoms and safety. Patient has signed adult voluntary form and medication consent and is placed in patient's chart. -Medications : Zoloft 50mg daily for mood/anxiety, trazodone 50mg qhs prn for sleep, risperdal 0.5 mg bid for psychosis -Ativan and Haldol PRN for agitation/aggression -NRT -nicotine patch -SW on board for discharge planning. Encourage patient to participate in groups to work on coping skills. Likely discharge tomorrow, if patient continues to improve
[2023-11-21 06:49] VITALS: BP 135/92; PULSE 92
--- NOTE | 2023-11-21 12:20 | P.DS ---
Providers Date of admission: 11/18/23 11:40 Expected date of discharge: 11/21/23 Attending physician: Isiah Anderson MD Consults: 11/18/23 11:46 Consult Physician Routine Consulting Provider: Fred Jefferson Consult Reason/Comments: History and Physical, New Admission Do you want consulting provider notified?: Yes Primary care physician: Isiah Hernandez - Discharge Diagnosis(es) (1) Unspecified psychosis Current Visit: Yes Status: Acute Priority: High (2) Cocaine abuse Current Visit: Yes Status: Acute Priority: Medium (3) Methamphetamine abuse Current Visit: Yes Status: Acute Priority: Medium (4) Opiate abuse, continuous Current Visit: Yes Status: Acute Priority: Medium Hospital Course: Admission HPI: Admission note was completed by instructional writer "The patient presented to the hospital initially on 11/15 reporting hallucinations, apparently seeing people and having high levels of anxiety and even a panic attack. Patient's urine drug screen is positive for cocaine methamphetamine and amphetamine TCAs and opiates. Patient was also being treated by cardiology and medicine for uncontrolled atrial fibrillation. Patients nurse claims that patient has been delusional, endorsing paranoia. Patient was seen today at the bedside agreeable to speak to instructional writer. He appeared to be fairly anxious, appeared to be fairly worried about his symptoms. States that for the past year or so he has been getting more and more paranoid, believes that people have been following him home at times, possibly out to get him. He claims that his and his relationship has been struggling lately because he is accusing her and believes that she is frequently masturbating whenever he turns his back in bed. He states that his marriage has been falling apart he feels more depressed and anxious lately. Claims that he feels like his mind is racing, claims that he is finding it difficult to sleep at night, has a fair appetite. Claims that he went to [facility] however this is not helped him. He states that he feels hopeless for the symptoms. He is endorsing seeing shadows at times hallucinations however denying any auditory hallucinations. At this time patient denies any suicidal or homical ideations, intent or plan. Patients admits to using no recreational drugs or cigarettes however when asked about patient's urine drug screen which was positive for several different substances he states that "I do not know anything about that I do not use any drugs". Upon today's assessment, he states that he feels like everything is going better on this unit. He claims his mood is pretty good, he feels hopeful for the future, and his anxiety is improving. He states he slept well last night, and his appetite is good. he claims that he is tolerating the medications fairly well, claims that his paranoia has been gradually improving. Anxiety is improving mildly as well. He was agreeable to have his Zoloft increased for nighttime. He states he thinks he did not have enough sleep previously, and that is why he was paranoid. He denies AH/VH, denies SI/HI. He has been compliant with medications, and denies side effects. " Hospital course: Upon admission to the unit patient was directable and agreeable to commence treatment and signed adult voluntary form. Patient got along well with other patients on the unit and followed unit protocol. Patient was compliant with the medications and denied any side effects throughout hospital course. Patient was started on Zoloft 50 mg daily for mood/anxiety, trazodone 50 mg nightly as needed for sleep, Risperdal 0.5 mg twice daily for mood stabilization/psychosis. Patient spoke of his stressors and engaged in therapy both group and individual. Patient was also seen by medical team for history and physical exam. Throughout the course of the hospitalization patient gradually improved with regards to mood, anxiety, paranoia/psychosis, sleep and became more future oriented with improved insight and judgment. On the day of discharge patient denied any suicidal or homicidal ideations intent or plan denied any auditory or visual hallucinations. Patient endorsed wanting to live for his health and family. The patient denied any access to guns or weapons. Patient denied any paranoia and did not endorse any delusions. Patient does have a significant history of substance abuse and was counseled on abstaining from all substances including alcohol and marijuana. Patient was offered however declined inpatient substance-abuse rehab. Patient was also counseled on the medications and need for regular compliance and was encouraged to follow-up with their outpatient appointment for mental health and also for primary care. Prior to discharge a family meeting will be arranged by social problems specialist to answer any questions and ensure safety upon discharge. Patient will be discharged back home today. Mental status exam: General Appearance: Patient appears to be well-built, bald, stated age is alert, pleasant, and cooperative. Patient is in no acute distress and has improved hygiene and grooming Behavior: Patient is calmly seated without any agitated behavior. Speech: Patient's speech is fluent and nonpressured. Mood/Affect: Patient reports their mood is "good", affect is congruent and euthymic. Suicidality/Homicidality: Patient denies having any suicidal or homicidal ideation intent or plan. Perceptions: Patient denies any auditory or visual hallucinations. Though content/process: There is no evidence of any delusional thought content and thought process is linear and goal-directed. More future oriented Memory and concentration: AOX3, grossly intact for the purposes of this session. Can spell "WORLD" backwards correctly. Judgment and insight: improved with guarded prognosis Impression: Psychosis unspecified cocaine abuse methamphetamine abuse opiate abuse Plan: -Continue with discharge today as patient has improved and stabilized psychiatrically and is not currently an imminent threat to himself and/or others. -Continue medications: Risperdal p.o. 0.5 mg twice daily for mood stabilization/psychosis, trazodone 50 mg nightly as needed for sleep, Zoloft 50 mg daily for mood/anxiety. -Patient was counseled on the need for medication compliance and appropriate follow-up at mental health and also primary care for medical issues. Patient verbalized understanding and agreed. -Social work to arrange for and conduct family meeting to ensure safety upon discharge and answer any questions/concerns. Social work also to arrange for patients follow up appointments for psychiatric care along with follow up with primary care provider. -Patient counseled on abstaining from recreational drugs and marijuana and alcohol. Was informed/educated on the adverse effects on their physical and mental health. Patient verbally agreed and understood. Patient was offered substance abuse treatment however declined at this time. -Patient was instructed to return to the hospital or seek immediate medical care if their psychiatric or medical symptoms do worsen or reoccur. Allergies Allergy/AdvReac Type Severity Reaction Status Date / Time Iodinated Contrast Media Allergy Severe Anaphylaxis Verified 11/16/23 09:27 Iodinated Contrast Media - IV Dye shellfish derived Allergy Severe Anaphylaxis Verified 11/16/23 09:27 sulfamethoxazole Allergy Severe Anaphylaxis Verified 11/16/23 09:27 From Bactrim trimethoprim from Bactrim Allergy Severe Anaphylaxis Verified 11/16/23 09:27 Laboratory Results WBC 4.1 k/uL (3.8-10.6) 11/19/23 06:55 RBC 4.81 m/uL (4.30-5.90) 11/19/23 06:55 Hgb 14.6 gm/dL (13.0-17.5) 11/19/23 06:55 Hct 45.2 % (39.0-53.0) 11/19/23 06:55 MCV 94.0 fL (80.0-100.0) 11/19/23 06:55 MCH 30.3 pg (25.0-35.0) 11/19/23 06:55 MCHC 32.3 g/dL (31.0-37.0) 11/19/23 06:55 RDW 12.7 % (11.5-15.5) 11/19/23 06:55 Plt Count 209 k/uL (150-450) 11/19/23 06:55 MPV 11.3 11/19/23 06:55 Neutrophils % 61 % 11/19/23 06:55 Lymphocytes % 28 % 11/19/23 06:55 Monocytes % 8 % 11/19/23 06:55 Eosinophils % 0 % 11/19/23 06:55 Basophils % 1 % 11/19/23 06:55 Neutrophils # 2.5 k/uL (1.3-7.7) 11/19/23 06:55 Lymphocytes # 1.2 k/uL (1.0-4.8) 11/19/23 06:55 Monocytes # 0.3 k/uL (0-1.0) 11/19/23 06:55 Eosinophils # 0.0 k/uL (0-0.7) 11/19/23 06:55 Basophils # 0.0 k/uL (0-0.2) 11/19/23 06:55 Manual Slide Review Performed 11/19/23 06:55 Sodium 137 mmol/L (137-145) 11/19/23 06:55 Potassium 4.2 mmol/L (3.5-5.1) 11/19/23 06:55 Chloride 102 mmol/L (98-107) 11/19/23 06:55 Carbon Dioxide 27 mmol/L (22-30) 11/19/23 06:55 Anion Gap 8 mmol/L 11/19/23 06:55 BUN 14 mg/dL (9-20) 11/19/23 06:55 Creatinine 0.91 mg/dL (0.66-1.25) 11/19/23 06:55 Est GFR (CKD-EPI)AfAm >90 (>60 ml/min/1.73 sqM) 11/19/23 06:55 Est GFR (CKD-EPI)NonAf >90 (>60 ml/min/1.73 sqM) 11/19/23 06:55 Glucose 128 mg/dL (74-99) H 11/19/23 06:[address] Glu mg/dL 126 mg/dL 11/19/23 06:55 Hemoglobin A1c 6.0 % (<=6.0) 11/19/23 06:55 Calcium 9.8 mg/dL (8.4-10.2) 11/19/23 06:55 Total Bilirubin 0.4 mg/dL (0.2-1.3) 11/19/23 06:55 Conjugated Bilirubin 0.0 mg/dL (0.0-0.3) 11/19/23 06:55 Unconjugated Bilirubin 0.2 mg/dL (0.0-1.1) 11/19/23 06:55 Delta Bilirubin 0.2 mg/dL (0.0-0.2) 11/19/23 06:55 AST 21 U/L (17-59) 11/19/23 06:55 ALT 19 U/L (4-49) 11/19/23 06:55 Alkaline Phosphatase 70 U/L (38-126) 11/19/23 06:55 Total Protein 7.3 g/dL (6.3-8.2) 11/19/23 06:55 Albumin 4.2 g/dL (3.5-5.0) 11/19/23 06:55 Triglycerides 95.50 mg/dL (0.00-149.00) 11/19/23 06:55 Cholesterol 155.00 mg/dL (0.00-200.00) 11/19/23 06:55 LDL Cholesterol, Calc 95.8 mg/dL (0.0-131.0) 11/19/23 06:55 VLDL Cholesterol, Calc 19.10 mg/dL (5.00-40.00) 11/19/23 06:55 HDL Cholesterol 40.10 mg/dL (40.00-60.00) 11/19/23 06:55 Cholesterol/HDL Ratio 3.87 Ratio 11/19/23 06:55 TSH 1.620 mIU/L (0.465-4.680) 11/19/23 06:55 Vital Signs Temp 97.9 F 11/18/23 12:44 Pulse 92 11/21/23 06:49 Resp 16 11/18/23 12:44 BP 135/92 11/21/23 06:49 Pulse Ox 99 11/18/23 12:44 FiO2 Patient Condition at Discharge: Stable Plan - Discharge Summary Discharge Rx Participant: No New Discharge Prescriptions: New traZODone HCL [Desyrel] 50 mg PO HS PRN 30 Days #30 tab PRN Reason: Insomnia Sertraline [Zoloft] 50 mg PO HS 30 Days #30 tab Continue Montelukast [Singulair] 10 mg PO HS Atorvastatin [Lipitor] 10 mg PO HS Testosterone Cypionate [Depo-Testosterone] 200 mg IM Q21D Ibuprofen [Motrin] 800 mg PO BID PRN PRN Reason: Pain Acetaminophen Tab [Tylenol] 650 mg PO Q6HR PRN tab PRN Reason: Mild Pain Or Fever > 100.5 Melatonin 6 mg PO HS PRN tab PRN Reason: Insomnia Metoprolol Succinate (ER) [Toprol XL] 25 mg PO DAILY 30 Days #30 tab Aspirin 325 mg PO DAILY 30 Days #30 tab risperiDONE [RisperDAL] 0.5 mg PO BID 30 Days #60 tab Discontinued armodafiniL [Nuvigil] 250 mg PO DAILY Sertraline [Zoloft] 25 mg PO HS tab Discharge Medication List Montelukast [Singulair] 10 mg PO HS 03/23/19 [History] Atorvastatin [Lipitor] 10 mg PO HS 09/29/22 [History] Ibuprofen [Motrin] 800 mg PO BID PRN 11/16/23 [History] Testosterone Cypionate [Depo-Testosterone] 200 mg IM Q21D 11/16/23 [History] Acetaminophen Tab [Tylenol] 650 mg PO Q6HR PRN tab 11/17/23 [Rx] Melatonin 6 mg PO HS PRN tab 11/17/23 [Rx] Aspirin 325 mg PO DAILY 30 Days #30 tab 11/21/23 [Rx] Metoprolol Succinate (ER) [Toprol XL] 25 mg PO DAILY 30 Days #30 tab 11/21/23 [Rx] Sertraline [Zoloft] 50 mg PO HS 30 Days #30 tab 11/21/23 [Rx] risperiDONE [RisperDAL] 0.5 mg PO BID 30 Days #60 tab 11/21/23 [Rx] traZODone HCL [Desyrel] 50 mg PO HS PRN 30 Days #30 tab 11/21/23 [Rx] Follow up Appointment(s)/Referral(s): [facility] [Outside] - 11/27/23 9:30 am (With Trey Lima Bring ID and insurance card. Arrive at 9:30, will be done at 11am) Isiah Hernandez DO [Primary Care Provider] - 1 Week Patient Instructions/Handouts: Cocaine Abuse (DC), Methamphetamine Abuse (DC), Psychotic Disorder (DC) Activity/Diet/Wound Care/Special Instructions: Avoid the use of street drugs and alcohol. Take all medications as prescribed. When you are in need of refills on your medications, please contact your medical provider and/or outpatient psychiatrist/provider to have this done. Please go to your scheduled outpatient appointment for aftercare treatment. If symptoms return or become worse, call the crisis line at and/or go to the nearest emergency room for evaluation. National Suicide Hotline 990 Discharge Disposition: HOME SELF-CARE
== END 2023-11-21 13:56 | disposition home or self-care (01) | DRG 885 ==
LOC: 3MHU 11:40
PROVIDERS: ADMIT Psychiatry & Neurology Psychiatry; ATTEND Psychiatry & Neurology Psychiatry
DX: F29 Unspecified psychosis not due to a substance or known physiological condition (principal); F11.10 Opioid abuse, uncomplicated; F14.10 Cocaine abuse, uncomplicated; F15.10 Other stimulant abuse, uncomplicated; I48.91 Unspecified atrial fibrillation; J45.20 Mild intermittent asthma, uncomplicated; F41.9 Anxiety disorder, unspecified; Z96.651 Presence of right artificial knee joint; Z79.82 Long term (current) use of aspirin; Z79.899 Other long term (current) drug therapy; Z85.528 Personal history of other malignant neoplasm of kidney
CPT/HCPCS: 80053; 80061; 82248; 83036; 84443; 85025

== ENCOUNTER → 2024-04-14 | Outpatient (CLI) | payer BC ==
[2024-04-14 14:02] VITALS: BP 187/113; PULSE 81; RESP 16; TEMP 97.8
--- NOTE | 2024-04-14 14:26 | P.PAINPG ---
PQRS Measure Charge Sheet Comment: HISTORY OF PRESENT ILLNESS: A 63 yr old male w at side as a referral from Dr Hernandez presents today w severe and chronic LBP > 1 yr secondary to radiculopathy, spondylosis and facet arthropathy without myelopathy for evaluation. Pt states pain level is provoked at 9 /10 in intensity, constant, localized in the lumbar spine, predominantly axial, achy in character w occasional shooting pain towards the BL knees. Pain is provoked by bending, lifting. Pain is alleviated by chiropractic treatments semi monthly x 3 mo which ended in Dec 2023, physician guided home stretches 4-5 times weekly since Dec 2023, medications, topical, heat, manual massage, repositioning and rest . Oswestry axial pain score at 28. PMH: OA, Asthma, Renal CA, Klinefelter's Syndrome, MDD PSH: R Knee Arthroplasty (2015), L RCT Repair, Renal CA resection (2009), L Wrist Carpectomy (2011), TLK SH: Never smoker. Occ ETOH use; Recreational Cocaine, Methamphetamine, Cannabis use (12/03) w Hallucinations FH: Fa- Colon CA. Mo- aFib, Asthma All: See list Meds: See list incl Ibu, Icy-Hot REVIEW OF ORGAN SYSTEMS: CONSTITUTIONAL: No fevers or chills. No recent weight loss. NEUROLOGICAL: + numbness and tingling along the distal extremities. No seizure disorders or headaches. MUSCULOSKELETAL: + pain PSYCHIATRIC: Denies current depression or suicidal thoughts. Physical Examinations : Constitutional : Cooperative , not in acute distress . Neurologic : Cranial nerve II to XII intact. No focal neurological deficits. Psychiatric : alert & oriented x 3. Matching mood & appropriate affect. Judgment & insight intact. Musculoskeletal : Cervical Spine Motor strength in the deltoid and biceps: Normal right side. Normal Left side Motor strength biceps and the wrist extensors: Normal right side . Normal left side Motor strength in the triceps muscle: Normal right side. Normal left side Deep tendon reflexes: Normal at the biceps. Normal at Brachioradialis. Normal at triceps Vertebral body tenderness to deep palpation over Cervical facet loading test: positive bilaterally Spurling test: positive bilaterally Neck distraction test: positive bilaterally Ofelia sign: positive bilaterally Lumbar spine Motor strength lower extremities ,thigh and legs 5/5 Right side , 5/5 Left side Deep tendon reflexes : Normal Knee Jerk. Normal Ankle Jerk Vertebral body tenderness over L4 [place] Test positive BL L4-L5 Lumbar facet Loading Test: positive Right / positive Left Range of motion of the lumbar spine Flexion 30 degrees, extension 10 degrees Straight Leg Raise test: Left/ Right positive at degrees Coy test: positive right / positive left. Severe tenderness over the Sacroiliac joint on the Right / Left sides Gaenslen test: positive bilaterally Seated flexion test: positive bilaterally. Sacral spine : Severe tenderness over the Sacroiliac joint: right side / left side Range of motion: Flexion of the lumbar spine <60 degrees Range of motion: Extension of the lumbar spine <20 degrees Gaenslen's Test positive Coy test: positive right side / left side Thigh Thrust Test Sacral Thrust Test Imaging: MRI non contrast lubmar spine from 03/26/24 reviewed Assessment/ Plan : L3-L4/ L4-L5 anterolisthesis Recommendation of MACARIO L4-L5 #1 and medication management. Risks, benefits of procedure discussed and patient verbalized understanding. Admits to anti- coagulant use or medical history of diabetes. Protocol for discontinuation/ continuation of medications jonathan procedure discussed. Opiate/ narcotic agreement signed 04/14/24. [place] 7.5/325mg #60 w 1 RF. Use, side effects, adverse reactions, safe storage discussed. All questions answered. I have spent greater than 30 minutes on patient care today. Dr Irwin was available by phone for the evaluation of this patient. The time was used to review the medical records including relevant urine studies and Prescription history (MAPs), review of the available imaging, evaluation and examination of the patient, coordination of care with the medical staff and if applicable referring physicians, as well as creation of the medical record - Pain Location Bilateral Lower Back Non-Pharmacological Interventions: Chiropractic Treatment, Heat, Ice, Inactivity, Position/Reposition, Relaxation Technique, Sitting Pharmacological Interventions: PRN Medication, Scheduled Medication, Topical Medication PQRS Narrative: Smoking Status Never smoker Home Medications: Ambulatory Orders Montelukast [Singulair] 10 mg PO HS 03/23/19 Atorvastatin [Lipitor] 10 mg PO HS 09/29/22 Ibuprofen [Motrin] 800 mg PO BID PRN 11/16/23 Testosterone Cypionate [Depo-Testosterone] 200 mg IM Q21D 11/16/23 Acetaminophen Tab [Tylenol] 650 mg PO Q6HR PRN tab 11/17/23 Melatonin 6 mg PO HS PRN tab 11/17/23 Aspirin 325 mg PO DAILY 30 Days #30 tab 11/21/23 Metoprolol Succinate (ER) [Toprol XL] 25 mg PO DAILY 30 Days #30 tab 11/21/23 Sertraline [Zoloft] 50 mg PO HS 30 Days #30 tab 11/21/23 risperiDONE [RisperDAL] 0.5 mg PO BID 30 Days #60 tab 11/21/23 traZODone HCL [Desyrel] 50 mg PO HS PRN 30 Days #30 tab 11/21/23 HYDROcodone/APAP 7.5-325MG [[place] 7.5-325] 1 tab PO BID PRN 30 Days #60 tab 04/14/24 HYDROcodone/APAP 7.5-325MG [[place] 7.5-325] 1 tab PO BID PRN 30 Days #60 tab 04/14/24 diazePAM [Valium] 5 mg PO DAILY 1 Days #2 tab 04/14/24 Controlled Substance Measures - Controlled Substance Measures Is patient prescribed a controlled substance at discharge?: Yes When asked, does pt state using other controlled substances?: Yes If prescribed controlled substance>3 days was MAPS reviewed?: Yes If Rx opioid, was Start Talking consent form obtained?: Yes Was information provided regarding opioid addiction?: Yes
== END ==
LOC: PNWHC3 13:30
PROVIDERS: ATTEND Specialist
DX: M43.16 Spondylolisthesis, lumbar region (principal); Z91.041 Radiographic dye allergy status; Z91.013 Allergy to seafood; Z88.2 Allergy status to sulfonamides
CPT/HCPCS: 99211

== ENCOUNTER 2024-05-06 06:45 | Day surgery (SDC) | payer BC ==
[2024-05-05 12:19] VITALS: BMI 45.5
[~2024-05-06 06:45] MED LIST changes: -ACETAMINOPHEN TAB 500 MG TAB PO ONE; -DEXAMETHASONE SOD PHOSPHATE 10 MG/ML 1 ML VIAL IV ONE; +LACTATED RINGERS 1,000 ML IV SCH; -LIDOCAINE 1% 20 ML VIAL (10MG/ML) FOR IV START INTRADERMA PRN; -MELOXICAM 7.5 MG TAB PO ONE; -MIDAZOLAM 2 MG/2 ML VIAL IV PRN; -ONDANSETRON 4 MG/2 ML VIAL IVP ONE; -TRANEXAMIC ACID 1,000 MG in SODIUM CHLORIDE 0.9% 100 ML IVPB ONE; -ceFAZolin 3 GM in SODIUM CHLORIDE 0.9% 100 ML IVPB ONE; -fentaNYL (PF) 50 MCG/ML 2 ML AMP IV PRN
[2024-05-06 07:17] VITALS: RESP 16; TEMP 97.5
[2024-05-06] MEDS ORDERED: methylPREDNISolone ACETATE 80 MG/ML 1 ML VIAL ONE (08:30)
--- NOTE | 2024-05-06 08:49 | P.PCN ---
Description of Procedure: PREOPERATIVE DIAGNOSIS: 1- Lumbar Degenerative Disc Diseases 2-Lumbar spondylosis with Facet arthropathy without myelopathy. 3-lumbar spinal stenosis POSTOPERATIVE DIAGNOSIS: 1-lumbar degenerative disc disease. 2-lumbar spondylosis with facet arthropathy without myelopathy. 3-lumbar spinal stenosis. PROCEDURE Injection of radio contrast material into L4-5 interspace, interpretation of epidurogram, injection of steroid at L4- 5 epidural space under fluoroscopic guidance. ANESTHESIA: Lidocaine 1% subcutaneously. In OR continuous pulse ox, EKG, blood pressure and verbal communication was maintained with the patient. EBL: Minimal PROCEDURE INDICATION: Before the procedure were discussed with the patient detailed procedure, alternatives, complications including infection, bleeding, nerve damage, paralysis all of which could be permanent. Patient understands and all questions were answered. PROCEDURE DESCRIPTION : After getting consent, patient in OR in prone position. Back was prepped with chlorhexidine and draped in sterile fashion. After injecting 10 mL of 1% lidocaine subcutaneously, a 20-gauge Tuohy needle was introduced at L4 5 interspace with loss of resistance technique using a syringe filled with air. Negative CSF, negative blood, negative paresthesia. Needle position was confirmed with AP and lateral view of the fluoroscope. After repeat negative aspiration 2 mL of Omnipaque 200 water soluble contrast was injected. Contrast was noted in the epidural space. No contrast was noted into intrathecal or intravascular space. After repeat negative aspiration 6 mL solution was injected intermittently which consists of 5 mL of preservative-free normal saline mixed with 1 mL of 80 mg Depo-Medrol. Needle was withdrawn intact. Skin was cleansed and Band-Aids was applied. DISPOSITION / PLANS: The patient tolerated the procedure well. No complication. The patient was placed in a supine position and transferred to the recovery area in a stable condition for observation. There was no evidence of lower extremity motor or sensory deficit after the procedure. Patient was discharged from the recovery room after meeting discharge criteria. Home discharge instructions were given to the patient by the staff. The patient was reexamined prior to discharge. The patient will schedule a follow up in the clinic in 2-4 weeks.
--- NOTE | 2024-05-06 08:51 | FL ---
EXAMINATION TYPE: FL guided pain mgmt statistic DATE OF EXAM: 05/06/2024 CLINICAL INDICATION: Male, 63 years old with history of LUMBAR EPI STEROID INJ; PHH, pain TECHNIQUE: Fluoroscopy. COMPARISON: None. FINDINGS: Fluoroscopic guidance was provided during pain relief procedure performed by Dr. Gillis . A total of 12.5 seconds of fluoroscopic time was utilized during the procedure and two spot images ar e acquired. Images acquired shows needle localization at L4 level. Multilevel degenerative changes a re present. Total DAP: [id number] mGym2. IMPRESSION: As Above. [facility], , 05/06/2024 8:49 AM
[2024-05-06 09:06] VITALS: BP 138/90; PULSE 74
== END 2024-05-06 09:17 | disposition home or self-care (01) ==
LOC: ORPAIN 06:45
PROVIDERS: ATTEND Pain Medicine Interventional Pain Medicine
DX: M51.369 Other intervertebral disc degeneration, lumbar region without mention of lumbar back pain or lower extremity pain (principal); M47.816 Spondylosis without myelopathy or radiculopathy, lumbar region; M48.061 Spinal stenosis, lumbar region without neurogenic claudication; Z88.1 Allergy status to other antibiotic agents; Z91.013 Allergy to seafood; Z88.8 Allergy status to other drugs, medicaments and biological substances; Z79.82 Long term (current) use of aspirin; Z79.1 Long term (current) use of non-steroidal anti-inflammatories (NSAID)
CPT/HCPCS: 62323; J1010

== ENCOUNTER 2024-05-20 09:53 | Inpatient (IN) | payer BC ==
--- NOTE | 2024-05-20 10:17 | ED ---
SOB HPI - General Source: patient, RN notes reviewed Mode of arrival: ambulatory Limitations: no limitations - History of Present Illness Onset/Timin -: days(s) <Zach Lee - Last Filed: 05/20/24 19:12> <Jake Steele - Last Filed: 05/22/24 12:06> - General Chief Complaint: Shortness of Breath Stated Complaint: AFIB Time Seen by Provider: 05/20/24 10:05 - History of Present Illness Initial Comments: This is a 63-year-old male with history including A-fib, asthma, hyperlipidemia and hypertension presenting for shortness of breath x 7 days. Patient was sent by his PCP, Dr. Hernandez. Endorses possibly some swelling in legs with breathing improved when supine. Endorses use of metoprolol with recent increase in dosage but has not started increased dosage yet. Endorses use of ASA 325 but denies use of blood thinners. Denies chest pain, pallor, diaphoresis, presyncope. (Zach Lee) - Related Data Home Medications Medication Instructions Recorded Confirmed Montelukast [Singulair] 10 mg PO HS 03/23/19 05/20/24 Atorvastatin [Lipitor] 10 mg PO HS 09/29/22 05/20/24 Testosterone Cypionate 200 mg IM Q21D 11/16/23 05/20/24 [Depo-Testosterone] traZODone HCL [Desyrel] 100 mg PO HS 05/05/24 05/20/24 Albuterol Sulfate [Albuterol 2 puff PO RT-QID PRN 05/20/24 05/20/24 Sulfate Hfa] Fluticasone Propion/Salmeterol 1 puff INHALATION DIRECTED 05/20/24 05/20/24 [Advair 250-50 Diskus] Previous Rx's Medication Instructions Recorded Sertraline [Zoloft] 50 mg PO HS 30 Days #30 tab 11/21/23 risperiDONE [RisperDAL] 0.5 mg PO BID 30 Days #60 tab 11/21/23 HYDROcodone/APAP 7.5-325MG [[place] 1 tab PO BID PRN 30 Days #60 tab 04/14/24 7.5-325] Furosemide [Lasix] 40 mg PO DAILY PRN #30 tablet 04/12/25 Metoprolol Succinate (ER) [Toprol 50 mg PO DAILY #30 tab 05/22/24 XL] Rivaroxaban [Xarelto] 20 mg PO W/SUPPER #30 tab 05/22/24 Allergies Allergy/AdvReac Type Severity Reaction Status Date / Time Iodinated Contrast Media Allergy Severe Anaphylaxis Verified 05/20/24 13:15 [Iodinated Contrast Media - IV Dye] shellfish derived Allergy Severe Anaphylaxis Verified 05/20/24 13:15 sulfamethoxazole Allergy Severe Anaphylaxis Verified 05/20/24 13:15 [From Bactrim] trimethoprim [From Bactrim] Allergy Severe Anaphylaxis Verified 05/20/24 13:15 Review of Systems ROS Other: All systems not noted in ROS Statement are negative. <Zach Lee - Last Filed: 05/20/24 19:12> ROS Other: All systems not noted in ROS Statement are negative. <Jake Steele - Last Filed: 05/22/24 12:06> ROS Statement: Those systems with pertinent positive or pertinent negative responses have been documented in the HPI. Past Medical History Past Medical History: Atrial Fibrillation, Asthma, Cancer, Hyperlipidemia, Hypertension, Osteoarthritis (OA), Pneumonia Additional Past Medical History / Comment(s): chronic back pain, Klinnefelter Syndrome chronic back pain (degenerative disk L3 and L4), healed cellulitis bilateral lower legs, hx thrombocytopenia 2009 when tx for kidney cancer. covid 2020 History of Any Multi-Drug Resistant Organisms: None Reported Past Surgical History: Joint Replacement, Orthopedic Surgery Additional Past Surgical History / Comment(s): total R knee arthroplasty. LEFT shoulder rotator cuff tear, 2009 kidney ca removed portion of right kidney, 2011 carpectomy left wrist, TLK, Past Anesthesia/Blood Transfusion Reactions: No Reported Reaction Additional Past Anesthesia/Blood Transfusion Reaction / Comment(s): "incision popped open day of surgery with other knee replacement, ended up staying 5 days with knee immobilized" Past Psychological History: Depression Smoking Status: Never smoker - Past Family History Father Family Medical History: Cancer Additional Family Medical History / Comment(s): colon Mother Family Medical History: AFIB, Asthma <Zach Lee - Last Filed: 05/20/24 19:12> General Exam Limitations: no limitations General appearance: alert, in no apparent distress Head exam: Present: atraumatic, normocephalic, normal inspection Eye exam: Present: normal appearance, PERRL, EOMI. Absent: scleral icterus, conjunctival injection, periorbital swelling ENT exam: Present: normal exam, mucous membranes moist Neck exam: Present: normal inspection. Absent: tenderness, meningismus, lymphadenopathy Respiratory exam: Present: normal lung sounds bilaterally. Absent: respiratory distress, wheezes, rales, rhonchi, stridor, accessory muscle use, decreased breath sounds, prolonged expiratory Cardiovascular Exam: Present: regular rate, irregular rhythm, normal heart sounds. Absent: systolic murmur, diastolic murmur, rubs, gallop, clicks GI/Abdominal exam: Present: soft, normal bowel sounds. Absent: distended, tenderness, guarding, rebound, rigid Extremities exam: Present: full ROM, normal capillary refill, pedal edema (P ositive bilateral pitting edema extending to knees). Absent: tenderness, joint swelling, calf tenderness Back exam: Present: normal inspection Neurological exam: Present: alert, oriented X3, CN II-XII intact Psychiatric exam: Present: normal affect, normal mood Skin exam: Present: warm, dry, intact, normal color. Absent: rash <Zach Lee - Last Filed: 05/20/24 19:12> Course Vital Signs 05/20/24 05/20/24 05/20/24 09:57 11:16 14:13 Temperature 97.7 F 98.5 F Pulse Rate 70 62 137 H Pulse Rate [ Education Analyst ] Respiratory 26 H 19 18 Rate Blood Pressure 115/76 135/103 122/69 O2 Sat by Pulse 97 95 95 Oximetry 05/20/24 05/20/24 05/20/24 14:39 15:00 16:00 Temperature Pulse Rate 98 110 H Pulse Rate [ 117 H Education Analyst ] Respiratory 18 18 Rate Blood Pressure 128/70 O2 Sat by Pulse 95 95 Oximetry 05/20/24 05/20/24 05/20/24 17:00 18:42 22:19 Temperature 98.6 F Pulse Rate 117 H 123 H 109 H Pulse Rate [ Education Analyst ] Respiratory 18 18 20 Rate Blood Pressure 120/83 123/87 O2 Sat by Pulse 95 95 94 L Oximetry 05/21/24 05/21/24 05/21/24 00:09 01:00 01:10 Temperature Pulse Rate 151 H 125 H 107 H Pulse Rate [ Education Analyst ] Respiratory 20 20 Rate Blood Pressure 120/98 100/83 106/84 O2 Sat by Pulse 95 94 L 94 L Oximetry 05/21/24 05/21/24 05/21/24 02:00 03:27 05:14 Temperature 97.7 F Pulse Rate 117 H 112 H 116 H Pulse Rate [ Education Analyst ] Respiratory 20 17 19 Rate Blood Pressure 104/83 107/80 121/84 O2 Sat by Pulse 94 L 95 92 L Oximetry 05/21/24 05/21/24 05/21/24 07:00 08:00 09:00 Temperature Pulse Rate 108 H 83 98 Pulse Rate [ Education Analyst ] Respiratory 20 23 21 Rate Blood Pressure 122/87 122/87 139/102 O2 Sat by Pulse 94 L 95 93 L Oximetry 05/21/24 05/21/24 10:00 16:25 Temperature 97.8 F 98.2 F Pulse Rate 96 78 Pulse Rate [ Education Analyst ] Respiratory 24 18 Rate Blood Pressure 139/92 108/89 O2 Sat by Pulse 94 L 93 L Oximetry Medical Decision Making - Lab Data Result diagrams: 05/20/24 11:05 05/20/24 11:05 <Zach Lee - Last Filed: 05/20/24 19:12> - Lab Data Result diagrams: 05/20/24 11:05 05/22/24 06:45 <Jake Steele - Last Filed: 05/22/24 12:06> - Medical Decision Making Was pt. sent in by a medical professional or institution (JEAN Gonzalez, CLINICAL DATA ASSOCIATE, urgent care, hospital, or shelter...) When possible be specific @ -No Did you speak to anyone other than the patient for history (EMS, parent, family, police, friend...)? What history was obtained from this source @ -No Did you review nursing and triage notes (agree or disagree)? Why? @ -I reviewed and agree with nursing and triage notes Were old charts reviewed (outside hosp., previous admission, EMS record, old EKG, old radiological studies, urgent care reports/EKG's, shelter records)? Report findings @ -No old charts were reviewed Differential Diagnosis (chest pain, altered mental status, abdominal pain women, abdominal pain men, vaginal bleeding, weakness, fever, dyspnea, syncope, headache, dizziness, GI bleed, back pain, seizure, CVA, palpatations, mental health, musculoskeletal)? @ -Differential Dyspnea: Coronary syndrome, arrhythmia, tamponade, asthma, COPD, pulmonary embolism, pneumonia, pneumothorax, pulmonary effusion, anaphylaxis, diabetic ketoacidosis, flailed chest, pulmonary contusion, diaphragmatic rupture, anemia, neuromuscular, this is not meant to be an all-inclusive list. EKG interpreted by me (3pts min.). @ -A-fib with RVR. No ST deviation or T wave inversion. Ventricular rate 141 bpm, QRS 94 ms, QTc 376 ms. X-rays interpreted by me (1pt min.). @ -CXR shows no acute cardiopulmonary process. CT interpreted by me (1pt min.). @ -None done U/S interpreted by me (1pt. min.). @ -None done What testing was considered but not performed or refused? (CT, X-rays, U/S, labs)? Why? @ -None What meds were considered but not given or refused? Why? @ -None Did you discuss the management of the patient with other professionals (professionals i.e. , PA, CLINICAL DATA ASSOCIATE, lab, RT, psych nurse, psychologist social, land economist, teacher, executive officer, clinical case manager)? Give summary @ -Spoke to Dr. Jefferson for admission who advised cardiac consult. Was smoking cessation discussed for >3mins.? @ -No Was critical care preformed (if so, how long)? @ -No Were there social determinants of health that impacted care today? How? (Homelessness, low income, unemployed, alcoholism, drug addiction, transportation, low edu. Level, literacy, decrease access to med. care, nursing home, rehab)? @ -No Was there de-escalation of care discussed even if they declined (Discuss DNR or withdrawal of care, Hospice)? DNR status @ -No What co-morbidities impacted this encounter? (DM, HTN, Smoking, COPD, CAD, Cancer, CVA, ARF, Chemo, Hep., AIDS, mental health diagnosis, sleep apnea, morbid obesity)? @ -None Was patient admitted / discharged? Hospital course, mention meds given and route, prescriptions, significant lab abnormalities, going to OR and other pertinent info. @ -Lab work shows immature platelet fraction 23.0% and hyperglycemia 121. Troponin negative. CXR unremarkable. Due to symptomatic A-fib with RVR, patient provided IV Cardizem and normal saline. Spoke to Dr. Jefferson for admission who advised cardiac consult. Discussed patient with Dr. Garcia. Undiagnosed new problem with uncertain prognosis? @ -No Drug Therapy requiring intensive monitoring for toxicity (Heparin, Nitro, Insulin, Cardizem)? @ -No Were any procedures done? @ -No Diagnosis/symptom? @ -Symptomatic A-fib with RVR Acute, or Chronic, or Acute on Chronic? @ -Acute Uncomplicated (without systemic symptoms) or Complicated (systemic symptoms)? @ -Complicated Side effects of treatment? @ -No Exacerbation, Progression, or Severe Exacerbation? @ -Severe exacerbation Poses a threat to life or bodily function? How? (Chest pain, [place], NH, pneumonia, PE, COPD, DKA, ARF, appy, cholecystitis, CVA, Diverticulitis, Homicidal, Suicidal, threat to staff... and all critical care pts) @ -Yes (Zach Lee) Critical care time 33 minutes (Jake Steele) - Lab Data Lab Results 05/20/24 05/20/24 05/20/24 Range/Units 11:05 11:05 11:05 WBC 5.71 (4.50-10.00) 10*3/uL RBC 4.68 (4.40-5.60) 10*6/uL Hgb 13.9 (13.0-17.0) g/dL Hct 41.4 (39.6-50.0) % MCV 88.5 (80.0-97.0) fL MCH 29.7 (27.0-32.0) pg MCHC 33.6 (32.0-37.0) g/dL Plt Count (140-440) 10*3/uL MPV 11.0 (9.5-12.2) fL Immature Gran % (Auto) 0.2 % Neutrophils % 64.8 % Lymphocytes % 22.4 % Monocytes % 11.7 % Eosinophils % 0.2 % Basophils % 0.7 % Immature Gran # 0.01 (0.00-0.04) 10*3/uL Neutrophils # 3.70 (1.80-7.70) 10*3/uL Lymphocytes # 1.28 (0.90-5.00) 10*3/uL Monocytes # 0.67 (0.20-1.00) 10*3/uL Eosinophils # 0.01 L (0.04-0.35) 10*3/uL Basophils # 0.04 (0.00-0.10) 10*3/uL Manual Slide Review Performed Immature Plt Fraction 23.0 H (1.1-6.1) % PT 10.4 (10.0-12.5) sec INR 0.9 (<1.2) APTT 22.6 (22.0-30.0) sec Sodium 138 (137-145) mmol/L Potassium 4.4 (3.5-5.1) mmol/L Chloride 105 (98-107) mmol/L Carbon Dioxide 24 (22-30) mmol/L Anion Gap 9 mmol/L BUN 20 (9-20) mg/dL Creatinine 0.93 (0.66-1.25) mg/dL Est GFR (CKD-EPI)AfAm >90 (>60 ml/min/1.73 sqM) Est GFR (CKD-EPI)NonAf 89 (>60 ml/min/1.73 sqM) Glucose 121 H (74-99) mg/dL Calcium 10.0 (8.4-10.2) mg/dL Magnesium 1.7 (1.6-2.3) mg/dL Total Bilirubin 0.5 (0.2-1.3) mg/dL AST 23 (17-59) U/L ALT 26 (4-49) U/L Alkaline Phosphatase 58 (38-126) U/L Troponin I (0.000-0.034) ng/mL Total Protein 7.2 (6.3-8.2) g/dL Albumin 4.3 (3.5-5.0) g/dL 05/20/24 Range/Units 11:05 WBC (4.50-10.00) 10*3/uL RBC (4.40-5.60) 10*6/uL Hgb (13.0-17.0) g/dL Hct (39.6-50.0) % MCV (80.0-97.0) fL MCH (27.0-32.0) pg MCHC (32.0-37.0) g/dL Plt Count (140-440) 10*3/uL MPV (9.5-12.2) fL Immature Gran % (Auto) % Neutrophils % % Lymphocytes % % Monocytes % % Eosinophils % % Basophils % % Immature Gran # (0.00-0.04) 10*3/uL Neutrophils # (1.80-7.70) 10*3/uL Lymphocytes # (0.90-5.00) 10*3/uL Monocytes # (0.20-1.00) 10*3/uL Eosinophils # (0.04-0.35) 10*3/uL Basophils # (0.00-0.10) 10*3/uL Manual Slide Review Immature Plt Fraction (1.1-6.1) % PT (10.0-12.5) sec INR (<1.2) APTT (22.0-30.0) sec Sodium (137-145) mmol/L Potassium (3.5-5.1) mmol/L Chloride (98-107) mmol/L Carbon Dioxide (22-30) mmol/L Anion Gap mmol/L BUN (9-20) mg/dL Creatinine (0.66-1.25) mg/dL Est GFR (CKD-EPI)AfAm (>60 ml/min/1.73 sqM) Est GFR (CKD-EPI)NonAf (>60 ml/min/1.73 sqM) Glucose (74-99) mg/dL Calcium (8.4-10.2) mg/dL Magnesium (1.6-2.3) mg/dL Total Bilirubin (0.2-1.3) mg/dL AST (17-59) U/L ALT (4-49) U/L Alkaline Phosphatase (38-126) U/L Troponin I <0.012 (0.000-0.034) ng/mL Total Protein (6.3-8.2) g/dL Albumin (3.5-5.0) g/dL Disposition Is patient prescribed a controlled substance at d/c from ED?: No Time of Disposition: 12:39 Decision Date: 05/20/24 Decision Time: 12:39 <Zach Lee - Last Filed: 05/20/24 19:12> <Jake Steele - Last Filed: 05/22/24 12:06> Clinical Impression: Atrial fibrillation with RVR Disposition: ADMITTED IP TO THIS HOSP Condition: Good
--- NOTE | 2024-05-20 10:54 | XR ---
EXAMINATION TYPE: XR chest 2V DATE OF EXAM: 05/20/2024 CLINICAL INDICATION: Male, 63 years old with history of SOB, TECHNIQUE: Frontal and lateral views of the chest are obtained. COMPARISON: Chest x-ray November 16, 2023 FINDINGS: There is no focal air space opacity, pleural effusion, or pneumothorax seen. The cardiac silhouette size is stable and upper limits of normal with ectatic thoracic aorta redemonstrated. Th e osseous structures are intact. IMPRESSION: No acute cardiopulmonary process. [facility], , 05/20/2024 10:51 AM
[2024-05-20 11:24] LABS: Basophils # (A) 0.04 10*3/uL (0.00-0.10); Basophils % (A) 0.7 %; Eosinophils # (A) 0.01 10*3/uL (0.04-0.35); Eosinophils % (A) 0.2 %; HCT 41.4 % (39.6-50.0); HGB 13.9 g/dL (13.0-17.0); Lymphocytes # (A) 1.28 10*3/uL (0.90-5.00); Lymphocytes % (A) 22.4 %; MCH 29.7 pg (27.0-32.0); MCHC 33.6 g/dL (32.0-37.0); MCV 88.5 fL (80.0-97.0); Monocytes # (A) 0.67 10*3/uL (0.20-1.00); Monocytes % (A) 11.7 %; Neutrophils % (A) 64.8 %; RBC 4.68 10*6/uL (4.40-5.60); RDW 13.2 % (11.5-14.5); WBC 5.71 10*3/uL (4.50-10.00)
[2024-05-20 11:49] LABS: ALT 26 U/L (4-49); AST 23 U/L (17-59); African American GFR (CKD) >90 (>60 ml/min/1.73 sqM); Albumin 4.3 g/dL (3.5-5.0); Alkaline Phosphatase 58 U/L (38-126); Anion Gap 9 mmol/L; Blood Urea Nitrogen 20 mg/dL (9-20); Carbon Dioxide 24 mmol/L (22-30); Chloride 105 mmol/L (98-107); Glucose 121 mg/dL (74-99); Magnesium 1.7 mg/dL (1.6-2.3); Non-African American GFR(CKD) 89 (>60 ml/min/1.73 sqM); Potassium 4.4 mmol/L (3.5-5.1); Sodium 138 mmol/L (137-145); Total Bilirubin 0.5 mg/dL (0.2-1.3); Total Protein 7.2 g/dL (6.3-8.2)
[2024-05-20 12:05] LABS: INR 0.9 (<1.2); Partial Thromboplastin Time 22.6 sec (22.0-30.0); Prothrombin Time 10.4 sec (10.0-12.5)
[2024-05-20] MEDS: SODIUM CHLORIDE 0.9% 1,000 ML IV STA (12:32)
[2024-05-20] MEDS ORDERED: NALOXONE 0.4 MG/ML 1 ML VIAL IV PRN (12:36)
[2024-05-20] MEDS ORDERED: ONDANSETRON 4 MG/2 ML VIAL IVP PRN (12:36)
[2024-05-20] MEDS ORDERED: IBUPROFEN 800 MG TAB PO PRN (12:37)
[2024-05-20] MEDS: SODIUM CHLORIDE 0.9% 1,000 ML IV SCH (14:08)
[2024-05-20] MEDS: DILTIAZEM 125 MG in SODIUM CHLORIDE 0.9% 100 ML IV SCH (14:17)
[2024-05-20] MEDS: DILTIAZEM DRIP BOLUS FROM BAG 1 MG SOLN IV ONE (14:18)
[2024-05-20] MEDS ORDERED: ALBUTEROL NEBULIZED 2.5 MG/3 ML INHALATION PRN (18:19)
[2024-05-20] MEDS: ENOXAPARIN 40 MG/0.4 ML SYRINGE SQ SCH (18:44)
[2024-05-20] MEDS ORDERED: TEMAZEPAM 15 MG CAP PO PRN (20:55)
[2024-05-20] MEDS ORDERED: ALPRAZolam 0.25 MG TAB PO PRN (20:55)
[2024-05-20] MEDS ORDERED: LACTULOSE 20 GM/30 ML CUP PO PRN (20:55)
[2024-05-20] MEDS ORDERED: CALCIUM CARBONATE 500 MG CHEWABLE PO PRN (20:55)
[2024-05-20] MEDS: ATORVASTATIN 10 MG TAB PO SCH (22:25)
[2024-05-20] MEDS: MONTELUKAST 10 MG TAB PO SCH (22:25)
[2024-05-20] MEDS: risperiDONE 0.5 MG TAB PO SCH (22:25)
[2024-05-20] MEDS: SERTRALINE 50 MG TAB PO SCH (22:26)
[2024-05-20] MEDS: FUROSEMIDE 10 MG/ML 4 ML VIAL IV SCH (22:27)
--- NOTE | 2024-05-20 22:49 | P.HPIM ---
History of Present Illness H&P Date: 05/20/24 Chief Complaint: Short of breath Pleasant 63-year-old, male who follows with Dr. Hernandez. Chronic medical conditions include atrial fibrillation, intermittent asthma, hyperlipidemia, psychosis. Patient has known atrial fibrillation. For 7 days patient been getting more short of breath. Has been going to his work. Went to Dr. Hernandez's clinic this morning. Was found to be in heart rate of 142. Sent down to the ER. He has been noticing edema in the lower extremity for about a month. Does use 1 pillow at night. Today also was perspiring. No chest pain. No fever no chills. ER and rapid ventricular rate. Put on Cardizem drip. Review of systems: GEN.: Tired EYES: None HEENT: None NECK: None RESPIRATORY: As above CARDIOVASCULAR: As above GASTROINTESTINAL: None GENITOURINARY: None MUSCULOSKELETAL: None LYMPHATICS: None HEMATOLOGICAL: None PSYCHIATRY: A bit anxious NEUROLOGICAL: None Social history: Lives with his s. Does not smoke. Alcohol occasionally. 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 Physical examination: VITAL SIGNS: 98.5, 137, 18, 122 x 69, 95% room air GENERAL: Reclining in bed EYES: Pupils equal. Conjunctiva teresa l. HEENT: External appearance of nose and ears normal, oral cavity grossly normal. NECK: JVD not raised; masses not palpable. HEART: Heart sounds irregular l; significant edema LUNGS: Respiratory rate increased, decreased breath sounds. ABDOMEN: Soft, nontender, liver spleen not palpable, no masses palpable. PSYCH: Alert and oriented x3; mood and affect anxious MUSCULOSKELETAL:No Clubbing/cyanosis;muscles-grossly intact NEUROLOGICAL: Cranial nerves grossly intact; no facial asymmetry, power and se nsation grossly intact. INVESTIGATIONS, reviewed in the clinical context: May 20, 2024: White count 5.7 hemoglobin 13.9 platelets sodium 138 potassium 4.4 BUN 20 creatinine 0.93 Troponin I less than 0.012 EKG tracing personally reviewed by me-atrial fibrillation. Rate 141 Chest x-ray film personally reviewed by me-some cardiomegaly. Some unfolding of the aorta. Some venous prominence Assessment plan: -Persistent atrial fibrillation: Rate uncontrolled. Symptomatic. IV Cardizem. Toprol-XL 25 mg. Has not been on anticoagulation. Will let cardiology determine the same. - Acute congestive heart failure, precipitated by atrial fibrillation Check 2D echo. IV Lasix 40 every 12. Fluid restriction. -Chronic, psychosis Risperdal. Trazodone. -Intermittent asthma Advair. Singulair. Albuterol HFA as needed -Hyperlipidemia Lipitor 10 mg nightly -Morbid obesity BMI 47.5 Weight loss measures -Full code Given the complexity and severity of patient's condition expect the patient to be in the hospital at least for 2 overnights Past Medical History Past Medical History: Atrial Fibrillation, Asthma, Cancer, Hyperlipidemia, Hype rtension, Osteoarthritis (OA), Pneumonia Additional Past Medical History / Comment(s): chronic back pain, Klinnefelter Syndrome chronic back pain (degenerative disk L3 and L4), healed cellulitis bilateral lower legs, hx thrombocytopenia 2009 when tx for kidney cancer. covid 2020 History of Any Multi-Drug Resistant Organisms: None Reported Past Surgical History: Joint Replacement, Orthopedic Surgery Additional Past Surgical History / Comment(s): total R knee arthroplasty. LEFT shoulder rotator cuff tear, 2009 kidney ca removed portion of right kidney, 2011 carpectomy left wrist, TLK, Past Anesthesia/Blood Transfusion Reactions: No Reported Reaction Additional Past Anesthesia/Blood Transfusion Reaction / Comment(s): "incision popped open day of surgery with other knee replacement, ended up staying 5 days with knee immobilized" Past Psychological History: Depression Smoking Status: Never smoker - Past Family History Father Family Medical History: Cancer Additional Family Medical History / Comment(s): colon Mother Family Medical History: AFIB, Asthma Medications and Allergies Home Medications Medication Instructions Recorded Confirmed Type Montelukast [Singulair] 10 mg PO HS 03/23/19 05/20/24 History Atorvastatin [Lipitor] 10 mg PO HS 09/29/22 05/20/24 History Ibuprofen [Motrin] 800 mg PO TID PRN 11/16/23 05/20/24 History Testosterone Cypionate 200 mg IM Q21D 11/16/23 05/20/24 History [Depo-Testosterone] Aspirin 325 mg PO DAILY 30 Days #30 tab 11/21/23 05/20/24 Rx Metoprolol Succinate (ER) [Toprol 25 mg PO DAILY 30 Days #30 tab 11/21/23 05/20/24 Rx XL] Sertraline [Zoloft] 50 mg PO HS 30 Days #30 tab 11/21/23 05/20/24 Rx risperiDONE [RisperDAL] 0.5 mg PO BID 30 Days #60 tab 11/21/23 05/20/24 Rx HYDROcodone/APAP 7.5-325MG [[place] 1 tab PO BID PRN 30 Days #60 tab 04/14/24 05/20/24 Rx 7.5-325] traZODone HCL [Desyrel] 100 mg PO HS 05/05/24 05/20/24 History Albuterol Sulfate [Albuterol 2 puff PO RT-QID PRN 05/20/24 05/20/24 History Sulfate Hfa] Fluticasone Propion/Salmeterol 1 puff INHALATION DIRECTED 05/20/24 05/20/24 History [Advair 250-50 Diskus] Loratadine-Pseudoeph 10-240 mg 1 tab PO DAILY PRN 05/20/24 05/20/24 History [Claritin-D 24 Hour] Allergies Allergy/AdvReac Type Severity Reaction Status Date / Time Iodinated Contrast Media Allergy Severe Anaphylaxis Verified 05/20/24 13:15 [Iodinated Contrast Media - IV Dye] shellfish derived Allergy Severe Anaphylaxis Verified 05/20/24 13:15 sulfamethoxazole Allergy Severe Anaphylaxis Verified 05/20/24 13:15 [From Bactrim] trimethoprim [From Bactrim] Allergy Severe Anaphylaxis Verified 05/20/24 13:15 Physical Exam Vitals: Vital Signs Temp Pulse Pulse Resp BP Pulse Ox 05/20/24 22:19 98.6 F 109 H 20 123/87 94 L 05/20/24 18:42 123 H 18 120/83 95 05/20/24 17:00 117 H 18 95 05/20/24 16:00 110 H 18 95 05/20/24 15:00 98 18 128/70 95 05/20/24 14:39 117 H 05/20/24 14:13 98.5 F 137 H 18 122/69 95 05/20/24 11:16 62 19 135/103 95 05/20/24 09:57 97.7 F 70 26 H 115/76 97 Intake and Output 05/20/24 05/20/24 05/20/24 06:59 14:59 22:59 Other: Weight 163.293 kg Results CBC & Chem 7: 05/20/24 11:05 05/20/24 11:05 Labs: Abnormal Lab Results - Last 24 Hours (Table) 05/20/24 05/20/24 Range/Units 11:05 11:05 Eosinophils # 0.01 L (0.04-0.35) 10*3/uL Immature Plt Fraction 23.0 H (1.1-6.1) % Glucose 121 H (74-99) mg/dL
[2024-05-21] MEDS: traZODone HCL 100 MG TAB PO PRN (00:07)
[2024-05-21] MEDS: DILTIAZEM DRIP BOLUS FROM BAG 1 MG SOLN IV ONE (02:02)
[2024-05-21] MEDS ORDERED: ASPIRIN 325 MG TAB PO SCH (09:00)
[2024-05-21] MEDS ORDERED: METOPROLOL SUCCINATE (ER) 25 MG TAB.ER.24H PO SCH (09:00)
[2024-05-21] MEDS: METOPROLOL SUCCINATE (ER) 50 MG TAB.ER.24H PO SCH (09:21)
[2024-05-21] MEDS: HYDROcodone/APAP 7.5-325MG 1 EACH TAB PO PRN (09:26)
--- NOTE | 2024-05-21 11:25 | CA ---
Transthoracic Echo Report Name: Faustino Mcghee Age: 63 Gender: M : 1960 Exam Date: 05/21/2024 07:42 Exam Location: [facility] Ht (in): 73 Wt (lb): 360 Ordering Physician: Fred Jefferson MD Attending/Referring Phys: Robotic Welding Operator Macarena Weaver RDCS Procedure CPT: Indications: chf Cardiac Hx: Technical Quality: Technically difficult study Contrast 1: Definity Total Dose (mL): 2 Contrast 2: Total Dose (mL): MEASUREMENTS (Male / Female) Normal Values 2D ECHO LV Diastolic Diameter PLAX 4.3 cm 4.2 - 5.9 / 3.9 - 5.3 cm LV Systolic Diameter PLAX 3.5 cm IVS Diastolic Thickness 1.4 cm 0.6 - 1.0 / 0.6 - 0.9 cm LVPW Diastolic Thickness 1.4 cm 0.6 - 1.0 / 0.6 - 0.9 cm LV Relative Wall Thickness 0.7 RV Internal Dim ED PLAX 3.8 cm LA Systolic Diameter LX 3.3 cm 3.0 - 4.0 / 2.7 - 3.8 cm LV Diastolic Volume MOD BP 66.2 cm??? 67 - 155 / 56 - 104 cm??? LV Systolic Volume MOD BP 25.2 cm??? 22 - 58 / 19 - 49 cm??? LV Ejection Fraction MOD BP 61.9 % >= 55 % LV Diastolic Volume MOD 4C 85.6 cm??? LV Systolic Volume MOD 4C 29.1 cm??? LV Ejection Fraction MOD 4C 66.0 % LV Diastolic Length 4C 8.7 cm LV Systolic Length 4C 7.4 cm LV Diastolic Volume MOD 2C 46.5 cm??? LV Systolic Volume MOD 2C 21.4 cm??? LV Ejection Fraction MOD 2C 53.9 % LV Diastolic Length 2C 7.8 cm LV Systolic Length 2C 7.7 cm M-MODE Aortic Root Diameter MM 3.7 cm DOPPLER AV Peak Velocity 177.3 cm/s AV Peak Gradient 29.0 mmHg AV Mean Velocity 171.1 cm/s AV Mean Gradient 14.4 mmHg AV Velocity Time Integral 53.7 cm LVOT Peak Velocity 134.4 cm/s LVOT Peak Gradient 7.2 mmHg LVOT Velocity Time Integral 31.4 cm Mitral E Point Velocity 76.1 cm/s Mitral A Point Velocity 90.3 cm/s Mitral E to A Ratio 0.8 MV Deceleration Time 315.1 ms MV E' Velocity 7.2 cm/s Mitral E to MV E' Ratio 10.6 TR Peak Velocity 178.4 cm/s TR Peak Gradient 12.7 mmHg Right Ventricular Systolic Press 22.7 mmHg FINDINGS Left Ventricle Left ventricular ejection fraction is estimated at 50 %. Left ventricular cavity size normal. Moderate concentric left ventricular hypertrophy. No obvious regional wall motion abnormalities. Right Ventricle Moderate right ventricular dilatation. Right ventricular systolic pressure within normal limits. Right Atrium Right atrium not well visualized. Left Atrium Normal left atrial size. No left atrial thrombus or mass present. Mitral Valve Mitral valve thickened. Mild mitral annular calcification. No evidence for mitral valve prolapse. No mitral stenosis. Aortic Valve Trileaflet aortic valve. Aortic valve sclerosis. Mild aortic stenosis with a peak gradient of 29 mmHg and a mean gradient of 14 mmHg. Tricuspid Valve Structurally normal tricuspid valve. Mild tricuspid regurgitation. Pulmonic Valve Pulmonic valve not well visualized. No pulmonic regurgitation. Pericardium No pericardial effusion. Aorta Normal size aortic root and proximal ascending aorta. CONCLUSIONS Technically difficult study for interpretation Low normal LV systolic function with EF at 50% Thickened aortic valve with mild aortic stenosis and mean gradient of 14 mmHg No pericardial effusion Previewed by: Dr. Manuel Hernandez MD (Electronically Signed) Final Date: 21 May 2024 11:25
--- NOTE | 2024-05-21 11:25 | P.CRDCN ---
History of Present Illness Consult date: 05/21/24 Reason for Consult (text): A-fib with RVR History of present illness: This is a 63-year-old male previously seen in the office by Dr. EVA Mitchell in 2014. He has not followed with a system architect since. He has past medical history of atrial fibrillation diagnosed in November 2023, dyslipidemia, hypertension. Patient denies history of diabetes. We have been asked to evaluate the patient for A-fib with RVR. Patient states that he was at his PCP office, Dr. Bettye Chris, had difficulty in breathing and was sent to the emergency center. He states he is having difficulty breathing for the past month gradually worsening. He also states he has had cough no fever, no dizziness, no syncopal episodes. He denies wheezing. He has had lower extremity edema and PND. He denies abdominal pain. He states he is a non-smoker. He does not use caffeine. He drinks alcohol occasionally and the last intake was 4 months ago. He does state that he has had a 50 pound weight gain over the past 3 months. He states that he probably snores but he has not been tested for obstructive sleep apnea. Blood pressure 121/84, heart rate 116, pulse ox 92% on room air. Patient is status post 1 L of IV fluid, Cardizem bolus 5 mg followed by 10 mg bolus and C ardizem drip at 10 mg/h. Patient converted to sinus rhythm after carotid massage. Patient is seen today in the emergency center waiting for a bed on the cardiac stepdown unit. -EKG: Atrial fibrillation at 141 bpm. Repeat EKG is sinus rhythm. -Chest x-ray: No acute cardiopulmonary process. -Laboratory studies: WBC 5.7, hemoglobin 13.9, sodium 138, potassium 4.4, BUN 20, creatinine 0.93. Magnesium 1.7. Troponin negative x 1. -Home cardiac medications: Aspirin 325 mg daily, atorvastatin 10 mg at bedtime, metoprolol succinate 25 mg daily. -Echocardiogram performed 09/30/2022 revealed LVH with preserved systolic function, mildly enlarged RV, mild aortic stenosis, severe elevation of RVSP. -Stress echocardiogram performed 10/01/2022 revealed normal treadmill stress echocardiogram. Poor exercise tolerance achieving 7 METS and 97% of max predicted heart rate. Review Of Systems: At the time of my exam: CONSTITUTIONAL: Denies fever or chills. HEENT: Denies blurred vision, vision changes, or eye pain. Denies hemoptysis CARDIOVASCULAR: Denies chest pain. Denies orthopnea. Denies PND. Denies palpitations RESPIRATORY: Reports cough and difficulty in breathing. GASTROINTESTINAL: Denies abdominal pain. Denies nausea or vomiting. HEMATOLOGIC: Denies bleeding disorders. GENITOURINARY: Denies any blood in urine. SKIN: Denies puritis. Denies rash. Physical examination: Gen: This is 63-year-old male in no acute distress. VS: reviewed HEENT: Head is atraumatic, normocephalic. Pupils equal, round. Sclerae is anicteric. NECK: Supple. No JVD. LUNGS: Few crackles bilaterally. No intercostal retractions. HEART: Regular rate and rhythm. 2/6 systolic ejection murmur. ABDOMEN: Soft No tenderness. EXTREMITIES: 2+ bilateral lower extremity edema. No calf tenderness. NEUROLOGICAL: Patient is awake, alert and oriented x3. Assessment: Paroxysmal atrial fibrillation with RVR, converted to sinus rhythm Hypertension Hyperlipidemia Mild aortic stenosis Pulmonary hypertension Plan: Resume patient's home cardiac medications with the following change Increase metoprolol succinate to 50 mg daily Discontinue Cardizem drip Discontinue Lovenox and start patient on Xarelto 20 mg daily Obtain TSH Obtain 2-D echocardiogram and Doppler study to assess cardiac structure and function Repeat BMP tomorrow Further recommendations to follow based upon clinical course Thank you kindly for this consultation. Nurse practitioner note has been reviewed, I agree with documented findings and plan of care. Patient was seen and examined. Past Medical History Past Medical History: Atrial Fibrillation, Asthma, Cancer, Hyperlipidemia, Hypertension, Osteoarthritis (OA), Pneumonia Additional Past Medical History / Comment(s): chronic back pain, Klinnefelter Syndrome chronic back pain (degenerative disk L3 and L4), healed cellulitis bilateral lower legs, hx thrombocytopenia 2009 when tx for kidney cancer. covid 19 2020 History of Any Multi-Drug Resistant Organisms: None Reported Past Surgical History: Joint Replacement, Orthopedic Surgery Additional Past Surgical History / Comment(s): total R knee arthroplasty. LEFT shoulder rotator cuff tear, 2010 kidney ca removed portion of right kidney, 2011 carpectomy left wrist, TLK, Past Anesthesia/Blood Transfusion Reactions: No Reported Reaction Additional Past Anesthesia/Blood Transfusion Reaction / Comment(s): "incision popped open day of surgery with other knee replacement, ended up staying 5 days with knee immobilized" Past Psychological History: Depression Smoking Status: Never smoker - Past Family History Father Family Medical History: Cancer Additional Family Medical History / Comment(s): colon Mother Family Medical History: AFIB, Asthma Medications and Allergies Home Medications Medication Instructions Recorded Confirmed Type Montelukast [Singulair] 10 mg PO HS 03/23/19 05/20/24 History Atorvastatin [Lipitor] 10 mg PO HS 09/29/22 05/20/24 History Ibuprofen [Motrin] 800 mg PO TID PRN 11/16/23 05/20/24 History Testosterone Cypionate 200 mg IM Q21D 11/16/23 05/20/24 History [Depo-Testosterone] Aspirin 325 mg PO DAILY 30 Days #30 tab 11/21/23 05/20/24 Rx Metoprolol Succinate (ER) [Toprol 25 mg PO DAILY 30 Days #30 tab 11/21/23 05/20/24 Rx XL] Sertraline [Zoloft] 50 mg PO HS 30 Days #30 tab 11/21/23 05/20/24 Rx risperiDONE [RisperDAL] 0.5 mg PO BID 30 Days #60 tab 11/21/23 05/20/24 Rx HYDROcodone/APAP 7.5-325MG [Dinosaur 1 tab PO BID PRN 30 Days #60 tab 04/14/24 05/20/24 Rx 7.5-325] traZODone HCL [Desyrel] 100 mg PO HS 05/05/24 05/20/24 History Albuterol Sulfate [Albuterol 2 puff PO RT-QID PRN 05/20/24 05/20/24 History Sulfate Hfa] Fluticasone Propion/Salmeterol 1 puff INHALATION DIRECTED 05/20/24 05/20/24 History [Advair 250-50 Diskus] Loratadine-Pseudoeph 10-240 mg 1 tab PO DAILY PRN 05/20/24 05/20/24 History [Claritin-D 24 Hour] Allergies Allergy/AdvReac Type Severity Reaction Status Date / Time Iodinated Contrast Media Allergy Severe Anaphylaxis Verified 05/20/24 13:15 [Iodinated Contrast Media - IV Dye] shellfish derived Allergy Severe Anaphylaxis Verified 05/20/24 13:15 sulfamethoxazole Allergy Severe Anaphylaxis Verified 05/20/24 13:15 [From Bactrim] trimethoprim [From Bactrim] Allergy Severe Anaphylaxis Verified 05/20/24 13:15 Physical Exam Vitals: Vital Signs Temp Pulse Pulse Resp BP Pulse Ox 05/21/24 05:14 97.7 F 116 H 19 121/84 92 L 05/21/24 03:27 112 H 17 107/80 95 05/21/24 02:00 117 H 20 104/83 94 L 05/21/24 01:10 107 H 20 106/84 94 L 05/21/24 01:00 125 H 20 100/83 94 L 05/21/24 00:09 151 H 120/98 95 05/20/24 22:19 98.6 F 109 H 20 123/87 94 L 05/20/24 18:42 123 H 18 120/83 95 05/20/24 17:00 117 H 18 95 05/20/24 16:00 110 H 18 95 05/20/24 15:00 98 18 128/70 95 05/20/24 14:39 117 H 05/20/24 14:13 98.5 F 137 H 18 122/69 95 05/20/24 11:16 62 19 135/103 95 05/20/24 09:57 97.7 F 70 26 H 115/76 97 Intake and Output 05/20/24 05/21/24 05/21/24 22:59 06:59 14:59 Intake Total 117.5 Output Total 600 Balance -482.5 Intake: Intake, IV Titration 117.5 Amount Diltiazem 125 mg In 117.5 Sodium Chloride 0.9% 100 ml @ 10 MG/HR 10 mls/hr IV .[id number] [facility] Rx#: [id number] Output: Urine 600 Results 05/20/24 11:05 05/20/24 11:05 Cardiac Enzymes 05/20/24 05/20/24 Range/Units 11:05 11:05 AST 23 (17-59) U/L Troponin I <0.012 (0.000-0.034) ng/mL Coagulation 05/20/24 Range/Units 11:05 PT 10.4 (10.0-12.5) sec APTT 22.6 (22.0-30.0) sec CBC 05/20/24 Range/Units 11:05 WBC 5.71 (4.50-10.00) 10*3/uL RBC 4.68 (4.40-5.60) 10*6/uL Hgb 13.9 (13.0-17.0) g/dL Hct 41.4 (39.6-50.0) % Plt Count (140-440) 10*3/uL Comprehensive Metabolic Panel 05/20/24 Range/Units 11:05 Sodium 138 (137-145) mmol/L Potassium 4.4 (3.5-5.1) mmol/L Chloride 105 (98-107) mmol/L Carbon Dioxide 24 (22-30) mmol/L BUN 20 (9-20) mg/dL Creatinine 0.93 (0.66-1.25) mg/dL Glucose 121 H (74-99) mg/dL Calcium 10.0 (8.4-10.2) mg/dL AST 23 (17-59) U/L ALT 26 (4-49) U/L Alkaline Phosphatase 58 (38-126) U/L Total Protein 7.2 (6.3-8.2) g/dL Albumin 4.3 (3.5-5.0) g/dL Current Medications Generic Name Dose Route Start Last Admin Trade Name Freq PRN Reason Stop Dose Admin Acetaminophen 650 mg 05/20/24 12:37 Acetaminophen Tab 325 Mg Tab PO Q6HR PRN Mild Pain or Fever > 100.5 Hydrocodone Bitart/Acetaminophen 1 each 05/20/24 12:37 Hydrocodone/Apap 7.5-325mg 1 Each Tab PO BID PRN Pain Albuterol Sulfate 2.5 mg 05/20/24 18:19 Albuterol Nebulized 2.5 Mg/3 Ml INHALATION RT-QID PRN Shortness Of Breath Alprazolam 0.25 mg 05/20/24 20:55 Alprazolam 0.25 Mg Tab PO Q6HR PRN Anxiety Aspirin 325 mg 05/21/24 09:00 Aspirin 325 Mg Tab PO DAILY LISA Atorvastatin Calcium 10 mg 05/20/24 21:00 05/20/24 22:25 Atorvastatin 10 Mg Tab PO 10 mg HS LISA Administration Calcium Carbonate/Glycine 1,000 mg 05/20/24 20:55 Calcium Carbonate 500 Mg Chewable PO Q4HR PRN Dyspepsia Enoxaparin Sodium 40 mg 05/20/24 18:30 05/20/24 18:44 Enoxaparin 40 Mg/0.4 Ml Syringe SQ 40 mg DAILY LISA Administration Furosemide 40 mg 05/20/24 21:00 05/20/24 22:27 Furosemide 10 Mg/Ml 4 Ml Vial IV 40 mg Q12HR LISA Administration Diltiazem HCl 125 mg/ Sodium 125 mls @ 10 mls/hr 05/20/24 12:50 05/21/24 02:02 Chloride IV 15 mg/hr .[id number] LISA 15 mls/hr Administration 10 MG/HR Ibuprofen 800 mg 05/20/24 12:37 Ibuprofen 800 Mg Tab PO BID PRN Pain Lactulose 20 gm 05/20/24 20:55 Lactulose 20 Gm/30 Ml Cup PO DAILY PRN Constipation Metoprolol Succinate 25 mg 05/21/24 09:00 Metoprolol Succinate (Er) 25 Mg Tab.Er.24h PO DAILY LISA Montelukast Sodium 10 mg 05/20/24 21:00 05/20/24 22:25 Montelukast 10 Mg Tab PO 10 mg HS LISA Administration Naloxone HCl 0.2 mg 05/20/24 12:36 Naloxone 0.4 Mg/Ml 1 Ml Vial IV Q2M PRN Opioid Reversal Ondansetron HCl 4 mg 05/20/24 12:36 Ondansetron 4 Mg/2 Ml Vial IVP Q8HR PRN Nausea And Vomiting Risperidone 0.5 mg 05/20/24 21:00 05/20/24 22:25 Risperidone 0.5 Mg Tab PO 0.5 mg BID LISA Administration Sertraline HCl 50 mg 05/20/24 21:00 05/20/24 22:26 Sertraline 50 Mg Tab PO 50 mg HS LISA Administration Temazepam 15 mg 05/20/24 20:55 Temazepam 15 Mg Cap PO HS PRN Insomnia Trazodone HCl 100 mg 05/20/24 21:00 05/21/24 00:07 Trazodone Hcl 100 Mg Tab PO 100 mg HS PRN Administration Insomnia Intake and Output 05/20/24 05/21/24 05/21/24 22:59 06:59 14:59 Intake Total 117.5 Output Total 600 Balance -482.5 Intake: Intake, IV Titration 117.5 Amount Diltiazem 125 mg In 117.5 Sodium Chloride 0.9% 100 ml @ 10 MG/HR 10 mls/hr IV .[id number] [facility] Rx#: [id number] Output: Urine 600 05/20/24 11:05 05/20/24 11:05
--- NOTE | 2024-05-21 12:53 | P.PN ---
Progress Note - Text Progress Note Date: 05/21/24 Chief Complaint: Short of breath Pleasant 63-year-old, male who follows with Dr. Hernandez. Chronic medical conditions include atrial fibrillation, intermittent asthma, hyperlipidemia, psychosis. Patient has known atrial fibrillation. For 7 days patient been getting more short of breath. Has been going to his work. Went to Dr. Hernandez's clinic this morning. Was found to be in heart rate of 142. Sent down to the ER. He has been noticing edema in the lower extremity for about a month. Does use 1 pillow at night. Today also was perspiring. No chest pain. No fever no chills. ER and rapid ventricular rate. Put on Cardizem drip. May 21: Breathing better. Made good urine output with IV Lasix. Remains the same. Some decrease in edema. Has reverted to sinus rhythm. Cardizem drip discontinued. Toprol-XL increased to 50 mg a day. Active Medications Acetaminophen (Acetaminophen Tab 325 Mg Tab) 650 mg PO Q6HR PRN PRN Reason: Mild Pain or Fever > 100.5 Hydrocodone Bitart/Acetaminophen (Hydrocodone/Apap 7.5-325mg 1 Each Tab) 1 each PO BID PRN PRN Reason: Pain Last Admin: 05/21/24 09:26 Dose: 1 each Albuterol Sulfate (Albuterol Nebulized 2.5 Mg/3 Ml) 2.5 mg INHALATION RT-QID PRN PRN Reason: Shortness Of Breath Alprazolam (Alprazolam 0.25 Mg Tab) 0.25 mg PO Q6HR PRN PRN Reason: Anxiety Atorvastatin Calcium (Atorvastatin 10 Mg Tab) 10 mg PO HS [facility] Last Admin: 05/20/24 22:25 Dose: 10 mg Calcium Carbonate/Glycine (Calcium Carbonate 500 Mg Chewable) 1,000 mg PO Q4HR PRN PRN Reason: Dyspepsia Furosemide (Furosemide 10 Mg/Ml 4 Ml Vial) 40 mg IV Q12HR [facility] Last Admin: 05/21/24 09:21 Dose: 40 mg Lactulose (Lactulose 20 Gm/30 Ml Cup) 20 gm PO DAILY PRN PRN Reason: Constipation Metoprolol Succinate (Metoprolol Succinate (Er) 50 Mg Tab.Er.24h) 50 mg PO DAILY [facility] Last Admin: 05/21/24 09:21 Dose: 50 mg Montelukast Sodium (Montelukast 10 Mg Tab) 10 mg PO HS [facility] Last Admin: 05/20/24 22:25 Dose: 10 mg Naloxone HCl (Naloxone 0.4 Mg/Ml 1 Ml Vial) 0.2 mg IV Q2M PRN PRN Reason: Opioid Reversal Ondansetron HCl (Ondansetron 4 Mg/2 Ml Vial) 4 mg IVP Q8HR PRN PRN Reason: Nausea And Vomiting Risperidone (Risperidone 0.5 Mg Tab) 0.5 mg PO BID [facility] Last Admin: 05/21/24 09:49 Dose: 0.5 mg Rivaroxaban (Rivaroxaban 20 Mg Tab) 20 mg PO W/SUPPER [facility]; Protocol Sertraline HCl (Sertraline 50 Mg Tab) 50 mg PO [facility] Last Admin: 05/20/24 22:26 Dose: 50 mg Temazepam (Temazepam 15 Mg Cap) 15 mg PO HS PRN PRN Reason: Insomnia Trazodone HCl (Trazodone Hcl 100 Mg Tab) 100 mg PO HS PRN PRN Reason: Insomnia Last Admin: 05/21/24 00:07 Dose: 100 mg Social history: Lives with his s. Does not smoke. Alcohol occasionally. 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 Physical examination: VITAL SIGNS: 97.8, 96, 24, 139.92, 94% room air GENERAL: Reclining in bed, appears more comfortable EYES: Pupils equal. Conjunctiva teresa l. HEENT: External appearance of nose and ears normal, oral cavity grossly normal. NECK: JVD not raised; masses not palpable. HEART: Heart sounds regular; s 70 reason edema LUNGS: Respiratory rate increased, decreased breath sounds. ABDOMEN: Soft, nontender, liver spleen not palpable, no masses palpable. PSYCH: Alert and oriented x3; mood and affect anxious MUSCULOSKELETAL:No Clubbing/cyanosis;muscles-grossly intact NEUROLOGICAL: Cranial nerves grossly intact; no facial asymmetry, power and sensation grossly intact. INVESTIGATIONS, reviewed in the clinical context: 2D echo: EF 50%. TSH 1.02 May 20, 2024: White count 5.7 hemoglobin 13.9 platelets sodium 138 potassium 4.4 BUN 20 creatinine 0.93 Troponin I less than 0.012 EKG tracing personally reviewed by me-atrial fibrillation. Rate 141 Chest x-ray film personally reviewed by me-some cardiomegaly. Some unfolding of the aorta. Some venous prominence Assessment plan: -Persistent atrial fibrillation: Rate uncontrolled. Symptomatic. On presentation. Now in sinus rhythm IV Cardizem discontinued. Toprol-XL increased to 50 mg a day Xarelto 20 mg with supper being started - Acute congestive heart failure, with preserved ejection fraction, precipitated by A-fib: Improving IV Lasix 40 every 12. Fluid restriction. -Chronic, psychosis Risperdal. Trazodone. -Intermittent asthma Advair. Singulair. Albuterol HFA as needed -Hyperlipidemia Lipitor 10 mg nightly -Morbid obesity BMI 47.5 Weight loss measures -Full code Increase activity. IV Cardizem discontinued. Toprol-XL increased. Xarelto added. On IV Lasix. Follow labs Past Medical History Past Medical History: Atrial Fibrillation, Asthma, Cancer, Hyperlipidemia, Hypertension, Osteoarthritis (OA), Pneumonia Additional Past Medical History / Comment(s): chronic back pain, Klinnefelter Syndrome chronic back pain (degenerative disk L3 and L4), healed cellulitis bilateral lower legs, hx thrombocytopenia 2009 when tx for kidney cancer. covid 2020 History of Any Multi-Drug Resistant Organisms: None Reported Past Surgical History: Joint Replacement, Orthopedic Surgery Additional Past Surgical History / Comment(s): total R knee arthroplasty. LEFT shoulder rotator cuff tear, 2009 kidney ca removed portion of right kidney, 2011 carpectomy left wrist, TLK, Past Anesthesia/Blood Transfusion Reactions: No Reported Reaction Additional Past Anesthesia/Blood Transfusion Reaction / Comment(s): "incision popped open day of surgery with other knee replacement, ended up staying 5 days with knee immobilized" Past Psychological History: Depression Smoking Status: Never smoker
[2024-05-21] MEDS: RIVAROXABAN 20 MG TAB PO SCH (17:45)
[2024-05-21] MEDS: ACETAMINOPHEN TAB 325 MG TAB PO PRN (18:58)
[2024-05-22 05:22] VITALS: TEMP 97.9
[2024-05-22 08:08] LABS: African American GFR (CKD) 85 (>60 ml/min/1.73 sqM); Anion Gap 7 mmol/L; Blood Urea Nitrogen 21 mg/dL (9-20); Calcium 9.4 mg/dL (8.4-10.2); Carbon Dioxide 30 mmol/L (22-30); Chloride 98 mmol/L (98-107); Glucose 115 mg/dL (74-99); Non-African American GFR(CKD) 74 (>60 ml/min/1.73 sqM); Potassium 4.1 mmol/L (3.5-5.1); Sodium 135 mmol/L (137-145)
[2024-05-22 08:56] VITALS: BP 123/81; PULSE 98; RESP 16
--- NOTE | 2024-05-22 14:17 | P.PN ---
Subjective HISTORY OF PRESENT ILLNESS: This is a 63-year-old male previously seen in the office by Dr. EVA Mitchell in 2014. He has not followed with a residential counselor since. He has past medical history of atrial fibrillation diagnosed in November 2023, dyslipidemia, hypertension. Patient denies history of diabetes. We have been asked to evaluate the patient for A-fib with RVR. Patient states that he was at his PCP office, Dr. Bettye Chris, had difficulty in breathing and was sent to the emergency center. He states he is having difficulty breathing for the past month gradually worsening. He also states he has had cough no fever, no dizziness, no syncopal episodes. He denies wheezing. He has had lower extremity edema and PND. He denies abdominal pain. He states he is a non-smoker. He does not use caffeine. He drinks alcohol occasionally and the last intake was 4 months ago. He does state that he has had a 50 pound weight gain over the past 3 months. He states that he probably snores but he has not been tested for obstructive sleep apnea. Blood pressure 121/84, heart rate 116, pulse ox 92% on room air. Patient is status post 1 L of IV fluid, Cardizem bolus 5 mg followed by 10 mg bolus and Cardizem drip at 10 mg/h. Patient converted to sinus rhythm after carotid massage. Patient is seen today in the emergency center waiting for a bed on the cardiac stepdown unit. -EKG: Atrial fibrillation at 141 bpm. Repeat EKG is sinus rhythm. -Chest x-ray: No acute cardiopulmonary process. -Laboratory studies: WBC 5.7, hemoglobin 13.9, sodium 138, potassium 4.4, BUN 20, creatinine 0.93. Magnesium 1.7. Troponin negative x 1. -Home cardiac medications: Aspirin 325 mg daily, atorvastatin 10 mg at bedtime, metoprolol succinate 25 mg daily. -Echocardiogram performed 09/30/2022 revealed LVH with preserved systolic function, mildly enlarged RV, mild aortic stenosis, severe elevation of RVSP. -Stress echocardiogram performed 10/01/2022 revealed normal treadmill stress echocardiogram. Poor exercise tolerance achieving 7 METS and 97% of max predicted heart rate. 05/22/2024 Patient examined this with the bedside. Patient currently denies chest pain or pressure. He denies shortness of breath. Vital signs are stable. He is maintaining sinus mechanism. Echocardiogram completed revealed ejection fraction of 50% with mild aortic stenosis PHYSICAL EXAM: VITAL SIGNS: Reviewed. GENERAL: Well-developed in no acute distress. NECK: Supple. No JVD or thyromegaly LUNGS: Respirations even and unlabored. Lungs essentially clear to auscultation bilaterally. HEART: Regular rate and rhythm. S1 and S2 heard. Systolic murmur noted EXTREMITIES: Normal range of motion. No clubbing or cyanosis. Peripheral pulses intact. No lower extremity edema ASSESSMENT: Paroxysmal atrial fibrillation with RVR, converted to sinus rhythm Hypertension Hyperlipidemia Mild aortic stenosis Pulmonary hypertension PLAN: Continue current cardiac medications including Lasix, metoprolol, Xarelto, Lipitor Patient is stable for discharge home today from a cardiac standpoint Patient to follow-up postdischarge in the office with Dr. Strauss Nurse practitioner note has been reviewed by physician. Signing provider agrees with the documented findings, assessment, and plan of care documented by [employer] as a scribe. Objective - Vital Signs Vital signs: Vital Signs Temp 97.9 F 05/22/24 04:00 Pulse 98 05/22/24 08:55 Resp 16 05/22/24 08:55 BP 123/81 05/22/24 08:55 Pulse Ox 94 L 05/22/24 08:55 FiO2 Intake & Output 05/21/24 05/22/24 05/22/24 18:59 06:59 18:59 Intake Total 600 250 780 Output Total 1300 Balance 600 -1050 780 Weight 163.293 kg 160 kg Intake: IV 10 10 Invasive Line 1 10 10 Oral 590 240 780 Output: Urine 1300 Other: Voiding Method Urinal Urinal # Bowel Movements 1 - Labs CBC & Chem 7: 05/20/24 11:05 05/22/24 06:45 Labs: Abnormal Lab Results - Last 24 Hours (Table) 05/22/24 Range/Units 06:45 Sodium 135 L (137-145) mmol/L BUN 21 H (9-20) mg/dL Glucose 115 H (74-99) mg/dL
--- NOTE | 2024-05-22 19:10 | P.DS ---
Providers Date of admission: 05/20/24 16:03 Expected date of discharge: 05/22/24 Attending physician: Fred Jefferson Consults: 05/20/24 12:36 Consult Physician Stat Consulting Provider: Manuel Hernandez Consult Reason/Comments: A-fib with RVR Do you want consulting provider notified?: Yes Primary care physician: [facility] Course: Chief Complaint: Short of breath Pleasant 63-year-old, male who follows with Dr. Hernandez. Chronic medical conditions include atrial fibrillation, intermittent asthma, hyperlipidemia, psychosis. Patient has known atrial fibrillation. For 7 days patient been getting more short of breath. Has been going to his work. Went to Dr. Hernandez's clinic this morning. Was found to be in heart rate of 142. Sent down to the ER. He has been noticing edema in the lower extremity for about a month. Does use 1 pillow at night. Today also was perspiring. No chest pain. No fever no chills. ER and rapid ventricular rate. Put on Cardizem drip. May 21: Breathing better. Made good urine output with IV Lasix. Remains the same. Some decrease in edema. Has reverted to sinus rhythm. Cardizem drip di scontinued. Toprol-XL increased to 50 mg a day. May 22: Doing well. Sinus rhythm. Told the patient took Lasix 3 times a day. Fluid restriction. Follow-up with his senior staff accountant. Discussed with the . Patient has lower extremity some varicose veins. YO stockings provided. Discussion and discharge planning more than 35 minutes Social history: Lives with his s. Does not smoke. Alcohol occasionally. 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 Physical examination: VITAL SIGNS: 97.9, 83, 18, 03/07/1987, 93% room air GENERAL: Reclining in bed, appears more comfortable EYES: Pupils equal. Conjunctiva teresa l. HEENT: External appearance of nose and ears normal, oral cavity grossly normal. NECK: JVD not raised; masses not palpable. HEART: Heart sounds regular; much improved edema LUNGS: Respiratory rate increased, decreased breath sounds. ABDOMEN: Soft, nontender, liver spleen not palpable, no masses palpable. PSYCH: Alert and oriented x3; mood and affect anxious MUSCULOSKELETAL:No Clubbing/cyanosis;muscles-grossly intact NEUROLOGICAL: Cranial nerves grossly intact; no facial asymmetry, power and sensation grossly intact. INVESTIGATIONS, reviewed in the clinical context: May 22: Potassium 4.1 creatinine 1.08 2D echo: EF 50%. TSH 1.02 May 20, 2024: White count 5.7 hemoglobin 13.9 platelets sodium 138 potassium 4.4 BUN 20 creatinine 0.93 Troponin I less than 0.012 EKG tracing personally reviewed by me-atrial fibrillation. Rate 141 Chest x-ray film personally reviewed by me-some cardiomegaly. Some unfolding of the aorta. Some venous prominence Assessment plan: -Persistent atrial fibrillation: Rate uncontrolled. Symptomatic. On presentation. Now in sinus rhythm IV Cardizem discontinued. Toprol-XL increased to 50 mg a day Xarelto 20 mg with supper - Acute congestive heart failure, with preserved ejection fraction, precipitated by A-fib: Improving IV Lasix 40 every 12. Fluid restriction. Discharged with Lasix 40 mg 3 times a day. Fluid restriction 2000 cc a day. -Chronic, psychosis Risperdal. Trazodone. -Intermittent asthma Advair. Singulair. Albuterol HFA as needed -Hyperlipidemia Lipitor 10 mg nightly -Morbid obesity BMI 47.5 Weight loss measures -Full code Disposition: Home Past Medical History Past Medical History: Atrial Fibrillation, Asthma, Cancer, Hyperlipidemia, H ypertension, Osteoarthritis (OA), Pneumonia Additional Past Medical History / Comment(s): chronic back pain, Klinnefelter Syndrome chronic back pain (degenerative disk L3 and L4), healed cellulitis bilateral lower legs, hx thrombocytopenia 2009 when tx for kidney cancer. covid 2020 History of Any Multi-Drug Resistant Organisms: None Reported Past Surgical History: Joint Replacement, Orthopedic Surgery Additional Past Surgical History / Comment(s): total R knee arthroplasty. LEFT shoulder rotator cuff tear, 2009 kidney ca removed portion of right kidney, 2011 carpectomy left wrist, TLK, Past Anesthesia/Blood Transfusion Reactions: No Reported Reaction Additional Past Anesthesia/Blood Transfusion Reaction / Comment(s): "incision popped open day of surgery with other knee replacement, ended up staying 5 days with knee immobilized" Past Psychological History: Depression Smoking Status: Never smoker Plan - Discharge Summary Discharge Rx Participant: No New Discharge Prescriptions: New Furosemide [Lasix] 40 mg PO DAILY PRN #30 tablet PRN Reason: Dyspnea Metoprolol Succinate (ER) [Toprol XL] 50 mg PO DAILY #30 tab Rivaroxaban [Xarelto] 20 mg PO W/SUPPER #30 tab Continue Montelukast [Singulair] 10 mg PO HS Atorvastatin [Lipitor] 10 mg PO HS Testosterone Cypionate [Depo-Testosterone] 200 mg IM Q21D Sertraline [Zoloft] 50 mg PO HS 30 Days #30 tab risperiDONE [RisperDAL] 0.5 mg PO BID 30 Days #60 tab HYDROcodone/APAP 7.5-325MG [[place] 7.5-325] 1 tab PO BID PRN 30 Days #60 tab PRN Reason: Pain traZODone HCL [Desyrel] 100 mg PO HS Albuterol Sulfate [Albuterol Sulfate Hfa] 2 puff PO RT-QID PRN PRN Reason: Shortness Of Breath Fluticasone Propion/Salmeterol [Advair 250-50 Diskus] 1 puff INHALATION DIRECTED Discontinued Ibuprofen [Motrin] 800 mg PO TID PRN PRN Reason: Pain Metoprolol Succinate (ER) [Toprol XL] 25 mg PO DAILY 30 Days #30 tab Loratadine-Pseudoeph 10-240 mg [Claritin-D 24 Hour] 1 tab PO DAILY PRN PRN Reason: Allergy Symptoms Aspirin 325 mg PO DAILY 30 Days #30 tab Discharge Medication List Montelukast [Singulair] 10 mg PO HS 03/23/19 [History] Atorvastatin [Lipitor] 10 mg PO HS 09/29/22 [History] Testosterone Cypionate [Depo-Testosterone] 200 mg IM Q21D 11/16/23 [History] Sertraline [Zoloft] 50 mg PO HS 30 Days #30 tab 11/21/23 [Rx] risperiDONE [RisperDAL] 0.5 mg PO BID 30 Days #60 tab 11/21/23 [Rx] HYDROcodone/APAP 7.5-325MG [[place] 7.5-325] 1 tab PO BID PRN 30 Days #60 tab 04/14/24 [Rx] traZODone HCL [Desyrel] 100 mg PO HS 05/05/24 [History] Albuterol Sulfate [Albuterol Sulfate Hfa] 2 puff PO RT-QID PRN 05/20/24 [History] Fluticasone Propion/Salmeterol [Advair 250-50 Diskus] 1 puff INHALATION DIRECTED 05/20/24 [History] Furosemide [Lasix] 40 mg PO DAILY PRN #30 tablet 05/22/24 [Rx] Metoprolol Succinate (ER) [Toprol XL] 50 mg PO DAILY #30 tab 05/22/24 [Rx] Rivaroxaban [Xarelto] 20 mg PO W/SUPPER #30 tab 05/22/24 [Rx] Follow up Appointment(s)/Referral(s): Oumou Strauss MD [STAFF PHYSICIAN] - 1 Week Isiah Hernandez DO [Primary Care Provider] - 1-2 days Patient Instructions/Handouts: A-fib (Atrial Fibrillation) (DC) Activity/Diet/Wound Care/Special Instructions: fluid 2000 cc/day - restrict Discharge Disposition: HOME SELF-CARE
== END 2024-05-22 12:41 | disposition home or self-care (01) | DRG 291 ==
LOC: EC 09:53 → 3SCARD 16:03
PROVIDERS: ADMIT Hospitalist; ATTEND Hospitalist
DX: I11.0 Hypertensive heart disease with heart failure (principal); I50.31 Acute diastolic (congestive) heart failure; F29 Unspecified psychosis not due to a substance or known physiological condition; I27.20 Pulmonary hypertension, unspecified; Z79.01 Long term (current) use of anticoagulants; E66.01 Morbid (severe) obesity due to excess calories; J45.20 Mild intermittent asthma, uncomplicated; F32.A Depression, unspecified; I10 Essential (primary) hypertension; I48.19 Other persistent atrial fibrillation; Z68.42 Body mass index [BMI] 45.0-49.9, adult; E78.5 Hyperlipidemia, unspecified; G89.29 Other chronic pain; M51.369 Other intervertebral disc degeneration, lumbar region without mention of lumbar back pain or lower extremity pain; M19.90 Unspecified osteoarthritis, unspecified site; Z79.82 Long term (current) use of aspirin; Z79.899 Other long term (current) drug therapy; Z86.16 Personal history of COVID-19; Z96.651 Presence of right artificial knee joint; Z87.01 Personal history of pneumonia (recurrent); Z85.528 Personal history of other malignant neoplasm of kidney; Z90.5 Acquired absence of kidney; Z88.2 Allergy status to sulfonamides; Z91.041 Radiographic dye allergy status; Z86.2 Personal history of diseases of the blood and blood-forming organs and certain disorders involving the immune mechanism
CPT/HCPCS: 36415; 71046; 80048; 80053; 83735; 84443; 84484; 85025; 85610; 85730; 93005; 93306; 96361; 96365; 96366; 96372; 96375; 96376; 99291

== ENCOUNTER → 2024-05-24 | Outpatient (CLI) | payer BC ==
[2024-05-24 13:07] VITALS: BP 133/88; PULSE 86; RESP 19; TEMP 98.3
--- NOTE | 2024-05-24 15:25 | P.PAINPG ---
Objective - Vital Signs Vital signs: Vital Signs Temp 98.3 F 05/24/24 13:03 Pulse 86 05/24/24 13:03 Resp 19 05/24/24 13:03 BP 133/88 05/24/24 13:03 Pulse Ox 94 L 05/24/24 13:03 FiO2 Intake & Output 05/23/24 05/24/24 05/24/24 18:59 06:59 18:59 Weight 151.953 kg PQRS Measure Charge Sheet Mode of Arrival: Ambulatory Comment: HISTORY OF PRESENT ILLNESS: A 63 yr old male w at side presents today w severe and chronic LBP > 1 yr secondary to radiculopathy, spondylosis and facet arthropathy without myelopathy for evaluation s/p MACARIO L4-L5 #1. Pt states he experienced 50% pain relief x 2 wks s/p procedure. Pt states pain level is provoked at 5-6 /10 in intensity, constant, localized in the lumbar spine, predominantly axial, achy in character without shooting pain. Pain is provoked by bending, lifting. Pain is alleviated by chiropractic treatments semi monthly x 3 mo which ended in Dec 2023, physician guided home stretches 4-5 times weekly since Dec 2023, medications, topical, heat, manual massage, repositioning and rest . Interventional procedures include MACARIO L4-L5 x1 Medications include Ibu, Icy-Hot. Hx of Recreational Cocaine, Methamphetamine, Cannabis use (12/03) w Hallucinations REVIEW OF ORGAN SYSTEMS: CONSTITUTIONAL: No fevers or chills. No recent weight loss. NEUROLOGICAL: + numbness and tingling along the distal extremities. No seizure disorders or headaches. MUSCULOSKELETAL: + pain PSYCHIATRIC: Denies current depression or suicidal thoughts. Physical Examinations : Constitutional : Cooperative , not in acute distress . Neurologic : Cranial nerve II to XII intact. No focal neurological deficits. Psychiatric : alert & oriented x 3. Matching mood & appropriate affect. Judgment & insight intact. Musculoskeletal : Cervical Spine Motor strength in the deltoid and biceps: Normal right side. Normal Left side Motor strength biceps and the wrist extensors: Normal right side . Normal left side Motor strength in the triceps muscle: Normal right side. Normal left side Deep tendon reflexes: Normal at the biceps. Normal at Brachioradialis. Normal at triceps Vertebral body tenderness to deep palpation over Cervical facet loading test: positive bilaterally Spurling test: positive bilaterally Neck distraction test: positive bilaterally Ofelia sign: positive bilaterally Lumbar spine Motor strength lower extremities ,thigh and legs 5/5 Right side , 5/5 Left side Deep tendon reflexes : Normal Knee Jerk. Normal Ankle Jerk Vertebral body tenderness over L4 [place] Test positive BL L4-L5 Lumbar facet Loading Test: positive Right / positive Left Range of motion of the lumbar spine Flexion 30 degrees, extension 10 degrees Straight Leg Raise test: Left/ Right positive at degrees Coy test: positive right / positive left. Severe tenderness over the Sacroiliac joint on the Right / Left sides Gaenslen test: positive bilaterally Seated flexion test: positive bilaterally. Sacral spine : Severe tenderness over the Sacroiliac joint: right side / left side Range of motion: Flexion of the lumbar spine <60 degrees Range of motion: Extension of the lumbar spine <20 degrees Gaenslen's Test positive Coy test: positive right side / left side Thigh Thrust Test Sacral Thrust Test Imaging: MRI non contrast lubmar spine from 03/26/24 reviewed Assessment/ Plan : L3-L4/ L4-L5 anterolisthesis Recommendation of MACARIO L4-L5 #2 abnd medication management. UDS collected 05/24/24. MAPS shows last med fill over 1 mo ago so UDS may be negative for opiates. Risks, benefits of procedure discussed and patient verbalized understanding. Admits to anti- coagulant use or medical history of diabetes. Protocol for discontinuation/ continuation of medications jonathan procedure discussed. Opiate/ narcotic agreement signed 04/14/24. [place] 7.5/325mg #60 w 1 RF. Use, side effects, adverse reactions, safe storage discussed. All questions answered. I have spent greater than 30 minutes on patient care today. Dr Irwin was available by phone for the evaluation of this patient. The time was used to review the medical records including relevant urine studies and Prescription history (MAPs), review of the available imaging, evaluation and examination of the patient, coordination of care with the medical staff and if applicable referring physicians, as well as creation of the medical record - Pain Location Lower Back Non-Pharmacological Interventions: Heat, Ice Pharmacological Interventions: Medication, Topical Medication PQRS Narrative: Smoking Status Never smoker Blood Pressure 133/88 Pain Intensity [Lower Back] 5 Scale Used Numeric (1 - 10) Hx Alcohol Use (MH) No Home Medications: Ambulatory Orders Montelukast [Singulair] 10 mg PO HS 03/23/19 Atorvastatin [Lipitor] 10 mg PO HS 09/29/22 Testosterone Cypionate [Depo-Testosterone] 200 mg IM Q21D 11/16/23 Sertraline [Zoloft] 50 mg PO HS 30 Days #30 tab 11/21/23 risperiDONE [RisperDAL] 0.5 mg PO BID 30 Days #60 tab 11/21/23 traZODone HCL [Desyrel] 100 mg PO HS 05/05/24 Albuterol Sulfate [Albuterol Sulfate Hfa] 2 puff PO RT-QID PRN 05/20/24 Fluticasone Propion/Salmeterol [Advair 250-50 Diskus] 1 puff INHALATION DIRECTED 05/20/24 Furosemide [Lasix] 40 mg PO DAILY PRN #30 tablet 05/22/24 Metoprolol Succinate (ER) [Toprol XL] 50 mg PO DAILY #30 tab 05/22/24 Rivaroxaban [Xarelto] 20 mg PO W/SUPPER #30 tab 05/22/24 HYDROcodone/APAP 7.5-325MG [[place] 7.5-325] 1 tab PO BID PRN 30 Days #60 tab 05/24/24 HYDROcodone/APAP 7.5-325MG [[place] 7.5-325] 1 tab PO BID PRN 30 Days #60 tab 05/24/24 Controlled Substance Measures - Controlled Substance Measures Is patient prescribed a controlled substance at discharge?: Yes When asked, does pt state using other controlled substances?: Yes If prescribed controlled substance>3 days was MAPS reviewed?: Yes
== END ==
LOC: PNWHC3 12:45
PROVIDERS: ATTEND Specialist
DX: M43.16 Spondylolisthesis, lumbar region (principal); Z88.2 Allergy status to sulfonamides; Z91.013 Allergy to seafood; Z91.041 Radiographic dye allergy status; Z88.1 Allergy status to other antibiotic agents
CPT/HCPCS: 80307; 99212

== ENCOUNTER 2024-06-11 08:36 | Day surgery (SDC) | payer BC ==
[2024-06-09 16:03] VITALS: BMI 46.8
[2024-06-11] MEDS ORDERED: LACTATED RINGERS 1,000 ML IV SCH (08:53)
[2024-06-11 09:01] VITALS: TEMP 97.4
[2024-06-11] MEDS ORDERED: methylPREDNISolone ACETATE 80 MG/ML 1 ML VIAL ONE (10:14)
--- NOTE | 2024-06-11 10:22 | P.PCN ---
Date of Procedure: 06/11/24 Procedure(s) Performed: PREOPERATIVE DIAGNOSIS: 1- Lumbar radiculopathy 2-Lumbar spondylosis with Facet arthropathy without myelopathy. 3-lumbar herniated disc disease POSTOPERATIVE DIAGNOSIS: 1-lumbar radiculopathy 2-lumbar spondylosis with facet arthropathy without myelopathy. 3-lumbar herniated disc disease. PROCEDURE 1. Lumbar epidural steroid injection under fluoroscopic guidance at the L4-5 level. (Fluoroscopy imaging was available in radiology department) . ANESTHESIA: Lidocaine 1% 3 and then only. EBL: Minimal PROCEDURE INDICATION: The patient with low back pain and radiculitis symptoms unresponsive to conservative treatment. Fluoroscopy was used to optimize visualization of the needle placement and to maximize safety. PROCEDURE DESCRIPTION / TECHNIQUE: The patient was seen and identified in the preoperative area. Risks, benefits, complications including but not limited to infections ,bleeding ,allergic reaction to the medications ,nerve damage and not complete pain releife , and alternatives were discussed with the patient. The patient agreed to proceed with the procedure and signed the consent, and vital signs were stable. Patient was taken to the OR and time out was completed. The patient was placed in the prone position on procedure table and a pillow was placed under the abdomen to reduce lumbar lordosis. The lumbosacral area was prepped and draped in the usual sterile fashion.ere closely monitored during the procedure. Vital signs was monitered during the entire procedure. Using anterior-posterior fluoroscopy, the L4-5 interlaminar space was identified and the skin over this site was marked and then infiltrated with 1% lidocaine subcutaneously. Subsequently, a 18-gauge inches long Tuohy epidural needle was inserted and advanced toward the epidural space using the ``Loss of resistance technique and guided by AP and lateral fluoroscopy. The correct needle position in the epidural space the AP and lateral view, after negative aspiration for blood and CSF and in the absence of paresthesias. Again after negative aspiration, a 6 ml mixture containing 80 mg of Depo-medrol ( Preservetive Free ), and 2 ml of preservative free Normal Saline, and 2 ml of preservative free lidocaine 1% solution was injected. Needle was withdrawn intact, skin was cleansed, and bandages were applied. COMPLICATIONS: None DISPOSITION / PLANS: The patient was placed in a supine position and transferred to the recovery area in a stable condition for observation. There was no evidence of lower extremity motor or sensory deficit after the procedure. Patient was discharged from the recovery room after meeting discharge criteria. Home discharge instructions were given to the patient by the staff. The patient was reexamined prior to discharge. The patient will schedule a follow up in the clinic in 2-4 weeks. Last dose of Xarelto was taken more than 3 days ago. Isovue was not used because patient had allergy to IVP dye
--- NOTE | 2024-06-11 10:27 | FL ---
EXAMINATION TYPE: FL guided pain mgmt statistic DATE OF EXAM: 06/11/2024 FLUOROSCOPY LESI, 2SEC FL TIME, [id number] One image is submitted. [facility], Workstation: [id number], 06/11/2024 10:25 AM
[2024-06-11 10:42] VITALS: BP 115/76; PULSE 70; RESP 18
== END 2024-06-11 10:57 | disposition home or self-care (01) ==
LOC: ORPAIN 08:36
PROVIDERS: ATTEND Specialist
DX: M47.26 Other spondylosis with radiculopathy, lumbar region (principal); M51.16 Intervertebral disc disorders with radiculopathy, lumbar region; Z79.01 Long term (current) use of anticoagulants; Z88.8 Allergy status to other drugs, medicaments and biological substances; Z91.013 Allergy to seafood; Z88.1 Allergy status to other antibiotic agents
CPT/HCPCS: 62323; J1010

== ENCOUNTER 2024-08-02 08:40 | Emergency (ER) | payer BC ==
[2024-08-02 09:46] LABS: Basophils # (A) 0.03 10*3/uL (0.00-0.10); Basophils % (A) 0.4 %; Eosinophils # (A) 0.02 10*3/uL (0.04-0.35); Eosinophils % (A) 0.3 %; HCT 41.9 % (39.6-50.0); HGB 14.6 g/dL (13.0-17.0); Lymphocytes # (A) 1.36 10*3/uL (0.90-5.00); Lymphocytes % (A) 17.4 %; MCHC 34.8 g/dL (32.0-37.0); MCV 86.2 fL (80.0-97.0); Monocytes # (A) 0.72 10*3/uL (0.20-1.00); Monocytes % (A) 9.2 %; Neutrophils # (A) 5.65 10*3/uL (1.80-7.70); Neutrophils % (A) 72.4 %; RBC 4.86 10*6/uL (4.40-5.60)
[2024-08-02 09:49] LABS: INR 1.1 (<1.2); Partial Thromboplastin Time 26.2 sec (22.0-30.0); Prothrombin Time 11.7 sec (10.0-12.5)
--- NOTE | 2024-08-02 09:57 | XR ---
EXAMINATION TYPE: XR chest 2V DATE OF EXAM: 08/02/2024 9:43 AM COMPARISON: 05/20/2024 CLINICAL INDICATION: Male, 63 years old with history of dysrhythmia, TECHNIQUE: XR chest 2V view(s) obtained. FINDINGS: The heart size is normal. The pulmonary vasculature is normal. The lungs are clear. IMPRESSION: 1. No acute pulmonary process. [facility], , 08/02/2024 9:54 AM
--- NOTE | 2024-08-02 10:08 | ED ---
General Adult HPI - General Chief complaint: Arrhythmia/Palpitations Stated complaint: AFIB Time Seen by Provider: 08/02/24 09:15 Source: patient, RN notes reviewed, old records reviewed Mode of arrival: ambulatory Limitations: no limitations - History of Present Illness Initial comments: 63-year-old presenting from the primary care office with atrial fibrillation with rapid ventricular response. Patient has known A-fib he is on Eliquis and metoprolol 50 mg extended release. Patient took this medication this morning. He was seen by primary care and sent to the hospital for evaluation. He has a scheduled ablation in approximately 3 weeks. No central chest pain. No vomiting. No fever. - Related Data Home Medications Medication Instructions Recorded Confirmed Montelukast [Singulair] 10 mg PO HS 03/23/19 06/09/24 Atorvastatin [Lipitor] 10 mg PO HS 09/29/22 06/09/24 Testosterone Cypionate 200 mg IM Q21D 11/16/23 06/09/24 [Depo-Testosterone] traZODone HCL [Desyrel] 100 mg PO HS 05/05/24 06/09/24 Albuterol Sulfate [Albuterol 2 puff PO RT-QID PRN 05/20/24 06/09/24 Sulfate Hfa] Fluticasone Propion/Salmeterol 1 puff INHALATION DIRECTED 05/20/24 06/09/24 [Advair 250-50 Diskus] Furosemide [Lasix] 40 mg PO Q48H PRN 06/09/24 06/09/24 diazePAM [Valium] 5 mg PO DIRECTED 06/09/24 06/09/24 Previous Rx's Medication Instructions Recorded Sertraline [Zoloft] 50 mg PO HS 30 Days #30 tab 11/21/23 risperiDONE [RisperDAL] 0.5 mg PO BID 30 Days #60 tab 11/21/23 Metoprolol Succinate (ER) [Toprol 50 mg PO DAILY #30 tab 05/22/24 XL] Rivaroxaban [Xarelto] 20 mg PO W/SUPPER #30 tab 05/22/24 HYDROcodone/APAP 7.5-325MG [[place] 1 tab PO BID PRN 30 Days #60 tab 07/08/24 7.5-325] Metoprolol Succinate (ER) [Toprol 100 mg PO DAILY #30 tab 08/02/24 Xl] Allergies Allergy/AdvReac Type Severity Reaction Status Date / Time Iodinated Contrast Media Allergy Severe Anaphylaxis Verified 08/02/24 09:03 [Iodinated Contrast Media - IV Dye] shellfish derived Allergy Severe Anaphylaxis Verified 08/02/24 09:03 sulfamethoxazole Allergy Severe Anaphylaxis Verified 08/02/24 09:03 [From Bactrim] trimethoprim [From Bactrim] Allergy Severe Anaphylaxis Verified 08/02/24 09:03 Review of Systems ROS Statement: Those systems with pertinent positive or pertinent negative responses have been documented in the HPI. ROS Other: All systems not noted in ROS Statement are negative. Past Medical History Past Medical History: Atrial Fibrillation, Asthma, Cancer, Hyperlipidemia, Hypertension, Osteoarthritis (OA), Pneumonia Additional Past Medical History / Comment(s): Hospitalized 05/20/24-new onset Afib. 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 covid 2020 History of Any Multi-Drug Resistant Organisms: None Reported Past Surgical History: Joint Replacement, Orthopedic Surgery Additional Past Surgical History / Comment(s): "Nerve cauterization" procedure in back 5-10 years ago. B/L knee arthroplasty. L shoulder rotator cuff tear, 2009 kidney CA- removed portion of R kidney, 2011 carpectomy L wrist, TLK. Past Anesthesia/Blood Transfusion Reactions: No Reported Reaction Additional Past Anesthesia/Blood Transfusion Reaction / Comment(s): "incision popped open day of surgery with other knee replacement, ended up staying 5 days with knee immobilized" Past Psychological History: Depression Smoking Status: Never smoker Past Alcohol Use History: None Reported Past Drug Use History: None Reported - Past Family History Father Family Medical History: Cancer Additional Family Medical History / Comment(s): colon Mother Family Medical History: AFIB, Asthma General Exam Limitations: no limitations General appearance: alert, in no apparent distress Head exam: Present: atraumatic, normocephalic Eye exam: Present: normal appearance, PERRL ENT exam: Present: normal exam Neck exam: Present: normal inspection. Absent: tenderness, meningismus Respiratory exam: Present: normal lung sounds bilaterally. Absent: respiratory distress, wheezes Cardiovascular Exam: Present: tachycardia, irregular rhythm GI/Abdominal exam: Present: soft. Absent: distended, tenderness Extremities exam: Present: normal inspection, normal capillary refill. Absent: pedal edema Neurological exam: Present: alert, oriented X3, CN II-XII intact. Absent: motor sensory deficit Psychiatric exam: Present: normal affect, normal mood Skin exam: Present: warm, dry, intact. Absent: cyanosis, diaphoretic Course Vital Signs 08/02/24 08/02/24 08/02/24 09:01 10:00 10:03 Temperature 98.0 F Pulse Rate 67 116 H Pulse Rate [ 138 H Carbon Plant Grinder ] Respiratory 19 18 Rate Blood Pressure 127/81 O2 Sat by Pulse 95 96 Oximetry 08/02/24 10:23 Temperature Pulse Rate 107 H Pulse Rate [ Carbon Plant Grinder ] Respiratory 18 Rate Blood Pressure 124/77 O2 Sat by Pulse 96 Oximetry Medical Decision Making - Medical Decision Making Was pt. sent in by a medical professional or institution (JEAN Gonzalez, GERONTOLOGY AIDE, urgent care, hospital, or long-term...) When possible be specific @ -No Did you speak to anyone other than the patient for history (EMS, parent, family, police, friend...)? What history was obtained from this source @ -No Did you review nursing and triage notes (agree or disagree)? Why? @ -I reviewed and agree with nursing and triage notes Were old charts reviewed (outside hosp., previous admission, EMS record, old EKG, old radiological studies, urgent care reports/EKG's, long-term records)? Report findings @ -No old charts were reviewed MDM differential palpitation EKG interpreted by me (3pts min.). @ -Atrial fibrillation with RVR rate of 113 QRS duration 94, QTc [address] se gment elevation. X-rays interpreted by me (1pt min.). @ -[Negative for acute cardiopulmonary findings CT interpreted by me (1pt min.). @ -None done U/S interpreted by me (1pt. min.). @ -None done What testing was considered but not performed or refused? (CT, X-rays, U/S, labs)? Why? @ -None What meds were considered but not given or refused? Why? @ -None Did you discuss the management of the patient with other professionals (professionals i.e. , JEAN, GERONTOLOGY AIDE, lab, RT, psych nurse, social media strategist, ranch manager, teacher, armed security officer, counter caser)? Give summary @Case discussed with Dr. Victor who recommends increasing Toprol from 50 to 100mg Was smoking cessation discussed for >3mins.? @ -No Was critical care preformed (if so, how long)? @ -No Were there social determinants of health that impacted care today? How? (Homelessness, low income, unemployed, alcoholism, drug addiction, transpor tation, low edu. Level, literacy, decrease access to med. care, snf, rehab)? @ -No Was there de-escalation of care discussed even if they declined (Discuss DNR or withdrawal of care, Hospice)? DNR status @ -No What co-morbidities impacted this encounter? (DM, HTN, Smoking, COPD, CAD, Cancer, CVA, ARF, Chemo, Hep., AIDS, mental health diagnosis, sleep apnea, morbid obesity)? @ -A-fib Was patient admitted / discharged? Hospital course, mention meds given and route, prescriptions, significant lab abnormalities, going to OR and other pertinent info. @ 63-year-old presents for evaluation of palpitation, history of atrial fibrillation with scheduled ablation in the upcoming weeks. Patient is otherwise well-appearing, A-fib is ranging from 90-1 30. Laboratory testing is unremarkable. Patient care is discussed with Dr. Victor, who recommends increasing Toprol dose. Patient will take this new medication he will return with worsening or changing symptoms. Undiagnosed new problem with uncertain prognosis? @ -No Drug Therapy requiring intensive monitoring for toxicity (Heparin, Nitro, Insulin, Cardizem)? @ -No Were any procedures done? @ -No Diagnosis/symptom? @ -[Atrial fibrillation Acute, or Chronic, or Acute on Chronic? @ -Acute on chronic Uncomplicated (without systemic symptoms) or Complicated (systemic symptoms)? @ -Default Side effects of treatment? @ -No Exacerbation, Progression, or Severe Exacerbation? @ -No Poses a threat to life or bodily function? How? (Chest pain, [place], [place], pneumonia, PE, COPD, DKA, ARF, appy, cholecystitis, CVA, Diverticulitis, Homicidal, Suicidal, threat to staff... and all critical care pts) @ -Low risk at this time - Lab Data Result diagrams: 08/02/24 09:35 08/02/24 09:35 Lab Results 06/08/02/24 08/02/24 Range/Units 09:35 09:35 09:35 WBC 7.80 (4.50-10.00) 10*3/uL RBC 4.86 (4.40-5.60) 10*6/uL Hgb 14.6 (13.0-17.0) g/dL Hct 41.9 (39.6-50.0) % MCV 86.2 (80.0-97.0) fL MCH 30.0 (27.0-32.0) pg MCHC 34.8 (32.0-37.0) g/dL Plt Count 60 L (140-440) 10*3/uL MPV 13.0 H (9.5-12.2) fL Immature Gran % (Auto) 0.3 % Neutrophils % 72.4 % Lymphocytes % 17.4 % Monocytes % 9.2 % Eosinophils % 0.3 % Basophils % 0.4 % Immature Gran # 0.02 (0.00-0.04) 10*3/uL Neutrophils # 5.65 (1.80-7.70) 10*3/uL Lymphocytes # 1.36 (0.90-5.00) 10*3/uL Monocytes # 0.72 (0.20-1.00) 10*3/uL Eosinophils # 0.02 L (0.04-0.35) 10*3/uL Basophils # 0.03 (0.00-0.10) 10*3/uL Manual Slide Review Performed PT 11.7 (10.0-12.5) sec INR 1.1 (<1.2) APTT 26.2 (22.0-30.0) sec Sodium 140 (137-145) mmol/L Potassium 4.3 (3.5-5.1) mmol/L Chloride 106 (98-107) mmol/L Carbon Dioxide 24 (22-30) mmol/L Anion Gap 10 mmol/L BUN 17 (9-20) mg/dL Creatinine 0.88 (0.66-1.25) mg/dL Est GFR (CKD-EPI)AfAm >90 (>60 ml/min/1.73 sqM) Est GFR (CKD-EPI)NonAf >90 (>60 ml/min/1.73 sqM) Glucose 111 H (74-99) mg/dL Calcium 9.9 (8.4-10.2) mg/dL Magnesium 1.6 (1.6-2.3) mg/dL Total Bilirubin 0.6 (0.2-1.3) mg/dL AST 31 (17-59) U/L ALT 26 (4-49) U/L Alkaline Phosphatase 52 (38-126) U/L Troponin I (0.000-0.034) ng/mL Total Protein 7.3 (6.3-8.2) g/dL Albumin 4.5 (3.5-5.0) g/dL 08/02/24 Range/Units 09:35 WBC (4.50-10.00) 10*3/uL RBC (4.40-5.60) 10*6/uL Hgb (13.0-17.0) g/dL Hct (39.6-50.0) % MCV (80.0-97.0) fL MCH (27.0-32.0) pg MCHC (32.0-37.0) g/dL Plt Count (140-440) 10*3/uL MPV (9.5-12.2) fL Immature Gran % (Auto) % Neutrophils % % Lymphocytes % % Monocytes % % Eosinophils % % Basophils % % Immature Gran # (0.00-0.04) 10*3/uL Neutrophils # (1.80-7.70) 10*3/uL Lymphocytes # (0.90-5.00) 10*3/uL Monocytes # (0.20-1.00) 10*3/uL Eosinophils # (0.04-0.35) 10*3/uL Basophils # (0.00-0.10) 10*3/uL Manual Slide Review PT (10.0-12.5) sec INR (<1.2) APTT (22.0-30.0) sec Sodium (137-145) mmol/L Potassium (3.5-5.1) mmol/L Chloride (98-107) mmol/L Carbon Dioxide (22-30) mmol/L Anion Gap mmol/L BUN (9-20) mg/dL Creatinine (0.66-1.25) mg/dL Est GFR (CKD-EPI)AfAm (>60 ml/min/1.73 sqM) Est GFR (CKD-EPI)NonAf (>60 ml/min/1.73 sqM) Glucose (74-99) mg/dL Calcium (8.4-10.2) mg/dL Magnesium (1.6-2.3) mg/dL Total Bilirubin (0.2-1.3) mg/dL AST (17-59) U/L ALT (4-49) U/L Alkaline Phosphatase (38-126) U/L Troponin I 0.023 (0.000-0.034) ng/mL Total Protein (6.3-8.2) g/dL Albumin (3.5-5.0) g/dL Disposition Clinical Impression: Atrial fibrillation Disposition: HOME SELF-CARE Condition: Good Instructions (If sedation given, give patient instructions): A-fib (Atrial Fibrillation) (ED) Prescriptions: Metoprolol Succinate (ER) [Toprol Xl] 100 mg PO DAILY #30 tab Is patient prescribed a controlled substance at d/c from ED?: No Referrals: Isiah Hernandez DO [Primary Care Provider] - 1-2 days Arnold Victor MD [STAFF PHYSICIAN] - 1-2 days Time of Disposition: 11:04
[2024-08-02 10:12] LABS: ALT 26 U/L (4-49); African American GFR (CKD) >90 (>60 ml/min/1.73 sqM); Albumin 4.5 g/dL (3.5-5.0); Anion Gap 10 mmol/L; Blood Urea Nitrogen 17 mg/dL (9-20); Calcium 9.9 mg/dL (8.4-10.2); Carbon Dioxide 24 mmol/L (22-30); Chloride 106 mmol/L (98-107); Glucose 111 mg/dL (74-99); Non-African American GFR(CKD) >90 (>60 ml/min/1.73 sqM); Sodium 140 mmol/L (137-145); Total Bilirubin 0.6 mg/dL (0.2-1.3); Total Protein 7.3 g/dL (6.3-8.2)
[2024-08-02 10:13] LABS: Potassium 4.3 mmol/L (3.5-5.1)
[2024-08-02 10:14] LABS: AST 31 U/L (17-59); Alkaline Phosphatase 52 U/L (38-126); Magnesium 1.6 mg/dL (1.6-2.3); Platelet Count 60 10*3/uL (140-440)
[2024-08-02] MEDS: ACETAMINOPHEN TAB 500 MG TAB PO STA (10:20)
[2024-08-02] MEDS: METOPROLOL SUCCINATE (ER) 50 MG TAB.ER.24H PO STA (10:20)
[2024-08-02] MEDS: SODIUM CHLORIDE 0.9% 500 ML 500 ML IV ONE (10:22)
[2024-08-02 11:26] VITALS: BP 119/89; PULSE 102; RESP 20; TEMP 97.6
== END 2024-08-02 11:31 | disposition home or self-care (01) ==
LOC: EC 08:40
DX: I48.91 Unspecified atrial fibrillation (principal); Z88.2 Allergy status to sulfonamides; Z88.1 Allergy status to other antibiotic agents; Z91.041 Radiographic dye allergy status; Z91.013 Allergy to seafood
CPT/HCPCS: 36415; 71046; 80053; 83735; 84484; 85025; 85610; 85730; 99285

== ENCOUNTER 2024-08-26 05:33 | Day surgery (SDC) | payer BC ==
[2024-08-26] MEDS: IV FLUID CONTINUATION 1,000 ML IV ONE (06:10)
[2024-08-26] MEDS: SODIUM CHLORIDE 0.9% 1,000 ML IV SCH (06:25)
[2024-08-26] MEDS ORDERED: fentaNYL (PF) 50 MCG/ML 2 ML AMP IV PRN (07:00)
[2024-08-26] MEDS ORDERED: WATER FOR INJECTION, STERILE 10 ML VIAL IV ONE (07:42)
[2024-08-26] MEDS ORDERED: GLYCOPYRROLATE 0.2 MG/ML 2 ML VIAL ONE (07:42)
[2024-08-26] MEDS ORDERED: HEPARIN SODIUM,PORCINE 10,000 UNIT/ML 1 ML VIAL ONE (07:42)
[2024-08-26] MEDS ORDERED: ISOPROTERENOL 250 MCG/1.25 ML SYR IV ONE (07:42)
[2024-08-26] MEDS ORDERED: PHENYLEPHRINE 10 MG/ML VIAL ONE (07:42)
[2024-08-26] MEDS ORDERED: LIDOCAINE 1% INJ 10MG/ML (20 ML MDV) ONE (07:42)
[2024-08-26] MEDS ORDERED: methylPREDNISolone SOD SUCCI 125 MG/2 ML VIAL ONE (07:42)
[2024-08-26] MEDS ORDERED: SUCCINYLCHOLINE CHLORIDE 200 MG/10 ML VIAL IV ONE (07:42)
[2024-08-26] MEDS ORDERED: diphenhydrAMINE 50 MG/ML 1 ML VIAL ONE (07:42)
[2024-08-26] MEDS ORDERED: fentaNYL (PF) 50 MCG/ML 2 ML AMP ONE (07:42)
[2024-08-26] MEDS ORDERED: ePHEDrine 50 MG/ML 1 ML VIAL ONE (07:42)
[2024-08-26] MEDS ORDERED: MIDAZOLAM 2 MG/2 ML VIAL ONE (07:42)
[2024-08-26] MEDS ORDERED: PROPOFOL 10 MG/ML 20 ML VIAL IV ONE (07:42)
--- NOTE | 2024-08-26 08:18 | P.EPPROC ---
- EP Procedure Note Electrophysiology Procedure Note: This is Dr. Victor dictating an H/P on this patient The patient was interviewed and examined IMPRESSION / ASSESSMENT: Paroxysmal symptomatic atrial fibrillation, several episodes since November Symptoms of tiredness fatigue and palpitations Mild aortic stenosis Stress test normal PLAN: Heparin dose calculated. Continue Xarelto. IV Solu-Medrol with Benadryl given HPI Patient continues to have recurrent episodes of palpitations associated tiredness fatigue and palpitations No dizziness lightheadedness no syncope No chest pain No fever chills cough expectoration ROS: No fever chills or rigors, no cough, phlegm or expectoration, no nausea, vomiting or diarrhea, no hematuria, dysuria, no musculoskeletal complaints, no strokes or seizures, no skin lesions. EXAMINATION: 138/100 mmHg afebrile pulse rate in the 60s Heart sounds S1 normal S2 normal ejection systolic murmur Lungs are clear Breath sounds are clear REVIEW OF LABS, ECG & MEDICAL DATA TSH normal at 1.3
[2024-08-26] MEDS: HEPARIN SOD,PORK IN 0.45% NACL 25,000 UNIT in 0.45% NACL 1 250ML.BAG IV ONE (08:25)
[2024-08-26] MEDS: LIDOCAINE 1% INJ 10MG/ML (20 ML MDV) SQ ONE (08:28)
[2024-08-26] MEDS: IOPAMIDOL-370 100ML BTL INJ ONE (10:05)
[2024-08-26] MEDS ORDERED: ACETAMINOPHEN TAB 325 MG TAB PO PRN (10:16)
[2024-08-26] MEDS: DEXAMETHASONE SOD PHOSPHATE 4 MG/ML 1 ML VIAL IV ONE (11:29)
[2024-08-26] MEDS: LACTATED RINGERS 1,000 ML IV SCH (11:30)
[2024-08-26] MEDS: ONDANSETRON 4 MG/2 ML VIAL IVP ONE (11:30)
[2024-08-26] MEDS: methylPREDNISolone SOD SUCCI 125 MG/2 ML VIAL IV STA (11:30)
--- NOTE | 2024-08-26 12:07 | P.EPPROC ---
- EP Procedure Note Electrophysiology Procedure Note: PROCEDURE A. fib ablation with PVI, left atrial septal ablation DIAGNOSIS Paroxysmal atrial fibrillation, symptomatic, refractory to therapy RESULT No left atrial appendage mass seen on intracardiac echo, mildly thickened pericardium Complex right pulmonary venous anatomy Successful A. fib ablation/pulmonary vein isolation of all veins using cryo- ablation Complete entrance block in all 4 veins confirmed No evidence for phrenic nerve injury Left atrial septal ablation Esophageal deflection YES, left-sided esophagus PROCEDURE DETAILS Written informed consent prior to procedure. Patient brought to the EP lab. General anesthesia given. Heparin administered. A city maintained above 300 seconds Both groins prepped and draped per protocol and venous sheaths placed. Esophagus intubated, circa catheter for temperature monitoring an endoscope for possible esophageal deflection. Phrenic nerve monitoring performed. Esophageal temperature monitoring performed. Esophageal deflection performed if circa catheter overlapping with the balloon or circa temperature less than 27.5°C Intracardiac echocardiography performed. Pericardium evaluated. Left atrial appendage evaluated. Left atrium evaluated along with pulmonary veins Transseptal catheterization performed under fluoroscopic guidance and intracardiac echo guidance Cryoablation sheath exchanged, balloon catheter along with achieve catheter placed in the left atrium. Pulmonary veins isolated in the following sequence: Left superior pulmonary vein followed by left inferior pulmonary vein, followed by right inferior pulmonary vein and lastly right superior pulmonary vein. Phrenic nerve stimulation along with capture thresholds within the SVC and right superior pulmonary vein to identify the phrenic nerve proximity to the cryo- balloon. Pulmonary veins isolated and confirmed with entrance and exit block. Phrenic nerve integrity confirmed at the end of the procedure Ablation of the left atrial septum performed with cannulation of the superior branch of the right inferior and the inferior branch of the right superior vein to achieve ablation of the posterior septum of the left atrium. Ablation of electrograms confirmed Diagnostic catheters for the high right atrium, His bundle, coronary sinus placed. LA and RA pressures recorded LA pressure: Mean pressure 12 mm mukesh Diagnostic EP study with coronary sinus pacing and recording Baseline measurements: Sinus cycle length 770 ms, WA interval 120 ms QRS 116 ms and QT interval 415 ms LA pressure 18/7/12 mmHg AH interval 73 ms, HV interval 40 ms Sinus node recovery time was 1114. Corresponding corrected sinus node recovery time normal AV node Wenckebach block 400 ms Venous sheaths were removed and hemostasis assured with a closure device. Patient extubated and transferred to recovery Increase procedural time During ablation multiple attempts had to be made to move the esophagus a safe distance of the from the pulmonary vein draining cryoablation, to avoid excessive thermal cooling of the esophagus This took extra time and effort to keep the esophagus a safe distance away from the cryoablation balloon. Complex right sided pulmonary venous anatomy with complex branching pattern with a separate large right middle pulmonary vein, early branching of the large right superior as well as early branching of large right inferior vein. 3 tributaries noted in the right inferior pulmonary vein. Extra effort and time required for complete entry-level isolation as well as left atrial septal ablation PROCEDURES PERFORMED Diagnostic EP study CS pacing and recording Left and right transseptal catheterization Catheter the mapping of the tachycardia Intracardiac echocardiography Pulmonary vein isolation with transseptal and comprehensive EPS, [id number] Extended procedure duration Drug infusion, +[id number] Linear ablation, left atrium, +[id number]
[2024-08-26] MEDS: ACETAMINOPHEN IV (For NPO) 1,000 MG in EMPTY BAG 1 BAG IVPB ONE (12:28)
[2024-08-26] MEDS: HYDROcodone/APAP 7.5-325MG 1 EACH TAB PO PRN (15:19)
[2024-08-26] MEDS: RIVAROXABAN 20 MG TAB PO SCH (17:37)
[2024-08-26 19:31] VITALS: BP 135/79; PULSE 86; RESP 20; TEMP 98.5
[2024-08-26] MEDS: SYMBICORT 80-4.5 MCG INHALER INHALATION SCH (19:49)
[2024-08-26] MEDS ORDERED: risperiDONE 0.5 MG TAB PO SCH (21:00)
[2024-08-26] MEDS ORDERED: MONTELUKAST 10 MG TAB PO SCH (21:00)
[2024-08-26] MEDS ORDERED: ATORVASTATIN 10 MG TAB PO SCH (21:00)
[2024-08-26] MEDS ORDERED: SERTRALINE 50 MG TAB PO SCH (21:00)
[2024-08-27] MEDS ORDERED: METOPROLOL SUCCINATE (ER) 100 MG TAB.ER.24H PO SCH (09:00)
== END 2024-08-26 20:51 | disposition home or self-care (01) ==
LOC: CATHEP 05:33 → 6NMEDSUR 10:08 → CATHEP 20:51
PROVIDERS: ATTEND Internal Medicine Clinical Cardiac Electrophysiology
DX: I48.0 Paroxysmal atrial fibrillation (principal); I10 Essential (primary) hypertension; E78.5 Hyperlipidemia, unspecified; I35.0 Nonrheumatic aortic (valve) stenosis; I08.2 Rheumatic disorders of both aortic and tricuspid valves; J45.909 Unspecified asthma, uncomplicated; K21.9 Gastro-esophageal reflux disease without esophagitis; Z79.01 Long term (current) use of anticoagulants; Z79.51 Long term (current) use of inhaled steroids; Z79.890 Hormone replacement therapy; Z79.899 Other long term (current) drug therapy; Z88.8 Allergy status to other drugs, medicaments and biological substances
CPT/HCPCS: 94640; 93656; 93657; 86900; 86901; 84443; 85049; 86850; C1894; C1769; C1760 ×3; C1730 ×2; C1759; C1733; C1766; J2250; J0330; J1200; J1644 ×2; J2003; J3010; J2704; Q9967; J2371; J1596; J2919

== ENCOUNTER 2024-08-28 22:46 | Inpatient (IN) | payer BC ==
[2024-08-29 00:43] LABS: ALT 16 U/L (4-49); AST 29 U/L (17-59); African American GFR (CKD) >90 (>60 ml/min/1.73 sqM); Albumin 4.3 g/dL (3.5-5.0); Alkaline Phosphatase 66 U/L (38-126); Anion Gap 11 mmol/L; Blood Urea Nitrogen 16 mg/dL (9-20); Calcium 9.3 mg/dL (8.4-10.2); Carbon Dioxide 25 mmol/L (22-30); Chloride 101 mmol/L (98-107); Glucose 125 mg/dL (74-99); Non-African American GFR(CKD) >90 (>60 ml/min/1.73 sqM); Potassium 4.1 mmol/L (3.5-5.1); Sodium 137 mmol/L (137-145); Total Protein 7.2 g/dL (6.3-8.2)
[2024-08-29] MEDS: MORPHINE SULFATE 4 MG/ML SYRINGE IVP STA ×2 (01:40→03:52)
--- NOTE | 2024-08-29 02:06 | ED ---
Lower Extremity Injury HPI - General Chief Complaint: Extremity Injury, Lower Stated Complaint: Infection R Leg Time Seen by Provider: 08/28/24 23:00 Source: patient, EMS Mode of arrival: EMS Limitations: no limitations - History of Present Illness Initial Comments: 64-year-old with past medical history of A-fib, hypertension, hyperlipidemia who presents emergency department reporting right leg pain. States that he was injured with a softball 1 week ago. He got hit in the right lower cline. He does take Xarelto and so the area did bleed and patient developed a hematoma. He states that he has had increased redness and swelling which has ascended up the leg. He went to an urgent care this morning. He was given an antibiotic injection and was started on antibiotics. Reports that his swelling continues to extend up the leg as well as the warmth and redness. He denies any fevers. No history of DVT or PE. He does admit to a significant amount of pain. Patient does take [place] at home chronically. States the pain hurt so bad he can barely walk on it. No other alleviating, precipitating or modifying factors - Related Data Home Medications Medication Instructions Recorded Confirmed Montelukast [Singulair] 10 mg PO HS 03/23/19 08/29/24 Atorvastatin [Lipitor] 10 mg PO HS 09/29/22 08/29/24 Albuterol Sulfate [Albuterol 2 puff INHALATION RT-QID PRN 05/20/24 08/29/24 Sulfate Hfa] Fluticasone Propion/Salmeterol 1 puff INHALATION RT-BID 05/20/24 08/30/24 [Advair 250-50 Diskus] Furosemide [Lasix] 40 mg PO DAILY PRN 06/09/24 08/29/24 traZODone HCL 100 mg PO HS 08/29/24 08/29/24 Previous Rx's Medication Instructions Recorded Sertraline [Zoloft] 50 mg PO HS 30 Days #30 tab 11/21/23 risperiDONE [RisperDAL] 0.5 mg PO BID 30 Days #60 tab 11/21/23 Rivaroxaban [Xarelto] 20 mg PO W/SUPPER #30 tab 05/22/24 HYDROcodone/APAP 7.5-325MG [[place] 1 tab PO BID PRN 30 Days #60 tab 07/08/24 7.5-325] Metoprolol Succinate (ER) [Toprol 100 mg PO DAILY #30 tab 08/02/24 XL] HYDROcodone/APAP 7.5-325MG [[place] 1 tab PO BID PRN 30 Days #60 tab 09/02/24 7.5-325] Allergies Allergy/AdvReac Type Severity Reaction Status Date / Time Iodinated Contrast Media Allergy Severe Anaphylaxis Verified 08/29/24 12:05 [Iodinated Contrast Media - IV Dye] shellfish derived Allergy Severe Anaphylaxis Verified 08/29/24 12:05 sulfamethoxazole Allergy Severe Anaphylaxis Verified 08/29/24 12:05 [From Bactrim] trimethoprim [From Bactrim] Allergy Severe Anaphylaxis Verified 08/29/24 12:05 Review of Systems ROS Statement: Those systems with pertinent positive or pertinent negative responses have been documented in the HPI. ROS Other: All systems not noted in ROS Statement are negative. Past Medical History Past Medical History: Atrial Fibrillation, Asthma, Cancer, Hyperlipidemia, Hypertension, Osteoarthritis (OA), Pneumonia Additional Past Medical History / Comment(s): Hospitalized 05/20/24-new onset Afib. 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 covid 19 2020 History of Any Multi-Drug Resistant Organisms: None Reported Past Surgical History: Joint Replacement, Orthopedic Surgery Additional Past Surgical History / Comment(s): "Nerve cauterization" procedure in back 5-10 years ago. B/L knee arthroplasty. L shoulder rotator cuff tear, 2009 kidney CA- removed portion of R kidney, 2011 carpectomy L wrist, TLK. Past Anesthesia/Blood Transfusion Reactions: No Reported Reaction Additional Past Anesthesia/Blood Transfusion Reaction / Comment(s): "incision popped open day of surgery with other knee replacement, ended up staying 5 days with knee immobilized" Past Psychological History: Depression Smoking Status: Former smoker - Past Family History Father Family Medical History: Cancer Additional Family Medical History / Comment(s): colon Mother Family Medical History: AFIB, Asthma General Exam Limitations: no limitations General appearance: alert, in no apparent distress Head exam: Present: atraumatic, normocephalic, normal inspection Eye exam: Present: normal appearance, PERRL, EOMI. Absent: scleral icterus, conjunctival injection, periorbital swelling ENT exam: Present: normal exam, mucous membranes moist Neck exam: Present: normal inspection. Absent: tenderness, meningismus, lymphadenopathy Respiratory exam: Present: normal lung sounds bilaterally. Absent: respiratory distress, wheezes, rales, rhonchi, stridor Cardiovascular Exam: Present: regular rate, normal rhythm, normal heart sounds. Absent: systolic murmur, diastolic murmur, rubs, gallop, clicks GI/Abdominal exam: Present: soft, normal bowel sounds. Absent: distended, tenderness, guarding, rebound, rigid Extremities exam: Present: tenderness, pedal edema, other (Redness, swelling with what appears to be infected hematoma right anterior calf. Hematoma measu res 10x 8 cm). Absent: joint swelling, calf tenderness Back exam: Present: normal inspection Neurological exam: Present: alert, oriented X3, CN II-XII intact Psychiatric exam: Present: normal affect, normal mood Skin exam: Present: warm, dry, intact, normal color. Absent: rash Course Vital Signs 08/28/24 08/28/24 08/29/24 22:48 23:58 03:22 Temperature 99.7 F H 98.8 F Pulse Rate 79 74 73 Pulse Rate [ Pulse Oximetery ] Respiratory 18 18 18 Rate Blood Pressure 182/94 156/98 147/97 Blood Pressure [Left Arm] O2 Sat by Pulse 96 95 94 L Oximetry 08/29/24 04:30 Temperature 98.4 F Pulse Rate Pulse Rate [ 71 Pulse Oximetery ] Respiratory 18 Rate Blood Pressure Blood Pressure 132/80 [Left Arm] O2 Sat by Pulse 96 Oximetry Medical Decision Making - Medical Decision Making Was pt. sent in by a medical professional or institution (, PA, COMPUTER EQUIPMENT INSTALLER, urgent care, hospital, or alf...) When possible be specific @ -No Did you speak to anyone other than the patient for history (EMS, parent, family, police, friend...)? What history was obtained from this source @ -Spoke with for history Did you review nursing and triage notes (agree or disagree)? Why? @ -I reviewed and agree with nursing and triage notes Were old charts reviewed (outside hosp., previous admission, EMS record, old EKG, old radiological studies, urgent care reports/EKG's, alf records)? Report findings @ -No old charts were reviewed Differential Diagnosis (chest pain, altered mental status, abdominal pain women, abdominal pain men, vaginal bleeding, weakness, fever, dyspnea, syncope, headache, dizziness, GI bleed, back pain, seizure, CVA, palpatations, mental health, musculoskeletal)? @ -Differential Musculoskeletal Muscular strain, contusion, ligament sprain, fracture, arthritis, septic arthritis, bursitis, cellulitis, muscle spasm, nerve compression, DVT, arterial occlusion, herpes zoster, electrolyte abnormality, tumor.... This is not meant to be in all inclusive list EKG interpreted by me (3pts min.). @ -Not done X-rays interpreted by me (1pt min.). @ -None done CT interpreted by me (1pt min.). @ -None done U/S interpreted by me (1pt. min.). @ -Which is limited but does not demonstrate DVT What testing was considered but not performed or refused? (CT, X-rays, U/S, labs)? Why? @ -X-ray considered however patient had 1 done at the urgent care What meds were considered but not given or refused? Why? @ -None Did you discuss the management of the patient with other professionals (professionals i.e. , PA, COMPUTER EQUIPMENT INSTALLER, lab, RT, psych nurse, social work administrator, appeals and generalist clerk, teacher, health officer, director case management)? Give summary @ -Spoke to Dr. Jefferson for the admission Was smoking cessation discussed for >3mins.? @ -No Was critical care preformed (if so, how long)? @ -No Were there social determinants of health that impacted care today? How? (Homelessness, low income, unemployed, alcoholism, drug addiction, transportation, low edu. Level, literacy, decrease access to med. care, nursing home, rehab)? @ -No Was there de-escalation of care discussed even if they declined (Discuss DNR or withdrawal of care, Hospice)? DNR status @ -No What co-morbidities impacted this encounter? (DM, HTN, Smoking, COPD, CAD, Canc er, CVA, ARF, Chemo, Hep., AIDS, mental health diagnosis, sleep apnea, morbid obesity)? @ -None Was patient admitted / discharged? Hospital course, mention meds given and route, prescriptions, significant lab abnormalities, going to OR and other pertinent info. @ -Upon arrival patient seen and evaluated in bed 7. Thorough history and physical exam was performed. IV was established and laboratory studies are conducted. Ultrasound was performed which demonstrates no DVT. He already had x-rays completed at the urgent care. Patient will be admitted for antibiotics and infectious disease consult. Patient was agreeable to this Undiagnosed new problem with uncertain prognosis? @ -No Drug Therapy requiring intensive monitoring for toxicity (Heparin, Nitro, Insulin, Cardizem)? @ -No Were any procedures done? @ -No Diagnosis/symptom? @ -Acute right lower extremity cellulitis, status post blunt trauma Acute, or Chronic, or Acute on Chronic? @ -Acute Uncomplicated (without systemic symptoms) or Complicated (systemic symptoms)? @ -Gated Side effects of treatment? @ -No Exacerbation, Progression, or Severe Exacerbation? @ -No Poses a threat to life or bodily function? How? (Chest pain, USA, MA, pneumonia, PE, COPD, DKA, ARF, appy, cholecystitis, CVA, Diverticulitis, Homicidal, Suicidal, threat to staff... and all critical care pts) @ -No - Lab Data Result diagrams: 09/06/24 11:26 09/06/24 04:11 Lab Results 08/29/24 08/29/24 Range/Units 00:10 02:00 WBC 8.37 (4.50-10.00) 10*3/uL RBC 3.86 L (4.40-5.60) 10*6/uL Hgb 11.6 L D (13.0-17.0) g/dL Hct 34.0 L (39.6-50.0) % MCV 88.1 (80.0-97.0) fL MCH 30.1 (27.0-32.0) pg MCHC 34.1 (32.0-37.0) g/dL Plt Count 187 D (140-440) 10*3/uL Immature Gran % (Auto) 0.2 % Neutrophils % 80.7 % Lymphocytes % 10.9 % Monocytes % 7.9 % Eosinophils % 0.1 % Basophils % 0.2 % Immature Gran # 0.02 (0.00-0.04) 10*3/uL Neutrophils # 6.75 (1.80-7.70) 10*3/uL Lymphocytes # 0.91 (0.90-5.00) 10*3/uL Monocytes # 0.66 (0.20-1.00) 10*3/uL Eosinophils # 0.01 L (0.04-0.35) 10*3/uL Basophils # 0.02 (0.00-0.10) 10*3/uL Immature Plt Fraction 19.7 H (1.1-6.1) % Sodium 137 (137-145) mmol/L Potassium 4.1 (3.5-5.1) mmol/L Chloride 101 (98-107) mmol/L Carbon Dioxide 25 (22-30) mmol/L Anion Gap 11 mmol/L BUN 16 (9-20) mg/dL Creatinine 0.75 (0.66-1.25) mg/dL Est GFR (CKD-EPI)AfAm >90 (>60 ml/min/1.73 sqM) Est GFR (CKD-EPI)NonAf >90 (>60 ml/min/1.73 sqM) Glucose 125 H (74-99) mg/dL Calcium 9.3 (8.4-10.2) mg/dL Total Bilirubin 0.7 (0.2-1.3) mg/dL AST 29 (17-59) U/L ALT 16 (4-49) U/L Alkaline Phosphatase 66 (38-126) U/L C-Reactive Protein 1.7 H (<1.0) mg/dL Total Protein 7.2 (6.3-8.2) g/dL Albumin 4.3 (3.5-5.0) g/dL Disposition Clinical Impression: Cellulitis of right leg Disposition: ADMITTED IP TO THIS [facility] Condition: Stable Is patient prescribed a controlled substance at d/c from ED?: No Time of Disposition: 03:35 Decision to Admit Reason: Admit from EC Decision Date: 08/29/24 Decision Time: 03:35
[2024-08-29 02:17] LABS: Basophils # (A) 0.02 10*3/uL (0.00-0.10); Basophils % (A) 0.2 %; Eosinophils # (A) 0.01 10*3/uL (0.04-0.35); Eosinophils % (A) 0.1 %; HCT 34.0 % (39.6-50.0); Immature Platelet Fraction 19.7 % (1.1-6.1); Lymphocytes # (A) 0.91 10*3/uL (0.90-5.00); Lymphocytes % (A) 10.9 %; MCH 30.1 pg (27.0-32.0); MCHC 34.1 g/dL (32.0-37.0); MCV 88.1 fL (80.0-97.0); Monocytes # (A) 0.66 10*3/uL (0.20-1.00); Monocytes % (A) 7.9 %; Neutrophils # (A) 6.75 10*3/uL (1.80-7.70); Neutrophils % (A) 80.7 %; RBC 3.86 10*6/uL (4.40-5.60); RDW 13.2 % (11.5-14.5); WBC 8.37 10*3/uL (4.50-10.00)
[2024-08-29 02:43] LABS: HGB 11.6 g/dL (13.0-17.0)
[2024-08-29 02:45] LABS: Platelet Count 187 10*3/uL (140-440)
--- NOTE | 2024-08-29 03:34 | US ---
EXAM: US Duplex Right Lower Extremity Veins CLINICAL HISTORY: swelling, pain, trauma TECHNIQUE: Real-time duplex ultrasound scan of the right lower extremity veins integrating B-mode two-dimensional vascular structure, Doppler spectral analysis, color flow Doppler imaging and compression. COMPARISON: No relevant prior studies available. FINDINGS: Limitations: The patient was reportedly unable to tolerate compression throughout the femoral vein segment. Deep veins: The common femoral vein was not imaged. There is color flow in the femoral vein. The popliteal vein is compressible and demonstrates normal color flow. Limited single image of the calf suggests patency of the calf vessels. Superficial veins: Not evaluated Soft tissues: No acute findings. No popliteal cyst. IMPRESSION: Limited examination.. No sonographic evidence for deep vein thrombosis from the right femoral vein through the popliteal vein.
[2024-08-29] MEDS ORDERED: NALOXONE 0.4 MG/ML 1 ML VIAL IV PRN (03:39)
[2024-08-29] MEDS: AMPICILLIN-SULBACTAM 3 GM in SODIUM CHLORIDE 0.9% 100 ML IVPB STA (03:52)
[2024-08-29] MEDS: MORPHINE SULFATE 4 MG/ML SYRINGE IV PRN (07:38)
[2024-08-29] MEDS ORDERED: ALBUTEROL NEBULIZED 2.5 MG/3 ML INHALATION PRN (12:26)
[2024-08-29] MEDS: risperiDONE 0.5 MG TAB PO SCH (12:45)
[2024-08-29] MEDS: METOPROLOL SUCCINATE (ER) 100 MG TAB.ER.24H PO SCH (12:45)
[2024-08-29] MEDS: HYDROcodone/APAP 7.5-325MG 1 EACH TAB PO PRN (14:23)
[2024-08-29] MEDS: AMPICILLIN-SULBACTAM 1.5 GM in SODIUM CHLORIDE 0.9% 50 ML IVPB SCH (15:21)
[2024-08-29] MEDS: RIVAROXABAN 20 MG TAB PO SCH (17:12)
[2024-08-29] MEDS: SERTRALINE 50 MG TAB PO SCH (20:18)
[2024-08-29] MEDS: ATORVASTATIN 10 MG TAB PO SCH (20:18)
[2024-08-29] MEDS: MONTELUKAST 10 MG TAB PO SCH (20:18)
--- NOTE | 2024-08-29 20:38 | P.HPIM ---
History of Present Illness H&P Date: 08/29/24 Chief Complaint: Right leg redness [id number], male who follows with Dr. Hernandez. Chronic medical conditions include atrial fibrillation, intermittent asthma, hyperlipidemia, psychosis. August 26, 2024 patient underwent ablation for atrial fibrillation by Dr. Arnold Victor. Anticoagulant Xarelto was continued. Patient was playing baseball. Ball hit his right cline. He formed a "look like a hematoma. It gradually increased in size. 7 developing pain in the surrounding area extending above mainly slightly below it also. No obvious fever. Patient received IV Unasyn in the ER. Some pain is present. at the bedside. Review of systems: GEN.: None EYES: None HEENT: None NECK: None RESPIRATORY: As above CARDIOVASCULAR: As above GASTROINTESTINAL: None GENITOURINARY: None MUSCULOSKELETAL: Has above LYMPHATICS: None HEMATOLOGICAL: None PSYCHIATRY: None none NEUROLOGICAL: None Social history: Lives with his s. Does not smoke. Alcohol occasionally. 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 Physical examination: VITAL SIGNS: 98.4, 71, 18, 132 x 80, 96% room air GENERAL: BMI 45. Laying in bed comfortable EYES: Pupils equal. Conjunctiva teresa l. HEENT: External appearance of nose and ears normal, oral cavity grossly normal. NECK: JVD not raised; masses not palpable. HEART: Heart sounds regular; much improved edema LUNGS: Respiratory rate increased, decreased breath sounds. ABDOMEN: Soft, nontender, liver spleen not palpable, no masses palpable. PSYCH: Alert and oriented x3; mood and affect anxious MUSCULOSKELETAL: Right lower extremity on the cline. Hematoma. Elevated. Some breakdown of skin on the vertex. Surrounding area of cellulitis more proximally and some distally. Increased local temperature. NEUROLOGICAL: Cranial nerves grossly intact; no facial asymmetry, power and sensation grossly intact. INVESTIGATIONS, reviewed in the clinical context: August 29: White count 8.3 hemoglobin 11.6 platelets 187 potassium 4.1 creatinine 0.75 Doppler ultrasound right leg: Negative for DVT Assessment plan: - Acute cellulitis following local injury from a ball likely from hematoma that may be infected. IV Unasyn. If patient has a clinical improvement then no surgical intervention would be required. Especially given that do not want to really hold off patient's anticoagulation. - Right cline hematoma secondary to trauma from a baseball, precipitated by being on Xarelto Possibly infected -Paroxysmal atrial fibrillation. Patient underwent ablation by Dr. Sifuentes on August 26 Toprol XL 100 mg a day. Xarelto 20 mg with supper -Chronic congestive heart failure, with preserved ejection fraction, precipitated by A-fib: Improving Lasix as needed -Chronic, psychosis Risperdal. Trazodone. -Moderate persistent asthma Advair. Singulair. Albuterol HFA as needed -Hyperlipidemia Lipitor 10 mg nightly -Morbid obesity BMI 45 Weight loss measures -Full code Will consult surgery. Just in case the hematoma needs to be evacuated. But if it responds well to the IV Unasyn. Will not do need to do the same. For pain we will use ice packs Past Medical History Past Medical History: Atrial Fibrillation, Asthma, Cancer, Hyperlipidemia, Hypertension, Osteoarthritis (OA), Pneumonia Additional Past Medical History / Comment(s): Hospitalized 05/20/24-new onset Afib. 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 covid 2020 History of Any Multi-Drug Resistant Organisms: None Reported Past Surgical History: Cardiac Ablation, Joint Replacement, Orthopedic Surgery Additional Past Surgical History / Comment(s): "Nerve cauterization" procedure in back 5-10 years ago. B/L knee arthroplasty. L shoulder rotator cuff tear, 2009 kidney CA- removed portion of R kidney, 2011 carpectomy L wrist, TLK. Past Anesthesia/Blood Transfusion Reactions: No Reported Reaction Additional Past Anesthesia/Blood Transfusion Reaction / Comment(s): "incision popped open day of surgery with other knee replacement, ended up staying 5 days with knee immobilized" Past Psychological History: Depression Additional Psychological History / Comment(s): Takes oral medication for mood stabilization. Smoking Status: Never smoker Past Alcohol Use History: None Reported Past Drug Use History: None Reported - Past Family History Father Family Medical History: Cancer Additional Family Medical History / Comment(s): colon Mother Family Medical History: AFIB, Asthma Medications and Allergies Home Medications Medication Instructions Recorded Confirmed Type Montelukast [Singulair] 10 mg PO HS 03/23/19 08/29/24 History Atorvastatin [Lipitor] 10 mg PO HS 09/29/22 08/29/24 History Sertraline [Zoloft] 50 mg PO HS 30 Days #30 tab 11/21/23 08/29/24 Rx risperiDONE [RisperDAL] 0.5 mg PO BID 30 Days #60 tab 11/21/23 08/29/24 Rx Albuterol Sulfate [Albuterol 2 puff INHALATION RT-QID PRN 05/20/24 08/29/24 H istory Sulfate Hfa] Fluticasone Propion/Salmeterol 1 puff INHALATION DIRECTED 05/20/24 08/29/24 History [Advair 250-50 Diskus] Rivaroxaban [Xarelto] 20 mg PO W/SUPPER #30 tab 05/22/24 08/29/24 Rx Furosemide [Lasix] 40 mg PO DAILY PRN 06/09/24 08/29/24 History HYDROcodone/APAP 7.5-325MG [[place] 1 tab PO BID PRN 30 Days #60 tab 07/08/24 08/29/24 Rx 7.5-325] Metoprolol Succinate (ER) [Toprol 100 mg PO DAILY #30 tab 08/02/24 08/29/24 Rx XL] Cephalexin [Keflex] 500 mg PO Q6HR 08/29/24 08/29/24 History traZODone HCL 100 mg PO HS 08/29/24 08/29/24 History Allergies Allergy/AdvReac Type Severity Reaction Status Date / Time Iodinated Contrast Media Allergy Severe Anaphylaxis Verified 08/29/24 12:05 [Iodinated Contrast Media - IV Dye] shellfish derived Allergy Severe Anaphylaxis Verified 08/29/24 12:05 sulfamethoxazole Allergy Severe Anaphylaxis Verified 08/29/24 12:05 [From Bactrim] trimethoprim [From Bactrim] Allergy Severe Anaphylaxis Verified 08/29/24 12:05 Physical Exam Vitals: Vital Signs Temp Pulse Pulse Resp BP BP Pulse Ox 08/29/24 07:21 98.0 F 78 18 123/80 96 08/29/24 04:30 98.4 F 71 18 132/80 96 08/29/24 03:22 98.8 F 73 18 147/97 94 L 08/28/24 23:58 74 18 156/98 95 08/28/24 22:48 99.7 F H 79 18 182/94 96 Intake and Output 08/28/24 08/29/24 08/29/24 22:59 06:59 14:59 Other: # Voids 1 Weight 154.675 kg 154.675 kg Results CBC & Chem 7: 08/29/24 02:00 08/29/24 00:10 Labs: Abnormal Lab Results - Last 24 Hours (Table) 08/29/24 08/29/24 Range/Units 00:10 02:00 RBC 3.86 L (4.40-5.60) 10*6/uL Hgb 11.6 L D (13.0-17.0) g/dL Hct 34.0 L (39.6-50.0) % Eosinophils # 0.01 L (0.04-0.35) 10*3/uL Immature Plt Fraction 19.7 H (1.1-6.1) % Glucose 125 H (74-99) mg/dL C-Reactive Protein 1.7 H (<1.0) mg/dL Thrombosis Risk Factor Assmnt - Choose All That Apply Each Factor Represents 1 point: Obesity (BMI >25) Other Risk Factors: Yes Each Risk Factor Represents 2 Points: Age 61-74 years Other congenital or acquired thrombophilia - If yes, enter type in comment: No Thrombosis Risk Factor Assessment Total Risk Factor Score: 3 Thrombosis Risk Factor Assessment Level: Moderate Risk
[2024-08-30 07:32] LABS: Basophils # (A) 0.02 10*3/uL (0.00-0.10); Basophils % (A) 0.3 %; Eosinophils # (A) 0.00 10*3/uL (0.04-0.35); Eosinophils % (A) 0.0 %; HCT 34.6 % (39.6-50.0); HGB 11.6 g/dL (13.0-17.0); Immature Platelet Fraction 18.8 % (1.1-6.1); Lymphocytes # (A) 0.92 10*3/uL (0.90-5.00); Lymphocytes % (A) 14.5 %; MCH 29.4 pg (27.0-32.0); MCHC 33.5 g/dL (32.0-37.0); MCV 87.6 fL (80.0-97.0); Monocytes # (A) 0.58 10*3/uL (0.20-1.00); Monocytes % (A) 9.1 %; Neutrophils # (A) 4.80 10*3/uL (1.80-7.70); Neutrophils % (A) 75.8 %; RBC 3.95 10*6/uL (4.40-5.60); RDW 12.8 % (11.5-14.5); WBC 6.34 10*3/uL (4.50-10.00)
[2024-08-30 07:57] LABS: African American GFR (CKD) >90 (>60 ml/min/1.73 sqM); Anion Gap 6 mmol/L; Blood Urea Nitrogen 13 mg/dL (9-20); Calcium 8.8 mg/dL (8.4-10.2); Carbon Dioxide 29 mmol/L (22-30); Chloride 101 mmol/L (98-107); Glucose 115 mg/dL (74-99); Non-African American GFR(CKD) >90 (>60 ml/min/1.73 sqM); Potassium 4.1 mmol/L (3.5-5.1); Sodium 136 mmol/L (137-145)
[2024-08-30 09:29] LABS: Platelet Count 160 10*3/uL (140-440)
[2024-08-30] MEDS: FAMOTIDINE 20 MG/2 ML VIAL IV SCH (09:44)
--- NOTE | 2024-08-30 11:22 | P.GSCN ---
History of Present Illness Consult date: 08/30/24 History of present illness: CHIEF COMPLAINT: Right lower leg cellulitis HISTORY OF PRESENT ILLNESS: This is a 64-year-old male who presented to the ER with complaints of right lower leg pain swelling and redness. Patient reports that he had a line drive with a softball to the right lower leg about a week ago. And since then he has had increased swelling redness and pain. He does take Xarelto for his A-fib. He just had an ablation last . Patient denies any prior history of diabetes or MRSA. He does report having a history of cellulitis to the right leg in the past. Doppler was negative for DVT. He does report having some minimal clearish drainage from the right lower leg at home. Denies any fever chills or sweats. He is on IV antibiotics. Surgical service consulted for right cline possible infected hematoma. PAST MEDICAL HISTORY: See below PAST SURGICAL HISTORY: See below MEDICATIONS: See below ALLERGIES: See below SOCIAL HISTORY: No illicit drug use. REVIEW OF SYSTEMS: CONSTITUTIONAL: Denies fever or chills. HEENT: Denies blurred vision, vision changes, or eye pain. Denies hemoptysis CARDIOVASCULAR: Denies chest pain or pressure. RESPIRATORY: No shortness of breath. GASTROINTESTINAL: See HPI for pertinent findings HEMATOLOGIC: Denies bleeding disorders. GENITOURINARY: Denies any blood in urine or increased urinary frequency. SKIN: Denies pruitis. Denies rash. PHYSICAL EXAM: VITAL SIGNS: Reviewed GENERAL: Well-developed in no acute distress. HEENT: No sclera icterus. Extraocular movements grossly intact. Moist buccal mucosa. Head is atraumatic, normocephalic. No nasal drainage. ABDOMEN: Soft. Nondistended. Nontender NEUROLOGIC: Alert and oriented. Cranial nerves II through XII grossly intact. Extremities: Right lower extremity cline with erythema from the ankle just below the knee. There is an area of induration is tender with palpation. No drainage noted. There is some mild fluctuance noted. LABORATORY DATA: WBC 6.34 Hgb 11.6 platelets 160 Sodium 136 potassium 4.1 creatinine 0.78 IMAGING: Venous Doppler reports negative for DVT right leg ASSESSMENT: 1. Right lower extremity hematoma with cellulitis PLAN: - Continue IV antibiotics - Continue to keep leg elevated - Continue to monitor - Further recommendations forthcoming per surgeon Physician Brusher Warp note has been reviewed by physician. Signing provider agrees with the documented findings, assessment, and plan of care. Past Medical History Past Medical History: Atrial Fibrillation, Asthma, Cancer, Hyperlipidemia, Hypertension, Osteoarthritis (OA), Pneumonia Additional Past Medical History / Comment(s): Hospitalized 05/20/24-new onset Afib. 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 covid 19 2020 History of Any Multi-Drug Resistant Organisms: None Reported Past Surgical History: Cardiac Ablation, Joint Replacement, Orthopedic Surgery Additional Past Surgical History / Comment(s): "Nerve cauterization" procedure in back 5-10 years ago. B/L knee arthroplasty. L shoulder rotator cuff tear, 2009 kidney CA- removed portion of R kidney, 2011 carpectomy L wrist, TLK. Past Anesthesia/Blood Transfusion Reactions: No Reported Reaction Additional Past Anesthesia/Blood Transfusion Reaction / Comm: "incision popped open day of surgery with other knee replacement, ended up staying 5 days with knee immobilized" Past Psychological History: Depression Additional Psychological History / Comment(s): Takes oral medication for mood stabilization. Smoking Status: Never smoker Past Alcohol Use History: None Reported Past Drug Use History: None Reported - Past Family History Father Family Medical History: Cancer Additional Family Medical History / Comment(s): colon Mother Family Medical History: AFIB, Asthma Medications and Allergies Home Medications Medication Instructions Recorded Confirmed Type Montelukast [Singulair] 10 mg PO HS 03/23/19 08/29/24 History Atorvastatin [Lipitor] 10 mg PO HS 09/29/22 08/29/24 History Sertraline [Zoloft] 50 mg PO HS 30 Days #30 tab 11/21/23 08/29/24 Rx risperiDONE [RisperDAL] 0.5 mg PO BID 30 Days #60 tab 11/21/23 08/29/24 Rx Albuterol Sulfate [Albuterol 2 puff INHALATION RT-QID PRN 05/20/24 08/29/24 History Sulfate Hfa] Fluticasone Propion/Salmeterol 1 puff INHALATION RT-BID 05/20/24 08/30/24 History [Advair 250-50 Diskus] Rivaroxaban [Xarelto] 20 mg PO W/SUPPER #30 tab 04/12/25 07/20/25 Rx Furosemide [Lasix] 40 mg PO DAILY PRN 06/09/24 08/29/24 History HYDROcodone/APAP 7.5-325MG [[place] 1 tab PO BID PRN 30 Days #60 tab 07/08/24 08/29/24 Rx 7.5-325] Metoprolol Succinate (ER) [Toprol 100 mg PO DAILY #30 tab 08/02/24 08/29/24 Rx XL] Cephalexin [Keflex] 500 mg PO Q6HR 08/29/24 08/29/24 History traZODone HCL 100 mg PO HS 08/29/24 08/29/24 History Allergies Allergy/AdvReac Type Severity Reaction Status Date / Time Iodinated Contrast Media Allergy Severe Anaphylaxis Verified 08/29/24 12:05 [Iodinated Contrast Media - IV Dye] shellfish derived Allergy Severe Anaphylaxis Verified 08/29/24 12:05 sulfamethoxazole Allergy Severe Anaphylaxis Verified 08/29/24 12:05 [From Bactrim] trimethoprim [From Bactrim] Allergy Severe Anaphylaxis Verified 08/29/24 12:05 Surgical - Exam Vital Signs Temp Pulse Resp BP Pulse Ox 99.7 F H 79 18 182/94 96 08/28/24 22:48 08/28/24 22:48 08/28/24 22:48 08/28/24 22:48 08/28/24 22:48 Results - Labs 08/30/24 07:03 08/30/24 07:03 Abnormal Lab Results - Last 24 Hours (Table) 08/30/24 08/30/24 Range/Units 07:03 07:03 RBC 3.95 L (4.40-5.60) 10*6/uL Hgb 11.6 L (13.0-17.0) g/dL Hct 34.6 L (39.6-50.0) % MPV 12.6 H (9.5-12.2) fL Eosinophils # 0.00 L (0.04-0.35) 10*3/uL Immature Plt Fraction 18.8 H (1.1-6.1) % Sodium 136 L (137-145) mmol/L Glucose 115 H (74-99) mg/dL Diabetes panel 08/30/24 Range/Units 07:03 Sodium 136 L (137-145) mmol/L Potassium 4.1 (3.5-5.1) mmol/L Chloride 101 (98-107) mmol/L Carbon Dioxide 29 (22-30) mmol/L BUN 13 (9-20) mg/dL Creatinine 0.78 (0.66-1.25) mg/dL Glucose 115 H (74-99) mg/dL Calcium 8.8 (8.4-10.2) mg/dL Calcium panel 08/30/24 Range/Units 07:03 Calcium 8.8 (8.4-10.2) mg/dL Pituitary panel 08/30/24 Range/Units 07:03 Sodium 136 L (137-145) mmol/L Potassium 4.1 (3.5-5.1) mmol/L Chloride 101 (98-107) mmol/L Carbon Dioxide 29 (22-30) mmol/L BUN 13 (9-20) mg/dL Creatinine 0.78 (0.66-1.25) mg/dL Glucose 115 H (74-99) mg/dL Calcium 8.8 (8.4-10.2) mg/dL Adrenal panel 08/30/24 Range/Units 07:03 Sodium 136 L (137-145) mmol/L Potassium 4.1 (3.5-5.1) mmol/L Chloride 101 (98-107) mmol/L Carbon Dioxide 29 (22-30) mmol/L BUN 13 (9-20) mg/dL Creatinine 0.78 (0.66-1.25) mg/dL Glucose 115 H (74-99) mg/dL Calcium 8.8 (8.4-10.2) mg/dL
--- NOTE | 2024-08-30 20:20 | P.PN ---
Subjective [id number], male who follows with Dr. Hernandez. Chronic medical conditions include atrial fibrillation, intermittent asthma, hyperlipidemia, psychosis. August 26, 2024 patient underwent ablation for atrial fibrillation by Dr. Arnold Victor. Anticoagulant Xarelto was continued. Patient was playing baseball. Ball hit his right cline. He formed a "look like a hematoma. It gradually increased in size. 7 developing pain in the surrounding area extending above mainly slightly below it also. No obvious fever. Patient received IV Unasyn in the ER. Some pain is present. at the bedside. INVESTIGATIONS, reviewed in the clinical context: August 29: White count 8.3 hemoglobin 11.6 platelets 187 potassium 4.1 creatinine 0.75 Doppler ultrasound right leg: Negative for DVT 08/30 Patient presents with right leg hematoma and infected soft tissue with eventually cellulitis There is line of demarcation and patient stated it is only mildly improved, although there is also mild regression from the marked line. Still early to assess completely No other new complaints Continue with Unasyn Ultrasound of the leg is negative for DVT. Other than patient looks Objective - Vital Signs Vital signs: Vital Signs Temp 98.5 F 08/30/24 07:00 Pulse 83 08/30/24 07:00 Resp 16 08/30/24 07:00 BP 146/95 08/30/24 07:00 Pulse Ox 96 08/30/24 07:00 FiO2 Intake & Output 08/29/24 08/30/24 08/30/24 18:59 06:59 18:59 Intake Total 118 Output Total 500 1100 425 Balance -500 -1100 -307 Intake: Oral 118 Output: Urine 500 1100 425 - Exam GENERAL: The patient is alert and oriented x3, not in any acute distress. Well developed, well nourished. HEENT: Pupils are round and equally reacting to light. EOMI. No scleral icterus. No conjunctival pallor. Normocephalic, atraumatic. No pharyngeal erythema. No thyromegaly. CARDIOVASCULAR: S1 and S2 present. No murmurs, rubs, or gallops. PULMONARY: Chest is clear to auscultation, no wheezing , no crackles. ABDOMEN: Soft, nontender, nondistended, normoactive bowel sounds. No palpable organomegaly. MUSCULOSKELETAL: No joint swelling or deformity. EXTREMITIES: No cyanosis, clubbing, or pedal edema. -Right leg is severely swollen, very erythematous, warm mildly tender and there is fullness in the lower leg distally NEUROLOGICAL: Gross neurological examination did not reveal any focal deficits. SKIN: No rashes. no petechiae. - Labs CBC & Chem 7: 08/30/24 07:03 08/30/24 07:03 Labs: Abnormal Lab Results - Last 24 Hours (Table) 08/30/24 08/30/24 Range/Units 07:03 07:03 RBC 3.95 L (4.40-5.60) 10*6/uL Hgb 11.6 L (13.0-17.0) g/dL Hct 34.6 L (39.6-50.0) % MPV 12.6 H (9.5-12.2) fL Eosinophils # 0.00 L (0.04-0.35) 10*3/uL Immature Plt Fraction 18.8 H (1.1-6.1) % Sodium 136 L (137-145) mmol/L Glucose 115 H (74-99) mg/dL Assessment and Plan Assessment: Assessment plan: - Acute cellulitis following local injury from a ball likely from hematoma that may be infected. IV Unasyn. If patient has a clinical improvement then no surgical intervention would be required. Especially given that do not want to really hold off patient's anticoagulation. - Right cline hematoma secondary to trauma from a baseball, precipitated by being on Xarelto Possibly infected -Paroxysmal atrial fibrillation. Patient underwent ablation by Dr. Sifuentes on August 26 Toprol XL 100 mg a day. Xarelto 20 mg with supper -Chronic congestive heart failure, with preserved ejection fraction, precipitated by A-fib: Improving Lasix as needed -Chronic, psychosis Risperdal. Trazodone. -Moderate persistent asthma Advair. Singulair. Albuterol HFA as needed -Hyperlipidemia Lipitor 10 mg nightly -Morbid obesity BMI 45 Weight loss measures -Full code
[2024-08-31 09:07] LABS: Basophils # (A) 0.03 10*3/uL (0.00-0.10); Basophils % (A) 0.5 %; Eosinophils # (A) 0.02 10*3/uL (0.04-0.35); Eosinophils % (A) 0.3 %; HCT 32.7 % (39.6-50.0); HGB 11.3 g/dL (13.0-17.0); Lymphocytes # (A) 1.35 10*3/uL (0.90-5.00); Lymphocytes % (A) 22.7 %; MCH 29.6 pg (27.0-32.0); MCHC 34.6 g/dL (32.0-37.0); MCV 85.6 fL (80.0-97.0); Monocytes # (A) 0.73 10*3/uL (0.20-1.00); Monocytes % (A) 12.3 %; Neutrophils # (A) 3.80 10*3/uL (1.80-7.70); Neutrophils % (A) 64.0 %; RBC 3.82 10*6/uL (4.40-5.60); RDW 12.8 % (11.5-14.5); WBC 5.94 10*3/uL (4.50-10.00)
[2024-08-31 10:07] LABS: Platelet Count 96 10*3/uL (140-440)
[2024-08-31 10:48] LABS: Anion Gap 10.30 mmol/L (4.00-12.00); BUN/Creat Ratio 13.70 Ratio (12.00-20.00); Blood Urea Nitrogen 13.7 mg/dL (9.0-27.0); Calcium 8.6 mg/dL (8.7-10.3); Carbon Dioxide 24.7 mmol/L (21.6-31.8); Chloride 101 mmol/L (96-109); Glucose 112 mg/dL (70-110); Potassium 4.1 mmol/L (3.5-5.5); Sodium 136 mmol/L (135-145)
--- NOTE | 2024-08-31 12:54 | P.PN ---
Subjective Progress Note Date: 08/31/24 SURGICAL PROGRESS NOTE CHIEF COMPLAINT: Right leg cellulitis HISTORY OF PRESENT ILLNESS: Patient reports that he has been decreased pain swelling and there is noted decreased erythema in the right lower extremity. Afebrile. WBC 5.94 hgb 11.3 PHYSICAL EXAM: VITAL SIGNS: Reviewed. GENERAL: Well-developed in no acute distress. Extremities: Right lower extremity erythema is decreasing. There is decrease in swelling. Area of induration noted. There is still a small amount of fluctuance. Decrease in tenderness with palpation. No drainage noted. ASSESSMENT: 1. Right lower extremity hematoma with cellulitis PLAN: -Continue antibiotics -Continue to keep leg elevated -Continue to monitor Physician Supervisor Boiler Repair note has been reviewed by physician. Signing provider agrees with the documented findings, assessment, and plan of care. Objective - Vital Signs Vital signs: Vital Signs Temp 97.9 F 08/31/24 07:00 Pulse 70 08/31/24 07:00 Resp 20 08/31/24 07:00 BP 127/78 08/31/24 07:00 Pulse Ox 96 08/31/24 07:00 FiO2 Intake & Output 08/30/24 08/31/24 08/31/24 18:59 06:59 18:59 Intake Total 236 Output Total 1375 800 Balance -1139 -800 Intake: Oral 236 Output: Urine 1375 800 Other: Voiding Method Toilet # Voids 2 - Labs CBC & Chem 7: 08/31/24 05:53 08/31/24 05:53 Labs: Abnormal Lab Results - Last 24 Hours (Table) 08/31/24 08/31/24 Range/Units 05:53 05:53 RBC 3.82 L (4.40-5.60) 10*6/uL Hgb 11.3 L (13.0-17.0) g/dL Hct 32.7 L (39.6-50.0) % Plt Count 96 L (140-440) 10*3/uL Eosinophils # 0.02 L (0.04-0.35) 10*3/uL Glucose 112 H (70-110) mg/dL Calcium 8.6 L (8.7-10.3) mg/dL
--- NOTE | 2024-08-31 19:57 | P.PN ---
Subjective [id number], male who follows with Dr. Hernandez. Chronic medical conditions include atrial fibrillation, intermittent asthma, hyperlipidemia, psychosis. August 26, 2024 patient underwent ablation for atrial fibrillation by Dr. Arnold Victor. Anticoagulant Xarelto was continued. Patient was playing baseball. Ball hit his right cline. He formed a "look like a hematoma. It gradually increased in size. 7 developing pain in the surrounding area extending above mainly slightly below it also. No obvious fever. Patient received IV Unasyn in the ER. Some pain is present. at the bedside. INVESTIGATIONS, reviewed in the clinical context: August 29: White count 8.3 hemoglobin 11.6 platelets 187 potassium 4.1 creatinine 0.75 Doppler ultrasound right leg: Negative for DVT 08/30 Patient presents with right leg hematoma and infected soft tissue with eventually cellulitis There is line of demarcation and patient stated it is only mildly improved, although there is also mild regression from the marked line. Still early to assess completely No other new complaints Continue with Unasyn Ultrasound of the leg is negative for DVT. Other than patient looks 08/31 Patient feels improving Left leg is regressing regarding the erythematous area swelling and tenderness. Still there is some fullness in the left lower leg Surgery team evaluated patient recommended continue with antibiotics and close monitoring we will ask for PT/OT evaluation Objective - Vital Signs Vital signs: Vital Signs Temp 97.9 F 08/31/24 07:00 Pulse 70 08/31/24 07:00 Resp 20 08/31/24 07:00 BP 127/78 08/31/24 07:00 Pulse Ox 96 08/31/24 07:00 FiO2 Intake & Output 08/30/24 08/31/24 08/31/24 18:59 06:59 18:59 Intake Total 236 Output Total 1375 800 Balance -1139 -800 Intake: Oral 236 Output: Urine 1375 800 Other: Voiding Method Toilet # Voids 2 - Exam GENERAL: The patient is alert and oriented x3, not in any acute distress. Well developed, well nourished. HEENT: Pupils are round and equally reacting to light. EOMI. No scleral icterus. No conjunctival pallor. Normocephalic, atraumatic. No pharyngeal erythema. No thyromegaly. CARDIOVASCULAR: S1 and S2 present. No murmurs, rubs, or gallops. PULMONARY: Chest is clear to auscultation, no wheezing , no crackles. ABDOMEN: Soft, nontender, nondistended, normoactive bowel sounds. No palpable organomegaly. MUSCULOSKELETAL: No joint swelling or deformity. EXTREMITIES: No cyanosis, clubbing, or pedal edema. -Right leg is severely swollen, very erythematous, warm mildly tender and there is fullness in the lower leg distally NEUROLOGICAL: Gross neurological examination did not reveal any focal deficits. SKIN: No rashes. no petechiae. - Labs CBC & Chem 7: 08/31/24 05:53 08/31/24 05:53 Labs: Abnormal Lab Results - Last 24 Hours (Table) 08/31/24 08/31/24 Range/Units 05:53 05:53 RBC 3.82 L (4.40-5.60) 10*6/uL Hgb 11.3 L (13.0-17.0) g/dL Hct 32.7 L (39.6-50.0) % Plt Count 96 L (140-440) 10*3/uL Eosinophils # 0.02 L (0.04-0.35) 10*3/uL Glucose 112 H (70-110) mg/dL Calcium 8.6 L (8.7-10.3) mg/dL Assessment and Plan Assessment: Assessment plan: - Acute cellulitis following local injury from a ball likely from hematoma that may be infected. IV Unasyn. If patient has a clinical improvement then no surgical intervention would be required. Especially given that do not want to really hold off patient's anticoagulation. - Right cline hematoma secondary to trauma from a baseball, precipitated by being on Xarelto Possibly infected -Paroxysmal atrial fibrillation. Patient underwent ablation by Dr. Sifuentes on August 26 Toprol XL 100 mg a day. Xarelto 20 mg with supper -Chronic congestive heart failure, with preserved ejection fraction, precipitated by A-fib: Improving Lasix as needed -Chronic, psychosis Risperdal. Trazodone. -Moderate persistent asthma Advair. Singulair. Albuterol HFA as needed -Hyperlipidemia Lipitor 10 mg nightly -Morbid obesity BMI 45 Weight loss measures -Full code
[2024-09-01 05:37] LABS: Basophils # (A) 0.02 10*3/uL (0.00-0.10); Basophils % (A) 0.3 %; Eosinophils # (A) 0.01 10*3/uL (0.04-0.35); Eosinophils % (A) 0.2 %; HCT 35.0 % (39.6-50.0); HGB 12.0 g/dL (13.0-17.0); Immature Platelet Fraction 18.5 % (1.1-6.1); Lymphocytes # (A) 1.14 10*3/uL (0.90-5.00); Lymphocytes % (A) 18.6 %; MCH 30.1 pg (27.0-32.0); MCHC 34.3 g/dL (32.0-37.0); MCV 87.7 fL (80.0-97.0); Monocytes # (A) 0.66 10*3/uL (0.20-1.00); Monocytes % (A) 10.8 %; Neutrophils # (A) 4.28 10*3/uL (1.80-7.70); Neutrophils % (A) 69.8 %; RBC 3.99 10*6/uL (4.40-5.60); RDW 12.6 % (11.5-14.5); WBC 6.13 10*3/uL (4.50-10.00)
[2024-09-01 06:06] LABS: Platelet Count 67 10*3/uL (140-440)
--- NOTE | 2024-09-01 12:30 | P.PN ---
Subjective Progress Note Date: 09/01/24 SURGICAL PROGRESS NOTE CHIEF COMPLAINT: Right leg cellulitis HISTORY OF PRESENT ILLNESS: Patient reports he is feeling better. He has had decreased swelling and redness in that right lower extremity. No drainage. Afebrile. WBC 6.13 Hgb 12 PHYSICAL EXAM: VITAL SIGNS: Reviewed. GENERAL: Well-developed in no acute distress. Extremities: Right lower extremity erythema is decreasing and is less bright in color. There is decrease in swelling. Area of induration noted. The area with mildly fluctuant. Decrease in tenderness with palpation. No drainage noted. ASSESSMENT: 1. Right lower extremity hematoma with cellulitis PLAN: -Continue antibiotics -Continue to keep leg elevated -Continue to monitor Physician Insurance Loss Adjuster note has been reviewed by physician. Signing provider agrees with the documented findings, assessment, and plan of care. Objective - Vital Signs Vital signs: Vital Signs Temp 98.5 F 09/01/24 07:22 Pulse 91 09/01/24 07:22 Resp 17 09/01/24 07:22 BP 132/88 09/01/24 07:22 Pulse Ox 94 L 09/01/24 07:22 FiO2 Intake & Output 08/31/24 09/01/24 09/01/24 18:59 06:59 18:59 Intake Total 240 Output Total 400 1250 Balance -400 -1250 240 Intake: Oral 240 Output: Urine 400 1250 Other: Voiding Method Toilet Toilet Toilet - Labs CBC & Chem 7: 09/01/24 04:38 08/31/24 05:53 Labs: Abnormal Lab Results - Last 24 Hours (Table) 09/01/24 Range/Units 04:38 RBC 3.99 L (4.40-5.60) 10*6/uL Hgb 12.0 L (13.0-17.0) g/dL Hct 35.0 L (39.6-50.0) % Plt Count 67 L (140-440) 10*3/uL MPV 13.2 H (9.5-12.2) fL Eosinophils # 0.01 L (0.04-0.35) 10*3/uL Immature Plt Fraction 18.5 H (1.1-6.1) %
--- NOTE | 2024-09-01 22:36 | P.PN ---
Subjective [id number], male who follows with Dr. Hernandez. Chronic medical conditions include atrial fibrillation, intermittent asthma, hyperlipidemia, psychosis. August 26, 2024 patient underwent ablation for atrial fibrillation by Dr. Arnold Victor. Anticoagulant Xarelto was continued. Patient was playing baseball. Ball hit his right cline. He formed a "look like a hematoma. It gradually increased in size. 7 developing pain in the surrounding area extending above mainly slightly below it also. No obvious fever. Patient received IV Unasyn in the ER. Some pain is present. at the bedside. INVESTIGATIONS, reviewed in the clinical context: August 29: White count 8.3 hemoglobin 11.6 platelets 187 potassium 4.1 creatinine 0.75 Doppler ultrasound right leg: Negative for DVT 08/30 Patient presents with right leg hematoma and infected soft tissue with eventually cellulitis There is line of demarcation and patient stated it is only mildly improved, although there is also mild regression from the marked line. Still early to assess completely No other new complaints Continue with Unasyn Ultrasound of the leg is negative for DVT. Other than patient looks 08/31 Patient feels improving Left leg is regressing regarding the erythematous area swelling and tenderness. Still there is some fullness in the left lower leg Surgery team evaluated patient recommended continue with antibiotics and close monitoring we will ask for PT/OT evaluation 09/01 Patient right leg cellulitis is improving, currently with Wilfrid wrap Pain also improving No other new complaint on unasyn Objective - Vital Signs Vital signs: Vital Signs Temp 98.7 F 09/01/24 18:22 Pulse 74 09/01/24 18:22 Resp 18 09/01/24 18:22 BP 122/75 09/01/24 18:22 Pulse Ox 94 L 09/01/24 18:22 FiO2 Intake & Output 09/01/24 09/01/24 09/02/24 06:59 18:59 06:59 Intake Total 680 Output Total 1250 725 Balance -1250 -45 Intake: Oral 680 Output: Urine 1250 725 Other: Voiding Method Toilet Toilet - Exam GENERAL: The patient is alert and oriented x3, not in any acute distress. Well developed, well nourished. HEENT: Pupils are round and equally reacting to light. EOMI. No scleral icterus. No conjunctival pallor. Normocephalic, atraumatic. No pharyngeal erythema. No thyromegaly. CARDIOVASCULAR: S1 and S2 present. No murmurs, rubs, or gallops. PULMONARY: Chest is clear to auscultation, no wheezing , no crackles. ABDOMEN: Soft, nontender, nondistended, normoactive bowel sounds. No palpable organomegaly. MUSCULOSKELETAL: No joint swelling or deformity. EXTREMITIES: No cyanosis, clubbing, or pedal edema. -Right leg is severely swollen, very erythematous, warm mildly tender and there is fullness in the lower leg distally NEUROLOGICAL: Gross neurological examination did not reveal any focal deficits. SKIN: No rashes. no petechiae. - Labs CBC & Chem 7: 09/01/24 04:38 08/31/24 05:53 Labs: Abnormal Lab Results - Last 24 Hours (Table) 09/01/24 Range/Units 04:38 RBC 3.99 L (4.40-5.60) 10*6/uL Hgb 12.0 L (13.0-17.0) g/dL Hct 35.0 L (39.6-50.0) % Plt Count 67 L (140-440) 10*3/uL MPV 13.2 H (9.5-12.2) fL Eosinophils # 0.01 L (0.04-0.35) 10*3/uL Immature Plt Fraction 18.5 H (1.1-6.1) % Assessment and Plan Assessment: Assessment plan: - Acute cellulitis following local injury from a ball likely from hematoma that may be infected. IV Unasyn. If patient has a clinical improvement then no surgical intervention would be required. Especially given that do not want to really hold off patient's anticoagulation. - Right cline hematoma secondary to trauma from a baseball, precipitated by being on Xarelto Possibly infected -Paroxysmal atrial fibrillation. Patient underwent ablation by Dr. Sifuentes on August 26 Toprol XL 100 mg a day. Xarelto 20 mg with supper -Chronic congestive heart failure, with preserved ejection fraction, precipitated by A-fib: Improving Lasix as needed -Chronic, psychosis Risperdal. Trazodone. -Moderate persistent asthma Advair. Singulair. Albuterol HFA as needed -Hyperlipidemia Lipitor 10 mg nightly -Morbid obesity BMI 45 Weight loss measures -Full code
[2024-09-02 07:44] VITALS: BMI 44.9
--- NOTE | 2024-09-02 10:15 | P.PN ---
Subjective Progress Note Date: 09/02/24 SURGICAL PROGRESS NOTE CHIEF COMPLAINT: Right leg cellulitis HISTORY OF PRESENT ILLNESS: Patient reports that his right leg continues to improve. His pain is less. Leg is Wilfrid wrapped. He reports that he feels the swelling has come down he is able to move his ankle little better. Afebrile. WBC 6.13 PHYSICAL EXAM: VITAL SIGNS: Reviewed. GENERAL: Well-developed in no acute distress. Extremities: Right lower extremity Wilfrid wrapped. ASSESSMENT: 1. Right lower extremity hematoma with cellulitis PLAN: -Continue antibiotics -Continue to keep leg elevated -Continue to monitor -Continue compression with Wilfrid wrap Physician Catering Sous Chef note has been reviewed by physician. Signing provider agrees with the documented findings, assessment, and plan of care. Attestation Patient seen and examined at bedside on 09/02/2024. Patient with right leg cellulitis. This does appear to continue to improve. He states that the pain has decreased. Still warm to touch. Recommend continue IV antibiotics and conservative management. Continue to keep leg elevated and Wilfrid wrap as tolerated. No acute plan for surgical intervention unless patient has change in clinical status. Scar Rollins, Objective - Vital Signs Vital signs: Vital Signs Temp 98.5 F 09/02/24 07:04 Pulse 90 09/02/24 07:04 Resp 18 09/02/24 07:04 BP 138/85 09/02/24 07:04 Pulse Ox 93 L 09/02/24 07:04 FiO2 Intake & Output 09/01/24 09/02/24 09/02/24 18:59 06:59 18:59 Intake Total 680 120 Output Total 725 800 600 Balance -45 -800 -480 Weight 154.675 kg Intake: Oral 680 120 Output: Urine 725 800 600 Other: Voiding Method Toilet Toilet Toilet # Voids 1 - Labs CBC & Chem 7: 09/01/24 04:38 08/31/24 05:53
--- NOTE | 2024-09-02 14:10 | CT ---
EXAMINATION TYPE: CT lower extremity RT wo con DATE OF EXAM: 09/02/2024 COMPARISON: Right lower extremity venous Doppler ultrasound 08/29/2024 CLINICAL INDICATION: Male, 64 years old with history of right hematoma, cellulitis, swelling; PHH, RT HEMATOMA. CELLULITIS AND SWELLING CT DLP: 1514.6 mGycm Automated exposure control for dose reduction was used. TECHNIQUE: Axial images were obtained of the right lower extremity without the use of IV contrast. A dditional coronal and sagittal reformatted images and soft tissue and bone window were obtained for r eview. 3-D reconstruction was created on a separate workstation. FINDINGS: Surgical changes from a right knee arthroplasty. This creates streak artifact which limits evaluation. However appears intact with appropriate positioning. No evidence for fracture, subluxatio n or dislocation. Small right knee suprapatellar joint effusion. Subcutaneous edema of the distal right lower extremity. Within the medial soft tissues of the right l ower extremity is a slightly hyperdense 5.7 x 1.9 x 8.1 cm hematoma (series 4, image 146 and series 9 , image 19). This overlies the distal tibia. No soft tissue gas. Couple phleboliths identified within the medial lower extremity subcutaneous tissues. Small plantar calcaneal enthesophyte. IMPRESSION:a 1. No acute fracture dislocation. 2. Postsurgical changes right knee arthroplasty. Hardware appears intact. 3. Distal right lower extremity subcutaneous edema with an 8.1 cm soft tissue hematoma along the medi al aspect overlying the distal tibia. 4. Small right knee joint effusion. [facility], , 09/02/2024 2:07 PM
--- NOTE | 2024-09-02 14:12 | XR ---
EXAMINATION TYPE: XR tibia fibula RT DATE OF EXAM: 09/02/2024 1:56 PM COMPARISON: None. CLINICAL INDICATION: Male, 64 years old with history of swelling, pain, right cline, pain TECHNIQUE: 2 view(s) obtained. FINDINGS: No acute fracture or dislocation evident. Right knee prosthesis is present. Right ankle joint space a ppears normal. There is soft tissue swelling over the distal diaphyseal pretibial space. No radiopaque foreign rose s evident. Underlying osseous structures appear intact. IMPRESSION: 1. No acute osseous abnormality right tibia and fibula. 2. Distal anterior pretibial soft tissue swelling of uncertain etiology. [facility], , 09/02/2024 2:10 PM
[2024-09-02] MEDS: PANTOPRAZOLE 40 MG/10 ML VIAL IVP SCH (15:54)
[2024-09-02 17:00] LABS: RSV Not Detected (Not Detectd)
[2024-09-02] MEDS: SYMBICORT 80-4.5 MCG INHALER INHALATION SCH (19:53)
--- NOTE | 2024-09-03 04:35 | PN ---
PROGRESS NOTE DATE OF SERVICE: 09/02/2024 SUBJECTIVE: This is a 64-year-old gentleman who was admitted with left leg hematoma injury after baseball injury. He is being closely monitored. No chest pain or palpitation. PHYSICAL EXAMINATION: VITAL SIGNS: Pulse is 90, blood pressure 130/84, respirations 18. CHEST: Clear to auscultation. CARDIOVASCULAR: S1, S2. ABDOMEN: Soft. LABORATORY DATA: Reviewed. ASSESSMENT: 1. Left cline cellulitis and hematoma, possibly secondary from baseball injury. 2. Paroxysmal atrial fibrillation. 3. Thrombocytopenia. 4. History of asthma. 5. Hypertension. 6. Multiple complex medical issues. RECOMMENDATIONS AND DISCUSSION: Recommend to continue current management and treatment, otherwise at this time, I would recommend continue the antibiotics. The patient is on Unasyn. Monitor platelets closely. I would also recommend CT scan of the leg to rule out the possibility of any fracture. Repeat labs. Prognosis guarded. Further recommendations, see orders for details thank you. MMMARCI / IJN: [id number] /
[2024-09-03 09:38] LABS: Basophils # (A) 0.03 X 10*3/uL (0.00-0.10); Basophils % (A) 0.5 %; Eosinophils # (A) 0.01 X 10*3/uL (0.04-0.35); Eosinophils % (A) 0.2 %; HCT 36.5 % (39.6-50.0); HGB 12.0 g/dL (13.0-17.0); Immature Grans, Automated 0.20 %; Immature Platelet Fraction 16.1 % (1.1-6.1); Lymphocytes # (A) 1.11 X 10*3/uL (0.90-5.00); Lymphocytes % (A) 19.9 %; MCH 29.4 pg (27.0-32.0); MCHC 32.9 g/dL (32.0-37.0); MCV 89.5 FL (80.0-97.0); Monocytes # (A) 0.80 X 10*3/uL (0.20-1.00); Monocytes % (A) 14.3 %; NRBC Per 100 WBC 0 X 10*3/uL (0.00-0.01); Neutrophils # (A) 3.63 X 10*3/uL (1.80-7.70); Neutrophils % (A) 64.9 %; RBC 4.08 X 10*6/uL (4.40-5.60); RDW 12.8 % (11.5-14.5); WBC 5.59 X 10*3/uL (4.50-10.00)
[2024-09-03 10:42] LABS: Anion Gap 9.70 mmol/L (4.00-12.00); BUN/Creat Ratio 14.44 Ratio (12.00-20.00); Blood Urea Nitrogen 13.0 mg/dL (9.0-27.0); Calcium 9.0 mg/dL (8.7-10.3); Carbon Dioxide 26.3 mmol/L (21.6-31.8); Chloride 99 mmol/L (96-109); Glucose 121 mg/dL (70-110); Potassium 4.4 mmol/L (3.5-5.5); Sodium 135 mmol/L (135-145)
--- NOTE | 2024-09-03 12:52 | P.CRDCN ---
History of Present Illness Consult date: 09/03/24 Reason for Consult (text): Atrial fibrillation, large right cline hematoma on Xarelto History of present illness: This is a 64-year-old male patient of Dr. Strauss with past medical history of atrial fibrillation diagnosed in November 2023 status post ablation on 08/26/[address] Victor. Also, he had history of dyslipidemia, hypertension. Patient presented to the hospital on 08/29 due to pain to the right lower extremity following an injury with a softball 1 week prior. Patient was hit in the right lower cline and he had some bleeding at the time and then developed hematoma. He had increased redness and swelling that went up the leg. He initially presented to urgent care and was started on antibiotics but the swelling continued along with warmth and redness. Patient has been followed by general surgery with no plan for surgical intervention and continued on antibiotics. Patient has been maintained on Xarelto. Blood pressure 129/83, heart rate 78, pulse ox 92% on room air. -Right lower extremity ultrasound duplex revealed a limited exam but no evidence of DVT from the right femoral vein through the popliteal vein. -CT of the right lower extremity revealed no acute fracture or dislocation. Hardware intact to the right knee. Distal right lower extremity subcutaneous edema with 8.1 cm soft tissue hematoma along the medial aspect underlying the distal tibia. Small right knee effusion. -Laboratory studies: WBC 5.5, hemoglobin 12 electrolytes and renal function normal. Cepheid viral panel not detected. -Home cardiac medications: Atorvastatin 10 mg at bedtime, Lasix 40 mg daily as needed, Toprol XL 100 mg daily, Xarelto 20 mg with supper. -Ablation history: left atrial septal ablation with PVI performed on 08/26/2024 -Echocardiogram performed at [facility] on 05/21/2024 revealed technically difficult study, EF 50%, mild aortic stenosis with mean gradient 14 mmHg. No pericardial effusion. -Stress echocardiogram performed 10/01/2022 revealed normal treadmill stress echocardiogram. Poor exercise tolerance achieving 7 METS and 97% of max predicted heart rate. Review Of Systems: At the time of my exam: CONSTITUTIONAL: Denies fever or chills. HEENT: Denies blurred vision, vision changes, or eye pain. Denies hemoptysis CARDIOVASCULAR: Denies chest pain. Denies orthopnea. Denies PND. Denies palpitations RESPIRATORY: Denies shortness of breath. GASTROINTESTINAL: Denies abdominal pain. Denies nausea or vomiting. HEMATOLOGIC: Denies bleeding disorders. GENITOURINARY: Denies any blood in urine. SKIN: Denies puritis. Denies rash. + Cellulitis and hematoma right lower extremity. Physical examination: Gen: This is 64-year-old male in no acute distress VS: reviewed HEENT: Head is atraumatic, normocephalic. Pupils equal, round. Sclerae is anicteric. NECK: Supple. No JVD. LUNGS: Clear to auscultation. No wheezes or rhonchi. No intercostal retractions. HEART: Regular rate and rhythm. 2/6 systolic ejection murmur. ABDOMEN: Soft No tenderness. EXTREMITIES: No pedal edema. No calf tenderness. Hematoma and erythema to right LE. NEUROLOGICAL: Patient is awake, alert and oriented x3. Assessment: Right lower extremity hematoma, stable. Injury was greater than 1 week ago, no sign of compartment syndrome. Right lower extremity cellulitis Paroxysmal atrial fibrillation Hypertension Hyperlipidemia Mild aortic stenosis Pulmonary hypertension Plan: Continue patient's home cardiac medications Continue Xarelto No need to repeat echocardiogram Cardiology will sign off this case and follow on an as-needed basis. Please reconsult for any new concerns. Patient may follow-up in the office with Dr. Strauss in 2 weeks. Thank you kindly for this consultation. Nurse practitioner note has been reviewed, I agree with documented findings and plan of care. Patient was seen and examined. Past Medical History Past Medical History: Atrial Fibrillation, Asthma, Cancer, Hyperlipidemia, Hypertension, Osteoarthritis (OA), Pneumonia Additional Past Medical History / Comment(s): Hospitalized 05/20/24-new onset Afib. 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 covid 19 2020 History of Any Multi-Drug Resistant Organisms: None Reported Past Surgical History: Cardiac Ablation, Joint Replacement, Orthopedic Surgery Additional Past Surgical History / Comment(s): "Nerve cauterization" procedure in back 5-10 years ago. B/L knee arthroplasty. L shoulder rotator cuff tear, 2009 kidney CA- removed portion of R kidney, 2012 carpectomy L wrist, TLK. Past Anesthesia/Blood Transfusion Reactions: No Reported Reaction Additional Past Anesthesia/Blood Transfusion Reaction / Comment(s): "incision popped open day of surgery with other knee replacement, ended up staying 5 days with knee immobilized" Past Psychological History: Depression Additional Psychological History / Comment(s): Takes oral medication for mood stabilization. Smoking Status: Never smoker Past Alcohol Use History: None Reported Past Drug Use History: None Reported - Past Family History Father Family Medical History: Cancer Additional Family Medical History / Comment(s): colon Mother Family Medical History: AFIB, Asthma Medications and Allergies Home Medications Medication Instructions Recorded Confirmed Type Montelukast [Singulair] 10 mg PO HS 03/23/19 08/29/24 History Atorvastatin [Lipitor] 10 mg PO HS 09/29/22 08/29/24 History Sertraline [Zoloft] 50 mg PO HS 30 Days #30 tab 11/21/23 08/29/24 Rx risperiDONE [RisperDAL] 0.5 mg PO BID 30 Days #60 tab 11/21/23 08/29/24 Rx Albuterol Sulfate [Albuterol 2 puff INHALATION RT-QID PRN 05/20/24 08/29/24 History Sulfate Hfa] Fluticasone Propion/Salmeterol 1 puff INHALATION RT-BID 05/20/24 08/30/24 History [Advair 250-50 Diskus] Rivaroxaban [Xarelto] 20 mg PO W/SUPPER #30 tab 05/22/24 08/29/24 Rx Furosemide [Lasix] 40 mg PO DAILY PRN 06/09/24 08/29/24 History HYDROcodone/APAP 7.5-325MG [[place] 1 tab PO BID PRN 30 Days #60 tab 07/08/24 08/29/24 Rx 7.5-325] Metoprolol Succinate (ER) [Toprol 100 mg PO DAILY #30 tab 08/02/24 08/29/24 Rx XL] Cephalexin [Keflex] 500 mg PO Q6HR 08/29/24 08/29/24 History traZODone HCL 100 mg PO HS 08/29/24 08/29/24 History HYDROcodone/APAP 7.5-325MG [[place] 1 tab PO BID PRN 30 Days #60 tab 09/02/24 Rx 7.5-325] Allergies Allergy/AdvReac Type Severity Reaction Status Date / Time Iodinated Contrast Media Allergy Severe Anaphylaxis Verified 08/29/24 12:05 [Iodinated Contrast Media - IV Dye] shellfish derived Allergy Severe Anaphylaxis Verified 08/29/24 12:05 sulfamethoxazole Allergy Severe Anaphylaxis Verified 08/29/24 12:05 [From Bactrim] trimethoprim [From Bactrim] Allergy Severe Anaphylaxis Verified 08/29/24 12:05 Physical Exam Vitals: Vital Signs Temp Pulse Resp BP Pulse Ox 09/03/24 07:00 98.5 F 78 20 129/83 92 L 09/03/24 01:48 99.5 F 80 17 118/79 94 L 09/02/24 20:00 99.6 F 77 17 128/80 96 09/02/24 14:55 98.1 F 68 18 140/90 96 Intake and Output 09/02/24 09/03/24 09/03/24 22:59 06:59 14:59 Intake Total 240 Output Total 400 1000 Balance -400 -1000 240 Intake: Oral 240 Output: Urine 400 1000 Other: Voiding Method Toilet Toilet Results 09/03/24 05:50 09/03/24 05:50 CBC 09/03/24 Range/Units 05:50 WBC 5.59 (4.50-10.00) X 10*3/uL RBC 4.08 L (4.40-5.60) X 10*6/uL Hgb 12.0 L (13.0-17.0) g/dL Hct 36.5 L (39.6-50.0) % Comprehensive Metabolic Panel 09/03/24 Range/Units 05:50 Sodium 135 (135-145) mmol/L Potassium 4.4 (3.5-5.5) mmol/L Chloride 99 (96-109) mmol/L Carbon Dioxide 26.3 (21.6-31.8) mmol/L BUN 13.0 (9.0-27.0) mg/dL Creatinine 0.9 (0.6-1.5) mg/dL Glucose 121 H (70-110) mg/dL Calcium 9.0 (8.7-10.3) mg/dL Current Medications Generic Name Dose Route Start Last Admin Trade Name Freq PRN Reason Stop Dose Admin Hydrocodone Bitart/Acetaminophen 1 each 08/29/24 14:12 09/03/24 08:20 Hydrocodone/Apap 7.5-325mg 1 Each Tab PO 1 each BID PRN Administration Pain Albuterol Sulfate 2.5 mg 08/29/24 12:26 Albuterol Nebulized 2.5 Mg/3 Ml INHALATION RT-QID PRN Shortness Of Breath Atorvastatin Calcium 10 mg 08/29/24 21:00 09/02/24 20:26 Atorvastatin 10 Mg Tab PO 10 mg HS LISA Administration Budesonide/Formoterol Fumarate 2 puff 09/02/24 20:00 09/03/24 08:27 Symbicort 80-4.5 Mcg Inhaler INHALATION 2 puff RT-BID LISA Administration Furosemide 40 mg 09/02/24 13:53 Furosemide 40 Mg Tab PO DAILY PRN edema in legs Ampicillin Sodium/Sulbactam 50 mls @ 100 mls/hr 08/29/24 14:00 09/03/24 08:19 Sodium 1.5 gm/ Sodium Chloride IVPB 100 mls/hr Q6H LISA Administration Protocol Metoprolol Succinate 100 mg 08/29/24 12:30 09/03/24 08:20 Metoprolol Succinate (Er) 100 Mg Tab.Er.24h PO 100 mg DAILY LISA Administration Montelukast Sodium 10 mg 08/29/24 21:00 09/02/24 20:26 Montelukast 10 Mg Tab PO 10 mg HS LISA Administration Morphine Sulfate 4 mg 08/29/24 04:00 08/29/24 07:38 Morphine Sulfate 4 Mg/Ml Syringe IV 4 mg Q4HR PRN Administration Severe Pain (Scale 7 to 10) Naloxone HCl 0.2 mg 08/29/24 03:39 Naloxone 0.4 Mg/Ml 1 Ml Vial IV Q2M PRN Opioid Reversal Pantoprazole Sodium 40 mg 09/02/24 15:30 09/03/24 08:19 Pantoprazole 40 Mg/10 Ml Vial IVP 40 mg DAILY LISA Administration Risperidone 0.5 mg 08/29/24 12:30 09/03/24 08:20 Risperidone 0.5 Mg Tab PO 0.5 mg BID LISA Administration Rivaroxaban 20 mg 08/29/24 17:30 09/02/24 16:59 Rivaroxaban 20 Mg Tab PO 20 mg W/SUPPER LISA Administration Protocol Sertraline HCl 50 mg 08/29/24 21:00 09/02/24 20:27 Sertraline 50 Mg Tab PO 50 mg HS LISA Administration Trazodone HCl 100 mg 08/29/24 21:00 09/02/24 20:26 Trazodone Hcl 100 Mg Tab PO 100 mg HS LISA Administration Intake and Output 09/02/24 09/03/24 09/03/24 22:59 06:59 14:59 Intake Total 240 Output Total 400 1000 Balance -400 -1000 240 Intake: Oral 240 Output: Urine 400 1000 Other: Voiding Method Toilet Toilet 09/03/24 05:50 09/03/24 05:50
--- NOTE | 2024-09-03 20:13 | P.CONS ---
History of Present Illness - Reason for Consult Consult date: 09/03/24 thrombocytopenia Requesting physician: Zandra Vasquez - Chief Complaint leg pain, hematoma - History of Present Illness Patient is a 64 year old male who had previously followed up with Dr. Douglass in 2014 for thrombocytopenia. History of a partial nephrectomy for a renal cell cancer in 2009. At time of evaluation he had lower platelets for about 3 years but never required intervention. He was seen on consult at [facility] in 2014. [place] [address]. Labs were ordered to w/u his thrombocytopenia, and he was subsequently discharged. An US of the abdomen was done to assess the liver and spleen. This showed the liver to be mildly enlarged, along with mild splenomegaly, with increase in size of the spleen compared to 2010. His thrombocytopenia workup was negative. He does have mild splenomegaly and borderline hepatomegaly. With negative labs, fatty infiltration of the liver causing splenic congestion, and thus sequestration of plt, was the most likely diagnosis. They were advised that no treatment is required as long as the plt count is in a safe range. His plt count has always been > 50 , which is adequate for most surgeries, as well anticoagulation or anti plt agent therapy. His plts were normal at his last at 247,000. Patient presented to the emergency room for a right lower extremity injury. Patient states he was hit with a softball in the right cline which developed bruising and hematoma and then began having progressing erythema around injury. Which caused him to present for further evaluation. Right lower extremity Doppl er negative for DVT. CT right lower extremity showing no acute fracture. Distal right lower extremity subcutaneous edema with an 8.1 cm soft tissue hematoma along the medial aspect overlying the distal tibia. Patient was started on IV antibiotics with Unasyn for cellulitis. General surgery follo wing. On admit platelets normal at 187,000. Yesterday platelets 67,000, today plt pending. Hemoglobin 12.0, WBC 5.5. Review of Systems 10 point ROS is negative except as stated in the HPI Past Medical History Past Medical History: Atrial Fibrillation, Asthma, Cancer, Hyperlipidemia, Hypertension, Osteoarthritis (OA), Pneumonia Additional Past Medical History / Comment(s): Hospitalized 05/20/24-new onset Afib. 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 covid 19 2020 History of Any Multi-Drug Resistant Organisms: None Reported Past Surgical History: Cardiac Ablation, Joint Replacement, Orthopedic Surgery Additional Past Surgical History / Comment(s): "Nerve cauterization" procedure in back 5-10 years ago. B/L knee arthroplasty. L shoulder rotator cuff tear, 2009 kidney CA- removed portion of R kidney, 2011 carpectomy L wrist, TLK. Past Anesthesia/Blood Transfusion Reactions: No Reported Reaction Additional Past Anesthesia/Blood Transfusion Reaction / Comm: "incision popped open day of surgery with other knee replacement, ended up staying 5 days with knee immobilized" Past Psychological History: Depression Additional Psychological History / Comment(s): Takes oral medication for mood stabilization. Smoking Status: Never smoker Past Alcohol Use History: None Reported Past Drug Use History: None Reported - Past Family History Father Family Medical History: Cancer Additional Family Medical History / Comment(s): colon Mother Family Medical History: AFIB, Asthma Medications and Allergies Home Medications Medication Instructions Recorded Confirmed Type Montelukast [Singulair] 10 mg PO HS 03/23/19 08/29/24 History Atorvastatin [Lipitor] 10 mg PO HS 09/29/22 08/29/24 History Sertraline [Zoloft] 50 mg PO HS 30 Days #30 tab 11/21/23 08/29/24 Rx risperiDONE [RisperDAL] 0.5 mg PO BID 30 Days #60 tab 11/21/23 08/29/24 Rx Albuterol Sulfate [Albuterol 2 puff INHALATION RT-QID PRN 05/20/24 08/29/24 History Sulfate Hfa] Fluticasone Propion/Salmeterol 1 puff INHALATION RT-BID 05/20/24 08/30/24 History [Advair 250-50 Diskus] Rivaroxaban [Xarelto] 20 mg PO W/SUPPER #30 tab 05/22/24 08/29/24 Rx Furosemide [Lasix] 40 mg PO DAILY PRN 06/09/24 08/29/24 History HYDROcodone/APAP 7.5-325MG [[place] 1 tab PO BID PRN 30 Days #60 tab 07/08/24 08/29/24 Rx 7.5-325] Metoprolol Succinate (ER) [Toprol 100 mg PO DAILY #30 tab 08/02/24 08/29/24 Rx XL] Cephalexin [Keflex] 500 mg PO Q6HR 08/29/24 08/29/24 History traZODone HCL 100 mg PO HS 08/29/24 08/29/24 History HYDROcodone/APAP 7.5-325MG [Prim 1 tab PO BID PRN 30 Days #60 tab 09/02/24 Rx 7.5-325] Allergies Allergy/AdvReac Type Severity Reaction Status Date / Time Iodinated Contrast Media Allergy Severe Anaphylaxis Verified 08/29/24 12:05 [Iodinated Contrast Media - IV Dye] shellfish derived Allergy Severe Anaphylaxis Verified 08/29/24 12:05 sulfamethoxazole Allergy Severe Anaphylaxis Verified 08/29/24 12:05 [From Bactrim] trimethoprim [From Bactrim] Allergy Severe Anaphylaxis Verified 08/29/24 12:05 Physical Exam Vitals: Vital Signs Temp Pulse Resp BP Pulse Ox 09/03/24 07:00 98.5 F 78 20 129/83 92 L 09/03/24 01:48 99.5 F 80 17 118/79 94 L 09/02/24 20:00 99.6 F 77 17 128/80 96 09/02/24 14:55 98.1 F 68 18 140/90 96 Intake and Output 09/02/24 09/03/24 09/03/24 22:59 06:59 14:59 Output Total 400 1000 Balance -400 -1000 Output: Urine 400 1000 Other: Voiding Method Toilet - Constitutional General appearance: average body habitus, no acute distress - EENT Eyes: anicteric sclerae, EOMI ENT: hearing grossly normal - Respiratory breathing is even and unlabored - Cardiovascular skin warm and dry - Gastrointestinal General gastrointestinal: soft, no tenderness - Musculoskeletal edema to right cline, with significant erythema noted - Psychiatric Psychiatric: A&O x's 3 Results CBC & Chem 7: 09/03/24 05:50 09/03/24 05:50 Labs: Abnormal Lab Results - Last 24 Hours (Table) 09/03/24 09/03/24 Range/Units 05:50 05:50 RBC 4.08 L (4.40-5.60) X 10*6/uL Hgb 12.0 L (13.0-17.0) g/dL Hct 36.5 L (39.6-50.0) % Eosinophils # 0.01 L (0.04-0.35) X 10*3/uL Immature Plt Fraction 16.1 H (1.1-6.1) % Glucose 121 H (70-110) mg/dL Comments: CT, xray and doppler reviewed Assessment and Plan (1) Cellulitis of right leg Current Visit: Yes Status: Acute Priority: High Code(s): L03.115 - CELLULITIS OF RIGHT LOWER LIMB SNOMED Code(s): 77472565432382181 (2) Thrombocytopenia Current Visit: Yes Status: Acute Priority: Medium Code(s): D69.6 - THROMBOCYTOPENIA, UNSPECIFIED SNOMED Code(s): 092901732 Plan: Hematoma, thrombocytopenia: Presented for a right lower extremity injury. Patient was hit with a softball in the right cline which developed bruising and hematoma and then began having increased erythema -Hematology history as dictated in the HPI. Previously followed up with Dr. Douglass in 2014 for thrombocytopenia. Workup was negative. Thrombocytopenia felt to be r/t fatty infiltration of the liver causing splenic congestion, and thus sequestration of plt -Right lower extremity doppler negative for DVT. CT right lower extremity showing no acute fracture. Distal right lower extremity subcutaneous edema with an 8.1 cm soft tissue hematoma along the medial aspect overlying the distal tibia. -Started on IV antibiotics with Unasyn. General surgery following. -On admit platelets normal at 187,000. Yesterday platelets 67,000, platelets pending today. Hemoglobin 12.0, WBC 5.5. -As stated above thrombocytopenia likely r/t to fatty liver/splenic congestion, superimposed and reactive to acute infection/inflammation. As long as plts are > 50,000 and hematoma is stable, pt can continue on Xarelto. No further hematology workup at this time -Continue to monitor CBC
--- NOTE | 2024-09-03 21:02 | PN ---
PROGRESS NOTE DATE OF SERVICE: 09/03/2024 SUBJECTIVE: This 64-year-old gentleman admitted with left cline cellulitis and hematoma, had a persistent hematoma in the CT scan. The patient is also on blood thinners. The x-ray showed no fractures. Cardio is recommend to continue the anticoagulation. PHYSICAL EXAMINATION: VITAL SIGNS: Pulse is 73, blood pressure 110/70, respirations 20. CHEST: Clear to auscultation. CARDIOVASCULAR: S1, S2. ABDOMEN: Soft. EXTREMITIES: Right cline hematoma present. LABORATORY DATA: Noted. ASSESSMENT: 1. Right cline cellulitis and hematoma, possibly secondary to baseball injury. 2. Paroxysmal atrial fibrillation. 3. Thrombocytopenia. 4. History of asthma. 5. History of hypertension. 6. History of multiple complex medical issues. RECOMMENDATIONS AND DISCUSSION: Recommend to continue current management of treatment, otherwise closely monitor. Repeat labs in the morning. Guarded prognosis. Further recommendations to follow. MMODL / IJN: [id number] /
[2024-09-04] MEDS: FUROSEMIDE 40 MG TAB PO PRN (08:46)
[2024-09-04 10:04] LABS: Anion Gap 11.50 mmol/L (4.00-12.00); BUN/Creat Ratio 16.33 Ratio (12.00-20.00); Blood Urea Nitrogen 14.7 mg/dL (9.0-27.0); Calcium 8.9 mg/dL (8.7-10.3); Carbon Dioxide 25.5 mmol/L (21.6-31.8); Chloride 98 mmol/L (96-109); Glucose 118 mg/dL (70-110); Potassium 4.3 mmol/L (3.5-5.5); Sodium 135 mmol/L (135-145)
[2024-09-04 10:45] LABS: Basophils # (A) 0.03 X 10*3/uL (0.00-0.10); Basophils % (A) 0.5 %; Eosinophils # (A) 0.01 X 10*3/uL (0.04-0.35); Eosinophils % (A) 0.2 %; HCT 35.2 % (39.6-50.0); HGB 11.7 g/dL (13.0-17.0); Immature Grans, Automated 0.20 %; Immature Platelet Fraction 13.9 % (1.1-6.1); Lymphocytes # (A) 1.08 X 10*3/uL (0.90-5.00); Lymphocytes % (A) 19.6 %; MCH 29.5 pg (27.0-32.0); MCHC 33.2 g/dL (32.0-37.0); MCV 88.9 FL (80.0-97.0); Monocytes # (A) 0.77 X 10*3/uL (0.20-1.00); Monocytes % (A) 14.0 %; NRBC Per 100 WBC 0 X 10*3/uL (0.00-0.01); Neutrophils # (A) 3.61 X 10*3/uL (1.80-7.70); Neutrophils % (A) 65.5 %; Platelet Count 117 X 10*3/uL (140-440); RBC 3.96 X 10*6/uL (4.40-5.60); RDW 12.7 % (11.5-14.5); WBC 5.51 X 10*3/uL (4.50-10.00)
--- NOTE | 2024-09-05 03:47 | PN ---
PROGRESS NOTE DATE OF SERVICE: 09/04/2024 SUBJECTIVE: This 64-year-old gentleman admitted with extensive hematoma, cline cellulitis after baseball injury, who is being closely monitored. No chest pain. No palpitation. OBJECTIVE: VITAL SIGNS: Pulse 88, blood pressure 121/74, respirations 16. CHEST: Clear to auscultation. CARDIOVASCULAR: S1, S2. ABDOMEN: Soft. NERVOUS SYSTEM: No focal deficit. LABORATORY DATA: Hemoglobin 11.7, rest of the labs are noted. ASSESSMENT: 1. Right cline cellulitis with hematoma, possibly secondary to baseball injury. 2. Paroxysmal atrial fibrillation, on anticoagulation. 3. Thrombocytopenia. 4. History of asthma. 5. Hypertension. 6. Multiple complex medical issues. RECOMMENDATIONS: Recommend to continue current management and treatment. The platelets have improved at this time, I will continue to monitor. Recommend repeat labs. Closely follow. Further recommendations to follow. MMODL / IJN: [id number] /
[2024-09-05 10:19] LABS: Basophils # (A) 0.03 X 10*3/uL (0.00-0.10); Basophils % (A) 0.5 %; Eosinophils # (A) 0.01 X 10*3/uL (0.04-0.35); Eosinophils % (A) 0.2 %; HCT 36.3 % (39.6-50.0); HGB 12.1 g/dL (13.0-17.0); Immature Grans, Automated 0.20 %; Immature Platelet Fraction 17.1 % (1.1-6.1); Lymphocytes # (A) 1.18 X 10*3/uL (0.90-5.00); Lymphocytes % (A) 21.5 %; MCH 29.4 pg (27.0-32.0); MCHC 33.3 g/dL (32.0-37.0); MCV 88.3 FL (80.0-97.0); Monocytes # (A) 0.71 X 10*3/uL (0.20-1.00); Monocytes % (A) 12.9 %; NRBC Per 100 WBC 0 X 10*3/uL (0.00-0.01); Neutrophils # (A) 3.55 X 10*3/uL (1.80-7.70); Neutrophils % (A) 64.7 %; Platelet Count 108 X 10*3/uL (140-440); RBC 4.11 X 10*6/uL (4.40-5.60); RDW 12.6 % (11.5-14.5); WBC 5.49 X 10*3/uL (4.50-10.00)
--- NOTE | 2024-09-06 04:29 | PN ---
PROGRESS NOTE DATE OF SERVICE: 09/05/2024 SUBJECTIVE: This is a 64-year-old gentleman with right facial cellulitis and hematoma after baseball injury, is being closely monitored. No chest pain no palpitation. EXAM: VITAL SIGNS: Pulse 69, blood pressure 123/82, respirations 16. CHEST: Clear to auscultation. CARDIOVASCULAR: S1 and S2. ABDOMEN: Soft. EXTREMITIES: Right leg hematoma present. LABORATORY DATA: Noted. ASSESSMENT: 1. Right cline cellulitis and hematoma, possibly secondary to baseball injury. 2. Paroxysmal atrial fibrillation, on anticoagulation. 3. Thrombocytopenia, recurrent. 4. History of asthma. 5. Hypertension. 6. Multiple complex medical issues. RECOMMENDATIONS AND DISCUSSION: I recommend to continue current medication management and symptomatic treatment. Otherwise, repeat labs in the morning. Otherwise, continue the rest of medications. Closely follow with Hematology and Cardiology. Prognosis guarded. Further recommendations to follow. MMODL / IJN: [id number] /
[2024-09-06 08:15] VITALS: RESP 16
[2024-09-06 08:39] LABS: Anion Gap 13.80 mmol/L (4.00-12.00); BUN/Creat Ratio 16.60 Ratio (12.00-20.00); Blood Urea Nitrogen 16.6 mg/dL (9.0-27.0); Calcium 9.1 mg/dL (8.7-10.3); Carbon Dioxide 23.2 mmol/L (21.6-31.8); Chloride 99 mmol/L (96-109); Glucose 118 mg/dL (70-110); Potassium 4.4 mmol/L (3.5-5.5); Sodium 136 mmol/L (135-145)
[2024-09-06 11:51] LABS: Basophils # (A) 0.03 10*3/uL (0.00-0.10); Basophils % (A) 0.5 %; Eosinophils # (A) 0.00 10*3/uL (0.04-0.35); Eosinophils % (A) 0.0 %; HCT 35.9 % (39.6-50.0); HGB 12.1 g/dL (13.0-17.0); Lymphocytes # (A) 0.92 10*3/uL (0.90-5.00); Lymphocytes % (A) 15.9 %; MCH 29.3 pg (27.0-32.0); MCHC 33.7 g/dL (32.0-37.0); MCV 86.9 fL (80.0-97.0); Monocytes # (A) 0.47 10*3/uL (0.20-1.00); Monocytes % (A) 8.1 %; Neutrophils # (A) 4.36 10*3/uL (1.80-7.70); Neutrophils % (A) 75.3 %; RBC 4.13 10*6/uL (4.40-5.60); RDW 12.4 % (11.5-14.5); WBC 5.79 10*3/uL (4.50-10.00)
[2024-09-06 11:55] LABS: Platelet Count 168 10*3/uL (140-440)
[2024-09-06 16:02] VITALS: BP 119/74; PULSE 70; TEMP 98.5
--- NOTE | 2024-09-11 00:51 | P.DS ---
Providers Date of admission: 08/29/24 03:40 Expected date of discharge: 09/06/24 Attending physician: Fred Jefferson Consults: 08/29/24 20:37 Consult Physician Routine Consulting Provider: Hemant Albert Consult Reason/Comments: Right cline, possible infected hematoma Do you want consulting provider notified?: Yes 09/02/24 12:45 Consult Physician Urgent Consulting Provider: Chad Douglass Consult Reason/Comments: thrombocytopenia, on xarelto, right cline hematoma Do you want consulting provider notified?: Yes 09/03/24 09:33 Consult Physician Urgent Consulting Provider: Pa Albert Consult Reason/Comments: afib, large right hematoma on cline on xarelto, recommendations Do you want consulting provider notified?: Yes Primary care physician: Isiah Hernandez [facility] Course: Final diagnosis Right cline cellulitis and hematoma secondary to a baseball injury Paroxysmal atrial fibrillation maintained on Xarelto Recurrent thrombocytopenia History of asthma, not in exacerbation Morbid obesity with a BMI of 45.0 Hypertension GI prophylaxis DVT prophylaxis Full code Discharge disposition Patient is being discharged in a stable condition with guarded prognosis to home. Patient will follow-up with Dr. Hernandez in the outpatient setting upon discharge. Patient is to continue with xarelto and outpatient follow-up with vascular surgery and cardiology as scheduled. Total time taken is greater than 35 minutes. Hospital course This is a 64-year-old male who was recently admitted and a right cline hematoma. Being closely monitored. Patient is on blood thinners history of atrial fibrillation and having worsening swelling and hematoma patient evaluated by vascular surgery and general surgery training recommending conservative management and initially was holding anticoagulation. Patient evaluated by cardiology Xarelto given risks versus benefits. Patient maintained on antibiotics showing some clinical improvement. Patient would like to go home and has been cleared by consultations. Recommend outpatient follow-up with vascular surgery and general surgery as scheduled. Please refer to other consultation notes for further HPI. Currently no reports of chest pain, shortness of breath, or palpitations. Patient is afebrile. No reports of nausea or vomiting and patient is tolerating diet. Patient will be discharged home today. Guarded prognosis and high risk for readmissions Physical exam: Gen: This is a 64-year-old male who is awake, alert and oriented x 3, well- developed, elderly appearing, morbidly obese HEENT: Head is atraumatic, normocephalic. Pupils equal, round. Sclerae is anicteric. NECK: Supple. No JVD. No lymphadenopathy. No thyromegaly. LUNGS: Diminished breath sounds bilaterally otherwise clear to auscultation. No wheezes or rhonchi. No intercostal retractions. HEART: Regular rate and rhythm. No murmur. ABDOMEN: Soft. Obese. Bowel sounds are present. No masses. No tenderness. EXTREMITIES: No pedal edema. No calf tenderness. Right cline hematoma with significant discoloration noted NEUROLOGICAL: Patient is awake, alert and oriented x3. Cranial nerves 2 through 12 are grossly intact. Please refer to medication reconciliation sheet for a list of medications. The impression and plan of care has been dictated by Zandra Vasquez, Nurse Practitioner as directed. Jones MD I have performed a history and examination and MDM of this patient, discussed the same with the dictator, and agree with the dictator's assessment and plan as written ,documented as a scribe. Based on total visit time, I have performed more than 50% of the visit. Patient Condition at Discharge: Stable Plan - Discharge Summary Discharge Rx Participant: No New Discharge Prescriptions: Continue Montelukast [Singulair] 10 mg PO HS Atorvastatin [Lipitor] 10 mg PO HS Rivaroxaban [Xarelto] 20 mg PO W/SUPPER #30 tab HYDROcodone/APAP 7.5-325MG [[place] 7.5-325] 1 tab PO BID PRN 30 Days #60 tab PRN Reason: Pain traZODone HCL 100 mg PO HS Sertraline [Zoloft] 50 mg PO HS 30 Days #30 tab risperiDONE [RisperDAL] 0.5 mg PO BID 30 Days #60 tab Albuterol Sulfate [Albuterol Sulfate Hfa] 2 puff INHALATION RT-QID PRN PRN Reason: Shortness Of Breath Fluticasone Propion/Salmeterol [Advair 250-50 Diskus] 1 puff INHALATION RT- BID Furosemide [Lasix] 40 mg PO DAILY PRN PRN Reason: edema in legs Metoprolol Succinate (ER) [Toprol XL] 100 mg PO DAILY #30 tab HYDROcodone/APAP 7.5-325MG [[place] 7.5-325] 1 tab PO BID PRN 30 Days #60 tab PRN Reason: Pain Discontinued Cephalexin [Keflex] 500 mg PO Q6HR Discharge Medication List Montelukast [Singulair] 10 mg PO HS 03/23/19 [History] Atorvastatin [Lipitor] 10 mg PO HS 09/29/22 [History] Sertraline [Zoloft] 50 mg PO HS 30 Days #30 tab 11/21/23 [Rx] risperiDONE [RisperDAL] 0.5 mg PO BID 30 Days #60 tab 11/21/23 [Rx] Albuterol Sulfate [Albuterol Sulfate Hfa] 2 puff INHALATION RT-QID PRN 05/20/24 [History] Fluticasone Propion/Salmeterol [Advair 250-50 Diskus] 1 puff INHALATION RT-BID 0 05/20/24 [History] Rivaroxaban [Xarelto] 20 mg PO W/SUPPER #30 tab 05/22/24 [Rx] Furosemide [Lasix] 40 mg PO DAILY PRN 06/09/24 [History] HYDROcodone/APAP 7.5-325MG [[place] 7.5-325] 1 tab PO BID PRN 30 Days #60 tab 07/08/24 [Rx] Metoprolol Succinate (ER) [Toprol XL] 100 mg PO DAILY #30 tab 08/02/24 [Rx] traZODone HCL 100 mg PO HS 08/29/24 [History] HYDROcodone/APAP 7.5-325MG [[place] 7.5-325] 1 tab PO BID PRN 30 Days #60 tab 09/02/24 [Rx] Follow up Appointment(s)/Referral(s): Isiah Hernandez DO [Primary Care Provider] - 1-2 days Oumou Strauss MD [STAFF PHYSICIAN] - 1 Week Patient Instructions/Handouts: Cellulitis (GEN), Thrombocytopenia (DC), Hematoma (ED) Activity/Diet/Wound Care/Special Instructions: Activity limited until follow-up Follow-up with primary care provider on discharge Follow-up with cardiology Dr. Strauss outpatient in 1 to 2 weeks Continue to elevate right lower extremity while at rest If noticing increasing swelling of the lower extremity, hold Xarelto and contact primary care provider and cardiology Follow-up with the wound care center with vascular surgery outpatient Discharge Disposition: HOME SELF-CARE
== END 2024-09-06 17:20 | disposition home or self-care (01) | DRG 605 ==
LOC: EC 22:46 → 6NMEDSUR 08-29 03:39 → OBSVTOIN 08-29 03:40 → 6NMEDSUR 08-29 04:10
PROVIDERS: ADMIT Hospitalist; ATTEND Hospitalist
DX: S80.11XA Contusion of right lower leg, initial encounter (principal); D69.6 Thrombocytopenia, unspecified; I11.0 Hypertensive heart disease with heart failure; Z68.42 Body mass index [BMI] 45.0-49.9, adult; F29 Unspecified psychosis not due to a substance or known physiological condition; J45.40 Moderate persistent asthma, uncomplicated; I50.32 Chronic diastolic (congestive) heart failure; L03.115 Cellulitis of right lower limb; I48.0 Paroxysmal atrial fibrillation; E66.01 Morbid (severe) obesity due to excess calories; E78.5 Hyperlipidemia, unspecified; Z79.01 Long term (current) use of anticoagulants; Z85.528 Personal history of other malignant neoplasm of kidney; Z87.891 Personal history of nicotine dependence; Z90.5 Acquired absence of kidney; Z79.899 Other long term (current) drug therapy; Z79.51 Long term (current) use of inhaled steroids; Y92.320 Baseball field as the place of occurrence of the external cause; Y93.64 Activity, baseball; W21.03XA Struck by baseball, initial encounter; Q98.0 Klinefelter syndrome karyotype 47, XXY; Z96.653 Presence of artificial knee joint, bilateral
CPT/HCPCS: 36415; 80048; 80053; 85025; 86140; 87636; 94640; 96365; 96375; 96376; 99285